=== PATIENT | male | born 1950 | race Caucasian/White ===

== ENCOUNTER 2023-09-09 12:40 | Emergency (ER) | payer MEDICARE, OTHER, SELFPAY ==
[2023-09-09 12:44] VITALS: BP 133/83
[2023-09-09 13:00] VITALS: BP 125/77
[2023-09-09 13:09] LABS: % Basophils 0.5 % (0-2); % Eosinophils 4.1 % (0-6); % Immature Granulocytes 0.5 % (0-0.5); % Lymphocytes 11.9 % (20.5-51.1); Absolute Eosinophils 0.3 10^3/uL (0-0.7); Absolute Lymphocytes 0.8 10^3/uL (1.2-3.4); Absolute Monocytes 0.6 10^3/uL (0.1-0.6); Absolute Neutrophils 4.7 10^3/uL (1.4-6.5); Hematocrit 48.6 % (39.0-52.0); Hemoglobin 16.8 g/dL (13.0-18.0); Mean Corp Hgb Conc. 34.6 g/dL (33.0-37.0); Mean Corpuscular Hgb 30.4 pg (27.0-31.0); Mean Corpuscular Volume 87.9 fL (80.0-94.0); Mean Platelet Volume 9.1 fL (7.4-10.4); Nucleated Red Blood Cells % 0 % (-); Platelet Count 170 10^3/uL (130-400); Red Blood Cell Count 5.53 10^6/uL (4.70-6.10); Red Cell Dist. Width 13.2 % (11.5-14.5); White Blood Cell Count 6.4 10^3/uL (4.8-10.8)
--- NOTE | 2023-09-09 13:16 | ED.GENMED ---
History of Present Illness
General
Chief Complaint: Chest Pain
Source: patient
Exam Limitations: none
Time Seen by Provider: 09/09/23 13:04
Nursing documentation reviewed up to this point in time: agreed with
Travel History
Have you had any contact with someone who has COVID-19?: No
Do you have any symptoms of coronavirus? Fever > 100 degrees, chills, cough, shortness of breath, sore throat, loss of taste or smell, muscle aches, or headache?: No
History of Present Illness
History of Present Illness:
Patient to ED with complaint of left sided chest pain. States pain started last PM. Pain does not radiate. Describes pain as sharp. Reports mild SOB. Has cough but reports this is chronic. No fever/chills. +nausea. No vomiting/diarrhea.
States he had pericarditis 1 year ago, pain feels similar to that event. Reports last night he also developed urinary frequency. He was evaluated by PCP and diagnosed with UTI. Sent to ED when he reported chest pain. Brought to ED via EMS for
eval.
Past History
Past History
ED Past Medical History: Arrthythmia (Atrial fibrillation), COPD, CVA, HTN (Quit last week.), Hypercholesterolemia, Other (hepatitis), Other (pulmonary embolism) and Other (Pericarditis in 1976, DVT in 1999 with an IVC filter, hypertension,blood
clots left leg, with filter)
ED Past Surgical History: Cholecystectomy and Other (left testicular repair, varicose vein stripping,)
Social History
Tobacco: Former smoker
Alcohol: Occasional
Drug: None
Personal:
Living: with family
Employment: Employed
Family History
Family History: Other (Noncontributory )
Review of Systems
Review of Systems
Allergies reviewed?: Yes
All Other Systems: ROS reviewed and negative except as documented in HPI and ROS
Constitutional: Reports no symptoms
EENT: Reports no symptoms
Respiratory: Reports cough (chonic)
Cardiac: Reports chest pain (sharp left chest pain)
ABD/GI: Reports no symptoms
: Reports frequency
Musculoskeletal: Reports no symptoms
Skin: Reports no symptoms
Neurological: Reports no symptoms
Endocrine: Reports no symptoms
Psychiatric: Reports no symptoms
Phy Exam
General Physical Exam
General Presentation: well appearing and no apparent distress
General age: appears stated age
General Skin: warm and dry
General Habitus: normal
General Mental: alert
General Hydration: appears well hydrated
Cardiovascular Exam
Cardiovascular Exam: regular rate/rhythm
Pulmonary Exam
Pulmonary Exam: no respiratory distress
Gastrointestinal Exam
Gastrointestinal Exam: normal bowel sounds and non tender
Musculoskeletal Exam
Musculoskeletal Exam: full ROM and neuro vasc intact
Skin Exam
Skin Exam: normal color, warm/dry and no rash
Psychiatric Exam
Psychiatric Exam: normal mood/affect
Scores
Heart Score for Chest Pain Patients
STEMI patient?: No
History: Slightly or Non-Suspicious
ECG: Normal
Age: >/= 65 years
Risk Factors: 1 or 2 Risk Factors
Troponin: </= Normal Limit
Heart Score for Chest Pain Patients: 3
Heart Score Risk: 2.5% MACE over next 6 weeks
Course
Orders/Labs/Results
Orders:
Orders
09/09/23 12:48
Electrocardiogram (*1) Urgent
Reason for Study: Chest Pain
EKG- Treatment ONCE
09/09/23 12:58
CMP [Comprehensive Metabolic Panel] Urgent
Complete Blood Count/With Diff Urgent
Troponin I Urgent
09/09/23 13:14
CR Chest - 2 Views Urgent
Comment:
Reason For Exam: pain
09/09/23 15:26
Acetaminophen [Tylenol] 1,000 mg PO NOW STA
09/09/23 15:28
0.9% Sodium Chloride 1000 ml [Nss] 1,000 ml IV BOLUS
09/09/23 15:58
Urinalysis Reflex To Culture Urgent
Date Specimen was Collected: 09/09/23
Time Specimen was Collected: 15:57
Urine Microscopic Reflex Cult Urgent
Urine Culture Urgent
BRENDA Source: U
Specimen Description:
Date Specimen was Collected: 09/09/23
Time Specimen was Collected: 15:57
09/09/23 16:51
Amoxicillin 875 mg/Clav 125 mg [Augmentin 875 mg/125 mg] 1 tablet PO NOW STA
Abnormal Lab Results
09/09/23 09/09/23
12:58 15:58
Absolute Lymphs (auto) 0.8 L 10^3/uL
(1.2-3.4)
Lymphocytes % 11.9 L %
(20.5-51.1)
Sodium 134 L mmol/L
(135-145)
Potassium 3.4 L mmol/L
(3.5-5.1)
Glucose 226 H mg/dl
(70-99)
Urine Urobilinogen 2+ A
(Neg - 1+)
Leukocyte Esterase Rfl 1+ A
(Negative)
Urine WBC (Reflex) 11-15 A /HPF
(0-5)
Urine Bacteria (Reflex) Few A
(Negative)
Urine Glucose 1+ A
(Negative)
09/09/23 12:58
09/09/23 12:58
Vital Signs
Initial and Last Documented VS:
Initial Vital Signs
Temp Pulse Resp BP Pulse Ox
98.2 F 91 20 133/83 95
09/09/23 12:44 09/09/23 12:44 09/09/23 12:44 09/09/23 12:44 09/09/23 12:44
Last Documented Vital Signs
Temp Pulse Resp BP Pulse Ox
98.2 F 65 20 130/79 97
09/09/23 12:44 09/09/23 17:15 09/09/23 17:15 09/09/23 17:00 09/09/23 17:15
*Critical Care Note
Total Time (30-74mins, 75-104mins- exclusive of procedures): Not Applicable
ED Attending Note
-
Portions of this chart may have been created with voice recognition software.� Occasional wrong word or��sound alike� substitutions may have occurred due to the inherent limitations of voice recognition software.
Discharge Plan
Departure
Patient Disposition: Home (Routine Discharge)
Date of Disposition: 09/09/23
Time of Disposition: 17:21
Patient with high blood pressure during this ER visit?: No
Condition: Good
Covid-19: Not Applicable
Discharge Problem:
Urinary tract infection
Instructions: Chest Pain That Is Not Caused by the Heart (DC), Urinary Tract Infection, Adult (DC)
Prescriptions:
New
amoxicillin-pot clavulanate 875-125 mg tablet
1 tab PO Q12H Qty: 13 0RF
No Action
diltiazem HCl 240 MG capsule,extended release 24hr
240 mg PO DAILY
hydralazine 50 MG tablet
50 mg PO BID
Hold Instructions: hold until follow up with PCP
Patient Comments:
02/10/2020: Ordered on 01/16/2020 as TID, Pt takes this BID
Xarelto 20 MG tablet
20 mg PO QPM
Patient Comments:
losartan 50 MG tablet
100 mg PO DAILY
chlorthalidone 25 MG tablet
25 mg PO DAILY
pantoprazole 40 MG tablet,delayed release (DR/EC)
40 mg PO DAILY
eszopiclone [Lunesta] 3 MG tablet
3 mg PO HS
furosemide 20 MG tablet
20 mg PO HS
potassium chloride [Klor-Con M20] 20 MEQ tablet,ER particles/crystals
20 meq PO BID
atorvastatin 20 MG tablet
20 mg PO QPM
GlipiZIDE
5 mg PO DAILY
Rx Instructions:
extended release
docusate sodium 100 MG capsule
100 mg PO BID Qty: 0 0RF
cephalexin 500 mg capsule
500 mg PO Q8H 7 Days Qty: 21 0RF
levofloxacin 750 mg tablet
750 mg PO DAILY 5 Days Qty: 5 0RF
phenazopyridine [Pyridium] 200 mg tablet
200 mg PO TID Qty: 10 0RF
Referrals:
Steffen Dao MD [Family Provider] - Follow up in 2-3 days
Activity Restrictions/Additional Instructions:
Return to the emergency department immediately for any changes in/worsening of your symptoms
Interventions
Interventions:
*Risk Screen - Suicide Last Done: 09/09/23 12:44
*General Assessment Last Done: 09/09/23 12:44
*Neglect/Abuse Screening Last Done: 09/09/23 12:44
ED- Fall Risk Assessment Last Done: 09/09/23 12:56
*ED COVID-19 Vaccine History Last Done: 09/09/23 12:44
*Nursing Disposition Last Done: 09/09/23 17:36
ED- Cardiac Assessment Last Done: 09/09/23 12:53
Discharge Date and Time
Discharge Date/Time: 09/09/23 17:37
[2023-09-09 13:19] LABS: ALT (SGPT) 22 U/L (0-50); AST (SGOT) 26 U/L (17-59); Albumin 3.9 g/dl (3.5-5.0); Alkaline Phosphatase 102 U/L (38-126); Blood Urea Nitrogen 14 mg/dl (9-20); Calcium 8.6 mg/dl (8.4-10.2); Carbon Dioxide 27 mmol/L (22-30); Chloride 100 mmol/L (98-107); Glucose 226 mg/dl (70-99); Potassium 3.4 mmol/L (3.5-5.1); Sodium 134 mmol/L (135-145); Total Protein 6.5 g/dl (6.3-8.2); eGFR > 60.00
[2023-09-09 13:30] LABS: Troponin I < 0.012 ng/ml
[2023-09-09] MEDS: TYLENOL 1000 MG PO (15:32)
[2023-09-09] MEDS: NSS 1000 IV (15:33)
[2023-09-09 16:00] VITALS: BP 133/68
[2023-09-09 16:12] LABS: Urine Albumin Negative (Neg - Trace); Urine Bilirubin Negative (Negative); Urine Character Clear (Clear); Urine Color Yellow; Urine Glucose 1+ (Negative); Urine Ketone Negative (Negative); Urine Leukocyte 1+ (Negative); Urine Nitrite Negative (Negative); Urine Occult Blood Negative (Negative); Urine Specific Gravity 1.015 (<1.030); Urine Urobilinogen 2+ (Neg - 1+)
[2023-09-09 16:26] LABS: Urine Mucus Few
[2023-09-09 16:27] LABS: Urine Bacteria Few (Negative); Urine Red Blood Cell 0-2 /HPF (0-2); Urine Squamous Cell 0-2 /LPF (Few)
[2023-09-09] MEDS: AUGMENTIN 875 MG/125 MG 1 TABLET PO (16:56)
[2023-09-09 17:00] VITALS: BP 130/79
== END 2023-09-09 17:37 | disposition home or self-care (01) ==
LOC: EMR 12:40
PROVIDERS: Nurse Practitioner; EMERGENCY PHYSICIAN Emergency Medicine; FAMILY PHYSICIAN Family Medicine
DX: N39.0 Urinary tract infection, site not specified (principal)
CPT/HCPCS: 99285; 96360; 71046; 80053; 81003; 81015; 84484; 85025; 87086; 93005

== ENCOUNTER → 2023-09-16 12:19 | Outpatient (REF) | payer MEDICARE, OTHER, SELFPAY ==
[2023-09-16 19:17] LABS: Urine Albumin Negative (Neg - Trace); Urine Bilirubin Negative (Negative); Urine Character Clear (Clear); Urine Color Yellow; Urine Glucose 1+ (Negative); Urine Ketone Trace (Negative); Urine Leukocyte Trace (Negative); Urine Nitrite Negative (Negative); Urine Occult Blood Negative (Negative); Urine Specific Gravity 1.015 (<1.030); Urine Urobilinogen 2+ (Neg - 1+)
[2023-09-16 19:24] LABS: Urine Red Blood Cell None Seen /HPF (0-2); Urine Squamous Cell 0-2 /LPF (Few)
== END ==
LOC: CLAB 12:19
PROVIDERS: ATTENDING PHYSICIAN Physician Assistant Medical
DX: R30.0 Dysuria (principal)
CPT/HCPCS: 81003; 81015

== ENCOUNTER → 2023-09-29 11:31 | Outpatient (REF) | payer MEDICARE, OTHER, SELFPAY ==
[2023-09-29 12:37] LABS: Sodium 136 mmol/L (135-145)
== END ==
LOC: REG 11:31
PROVIDERS: ATTENDING PHYSICIAN Physician Assistant Medical
DX: Z09 Encounter for follow-up examination after completed treatment for conditions other than malignant neoplasm (principal); R07.9 Chest pain, unspecified; M15.0 Primary generalized (osteo)arthritis; K43.2 Incisional hernia without obstruction or gangrene; I65.23 Occlusion and stenosis of bilateral carotid arteries; I63.50 Cerebral infarction due to unspecified occlusion or stenosis of unspecified cerebral artery; G45.9 Transient cerebral ischemic attack, unspecified; E66.01 Morbid (severe) obesity due to excess calories; R97.20 Elevated prostate specific antigen [PSA]; C61 Malignant neoplasm of prostate; G47.33 Obstructive sleep apnea (adult) (pediatric); E11.59 Type 2 diabetes mellitus with other circulatory complications; G47.00 Insomnia, unspecified; K76.0 Fatty (change of) liver, not elsewhere classified; J98.4 Other disorders of lung; I48.11 Longstanding persistent atrial fibrillation; Z86.73 Personal history of transient ischemic attack (TIA), and cerebral infarction without residual deficits
CPT/HCPCS: 36415; 84132; 84295

== ENCOUNTER → 2023-10-13 14:59 | Outpatient (REF) | payer MEDICARE, OTHER, SELFPAY | LOC: RAD 14:59 | PROVIDERS: ATTENDING PHYSICIAN Family Medicine | DX: R30.0 Dysuria (principal) | CPT/HCPCS: 87086 ==

== ENCOUNTER → 2023-10-30 14:35 | Outpatient (REF) | payer MEDICARE, OTHER, SELFPAY | LOC: RAD 14:35 | PROVIDERS: ATTENDING PHYSICIAN Family Medicine | DX: M25.561 Pain in right knee (principal); M25.562 Pain in left knee; R29.898 Other symptoms and signs involving the musculoskeletal system | CPT/HCPCS: 73564 ==

== ENCOUNTER 2023-11-01 15:40 | Inpatient (IN) | payer MEDICARE, OTHER, SELFPAY ==
[2023-11-01] VITALS (9 sets, daily range): BP systolic 120–152; BP diastolic 92–112; BMI 37.8
[2023-11-01 11:55] LABS: % Basophils 0.2 % (0-2); % Eosinophils 0.5 % (0-6); % Immature Granulocytes 0.6 % (0-0.5); % Lymphocytes 7.4 % (20.5-51.1); % Monocytes 8.5 % (1.7-9.3); % Neutrophils 82.8 % (42.2-75.2); Absolute Eosinophils 0.1 10^3/uL (0-0.7); Absolute Immature Granulocytes 0.1 10^3/uL (0-0.05); Absolute Lymphocytes 0.7 10^3/uL (1.2-3.4); Absolute Monocytes 0.9 10^3/uL (0.1-0.6); Absolute Neutrophils 8.3 10^3/uL (1.4-6.5); Hematocrit 54.6 % (39.0-52.0); Hemoglobin 18.5 g/dL (13.0-18.0); Mean Corp Hgb Conc. 33.9 g/dL (33.0-37.0); Mean Corpuscular Hgb 30.1 pg (27.0-31.0); Mean Corpuscular Volume 88.8 fL (80.0-94.0); Mean Platelet Volume 9.5 fL (7.4-10.4); Nucleated Red Blood Cells % 0 % (-); Platelet Count 187 10^3/uL (130-400); Red Blood Cell Count 6.15 10^6/uL (4.70-6.10); Red Cell Dist. Width 13.9 % (11.5-14.5)
[2023-11-01 12:12] LABS: ALT (SGPT) 23 U/L (0-50); AST (SGOT) 19 U/L (17-59); Albumin 3.7 g/dl (3.5-5.0); Alkaline Phosphatase 93 U/L (38-126); Blood Urea Nitrogen 26 mg/dl (9-20); Calcium 9.3 mg/dl (8.4-10.2); Carbon Dioxide 29 mmol/L (22-30); Chloride 101 mmol/L (98-107); Estimated Creatinine Clearance 78 ml/min; Glucose 180 mg/dl (70-99); Lipase 48 U/L (23-300); Potassium 3.7 mmol/L (3.5-5.1); Sodium 135 mmol/L (135-145); Total Bilirubin 1.2 mg/dl (0.2-1.3); Total Protein 6.2 g/dl (6.3-8.2); eGFR > 60.00
[2023-11-01] MEDS: DILAUDID 1 MG IV ×3 (13:15→22:26)
--- NOTE | 2023-11-01 13:38 | ED.GENMED ---
History of Present Illness
<Colin Palafox DO - Last Filed: 11/01/23 14:50>
General
Chief Complaint: Abdominal Pain
Time Seen by Provider: 11/01/23 12:43
Travel History
Have you had any contact with someone who has COVID-19?: No
Do you have any symptoms of coronavirus? Fever > 100 degrees, chills, cough, shortness of breath, sore throat, loss of taste or smell, muscle aches, or headache?: No
<Isabell Clayton PA-C - Last Filed: 11/15/23 21:57>
General
Source: patient
Exam Limitations: none
Nursing documentation reviewed up to this point in time: agreed with
History of Present Illness
History of Present Illness:
pt is a 73 y/o F with h/o copd, PE,afib on xarelto, cva
pt bhakta h/o UTI
was on keflex over the past 3 weeks for uti
2 days ago he started having abd pain. he called pcp who told him to try tylenol and stopo the keflex which he did but the pain got worse, nausea, but no vomiting
had some abdomina ldistention
he has a h/o abdminal hernia with SBO s/p surgery a year ago
able to pass gas
Past History
<Colin Palafox DO - Last Filed: 11/01/23 14:50>
Past History
ED Past Medical History: Arrthythmia (Atrial fibrillation), COPD, CVA, HTN (Quit last week.), Hypercholesterolemia, Other (hepatitis), Other (pulmonary embolism) and Other (Pericarditis in 1976, DVT in 1999 with an IVC filter, hypertension,blood
clots left leg, with filter)
ED Past Surgical History: Cholecystectomy and Other (left testicular repair, varicose vein stripping,)
Social History
Tobacco: Former smoker
Alcohol: Occasional
Drug: None
Personal:
Living: with family
Employment: Employed
Family History
Family History: Other (Noncontributory )
Review of Systems
<Isabell Clayton PA-C - Last Filed: 11/15/23 21:57>
Review of Systems
Allergies reviewed?: Yes
All Other Systems: Not applicable
Phy Exam
<Isabell Clayton PA-C - Last Filed: 11/15/23 21:57>
Physical Exam
Physical Exam:
GENERAL: Alert , very uncomfortable
EYE: pupils equal and reactive
NECK: Supple
ENT: o/p clr, mmm.
CARDIAC: Regular rate and rhythm .
LUNGS: Clear breath sounds bilaterally, no acute respiratory distress, no wheezes/rales/rhonchi
ABDOMEN: Soft, distneded; tender, uncomfortable, rolling around in the bed
appreicate hernia
no cvat, normal bowel sounds
NEUROLOGICAL: Alert and oriented, no focal neuro deficits
SKIN: Warm and dry, skin intact.
MUSCULOSKELETAL: No edema, well perfused.
PSYCH: Normal and appropriate interaction.
Course
<Colin Palafox DO - Last Filed: 11/01/23 14:50>
Orders/Labs/Results
Orders:
Orders
11/01/23 11:45
Complete Blood Count/With Diff Urgent
Comprehensive Metabolic Panel Urgent
Lipase Urgent
11/01/23 13:10
Bladder Scan- Treatment ONCE
HYDROmorphone [Dilaudid] 1 mg IV NOW STA
11/01/23 13:11
CT Abd/Pel (IV only)-DH only Urgent
Comment:
Reason For Exam: severe abd pain, distension
11/01/23 14:11
0.9% Sodium Chloride 500 ml [Nss] 500 ml IV BOLUS
11/01/23 14:16
Lactic Acid Urgent
11/01/23 15:25
Admit/Transfer Patient As Directed
Co-Sign Provider:
Level of Care: Inpatient admission
Assign to:: Medical/Surgical
Physician / Group: hospitalist
Diagnosis: Small bowel obstruction
Reason for Hospitalization: small bowel obstruction
Expected length of stay greater than two midnights?: Yes
ELOS- Estimated Length of Stay in days: 2
I certify the patient meets the requirements for IP care: Yes
11/01/23 15:27
Code Status As Directed
Resuscitation Status: Full Code
11/01/23 16:35
Urinalysis Reflex To Culture Urgent
Date Specimen was Collected: 11/01/23
Time Specimen was Collected: 14:03
Urine Microscopic Reflex Cult Urgent
11/01/23 16:36
HYDROmorphone [Dilaudid] 1 mg IV Q4HPRN PRN
11/01/23 17:02
Acetaminophen [Tylenol] 650 mg PO Q4HPRN PRN
Docusate W/Senna [Senokot-S] 1 tablet PO BIDPRN PRN
Insulin Aspart Corrective Low [Novolog Flexpen-Low Resistance] See Protocol SC AC
Lactated Ringers [Lr] 1,000 ml IV 50 mls/hr
Ondansetron Injectable [Zofran] 4 mg IV Q6HPRN PRN
11/01/23 17:02
VTE Contraindication Routine
VTE Mechanical Device Contraindication: Medical Contraindication
Pharmocologic Contraindication: Medical Contraindication
Comment: On treatment dose rivaroxaban
Activity As Directed
Activity Level: With Assistance
Bedside Glucose Monitoring As Directed
Frequency: AC&HS
Vital Signs As Directed
Frequency: Per unit guidelines
11/01/23 22:00
Atorvastatin [Lipitor] 20 mg PO HS
Rivaroxaban [Xarelto] 20 mg PO HS
11/02/23 06:36
Basic Metabolic Panel IN AM
Complete Blood Count/No Diff IN AM
11/02/23 07:30
Advance Diet as Tolerated AC
Goal Diet: 1800 howard/ 15 CHO Diabetic
11/02/23 08:00
Chlorthalidone [Hygroton] 25 mg PO DAILY
Diltiazem Extended Release [Cardizem Cd] 240 mg PO DAILY
Losartan [Cozaar] 100 mg PO DAILY
Pantoprazole [Protonix] 40 mg PO DAILY
Abnormal Lab Results
11/01/23
11:45
RBC 6.15 H 10^6/uL
(4.70-6.10)
Hgb 18.5 H g/dL
(13.0-18.0)
Hct 54.6 H %
(39.0-52.0)
Abs Immat Gran (auto) 0.1 H 10^3/uL
(0-0.05)
Absolute Neuts (auto) 8.3 H 10^3/uL
(1.4-6.5)
Absolute Lymphs (auto) 0.7 L 10^3/uL
(1.2-3.4)
Absolute Monos (auto) 0.9 H 10^3/uL
(0.1-0.6)
Immature Gran % 0.6 H %
(0-0.5)
Neutrophils % 82.8 H %
(42.2-75.2)
Lymphocytes % 7.4 L %
(20.5-51.1)
BUN 26 H mg/dl
(9-20)
Glucose 180 H mg/dl
(70-99)
Total Protein 6.2 L g/dl
(6.3-8.2)
11/01/23 11:45
11/01/23 11:45
Vital Signs
Initial and Last Documented VS:
Initial Vital Signs
Temp Pulse Resp BP
97.5 F 85 22 120/92
11/01/23 11:35 11/01/23 11:35 11/01/23 11:35 11/01/23 11:35
Last Documented Vital Signs
Temp Pulse Resp BP Pulse Ox
98.8 F 87 20 121/83 94
11/05/23 13:00 11/05/23 13:00 11/05/23 13:00 11/05/23 13:00 11/05/23 13:00
<Isabell Clayton PA-C - Last Filed: 11/15/23 21:57>
Orders/Labs/Results
Orders:
Orders
11/01/23 11:45
Complete Blood Count/With Diff Urgent
Comprehensive Metabolic Panel Urgent
Lipase Urgent
11/01/23 13:10
Bladder Scan- Treatment ONCE
HYDROmorphone [Dilaudid] 1 mg IV NOW STA
11/01/23 13:11
CT Abd/Pel (IV only)-DH only Urgent
Comment:
Reason For Exam: severe abd pain, distension
11/01/23 14:11
0.9% Sodium Chloride 500 ml [Nss] 500 ml IV BOLUS
11/01/23 14:16
Lactic Acid Urgent
11/01/23 15:25
Admit/Transfer Patient As Directed
Co-Sign Provider:
Level of Care: Inpatient admission
Assign to:: Medical/Surgical
Physician / Group: hospitalist
Diagnosis: Small bowel obstruction
Reason for Hospitalization: small bowel obstruction
Expected length of stay greater than two midnights?: Yes
ELOS- Estimated Length of Stay in days: 2
I certify the patient meets the requirements for IP care: Yes
11/01/23 15:27
Code Status As Directed
Resuscitation Status: Full Code
11/01/23 16:35
Urinalysis Reflex To Culture Urgent
Date Specimen was Collected: 11/01/23
Time Specimen was Collected: 14:03
Urine Microscopic Reflex Cult Urgent
11/01/23 16:36
HYDROmorphone [Dilaudid] 1 mg IV Q4HPRN PRN
11/01/23 17:02
Acetaminophen [Tylenol] 650 mg PO Q4HPRN PRN
Docusate W/Senna [Senokot-S] 1 tablet PO BIDPRN PRN
Insulin Aspart Corrective Low [Novolog Flexpen-Low Resistance] See Protocol SC AC
Lactated Ringers [Lr] 1,000 ml IV 50 mls/hr
Ondansetron Injectable [Zofran] 4 mg IV Q6HPRN PRN
11/01/23 17:02
VTE Contraindication Routine
VTE Mechanical Device Contraindication: Medical Contraindication
Pharmocologic Contraindication: Medical Contraindication
Comment: On treatment dose rivaroxaban
Activity As Directed
Activity Level: With Assistance
Bedside Glucose Monitoring As Directed
Frequency: AC&HS
Vital Signs As Directed
Frequency: Per unit guidelines
11/01/23 22:00
Atorvastatin [Lipitor] 20 mg PO HS
Rivaroxaban [Xarelto] 20 mg PO HS
11/02/23 06:36
Basic Metabolic Panel IN AM
Complete Blood Count/No Diff IN AM
11/02/23 07:30
Advance Diet as Tolerated AC
Goal Diet: 1800 howard/ 15 CHO Diabetic
11/02/23 08:00
Chlorthalidone [Hygroton] 25 mg PO DAILY
Diltiazem Extended Release [Cardizem Cd] 240 mg PO DAILY
Losartan [Cozaar] 100 mg PO DAILY
Pantoprazole [Protonix] 40 mg PO DAILY
Abnormal Lab Results
11/01/23
11:45
RBC 6.15 H 10^6/uL
(4.70-6.10)
Hgb 18.5 H g/dL
(13.0-18.0)
Hct 54.6 H %
(39.0-52.0)
Abs Immat Gran (auto) 0.1 H 10^3/uL
(0-0.05)
Absolute Neuts (auto) 8.3 H 10^3/uL
(1.4-6.5)
Absolute Lymphs (auto) 0.7 L 10^3/uL
(1.2-3.4)
Absolute Monos (auto) 0.9 H 10^3/uL
(0.1-0.6)
Immature Gran % 0.6 H %
(0-0.5)
Neutrophils % 82.8 H %
(42.2-75.2)
Lymphocytes % 7.4 L %
(20.5-51.1)
BUN 26 H mg/dl
(9-20)
Glucose 180 H mg/dl
(70-99)
Total Protein 6.2 L g/dl
(6.3-8.2)
11/01/23 11:45
11/01/23 11:45
Vital Signs
Initial and Last Documented VS:
Initial Vital Signs
Temp Pulse Resp BP
97.5 F 85 22 120/92
11/01/23 11:35 11/01/23 11:35 11/01/23 11:35 11/01/23 11:35
Last Documented Vital Signs
Temp Pulse Resp BP Pulse Ox
98.8 F 87 20 121/83 94
11/05/23 13:00 11/05/23 13:00 11/05/23 13:00 11/05/23 13:00 11/05/23 13:00
<Isabell Clayton PA-C - Last Filed: 11/15/23 21:57>
MDM/Problems Addressed
Differential Diagnosis Includes:
hernia, sbo, ischemia
MDM/Problems Addressed:
73 y/o M with previous sbo, hernia
here with severe abd pain
started 2 days ago
on abx for UTI
passing gas, not vomiting, o fever
on exam very uncomfottable prior to pain meds, difficult to examine abdomen
has hernia
on ct shows sbo at the level of the in the location of his hernia
seen by surgery who was able to reduce at bedside
admit to hospitalist.
<Isabell Clayton PA-C - Last Filed: 11/15/23 21:57>
*Critical Care Note
Total Time (30-74mins, 75-104mins- exclusive of procedures): Not Applicable
ED Attending Note
<Colin Palafox DO - Last Filed: 11/01/23 14:50>
ED Attending Note
Patient seen and examined by attending physician: Yes
I performed the substantive portion of visit, reviewed & personally made and approve the management plan that is documented in note by myself or AYANA.: Yes
ED Attending Note:
73-year-old male with abdominal function. Previous bowel obstructions and surgeries noted. Assessment and plan: Exam shows distended tympanitic abdomen. Surgery at bedside.
-
Portions of this chart may have been created with voice recognition software.� Occasional wrong word or��sound alike� substitutions may have occurred due to the inherent limitations of voice recognition software.
Discharge Plan
Departure
Patient Disposition: Admit
Date of Disposition: 11/01/23
Time of Disposition: 14:13
Admit to: Med/Surg
Presentation/result/management discussed w/ accepting MD/DO: Hospitalist
Patient with high blood pressure during this ER visit?: No
Condition: Fair
Covid-19: Not Applicable
Discharge Problem:
SBO (small bowel obstruction)
Interventions
Interventions:
*Risk Screen - Suicide Last Done: 11/01/23 13:30
*General Assessment Last Done: 11/01/23 11:35
*Neglect/Abuse Screening Last Done: 11/01/23 13:30
ED- Fall Risk Assessment Last Done: 11/01/23 13:30
*ED COVID-19 Vaccine History Last Done: 11/01/23 11:35
*Nursing Disposition Last Done: 11/01/23 17:15
QY-Nwswea-Pzgwqictwn Assessment Last Done: 11/01/23 13:30
Discharge Date and Time
Discharge Date/Time: 11/01/23 17:15
[2023-11-01] MEDS: NSS 500 IV (14:42)
[2023-11-01 14:47] LABS: Lactic Acid 1.8 mmol/L (0.7-2.0)
--- NOTE | 2023-11-01 14:58 | CON.GS ---
Addendum entered and electronically signed by Akash Downey MD 11/01/23 15:45:
I saw and examined the patient independently.
The Hand Former's note was reviewed and I agree with the note, assessment and plan except where noted below.
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
laparotomy in the early for unclear reasons but had a complex hospital stay and to return to the OR before he had what sounds like a mesh repair. Presents to our hospital in the setting of a recent UTI (currently on cephalexin) with a 2-day
history of abdominal pain and obstipation. The patient denies Fever, Chest Pain, Shortness Of Breath, Nausea, Vomiting, changes in urinary habits, unintentional weight loss. He underwent a CT scan here in our emergency department where he was
diagnosed with a small bowel obstruction with a transition point at the superior aspect of his incisional hernia. Fortunately on exam, it is soft and reducible and the defect is readily palpable despite his body habitus. In addition and he was
actually seen in September of last year for similar presentation and his CT scan from that time (which I also reviewed) showed a similar hernia/transition point. He was able to be managed nonoperatively then.
N.p.o., IV fluids. Can hold off on an NG tube for now as long as the patient does not have worsening nausea or vomiting. If he does please place an NG tube, given his small naris will likely be able only to pass a 14 Persian NG.
Will manage his small bowel obstruction nonoperatively for now.
General surgery will follow with serial abdominal exams.
I did discuss the need for surgery and repair of this hernia at some point we will discuss either potentially this admission if he does not improve versus electively as an outpatient.
I spent roughly 60 minutes in total for the care of this patient today including direct patient care and counseling, reviewing labs, imaging, coordination of care, as well as documentation.
Original Note:
Consultation
-
Date/Time Consultation Requested: 11/01/23
Date/Time Consultation Performed: Matilde
Requesting Provider: Karin Downey
Reason for Consultation: sbo
Medical History
-
Chief Complaint: abdominal pain
History of Present Illness:
This is a 73 yo male on Xarelto with h/o obesity, AFIB, DVT/PE, IVC filter, DM, CVA, ROGELIO, open cholecystectomy , UHR in , prior ex lap in early at [facility] (he is unsure what prompted the original surgery) with return to dehiscence and
return to the OR and eventual VHR with mesh, currently on cephalexin for UTI. He was admitted in September of last year and in 2012 for SBOs which resolved nonoperatively with supportive measures. He presents today with increasing abdominal pain which
started yesterday and worsened causing him to present for evaluation. He denies nausea and vomiting. He has not passed flatus since yesterday. There is an umbilical hernia present but reducible/soft. He notes pain is much improved status post IV
analgesics. There is minimal tenderness to the mid abdomen with palpation.
Past Medical History
Past Medical History: Cancer (prostate), COPD, CVA, HTN, Hypercholesterolemia, NIDDM and Other (PE/DVT, IVC filter)
Past Surgical History: Cholecystectomy (open), Hernia Repair (Umbilical and Ventral) and Urological (left orchiectomy at age 16 )
Social History
Tobacco: Former Smoker
Alcohol: Occasional
Personal:
Living: With Family
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
Family History
Family History: Reviewed & Not Pertinent
Allergies / Home Medications
Allergy/AdvReac Type Severity Reaction Status Date / Time
adhesive Allergy TAPE-RASH Verified 11/01/23 11:43
latex Allergy Hives Verified 11/01/23 11:43
metoclopramide HCl Allergy muscle Verified 11/01/23 11:43
[From Reglan] twitching
oxycodone [From Percocet] Allergy Vomiting Verified 11/01/23 11:43
oxycodone terephthalate Allergy vomiting Verified 11/01/23 11:43
[From Percodan]
prochlorperazine maleate Allergy vomiting Verified 11/01/23 11:43
[From Compazine]
propoxyphene HCl Allergy vomiting Verified 11/01/23 11:43
[From Darvon]
�Medication �Instructions �Recorded �Confirmed �Type
diltiazem HCl 240 mg 240 mg PO DAILY Blood pressure 12/20/14 10/08/22 History
capsule,extended release 24 hr
hydralazine 50 mg tablet 50 mg PO BID Blood pressure 09/16/16 10/08/22 History
rivaroxaban 20 mg tablet (Xarelto) 20 mg PO QPM Blood clot 09/16/16 10/08/22 History
prevention/tx
losartan 50 mg tablet 100 mg PO DAILY Blood pressure 01/13/18 10/08/22 History
chlorthalidone 25 mg tablet 25 mg PO DAILY Fluid 01/21/18 10/08/22 History
retention/Swelling
pantoprazole 40 mg tablet,delayed 40 mg PO DAILY Gastrointestinal 01/21/18 10/08/22 History
release issue
eszopiclone 3 mg tablet (Lunesta) 3 mg PO HS Sleep 02/10/20 10/08/22 History
furosemide 20 mg tablet 20 mg PO HS Fluid 02/10/20 10/08/22 History
retention/Swelling
potassium chloride 20 mEq 20 meq PO BID Supplement 02/11/20 10/08/22 History
tablet,extended
release(part/cryst) (Klor-Con M)
atorvastatin 20 mg tablet 20 mg PO QPM High cholesterol 05/09/20 10/08/22 History
GlipiZIDE 5 mg PO DAILY Diabetes 12/05/20 10/08/22 History
docusate sodium 100 mg capsule 100 mg PO BID #0 caps 10/14/22 10/08/22 Rx
cephalexin 500 mg capsule 500 mg PO Q8H 7 days #21 caps 04/16/23 Rx
levofloxacin 750 mg tablet 750 mg PO DAILY 5 days #5 tabs 04/19/23 Rx
phenazopyridine 200 mg tablet 200 mg PO TID #10 tabs 04/19/23 Rx
(Pyridium)
amoxicillin 875 mg-potassium 1 tab PO Q12H #13 tabs 09/09/23 Rx
clavulanate 125 mg tablet
Review of Systems
-
History Source: Patient and Family
All other systems: Negative unless noted
A 10 point review of systems was completed, and was negative except as per HPI.
Physical Exam
Vital Signs
Temp Pulse Resp BP
97.5 F 82 16 152/104
11/01/23 11:35 11/01/23 13:52 11/01/23 12:15 11/01/23 13:51
10/31/23 11/01/23 11/02/23
06:59 06:59 06:59
Actual Weight 109.3 kg
Body Mass Index (BMI) 37.8
Lab Results
11/01/23 11:45
11/01/23 11:45
WBC 10.0 10^3/uL (4.8-10.8) 11/01/23 11:45
Hgb 18.5 g/dL (13.0-18.0) H 11/01/23 11:45
Hct 54.6 % (39.0-52.0) H 11/01/23 11:45
Plt Count 187 10^3/uL (130-400) 11/01/23 11:45
Abs Immat Gran (auto) 0.1 10^3/uL (0-0.05) H 11/01/23 11:45
Neutrophils % 82.8 % (42.2-75.2) H 11/01/23 11:45
Physical Exam
General: Well Developed
HEENT: Moist Mucous Membranes
Respiratory: Non Labored Respirations
GI: Soft, Tender (minimally), Obese and Other (Umbilical hernia, reducible/soft)
Skin: Warm and Dry
Neuro: Awake, Alert and AO x 3
Psych: Calm
Assessment / Plan
-
73 yo male on Xarelto (LD 10/31/23 pm) and multiple intraabdominal surgeries including open cholecystectomy and ex lap with dehiscence and eventual ventral hernia repair with mesh with SBO x2 since that time, the last being in 2022. He presents today
with abdominal pain with CT imaging in the ED noting small bowel obstruction with likely transition point within the umbilical hernia. The hernia was able to be reduced at bedside/soft. Minimal tenderness.
--No plans for emergent surgery today, will hopefully have resolution with nonoperative measures
--Keep NPO. NGT placement if develops nausea and vomiting, hold off for now
--Hold Xarelto in case surgical intervention warranted this admission
--Medical management as per hospitalist team
--- NOTE | 2023-11-01 15:10 | HPS.HSE ---
Family Physician
-
Family Physician: Steffen Dao
Chief Complaint
-
Abdominal pain
History of Present Illness
This is a 50-year-old male with past medical history of dm II, atrial fibrillation on anticoagulation, factor V Leiden mutation heterozygous, hypertension, CAD, COPD, morbid obesity, recurrent urinary tract infection who presents to the emergency
department following 2 days of acute onset bilateral lower quadrant abdominal pain.
Patient apparently had been recently treated again for urinary tract infection. He was placed on a long cephalexin for about 3 weeks. He reported that started having symptoms of abdominal pain 2 days ago. He reported dizziness to his PMD who
asked him to stop the cephalexin and take Tylenol. However patient continued to have pain which became more intense. There was associated nausea but no vomiting. There was no diarrhea. There was no radiation. He was unable to tolerate p.o. He
started noticing increasing abdominal distention and was asked to come to the emergency department.
Of note patient has a history of abdominal hernia pressure small bowel obstruction status post surgical repair a year ago.
In the ED he was initially hypertensive, with a BP of 150/104 pulse was 80 respiratory was 16. He was afebrile. CBC was unremarkable. Chemistries were also within normal limits. CT of the abdomen pelvis showed a small bowel obstruction with
transition point at the umbilical hernia site. Surgery was consulted. He was evaluated and they did a manual reduction with resolution of the umbilical hernia. Patient still has abdominal distention at this time. However it does not require
immediate surgery nor does he require NG tube placement at this time.
Medical History
Past Medical History
Past Medical History: Reports Arrhythmia, CAD, COPD, HTN, Hypercholesterolemia and NIDDM
Additional Past Medical History:
prostate Ca s/p radiation tx
Morbid obesity
Factor 5 leiden heterozygous mutation
Past Surgical History: Reports Other
Additional Past Surgical History:
Abdominal hernia repair
Social History
Tobacco: Former Smoker
Alcohol: Occasional
Drug: None
Personal:
Living: With Family
Employment: Retired
Family History
Family History: Not pertinent
Allergies / Home Medications
Allergies reflects when Allergies were last updated in [facility].
Home Medications with original date entered in [facility]
Allergy/Medication List:
Allergies
Allergy/AdvReac Type Severity Reaction Status Date / Time
adhesive Allergy TAPE-RASH Verified 11/01/23 11:43
latex Allergy Hives Verified 11/01/23 11:43
metoclopramide HCl Allergy muscle Verified 11/01/23 11:43
[From Reglan] twitching
oxycodone [From Percocet] Allergy Vomiting Verified 11/01/23 11:43
oxycodone terephthalate Allergy vomiting Verified 11/01/23 11:43
[From Percodan]
prochlorperazine maleate Allergy vomiting Verified 11/01/23 11:43
[From Compazine]
propoxyphene HCl Allergy vomiting Verified 11/01/23 11:43
[From Darvon]
Home Medications
diltiazem HCl 240 mg capsule,extended release 24 hr 240 mg PO DAILY Blood pressure 12/20/14
hydralazine 50 mg tablet 50 mg PO BID Blood pressure 09/16/16
rivaroxaban 20 mg tablet (Xarelto) 20 mg PO QPM Blood clot prevention/tx 09/16/16
losartan 50 mg tablet 100 mg PO DAILY Blood pressure 01/13/18
chlorthalidone 25 mg tablet 25 mg PO DAILY Fluid retention/Swelling 01/21/18
pantoprazole 40 mg tablet,delayed release 40 mg PO DAILY Gastrointestinal issue 01/21/18
eszopiclone 3 mg tablet (Lunesta) 3 mg PO HS Sleep 02/10/20
furosemide 20 mg tablet 20 mg PO HS Fluid retention/Swelling 02/10/20
potassium chloride 20 mEq tablet,extended release(part/cryst) (Klor-Con M) 20 meq PO BID Supplement 02/11/20
atorvastatin 20 mg tablet 20 mg PO QPM High cholesterol 05/09/20
GlipiZIDE 5 mg PO DAILY Diabetes 12/05/20
docusate sodium 100 mg capsule 100 mg PO BID #0 caps 10/14/22
cephalexin 500 mg capsule 500 mg PO Q8H 7 days #21 caps 04/16/23
levofloxacin 750 mg tablet 750 mg PO DAILY 5 days #5 tabs 04/19/23
phenazopyridine 200 mg tablet (Pyridium) 200 mg PO TID #10 tabs 04/19/23
amoxicillin 875 mg-potassium clavulanate 125 mg tablet 1 tab PO Q12H #13 tabs 09/09/23
Review of Systems
-
History Source: Patient
Constitutional: Reports No Symptoms
EENT: Reports No Symptoms
Respiratory: Reports No Symptoms
Cardiac: Reports No Symptoms
Abdomen/GI: Reports Abdominal Pain and Nausea
: Reports Urgency
Musculoskeletal: Reports No Symptoms
Skin: Reports No Symptoms
Neurological: Reports No Symptoms
Endocrine: Reports No Symptoms
Hematologic/Lymphatic: Reports No Symptoms
Psych: Reports No Symptoms
Physical Exam
Vital Signs
Vital Signs
Temp Pulse Resp BP
97.5 F 82 16 152/104
11/01/23 11:35 11/01/23 13:52 11/01/23 12:15 11/01/23 13:51
Physical Exam
General: Well Developed, Well Nourished, Appears in Distress and Morbidly Obese
HEENT: NormoCephalic, Anicteric, Moist mucous membranes, Atraumatic, PERRLA and [place] Conjunctivae
Respiratory: Clear
Cardiac: S1/S2 and Irregular Rhythm
Breast: Deferred by me
GI: Normal Bowel Sounds, Tender, Distended and No Hepatosplenomegaly
Rectal: Deferred by Provider
Genito-urinary: Deferred by me
Musculoskeletal: No Clubbing, No Cyanosis and No Edema
Skin: Warm
Neuro: AO x 3
Hematologic/Lymphatic: No Lymphadenopathy
Psych: Calm
Laboratory Results
-
11/01/23 11:45
11/01/23 11:45
Laboratory Results
Lactic Acid 1.8 mmol/L (0.7-2.0) 11/01/23 14:16
Total Bilirubin 1.2 mg/dl (0.2-1.3) 11/01/23 11:45
AST 19 U/L (17-59) 11/01/23 11:45
ALT 23 U/L (0-50) 11/01/23 11:45
Alkaline Phosphatase 93 U/L (38-126) 11/01/23 11:45
Lipase Cancelled 11/01/23 13:10
Data Reviewed
-
CT Scan: Report Reviewed by me and Discussed with Physician
Lab Data: Labs Reviewed by me
Old Records: Reviewed
Impression/Plan
-
IMPRESSION:
73 M w/ multiple commorbiditis presenting with acute onset abdominal pain for 2 days, distension and tenderness to palpation. Found to have a SBO at the umbilical site. Surgery consulted in ED who did external reduction of the hernia. They
discussed that no surgery is required immediately but he will likely need a non-urgent hernia repair to prevent future recurrence. He has positive bowel sounds and is not vomiting. Labs are stable.
PLAN:
1. SBO - Secondary to umbilical hernai s/p reduction. Not passing gas yet. Manual correction by Dr. Hyatt. No immediate surgery recommended.
- admit to [facility]
- clear liquid diet for now, advance in am as tolerated
- pain control and antiemetics
- if uncontrollable nausea or vomiting, will place NGT but not needed at this time
- serial examinations.
- gentle IV fluids overnight
2. Atrial fibrillation - Rate controlled
- continue Xarelto
- continue diltiazem
3. Chronic UTI - on a chronic course of cephalexin. History of prostate ca s/p XRT.
- holding cephalexin per pmd. Negative cultures recently
- check bladder scan for residuals
- f/u with outpatient urology
4. DM II -
- hold glipizide
- sliding scale insulin
5. HTN -
- continue diltiazem, losartan and chlorthalidone
DVT PPX - on xarelto
Full Code
[2023-11-01 16:55] LABS: Urine Albumin Trace (Neg - Trace); Urine Bilirubin Negative (Negative); Urine Character Clear (Clear); Urine Color Yellow; Urine Glucose Negative (Negative); Urine Ketone Negative (Negative); Urine Leukocyte Trace (Negative); Urine Nitrite Negative (Negative); Urine Occult Blood Negative (Negative); Urine Urobilinogen 1+ (Neg - 1+)
[2023-11-01] MEDS: LR 1000 IV (17:15)
[2023-11-01 17:55] LABS: Urine Bacteria Few (Negative); Urine Red Blood Cell 0-2 /HPF (0-2)
[2023-11-01 18:01] LABS: Glucose - Point of Care 149 mg/dl (70-99)
[2023-11-01 21:11] LABS: Glucose - Point of Care 167 mg/dl (70-99)
[2023-11-01] MEDS: XARELTO 20 MG PO (21:36)
[2023-11-01] MEDS: LIPITOR 20 MG PO (21:36)
[2023-11-01] MEDS: MELATONIN 3 MG PO (22:26)
[2023-11-01] MEDS: FLUSH (NSS) 2 FLUSH IV (22:27)
[2023-11-01] MEDS: ZOFRAN 4 MG IV (22:32)
[2023-11-02] MEDS: DILAUDID 1 MG IV ×5 (02:27→21:07)
[2023-11-02] MEDS: FLUSH (NSS) 2 FLUSH IV (02:27)
[2023-11-02 07:00] VITALS: BP 107/64
[2023-11-02 07:13] LABS: Hematocrit 49.9 % (39.0-52.0); Hemoglobin 16.5 g/dL (13.0-18.0); Mean Corp Hgb Conc. 33.1 g/dL (33.0-37.0); Mean Corpuscular Hgb 29.6 pg (27.0-31.0); Mean Corpuscular Volume 89.6 fL (80.0-94.0); Mean Platelet Volume 9.6 fL (7.4-10.4); Platelet Count 158 10^3/uL (130-400); Red Blood Cell Count 5.57 10^6/uL (4.70-6.10); Red Cell Dist. Width 13.9 % (11.5-14.5); White Blood Cell Count 10.8 10^3/uL (4.8-10.8)
[2023-11-02 07:35] LABS: Blood Urea Nitrogen 29 mg/dl (9-20); Calcium 8.8 mg/dl (8.4-10.2); Carbon Dioxide 28 mmol/L (22-30); Chloride 99 mmol/L (98-107); Estimated Creatinine Clearance 97 ml/min; Glucose 138 mg/dl (70-99); Potassium 3.7 mmol/L (3.5-5.1); Sodium 135 mmol/L (135-145); eGFR > 60.00
[2023-11-02 07:50] LABS: Glucose - Point of Care 131 mg/dl (70-99)
[2023-11-02] MEDS: CARDIZEM CD 240 MG PO (08:28)
[2023-11-02] MEDS: PROTONIX 40 MG PO (08:29)
[2023-11-02] MEDS: Hygroton 25 MG PO (08:29)
[2023-11-02] MEDS: COZAAR 100 MG PO (08:29)
--- NOTE | 2023-11-02 08:53 | W.PN.GS2 ---
Today's Communication / Plan
-
Small bowel follow through study
Assessment / Plan
-
73 yo male on Xarelto and multiple intraabdominal surgeries including open cholecystectomy and ex lap with dehiscence and eventual ventral hernia repair with mesh with SBO x2 since that time, the last being in 2022. He presents today with abdominal
pain with CT imaging in the ED w/o oral contrast noting small bowel obstruction with likely transition point within the umbilical hernia. The hernia is reducible at bedside/soft. Minimal tenderness. ?Adhesive SBO.
AFVSS
N/V/Pain overnight. Passed small BM but no flatus
--Keep NPO. NGT placement if further vomiting
--SBFT today to further evaluate
--Would recommend holding Xarelto in case surgical intervention warranted this admission, last given 10/31 pm
--Medical management as per hospitalist team
Subjective Data
-
Date of Service: November 02, 2023
Patient seen and examined at bedside with Dr. Downey. Vomited overnight. Passed a small stool but has not passed flatus. Abdominal pain overnight, currently no pain after IV dilaudid.
Objective Data
-
Intake and Output
11/01/23 11/02/23 11/03/23
06:59 06:59 06:59
Intake Total 600 / 600
Output Total 250 / 250
Balance 350 / 350
Intake:
IV fluids (Total) 600 / 600
Output:
Emesis 100 / 100
Urine, Voided 150 / 150
Vital Signs
Temp Pulse Resp BP Pulse Ox
97.3 F 89 18 134/89 93
11/02/23 07:00 11/02/23 08:28 11/02/23 07:00 11/02/23 08:28 11/02/23 07:00
Lab Results
11/02/23 06:36
11/02/23 06:36
Calcium 8.8 mg/dl (8.4-10.2) 11/02/23 06:36
Total Bilirubin 1.2 mg/dl (0.2-1.3) 11/01/23 11:45
AST 19 U/L (17-59) 11/01/23 11:45
ALT 23 U/L (0-50) 11/01/23 11:45
Alkaline Phosphatase 93 U/L (38-126) 11/01/23 11:45
Total Protein 6.2 g/dl (6.3-8.2) L 11/01/23 11:45
Albumin 3.7 g/dl (3.5-5.0) 11/01/23 11:45
Physical Exam
-
General: NAD
HEENT: Sclera anicteric
Neuro: Alert and Oriented x3
Resp: No distress, RRR
ABD: Soft, mild to mod distention, midline abd with mild tenderness. Umbilical hernia remains soft/reducible
[2023-11-02] MEDS: ZOFRAN 4 MG IV (10:17)
[2023-11-02 12:14] LABS: Glucose - Point of Care 132 mg/dl (70-99)
[2023-11-02] MEDS: LR 1000 IV (12:27)
--- NOTE | 2023-11-02 14:25 | CM ---
Met with pt at bedside
Lives with his in a 2 story home
Describes self as independent, drives
Denies DME in home
Denies past SNF/HH. Has been to [facility] in past
Has ride at d/c
PCP - DR La Dao
Pharm - [facility]
Plan - anticipate home no needs
[2023-11-02 15:00] VITALS: BP 120/56
--- NOTE | 2023-11-02 16:09 | W.PN.HOSP.TC ---
Today's Communication/Plan
-
monitor for recovery of bowel function
Assessment / Plan
Assessment / Plan
1. Small bowel obstruction
-CT abdomen pelvis in ER showing small bowel obstruction with transition point near umbilical hernia site
-ER CT abdomen was without oral contrast, patient declined to get small bowel follow-through has did not tolerate oral contrast
-Maintaining n.p.o. on IV fluid
-Patient stated of passing gas. Minimal to no bowel sounds on auscultation.
-Some nausea but no vomiting.
2. Atrial fibrillation - Rate controlled
-hold xarelto
-continue diltiazem
3. Chronic UTI
-on a chronic course of cephalexin. History of prostate ca s/p XRT.
-holding cephalexin per pmd. Negative cultures recently
-f/u with outpatient urology
4. DM II -
- hold glipizide
- sliding scale insulin
5. Essential HTN
- continue diltiazem, losartan and chlorthalidone
DVT PPX - on xarelto
Full Code
11/01 Discussed with spouse that patient has declined small bowel follow-through. Possibly due to patient feeling nauseous with oral contrast needed for small bowel follow-through.
Anticipated Discharge: 24 - 48 hours
Subjective/Interval History
-
Date of Service: November 02, 2023
denies abd pain
no nausea/vomiting in night
passing gas
Objective Data
-
Labs:
Laboratory Results
11/02/23
06:36
WBC 10.8
Hgb 16.5
Hct 49.9
Plt Count 158
Sodium 135
Potassium 3.7
Chloride 99
Carbon Dioxide 28
BUN 29 H
Creatinine 0.8
Glucose 138 H
Calcium 8.8
Vital Signs:
Vital Signs
Temp Pulse Resp BP Pulse Ox
97.7 F 81 16 120/56 95
11/02/23 15:00 11/02/23 15:00 11/02/23 15:00 11/02/23 15:00 11/02/23 15:00
I&O
11/01/23 11/02/23 11/03/23
06:59 06:59 06:59
Intake Total 600 / 600
Output Total 250 / 250
Balance 350 / 350
Review of Systems
-
Respiratory: Reports No Symptoms
Cardiac: Reports No Symptoms
Abdomen/GI: Denies Abdominal Pain, Nausea or Vomiting
Physical Exam
-
General: Obese
HEENT: Oxygen
Respiratory: Clear to Auscultation; Negative Wheezes
Cardiac: Regular Rhythm and S1/S2; Negative Murmur
Breast: Deferred by me
GI: Soft and Nontender; Negative Normal Bowel Sounds
Musculoskeletal: No Edema
Skin: Warm
Neuro: Awake, Alert, Oriented and No Motor Deficits
Psych: Calm
[2023-11-02 18:14] LABS: Glucose - Point of Care 130 mg/dl (70-99)
[2023-11-02] MEDS: LIPITOR 20 MG PO (21:08)
[2023-11-02] MEDS: MELATONIN 3 MG PO (21:08)
[2023-11-02 23:25] VITALS: BP 134/80
[2023-11-03 00:36] LABS: Glucose - Point of Care 127 mg/dl (70-99)
[2023-11-03] MEDS: DILAUDID 1 MG IV ×5 (01:24→19:50)
[2023-11-03 06:03] LABS: Glucose - Point of Care 128 mg/dl (70-99)
[2023-11-03] MEDS: COZAAR 100 MG PO (07:32)
[2023-11-03] MEDS: PROTONIX 40 MG PO (07:32)
[2023-11-03] MEDS: CARDIZEM CD 240 MG PO (07:32)
[2023-11-03] MEDS: Hygroton 25 MG PO (07:32)
[2023-11-03 07:33] VITALS: BP 142/89
--- NOTE | 2023-11-03 08:00 | W.PN.GS2 ---
Addendum entered and electronically signed by Caleb Nobles MD 11/03/23 08:06:
Patient seen and examined. Agree with assessment plan as documented below.
Reports feeling better with less abdominal pain. Ports passing large amounts of flatus, no BM. No nausea or vomiting.
Gen: NAD
Abd: soft, obese, NT, non-peritoneal, prior incisions well healed, incisional hernia soft and reducible
Patient is a 73 yo M p/w SBO likely secondary to incisions
AVSS. Some evidence of clinical improvement. Patient refusing further radiographic workup with SBFT yesterday. Plan for slow dietary advancement and management clinically. If further nausea, vomiting, worsening abdominal pain would recommend
placement of NGT and pursuing further workup with SBFT.
--Trial of fulls
--Xarelto on hold in case surgical intervention warranted this admission, last given 10/31 pm
--Medical management as per hospitalist team
Original Note:
Today's Communication / Plan
-
Full liquids
Assessment / Plan
-
73 yo male on Xarelto and multiple intraabdominal surgeries including open cholecystectomy and ex lap with dehiscence and eventual ventral hernia repair with mesh with SBO x2 since that time, the last being in 2022. He presents today with abdominal
pain with CT imaging in the ED w/o oral contrast noting small bowel obstruction with likely transition point within the umbilical hernia.
AFVSS
Pain improving, passing flatus. no further nausea
Refused SBFT study yesterday AM
--Advance to FLD and follow for tolerance
--Xarelto on hold in case surgical intervention warranted this admission, last given 10/31 pm
--Medical management as per hospitalist team
Subjective Data
-
Date of Service: November 03, 2023
Patient seen and examined at bedside with Dr. Nobles. Reports pain improving. Passing a lot of flatus. Denies n/v. No BM since Thursday. Hopeful to be home by thursday for an event.
Objective Data
-
Intake and Output
11/02/23 11/03/23 11/04/23
06:59 06:59 06:59
Intake Total 600 / 600 1380 / 1380
Output Total 250 / 250 950 / 950
Balance 350 / 350 430 / 430
Intake:
Oral fluids 1380 / 1380
IV fluids (Total) 600 / 600
Output:
Emesis 100 / 100
Urine, Voided 150 / 150 950 / 950
Vital Signs
Temp Pulse Resp BP Pulse Ox
98.5 F 88 16 142/89 94
11/03/23 07:33 11/03/23 07:33 11/03/23 07:33 11/03/23 07:33 11/03/23 07:33
Lab Results
11/02/23 06:36
11/02/23 06:36
Calcium 8.8 mg/dl (8.4-10.2) 11/02/23 06:36
Total Bilirubin 1.2 mg/dl (0.2-1.3) 11/01/23 11:45
AST 19 U/L (17-59) 11/01/23 11:45
ALT 23 U/L (0-50) 11/01/23 11:45
Alkaline Phosphatase 93 U/L (38-126) 11/01/23 11:45
Total Protein 6.2 g/dl (6.3-8.2) L 11/01/23 11:45
Albumin 3.7 g/dl (3.5-5.0) 11/01/23 11:45
Physical Exam
-
General: NAD
HEENT: Sclera anicteric
Neuro: Alert and Oriented x3
Resp: No distress, RRR
ABD: Soft, mild distention,NT. Umbilical hernia remains soft/reducible
[2023-11-03 12:03] LABS: Glucose - Point of Care 175 mg/dl (70-99)
[2023-11-03] MEDS: NOVOLOG FLEXPEN-LOW RESISTANCE 1 UNITS SC (13:08)
--- NOTE | 2023-11-03 13:54 | CM ---
CM following for discharge planning
Diet advanced to full liquids
Surgery following
CM will follow for d/c needs
Plan - anticipate home - needs tbd
--- NOTE | 2023-11-03 14:27 | W.PN.HOSP.TC ---
Today's Communication/Plan
-
see note
Assessment / Plan
Assessment / Plan
1. Small bowel obstruction
-CT abdomen pelvis in ER showing small bowel obstruction with transition point near umbilical hernia site
-ER CT abdomen was without oral contrast, patient declined to get small bowel follow-through has did not tolerate oral contrast
-Patient declined further imaging with small bowel follow-through/abdominal x-ray
-General surgery discussed and patient advanced on full liquid diet
-Passing some gas no bowel movement.
-Continue monitoring for signs of acute abdomen. Will require NG tube if develops new nausea and vomiting
2. Atrial fibrillation - Rate controlled
-hold xarelto
-continue diltiazem
3. Chronic UTI
-on a chronic course of cephalexin. History of prostate ca s/p XRT.
-holding cephalexin per pmd. Negative cultures recently
-f/u with outpatient urology
4. DM II -
- hold glipizide
- sliding scale insulin
5. Essential HTN
- continue diltiazem, losartan and chlorthalidone
DVT PPX - on xarelto
Full Code
11/01 Discussed with spouse that patient has declined small bowel follow-through. Possibly due to patient feeling nauseous with oral contrast needed for small bowel follow-through.
Anticipated Discharge: 24 - 48 hours
Subjective/Interval History
-
Date of Service: November 03, 2023
Passing gas
No bowel movements
Denies excessive abdominal pain. No nausea vomiting
Objective Data
-
Vital Signs:
Vital Signs
Temp Pulse Resp BP Pulse Ox
98.5 F 88 16 142/89 94
11/03/23 07:33 11/03/23 07:33 11/03/23 07:33 11/03/23 07:33 11/03/23 07:33
I&O
11/02/23 11/03/23 11/04/23
06:59 06:59 06:59
Intake Total 600 / 600 1380 / 1380
Output Total 250 / 250 950 / 950
Balance 350 / 350 430 / 430
Review of Systems
-
Respiratory: Reports No Symptoms
Cardiac: Reports No Symptoms
Abdomen/GI: Reports No Symptoms
Physical Exam
-
General: Obese
HEENT: Oxygen
Respiratory: Clear to Auscultation; Negative Wheezes
Cardiac: Regular Rhythm and S1/S2; Negative Murmur
Breast: Deferred by me
GI: Soft and Nontender; Negative Normal Bowel Sounds (minimal bowel sounds)
Musculoskeletal: No Edema
Skin: Warm
Neuro: Awake, Alert, Oriented and No Motor Deficits
Psych: Calm
[2023-11-03 15:17] VITALS: BP 141/81
[2023-11-03 16:45] LABS: Glucose - Point of Care 131 mg/dl (70-99)
[2023-11-03] MEDS: NOVOLOG FLEXPEN-LOW RESISTANCE SC (17:49)
[2023-11-03] MEDS: LR 1000 IV (21:30)
[2023-11-03] MEDS: LIPITOR 20 MG PO (21:32)
[2023-11-03] MEDS: LR IV ×2 (21:32→21:44)
[2023-11-03 22:26] LABS: Glucose - Point of Care 148 mg/dl (70-99)
[2023-11-03 23:20] VITALS: BP 151/90
[2023-11-03] MEDS: MELATONIN 3 MG PO (23:28)
[2023-11-04] MEDS: DILAUDID 1 MG IV ×5 (00:10→20:07)
--- NOTE | 2023-11-04 04:53 | DOWNTIME ---
There was a [employer] Downtime on 11/04/2023 from 0100 to 11/04/2023 at 0439. Downtime documentation of patient's care, including medication administrations, has been reconciled in the electronic record per guidelines. Refer to the
patient's paper chart under the miscellaneous tab to see printed paper medication records and downtime forms.
[2023-11-04 07:04] LABS: Blood Urea Nitrogen 24 mg/dl (9-20); Calcium 9.1 mg/dl (8.4-10.2); Carbon Dioxide 34 mmol/L (22-30); Chloride 93 mmol/L (98-107); Estimated Creatinine Clearance 86 ml/min; Glucose 159 mg/dl (70-99); Magnesium 1.7 mg/dl (1.6-2.3); Potassium 3.7 mmol/L (3.5-5.1); Sodium 132 mmol/L (135-145); eGFR > 60.00
[2023-11-04 07:53] VITALS: BP 150/85
[2023-11-04] MEDS: COZAAR 100 MG PO (07:59)
[2023-11-04] MEDS: CARDIZEM CD 240 MG PO (07:59)
[2023-11-04] MEDS: PROTONIX 40 MG PO (07:59)
[2023-11-04] MEDS: Hygroton 25 MG PO (07:59)
[2023-11-04 08:33] LABS: Glucose - Point of Care 163 mg/dl (70-99)
[2023-11-04] MEDS: NOVOLOG FLEXPEN-LOW RESISTANCE 1 UNITS SC ×2 (08:36→16:57)
--- NOTE | 2023-11-04 10:56 | W.PN.GS2 ---
Addendum entered and electronically signed by Yahir Wray MD 11/04/23 13:13:
CDI query: resolving SBO
Original Note:
Today's Communication / Plan
-
Adv to LRD
Assessment / Plan
-
73 yo male on Xarelto and multiple intraabdominal surgeries including open cholecystectomy and ex lap with dehiscence and eventual ventral hernia repair with mesh with SBO x2 since that time, the last being in 2022. He presents today with abdominal
pain with CT imaging in the ED w/o oral contrast noting small bowel obstruction with likely transition point within the umbilical hernia.
AFVSS
Pain improving, passing flatus. no further nausea
Refused SBFT study yesterday AM
--Advance to LRD and follow for tolerance
--If minh LRD, OK for DC from surg standpoint
--Medical management as per hospitalist team
Subjective Data
-
Date of Service: November 04, 2023
AFVSS, ambulating, had a large BM, minh liq diet, denies ab pain, denies n/v
Objective Data
-
Intake and Output
11/03/23 11/04/23 11/05/23
06:59 06:59 06:59
Intake Total 1380 / 1380 330 / 330
Output Total 950 / 950 990 / 990
Balance 430 / 430 -660 / -660
Intake:
Oral fluids 1380 / 1380 330 / 330
Output:
Urine, Voided 950 / 950 990 / 990
Other:
Number of approximated MODERATE 1
amounts of urine
Vital Signs
Temp Pulse Resp BP Pulse Ox
98.3 F 86 18 150/85 94
11/04/23 07:53 11/04/23 07:53 11/04/23 07:53 11/04/23 07:53 11/04/23 07:53
Lab Results
11/02/23 06:36
11/04/23 05:51
Calcium 9.1 mg/dl (8.4-10.2) 11/04/23 05:51
Magnesium 1.7 mg/dl (1.6-2.3) 11/04/23 05:51
Total Bilirubin 1.2 mg/dl (0.2-1.3) 11/01/23 11:45
AST 19 U/L (17-59) 11/01/23 11:45
ALT 23 U/L (0-50) 11/01/23 11:45
Alkaline Phosphatase 93 U/L (38-126) 11/01/23 11:45
Total Protein 6.2 g/dl (6.3-8.2) L 11/01/23 11:45
Albumin 3.7 g/dl (3.5-5.0) 11/01/23 11:45
Physical Exam
-
Gen: NAD
Abd: obese, distended, soft, nt
[2023-11-04 11:43] LABS: Glucose - Point of Care 164 mg/dl (70-99)
--- NOTE | 2023-11-04 12:29 | CM ---
Addendum entered by Minna Stewart 11/04/23 15:45:
D/C cancelled - pt did not tolerate advancing diet
IVF's restarted
Plan -anticipate home no needs when medically ready
Original Note:
Case management following for d/c planning
Pt for d/c today if tolerating PO intake
Pt reports he will have a ride home when d/c'ed
Discussed IMM
Plan - home no needs
--- NOTE | 2023-11-04 12:57 | PN.CDI ---
CDI
- -
CDI:
Physician Documentation Request
Admit Date: 11/01/23 15:40
Dear Doctor Nils,
Patient is admitted with small bowel obstruction.
11/03 patient was passing some gas no bowel movement.
Please further specify the bowel obstruction :
Complete
Partial
Other
Use of terms such as suspected, likely, concern for, or probable (associated with a specific diagnosis that is being evaluated, monitored, or treated as if it exists) are acceptable and can be coded in the inpatient setting, when documented at the
time of discharge.
Thank you,
Kristen Riggs RN, BSN
CDI Specialist
tiger text
Please use your independent medical judgment in providing your response.
--- NOTE | 2023-11-04 13:03 | PN.CDI ---
CDI
- -
CDI:
Physician Documentation Request
Admit Date: 11/01/23 15:40
Dear Doctor Jesus Manuel,
Patient admitted with small bowel obstruction.
History includes atrial fib. Progress notes states rated controlled continue diltiazem.
confirmed EKG 09/09 shows atrial fibrillation
Patient previously admitted 10/09/2022-10/18/2022. At that time atrial fibrillation was referred to as permanent.
If possible, please provide further specificity regarding atrial fibrillation, such as:
Paroxysmal atrial fibrillation - terminates spontaneously or with intervention within 7 days of onset
Persistent atrial fibrillation - episodes of continuous AF that last more than 7 days and do not self-terminate
Permanent atrial fibrillation - when a decision has been made to accept the presence of AF and there is no further attempt to restore or maintain sinus rhythm
Other - please specify
Use of terms such as suspected, likely, concern for, or probable (associated with a specific diagnosis that is being evaluated, monitored, or treated as if it exists) are acceptable and can be coded in the inpatient setting, when documented at the
time of discharge.
Thank you,
Kristen Riggs RN, BSN
CDI Specialist
tiger text
Please use your independent medical judgment in providing your response.
[2023-11-04] MEDS: NOVOLOG FLEXPEN-LOW RESISTANCE SC (13:18)
--- NOTE | 2023-11-04 14:33 | W.PN.HOSP.TC ---
Today's Communication/Plan
-
hold discharge
continue on LR
downgrade diet if vomiting/signs of acute abdomen
Assessment / Plan
Assessment / Plan
1. Small bowel obstruction
-CT abdomen pelvis in ER showing small bowel obstruction with transition point near umbilical hernia site
-ER CT abdomen was without oral contrast, patient declined to get small bowel follow-through has did not tolerate oral contrast
-Patient declined further imaging with small bowel follow-through/abdominal x-ray
-Patient with large soft bowel movement in the morning today.
-Tried on low residue diet also having some nausea and discomfort. Will monitor through night today - discussed with GS.
2. Atrial fibrillation - Rate controlled
-hold xarelto
-continue diltiazem
3. Chronic UTI
-on a chronic course of cephalexin. History of prostate ca s/p XRT.
-holding cephalexin per pmd. Negative cultures recently
-f/u with outpatient urology
4. DM II -
- hold glipizide
- sliding scale insulin
5. Essential HTN
- continue diltiazem, losartan and chlorthalidone
DVT PPX - on xarelto
Full Code
11/01 Discussed with spouse that patient has declined small bowel follow-through. Possibly due to patient feeling nauseous with oral contrast needed for small bowel follow-through.
Anticipated Discharge: Within 24 hours
Subjective/Interval History
-
Date of Service: November 04, 2023
Patient unable to tolerate low residue diet and having some nausea discomfort
Had bowel movement in the night
Objective Data
-
Labs:
Laboratory Results
11/04/23
05:51
Sodium 132 L
Potassium 3.7
Chloride 93 L
Carbon Dioxide 34 H
BUN 24 H
Creatinine 0.9
Glucose 159 H
Calcium 9.1
Vital Signs:
Vital Signs
Temp Pulse Resp BP Pulse Ox
98.3 F 86 18 150/85 94
11/04/23 07:53 11/04/23 07:53 11/04/23 07:53 11/04/23 07:53 11/04/23 07:53
I&O
11/03/23 11/04/23 11/05/23
06:59 06:59 06:59
Intake Total 1380 / 1380 330 / 330
Output Total 950 / 950 990 / 990
Balance 430 / 430 -660 / -660
Review of Systems
-
Respiratory: Reports No Symptoms
Cardiac: Reports No Symptoms
Abdomen/GI: Reports No Symptoms
Physical Exam
-
General: Obese
HEENT: Oxygen
Respiratory: Clear to Auscultation; Negative Wheezes
Cardiac: Regular Rhythm and S1/S2; Negative Murmur
GI: Soft, Normal Bowel Sounds and Other (Ventral hernia); Negative Tender
Musculoskeletal: No Edema
Skin: Warm
Neuro: Awake, Alert, Oriented and No Motor Deficits
Psych: Calm
[2023-11-04 15:47] VITALS: BP 134/87
[2023-11-04 16:28] LABS: Glucose - Point of Care 178 mg/dl (70-99)
[2023-11-04 21:33] LABS: Glucose - Point of Care 170 mg/dl (70-99)
[2023-11-04] MEDS: MELATONIN 3 MG PO (22:14)
[2023-11-04] MEDS: LIPITOR 20 MG PO (22:14)
[2023-11-04 23:10] VITALS: BP 149/83
[2023-11-05] MEDS: DILAUDID 1 MG IV ×3 (00:13→10:27)
[2023-11-05 06:17] LABS: Blood Urea Nitrogen 21 mg/dl (9-20); Carbon Dioxide 32 mmol/L (22-30); Chloride 94 mmol/L (98-107); Estimated Creatinine Clearance 97 ml/min; Glucose 158 mg/dl (70-99); Potassium 3.4 mmol/L (3.5-5.1); Sodium 132 mmol/L (135-145); eGFR > 60.00
[2023-11-05 07:25] VITALS: BP 169/101
[2023-11-05 07:45] LABS: Glucose - Point of Care 176 mg/dl (70-99)
[2023-11-05] MEDS: COZAAR 100 MG PO (08:33)
[2023-11-05] MEDS: PROTONIX 40 MG PO (08:33)
[2023-11-05] MEDS: Hygroton 25 MG PO (08:33)
[2023-11-05] MEDS: CARDIZEM CD 240 MG PO (08:33)
[2023-11-05] MEDS: NOVOLOG FLEXPEN-LOW RESISTANCE 1 UNITS SC ×2 (08:34→12:34)
[2023-11-05 12:03] LABS: Glucose - Point of Care 156 mg/dl (70-99)
[2023-11-05 13:00] VITALS: BP 121/83
--- NOTE | 2023-11-05 13:02 | CM ---
Pt for d/c today
Feeling better today
Spoke with pt - has ride home with
Plan - home no needs
--- NOTE | 2023-11-05 13:37 | PN.CDI ---
CDI
- -
CDI:
Physician Documentation Request
Admit Date: 11/01/23 15:40
Dear Doctor Jesus Manuel,
Patient admitted with small bowel obstruction.
Recent sodium as follows:
11/02/23 11/04/23 11/05/23
06:36 05:51 05:31
Sodium 135 132 L 132 L
Could you please provide a diagnosis that supports the above abnormalities and additional evaluation/ monitoring:
Hyponatremia
Abnormal lab clinically insignificant
Other
Use of terms such as suspected, likely, concern for, or probable (associated with a specific diagnosis that is being evaluated, monitored, or treated as if it exists) are acceptable and can be coded in the inpatient setting, when documented at the
time of discharge.
Thank you,
Kristen Riggs RN, BSN
CDI Specialist
tiger text
Please use your independent medical judgment in providing your response.
--- NOTE | 2023-11-05 15:12 | W.PN.HOSP.TC ---
Addendum entered and electronically signed by Ray Ken MD 11/06/23 07:54:
Addendum placed in response to CDI query.
Hyponatremia
Permanent Atrial fibrillation
Original Note:
Today's Communication/Plan
-
d/c home
Assessment / Plan
Assessment / Plan
1. Small bowel obstruction
-CT abdomen pelvis in ER showing small bowel obstruction with transition point near umbilical hernia site
-ER CT abdomen was without oral contrast, patient declined to get small bowel follow-through has did not tolerate oral contrast
-Patient declined further imaging with small bowel follow-through/abdominal x-ray
-Denies of having any nausea vomiting with aggressive diet. Some minimal abdominal discomfort only
-Patient be discharged LR diet
2. Atrial fibrillation - Rate controlled
-resume xarelto at discharge.
-continue diltiazem
3. Chronic UTI
-on a chronic course of cephalexin. History of prostate ca s/p XRT.
-holding cephalexin per pmd. Negative cultures recently
-f/u with outpatient urology
4. DM II -
- hold glipizide
- sliding scale insulin
5. Essential HTN
- continue diltiazem, losartan and chlorthalidone
DVT PPX - on xarelto
Full Code
11/01 Discussed with spouse that patient has declined small bowel follow-through. Possibly due to patient feeling nauseous with oral contrast needed for small bowel follow-through
More than 30 minutes spent in discharge including
Final examination of the patient
Summarizing hospital stay
Instructions for continuing care to all relevant caregivers
Preparation of discharge records, prescriptions, and referral forms
Total time spent (in minutes): 40 mins
Anticipated Discharge: Today
Subjective/Interval History
-
Date of Service: November 05, 2023
No issues overnight
Minimal abdominal discomfort
Having soft bowel movements
Objective Data
-
Labs:
Laboratory Results
11/05/23
05:31
Sodium 132 L
Potassium 3.4 L
Chloride 94 L
Carbon Dioxide 32 H
BUN 21 H
Creatinine 0.8
Glucose 158 H
Calcium 9.0
Vital Signs:
Vital Signs
Temp Pulse Resp BP Pulse Ox
98.8 F 87 20 121/83 94
11/05/23 13:00 11/05/23 13:00 11/05/23 13:00 11/05/23 13:00 11/05/23 13:00
I&O
11/04/23 11/05/23 11/06/23
06:59 06:59 06:59
Intake Total 330 / 330 90 / 90
Output Total 990 / 990
Balance -660 / -660 90 / 90
Review of Systems
-
Respiratory: Reports No Symptoms
Cardiac: Reports No Symptoms
Abdomen/GI: Reports No Symptoms
Physical Exam
-
General: Obese
HEENT: Oxygen
Respiratory: Clear to Auscultation; Negative Wheezes
Cardiac: Regular Rhythm and S1/S2; Negative Murmur
GI: Soft, Normal Bowel Sounds and Other (Ventral hernia); Negative Tender
Musculoskeletal: No Edema
Skin: Warm
Neuro: Awake, Alert, Oriented and No Motor Deficits
Psych: Calm
--- NOTE | 2023-11-05 17:08 | W.DCSUMMARY ---
Discharge Summary
Discharge Data
Date of Admission: 11/01/23
Date of Discharge: 11/05/23
-
Pending Results: No
Hospital Course
Discharging Physician : Dr Ray Ken
Disposition : To home
Primary care physician : Dr Genaro Dao
Principal Discharge diagnosis :
Small bowel obstruction
Chronic Discharge diagnosis :
Atrial fibrillation on Xarelto
History of recurrent urinary tract infection
Type 2 diabetes mellitus
Essential hypertension
Hospital Course :
Patient is a 73-year-old male with above-mentioned past medical history came to ER for having new onset of bilateral lower quadrant abdominal pain. Patient was denying any associated nausea or vomiting. In ER patient had a CT abdomen pelvis which
showed a small bowel obstruction with transition point and umbilical hernia site. General surgery was consulted and patient was made n.p.o. and was started on IV fluid. Patient declined to have a follow-up small bowel follow-through image due to
inability to tolerate oral contrast. Patient also declined liters of having abdominal x-ray. Patient was manage clinically at this point and was started on trial of clear liquid diet once able to pass gas and having some bowel sounds. Patient was
able to be advanced to low residue diet without further issues. At this point patient was discharged home with follow-up with primary care physician in office.
Important imaging findings :
None
Procedure findings :
None
Discharge Plan
-
Patient Disposition: Home (Routine Discharge)
Discharge Diagnosis/Procedures: Small bowel obstruction
Condition: Fair
Diet: Other diet
Additional Diets: Low residue diet for 5 days
Activity: As tolerated
Driving Restrictions: No driving
Bathing Restrictions: OK to Shower
Referrals:
Steffen Dao MD [Family Provider] - in one week
Prescriptions:
New
polyethylene glycol 3350 [Miralax] 17 gram powder in packet
17 g PO DAILY Qty: 30 0RF
Rx Instructions:
HOLD DOSE IF HAVE DIARRHEA
Continued
diltiazem HCl 240 MG capsule,extended release 24hr
240 mg PO DAILY
Xarelto 20 MG tablet
20 mg PO HS
Patient Comments:
chlorthalidone 25 MG tablet
25 mg PO DAILY
pantoprazole 40 MG tablet,delayed release (DR/EC)
40 mg PO DAILY
eszopiclone [Lunesta] 3 MG tablet
3 mg PO HS
furosemide 20 MG tablet
20 mg PO HS
atorvastatin 20 MG tablet
20 mg PO HS
glipizide 5 mg Tablet Extended Release 24hr
15 mg PO DAILY
acetaminophen [Tylenol Extra Strength] 500 mg Tablet
1,000 mg PO BIDPRN PRN (Reason: mild pain)
potassium chloride 20 mEq Tablet,Er Particles/Crystals
20 meq PO BID
Pepto-Bismol 262 mg Tablet
524 mg PO DAILYPRN PRN (Reason: stomach discomfort)
losartan 100 mg Tablet
100 mg PO DAILY
Discharge Orders:
Discharge Patient (As Directed); Ordered 11/05/23
Ordered By: Ray Ken
Discharge Date and Time
Discharge Date/Time: 11/05/23 13:36
Print Language: SWISS
== END 2023-11-05 13:36 | disposition home or self-care (01) | DRG 389 ==
LOC: 3 WEST ACU 15:40
PROVIDERS: Physician Assistant; ADMITTING PHYSICIAN Internal Medicine; ATTENDING PHYSICIAN Hospitalist; EMERGENCY PHYSICIAN Emergency Medicine; FAMILY PHYSICIAN Family Medicine; OTHER PHYSICIAN Surgery
DX: K56.609 Unspecified intestinal obstruction, unspecified as to partial versus complete obstruction (principal); D68.51 Activated protein C resistance; E87.1 Hypo-osmolality and hyponatremia; N39.0 Urinary tract infection, site not specified; I48.21 Permanent atrial fibrillation; E11.9 Type 2 diabetes mellitus without complications; I48.91 Unspecified atrial fibrillation; I10 Essential (primary) hypertension; I25.10 Atherosclerotic heart disease of native coronary artery without angina pectoris; J44.9 Chronic obstructive pulmonary disease, unspecified; E66.01 Morbid (severe) obesity due to excess calories; E78.00 Pure hypercholesterolemia, unspecified; K42.9 Umbilical hernia without obstruction or gangrene; Z68.37 Body mass index [BMI] 37.0-37.9, adult; Z79.01 Long term (current) use of anticoagulants; Z79.84 Long term (current) use of oral hypoglycemic drugs; Z79.899 Other long term (current) drug therapy; Z85.46 Personal history of malignant neoplasm of prostate; Z86.711 Personal history of pulmonary embolism; Z86.718 Personal history of other venous thrombosis and embolism; Z87.440 Personal history of urinary (tract) infections; Z87.891 Personal history of nicotine dependence; Z86.73 Personal history of transient ischemic attack (TIA), and cerebral infarction without residual deficits; Z90.49 Acquired absence of other specified parts of digestive tract
CPT/HCPCS: 73564; 74018; 74177; 80048; 80053; 81003; 81015; 82962; 83605; 83690; 83735; 85025; 85027; 96361; 96374; 99285; Q9967

== ENCOUNTER → 2023-11-11 07:20 | Outpatient (REF) | payer MEDICARE, OTHER, SELFPAY ==
[2023-11-11 08:25] LABS: Urine Albumin Trace (Neg - Trace); Urine Bilirubin Negative (Negative); Urine Character Slightly Cloudy (Clear); Urine Color Yellow; Urine Glucose Negative (Negative); Urine Ketone Negative (Negative); Urine Leukocyte 2+ (Negative); Urine Nitrite Negative (Negative); Urine Occult Blood 2+ (Negative); Urine Specific Gravity 1.015 (<1.030); Urine Urobilinogen Negative (Neg - 1+)
[2023-11-11 08:50] LABS: Urine White Cell 70-80 /HPF (0-5)
[2023-11-11 08:51] LABS: Urine Bacteria Many (Negative); Urine Red Blood Cell 40-50 /HPF (0-2)
[2023-11-11 09:09] LABS: Glycohemoglobin (HgbA1c) 7.8 % (4.0-5.6)
[2023-11-11 09:45] LABS: ALT (SGPT) 34 U/L (0-50); AST (SGOT) 19 U/L (17-59); Albumin 3.8 g/dl (3.5-5.0); Alkaline Phosphatase 96 U/L (38-126); Blood Urea Nitrogen 24 mg/dl (9-20); Calcium 9.4 mg/dl (8.4-10.2); Carbon Dioxide 33 mmol/L (22-30); Chloride 100 mmol/L (98-107); Glucose 160 mg/dl (70-99); Potassium 3.8 mmol/L (3.5-5.1); Sodium 138 mmol/L (135-145); Total Bilirubin 0.9 mg/dl (0.2-1.3); Total Protein 6.3 g/dl (6.3-8.2); eGFR > 60.00
== END ==
LOC: REG 07:20
PROVIDERS: ATTENDING PHYSICIAN Specialist
DX: R81 Glycosuria (principal); E11.59 Type 2 diabetes mellitus with other circulatory complications; R35.0 Frequency of micturition
CPT/HCPCS: 36415; 80053; 81003; 81015; 83036; 87086; 87088; 87186

== ENCOUNTER → 2023-11-24 08:12 | Outpatient (REF) | payer MEDICARE, OTHER, SELFPAY | LOC: HWRAD 08:12 | PROVIDERS: ATTENDING PHYSICIAN Internal Medicine Gastroenterology; FAMILY PHYSICIAN Family Medicine | DX: K76.0 Fatty (change of) liver, not elsewhere classified (principal) | CPT/HCPCS: 76700 ==

== ENCOUNTER → 2023-12-03 17:01 | Outpatient (REF) | payer MEDICARE, OTHER, SELFPAY | LOC: CLAB 17:01 | PROVIDERS: ATTENDING PHYSICIAN Specialist; FAMILY PHYSICIAN Internal Medicine Gastroenterology | DX: N39.0 Urinary tract infection, site not specified (principal) | CPT/HCPCS: 87086; 87088; 87186 ==

== ENCOUNTER 2023-12-16 09:22 | Emergency (ER) | payer MEDICARE, OTHER, SELFPAY ==
[2023-12-16 09:23] VITALS: BP 146/94
--- NOTE | 2023-12-16 09:43 | ED.GENMED ---
History of Present Illness
General
Chief Complaint: Urinary Symptoms
Source: patient and previous hospital records
Exam Limitations: none
Time Seen by Provider: 12/16/23 09:43
Nursing documentation reviewed up to this point in time: agreed with
Travel History
Have you had any contact with someone who has COVID-19?: No
Do you have any symptoms of coronavirus? Fever > 100 degrees, chills, cough, shortness of breath, sore throat, loss of taste or smell, muscle aches, or headache?: No
History of Present Illness
History of Present Illness:
73-year-old male with history of CVA with balance problems, COPD, PE, DVT, A-fib, on Xarelto, IVC filter, HTN, HLD, NIDDM, BPH, frequent UTI, prostate cancer, factor B Leiden mutation, appendectomy, presents stating he is having dysuria,
incontinence, frequency for past month despite being on Keflex, and most recently Fosfomycin x 3 days on 12/02. Placed on Methenamine for UTI prophylaxis and went on vacation to [place] ([place]) for 7 days, returned 2 days ago, spoke with Urology and spoke
with Dr. Flores last night, after record review Dr. Berg called him back today and told him to come to ED for evaluation.
Pt denies fever/chills, abdominal pain, n/v/d.
Past History
Past History
ED Past Medical History: Arrthythmia (Atrial fibrillation), COPD, CVA, HTN (Quit last week.), Hypercholesterolemia, Other (hepatitis), Other (pulmonary embolism) and Other (Pericarditis in 1976, DVT in 1999 with an IVC filter, hypertension,blood
clots left leg, with filter)
ED Past Surgical History: Cholecystectomy and Other (left testicular repair, varicose vein stripping,)
Social History
Tobacco: Former smoker
Alcohol: Occasional
Drug: None
Personal:
Living: with family
Employment: Employed
Family History
Family History: Other (Noncontributory )
Review of Systems
Review of Systems
Allergies reviewed?: Yes
All Other Systems: ROS reviewed and negative except as documented in HPI and ROS
Constitutional: Denies fever or fatigue
Respiratory: Denies trouble breathing
Cardiac: Denies chest pain, palpitations or syncope
ABD/GI: Denies abdominal pain, nausea, vomiting or diarrhea
: Reports dysuria, frequency, incontinence and urgency; Denies flank pain or bleeding
Musculoskeletal: Reports no symptoms
Skin: Reports no symptoms
Neurological: Reports no symptoms
Phy Exam
Physical Exam
Physical Exam:
GENERAL: No acute distress. A&Ox3.
CONSTITUTIONAL: Afebrile.
EYES: Clear, conjunctivae normal
ENMT: moist mucus membranes, Pharynx nl
RESPIRATORY: Regular respirations, nonlabored, lungs clear.
CARDIOVASCULAR: Regular rate and rhythm, no murmurs, no rubs.
GI: Soft, obese, rotund nontender, normal BS
MUSCULOSKELETAL: Moves with ease. Well perfused.
SKIN: Warm, dry, pink
PSYCH: Normal mood and affect. Well kept, interactive and appropriate
NEUROLOGIC: Awake, alert and oriented. No focal neurological deficits, ambulates well with steady gait
Course
Orders/Labs/Results
Orders:
Orders
12/16/23 09:48
0.9% Sodium Chloride 1000 ml [Nss] 1,000 ml IV BOLUS
12/16/23 10:07
Basic Metabolic Panel Urgent
Complete Blood Count/With Diff Urgent
12/16/23 10:51
Urinalysis Reflex To Culture Urgent
Date Specimen was Collected: 12/16/23
Time Specimen was Collected: 09:52
Urine Microscopic Reflex Cult Urgent
Urine Culture Urgent
BRENDA Source: U
Specimen Description:
Date Specimen was Collected: 12/16/23
Time Specimen was Collected: 09:52
Comment: Add on by Natalie Albarran
12/16/23 12:51
Add On - Microbiology Urgent
Tests Added?: urine culture
Abnormal Lab Results
12/16/23 12/16/23
10:07 10:51
Absolute Lymphs (auto) 0.7 L 10^3/uL
(1.2-3.4)
Neutrophils % 78.8 H %
(42.2-75.2)
Lymphocytes % 10.8 L %
(20.5-51.1)
Glucose 176 H mg/dl
(70-99)
Urine Urobilinogen 2+ A
(Neg - 1+)
Leukocyte Esterase Rfl Trace A
(Negative)
12/16/23 10:07
12/16/23 10:07
Vital Signs
Initial and Last Documented VS:
Initial Vital Signs
Temp Pulse Resp BP Pulse Ox
98.5 F 79 18 146/94 95
12/16/23 09:23 12/16/23 09:23 12/16/23 09:23 12/16/23 09:23 12/16/23 09:23
Last Documented Vital Signs
Temp Pulse Resp BP Pulse Ox
98.5 F 72 17 145/93 95
12/16/23 09:23 12/16/23 13:15 12/16/23 13:15 12/16/23 13:00 12/16/23 13:15
MDM/Problems Addressed
MDM/Problems Addressed:
73-year-old male with history of CVA with balance problems, COPD, PE, DVT, A-fib, on Xarelto, IVC filter, HTN, HLD, NIDDM, BPH, frequent UTI, prostate cancer, factor B Leiden mutation, appendectomy, presents stating he is having dysuria,
incontinence, frequency for past month despite being on Keflex, and most recently Fosfomycin x 3 days on 12/02. Placed on Methenamine for UTI prophylaxis and went on vacation to [place] ([place]) for 7 days, returned 2 days ago, spoke with Urology and spoke
with Dr. Flores last night, after record review Dr. Berg called him back today and told him to come to ED for evaluation.
Pt denies fever/chills, abdominal pain, n/v/d.
11:45 AM
CBC normal
CMP unremarkable
Urine shows no sign of infection. I assume you read his records so I will go through all the antibiotics he has been on recently.
Pt frustrated and states his urine 'never shows infection' yet he knew Urine culture from 13 days ago grew E Coli
Consulted Dr. Bailey, copy of labs texted to him, reviewed labs and agrees no need for admission, he can f/u with Dr. Sanderson.
I spoke with pt who states she has been told that the frequency may be because of high blood sugars, perhaps residual from radiation for prostate cancer.
She made appoint with [facility] in [place] for December 28 as 'did not seem to be getting anywhere with him.'
No indication for antibiotics at this time
Plan: Pyridium rx sent to his pharmacy
Keep f/u appt prescheduled for January 05 for prostate f/u
Keep appt December 28 at [facility]
*Critical Care Note
Total Time (30-74mins, 75-104mins- exclusive of procedures): Not Applicable
ED Attending Note
-
Portions of this chart may have been created with voice recognition software.� Occasional wrong word or��sound alike� substitutions may have occurred due to the inherent limitations of voice recognition software.
Discharge Plan
Departure
Patient Disposition: Home (Routine Discharge)
Date of Disposition: 12/16/23
Time of Disposition: 12:43
Patient with high blood pressure during this ER visit?: No
Condition: Good
Discharge Problem:
Dysuria-frequency syndrome
Prescriptions:
New
phenazopyridine [Pyridium] 100 mg tablet
100 mg PO TID PRN (Reason: burning/pain with urination) Qty: 30 0RF
No Action
diltiazem HCl 240 MG capsule,extended release 24hr
240 mg PO DAILY
Xarelto 20 MG tablet
20 mg PO HS
Patient Comments:
chlorthalidone 25 MG tablet
25 mg PO DAILY
eszopiclone [Lunesta] 3 MG tablet
3 mg PO HS
furosemide 20 MG tablet
20 mg PO QPM
atorvastatin 20 MG tablet
20 mg PO HS
glipizide 5 mg Tablet Extended Release 24hr
15 mg PO DAILY
potassium chloride 20 mEq Tablet,Er Particles/Crystals
20 meq PO BID
losartan 100 mg Tablet
100 mg PO DAILY
polyethylene glycol 3350 [Miralax] 17 gram powder in packet
17 g PO DAILYPRN PRN (Reason: constipation)
Rx Instructions:
HOLD DOSE IF HAVE DIARRHEA
Referrals:
Steffen Dao MD [Family Provider] -
Waldo Sanderson Jr., MD [Active] - Keep scheduled appt
Activity Restrictions/Additional Instructions:
As we discussed, your urine shows no sign of infection at this time. I did send it for culture and we will contact you if culture comes back positive.
I sent a prescription to your pharmacy for Pyridium which may help with the burning pain.
I spoke with Dr. Flores and he agrees and you may follow-up with Dr. Sanderson.
Return here immediately for fever above 100.5, shaking chills or rigors, vomiting, abdominal pain or feeling sicker in any way
Keep your appointments with Dr. Sanderson and [facility]. Continue your current medications
Interventions
Interventions:
*Risk Screen - Suicide Last Done: 12/16/23 10:18
*General Assessment Last Done: 12/16/23 10:18
*Neglect/Abuse Screening Last Done: 12/16/23 10:18
ED- Fall Risk Assessment Last Done: 12/16/23 10:18
*ED COVID-19 Vaccine History Last Done: 12/16/23 09:23
*Nursing Disposition Last Done: 12/16/23 13:21
ED-Male Genitourinary Assessment Last Done: 12/16/23 10:21
Discharge Date and Time
Discharge Date/Time: 12/16/23 13:22
Print Language: ROMANIAN
[2023-12-16] MEDS: NSS 1000 IV (10:08)
[2023-12-16 10:17] VITALS: BP 95/84
[2023-12-16 10:26] VITALS: BP 124/72
[2023-12-16 10:26] LABS: % Basophils 0.5 % (0-2); % Eosinophils 2.1 % (0-6); % Immature Granulocytes 0.3 % (0-0.5); % Lymphocytes 10.8 % (20.5-51.1); % Monocytes 7.5 % (1.7-9.3); % Neutrophils 78.8 % (42.2-75.2); Absolute Eosinophils 0.1 10^3/uL (0-0.7); Absolute Lymphocytes 0.7 10^3/uL (1.2-3.4); Absolute Monocytes 0.5 10^3/uL (0.1-0.6); Absolute Neutrophils 4.9 10^3/uL (1.4-6.5); Hematocrit 48.9 % (39.0-52.0); Hemoglobin 16.8 g/dL (13.0-18.0); Mean Corp Hgb Conc. 34.4 g/dL (33.0-37.0); Mean Corpuscular Hgb 29.7 pg (27.0-31.0); Mean Corpuscular Volume 86.5 fL (80.0-94.0); Mean Platelet Volume 9.3 fL (7.4-10.4); Nucleated Red Blood Cells % 0 % (-); Platelet Count 171 10^3/uL (130-400); Red Blood Cell Count 5.65 10^6/uL (4.70-6.10); Red Cell Dist. Width 13.9 % (11.5-14.5); White Blood Cell Count 6.2 10^3/uL (4.8-10.8)
[2023-12-16 10:49] LABS: Blood Urea Nitrogen 19 mg/dl (9-20); Calcium 8.8 mg/dl (8.4-10.2); Carbon Dioxide 29 mmol/L (22-30); Chloride 101 mmol/L (98-107); Glucose 176 mg/dl (70-99); Sodium 137 mmol/L (135-145); eGFR > 60.00
[2023-12-16 10:58] LABS: Urine Albumin Negative (Neg - Trace); Urine Bilirubin Negative (Negative); Urine Character Clear (Clear); Urine Color Yellow; Urine Glucose Negative (Negative); Urine Ketone Negative (Negative); Urine Leukocyte Trace (Negative); Urine Nitrite Negative (Negative); Urine Occult Blood Negative (Negative); Urine Urobilinogen 2+ (Neg - 1+)
[2023-12-16 11:01] VITALS: BP 148/86
[2023-12-16 11:12] LABS: Urine Red Blood Cell 0-2 /HPF (0-2)
[2023-12-16 13:00] VITALS: BP 145/93
== END 2023-12-16 13:22 | disposition home or self-care (01) ==
LOC: EMR 09:22
PROVIDERS: Registered Nurse; EMERGENCY PHYSICIAN Emergency Medicine; FAMILY PHYSICIAN Family Medicine
DX: R30.0 Dysuria (principal); I10 Essential (primary) hypertension; J44.9 Chronic obstructive pulmonary disease, unspecified; I48.91 Unspecified atrial fibrillation; Z79.01 Long term (current) use of anticoagulants; N40.1 Benign prostatic hyperplasia with lower urinary tract symptoms; E11.9 Type 2 diabetes mellitus without complications; E78.00 Pure hypercholesterolemia, unspecified; Z87.891 Personal history of nicotine dependence; Z86.711 Personal history of pulmonary embolism; Z86.718 Personal history of other venous thrombosis and embolism
CPT/HCPCS: 99284; 96360; 80048; 81003; 81015; 85025; 87086

== ENCOUNTER → 2023-12-18 13:44 | Outpatient (REF) | payer MEDICARE, OTHER, SELFPAY ==
[2023-12-18 15:32] LABS: PSA, Total - Diagnostic 1.11 ng/ml (0.0-4.0)
== END ==
LOC: REG 13:44
PROVIDERS: ATTENDING PHYSICIAN Specialist; FAMILY PHYSICIAN Family Medicine
DX: C61 Malignant neoplasm of prostate (principal)
CPT/HCPCS: 36415; 84153

== ENCOUNTER → 2024-03-04 11:43 | Outpatient (REF) | payer MEDICARE, OTHER, SELFPAY ==
[2024-03-04 12:58] LABS: Hematocrit 51.6 % (39.0-52.0); Hemoglobin 17.3 g/dL (13.0-18.0); Mean Corp Hgb Conc. 33.5 g/dL (33.0-37.0); Mean Corpuscular Volume 89.4 fL (80.0-94.0); Mean Platelet Volume 9.7 fL (7.4-10.4); Platelet Count 166 10^3/uL (130-400); Red Blood Cell Count 5.77 10^6/uL (4.70-6.10); Red Cell Dist. Width 14.3 % (11.5-14.5); White Blood Cell Count 7.2 10^3/uL (4.8-10.8)
[2024-03-04 13:09] LABS: Urine Albumin Negative (Neg - Trace); Urine Bilirubin Negative (Negative); Urine Character Slightly Cloudy (Clear); Urine Color Yellow; Urine Glucose 3+ (Negative); Urine Ketone Negative (Negative); Urine Leukocyte 2+ (Negative); Urine Nitrite Negative (Negative); Urine Occult Blood 1+ (Negative); Urine Urobilinogen 1+ (Neg - 1+)
[2024-03-04 13:31] LABS: ALT (SGPT) 19 U/L (0-50); AST (SGOT) 18 U/L (17-59); Albumin 3.8 g/dl (3.5-5.0); Alkaline Phosphatase 91 U/L (38-126); Blood Urea Nitrogen 24 mg/dl (9-20); Calcium 9.5 mg/dl (8.4-10.2); Carbon Dioxide 28 mmol/L (22-30); Chloride 101 mmol/L (98-107); Glucose 200 mg/dl (70-99); HDL Cholesterol 40 mg/dl; LDL Cholesterol, Calculated 92 mg/dl; Potassium 3.5 mmol/L (3.5-5.1); Sodium 138 mmol/L (135-145); Total Bilirubin 1.2 mg/dl (0.2-1.3); Total Cholesterol 166 mg/dl (50-199); Total Protein 6.1 g/dl (6.3-8.2); Triglyceride 174 mg/dl (10-149); Very Low Density Lipoprotein 34 mg/dl (0-30); eGFR > 60.00
[2024-03-04 13:49] LABS: Urine Bacteria Many (Negative); Urine White Cell >100 /HPF (0-5)
[2024-03-04 13:50] LABS: Urine Red Blood Cell 0-2 /HPF (0-2); Urine Squamous Cell 0-2 /LPF (Few)
== END ==
LOC: REG 11:43
PROVIDERS: ATTENDING PHYSICIAN Family Medicine
DX: N30.00 Acute cystitis without hematuria (principal); R35.0 Frequency of micturition; E11.59 Type 2 diabetes mellitus with other circulatory complications; I10 Essential (primary) hypertension
CPT/HCPCS: 36415; 80053; 80061; 81003; 81015; 83036; 85027; 87077; 87086

== ENCOUNTER → 2024-04-21 09:26 | Outpatient (REF) | payer MEDICARE, OTHER, SELFPAY | LOC: RAD 09:26 | PROVIDERS: ATTENDING PHYSICIAN Family Medicine | DX: M79.672 Pain in left foot (principal); K59.00 Constipation, unspecified; R39.89 Other symptoms and signs involving the genitourinary system; N39.0 Urinary tract infection, site not specified; I48.20 Chronic atrial fibrillation, unspecified | CPT/HCPCS: 73630 ==

== ENCOUNTER 2024-05-12 12:06 | Inpatient (IN) | payer MEDICARE, OTHER, SELFPAY ==
[2024-05-12] VITALS (54 sets, daily range): BP systolic 67–190; BP diastolic 45–169; PULSE 2–128; BMI 35.2
--- NOTE | 2024-05-12 03:05 | EDRN ---
When RN assessed pt., RN noted blood in pt.'s depends diaper, pt. unsure where blood came from. RN notes small amount of bleeding from pt.'s urethra, but no bleeding from rectum and no stool present in depends.
--- NOTE | 2024-05-12 03:36 | ED.GENMED ---
History of Present Illness
<Silvia Richey PA-C - Last Filed: 05/12/24 07:57>
General
Chief Complaint: Male Genito-Urinary Symptoms
Source: patient
Exam Limitations: none
Time Seen by Provider: 05/12/24 03:35
Nursing documentation reviewed up to this point in time: agreed with
History of Present Illness
History of Present Illness:
74-year-old male with past medical history of COPD, obesity, PE, A-fib, on Xarelto, prostate cancer, factor V Leiden presenting emergency department today with concerns of penile pain, abdominal pain, and penile bleeding. This started a few hours
ago. Patient reports that he fell asleep in his chair at home when he woke up and noticed blood. Patient thought it was coming from his rectum but then went to use the bathroom and noticed blood with urination and noticed carmen blood from the tip
of his penis. Patient denies any trauma to the penis, patient does note that he has had an aqua ablation of the prostate around a month ago at [facility], his urologist is in situ with [facility]. Patient has never had this
problem before. Patient states that in regards to procedure last month, he had a follow-up appointment that he has not had any problems since. Patient denies any nausea or vomiting, flank pain.
Past History
<Silvia Richey PA-C - Last Filed: 05/12/24 07:57>
Past History
ED Past Medical History: Arrthythmia (Atrial fibrillation), COPD, CVA, HTN (Quit last week.), Hypercholesterolemia, Other (hepatitis), Other (pulmonary embolism) and Other (Pericarditis in 1976, DVT in 1999 with an IVC filter, hypertension,blood
clots left leg, with filter)
ED Past Surgical History: Cholecystectomy and Other (left testicular repair, varicose vein stripping,)
Social History
Tobacco: Former smoker
Alcohol: Occasional
Drug: None
Personal:
Living: with family
Employment: Employed
Family History
Family History: Other (Noncontributory )
Review of Systems
<Silvia Richey PA-C - Last Filed: 05/12/24 07:57>
Review of Systems
All Other Systems: ROS reviewed and negative except as documented in HPI and ROS
Phy Exam
<Silvia Richey PA-C - Last Filed: 05/12/24 07:57>
Physical Exam
Physical Exam:
General: Patient is well appearing and in no acute distress; non-toxic
Skin: Warm and dry, no rashes or lesions
Head: Normocephalic, atraumatic
Eyes: Sclera non-icteric. EOMs intact. PERRLA.
Cardiac: Regular rate and rhythm, no murmurs
Pulm: Normal respiratory effort, no wheezes, rales, rhonchi
Abdomen: Abdominal tenderness palpation bilaterally, no rebound tenderness
Genitourinary: No penile rashes or lesions, carmen bleeding noted from urethra
Neuro: CN II-XII intact, no focal neurologic deficits.
Psychiatric: Appropriate mood and affect.
Course
<Silvia Richey PA-C - Last Filed: 05/12/24 07:57>
Orders/Labs/Results
Orders:
Orders
05/12/24 03:45
IV Insert/Care/Rem.- Treatment PRN
05/12/24 04:01
HYDROmorphone [Dilaudid] 0.5 mg .ROUTE .STK-MED ONE
05/12/24 04:04
Patino Placement- Treatment ONCE
Reason for insertion: Outlet obstruction
05/12/24 04:11
HYDROmorphone [Dilaudid] 0.5 mg IV NOW STA
05/12/24 04:15
Complete Blood Count/With Diff Urgent
Comprehensive Metabolic Panel Urgent
Urinalysis Reflex To Culture Urgent
Date Specimen was Collected: 05/12/24
Time Specimen was Collected: 03:49
Urine Microscopic Reflex Cult Urgent
Urine Culture Urgent
BRENDA Source: U
Specimen Description:
Date Specimen was Collected: 05/12/24
Time Specimen was Collected: 03:49
05/12/24 04:20
Lidocaine 2% [Lidocaine Uro-Jet 2%] 1 syringe .ROUTE .Furious[facility]-MED ONE
05/12/24 04:22
Lidocaine 2% [Lidocaine Uro-Jet 2%] 1 syringe TOPICAL NOW STA
05/12/24 05:05
CBI- Treatment PRN
Solution: nss
Irrigate to Clear?: Yes
05/12/24 05:16
HYDROmorphone [Dilaudid] 0.5 mg .ROUTE .[place]-[facility] ONE
05/12/24 05:19
CT Abd/pelvis W Iv Cont Urgent
Comment:
Reason For Exam: lower abdominal pain, penile pain
05/12/24 05:20
HYDROmorphone [Dilaudid] 0.5 mg IV NOW STA
05/12/24 06:05
Lidocaine 2% [Lidocaine Uro-Jet 2%] 1 syringe .ROUTE .[facility] ONE
Abnormal Lab Results
05/12/24
04:15
Absolute Lymphs (auto) 0.7 L 10^3/uL
(1.2-3.4)
Absolute Monos (auto) 0.7 H 10^3/uL
(0.1-0.6)
Lymphocytes % 11.7 L %
(20.5-51.1)
Monocytes % 10.3 H %
(1.7-9.3)
BUN 21 H mg/dl
(9-20)
Glucose 136 H mg/dl
(70-99)
Total Protein 6.2 L g/dl
(6.3-8.2)
Urine Ketones Trace A
(Negative)
Ur Occult Blood Reflex 4+ A
(Negative)
Leukocyte Esterase Rfl 1+ A
(Negative)
Urine RBC >100 A /HPF
(0-2)
Urine Glucose 3+ A
(Negative)
Urine Albumin (Reflex) 3+ A
(Neg - Trace)
05/12/24 04:15
05/12/24 04:15
Vital Signs
Initial and Last Documented VS:
Initial Vital Signs
Temp Pulse Resp BP Pulse Ox
98.1 F 84 16 131/83 96
05/12/24 02:29 05/12/24 02:29 05/12/24 02:29 05/12/24 02:29 05/12/24 02:29
Last Documented Vital Signs
Temp Pulse Resp BP Pulse Ox
98.1 F 99 16 115/76 94
05/12/24 02:29 05/12/24 07:02 05/12/24 07:02 05/12/24 07:02 05/12/24 07:02
<Angelina Orta, - Last Filed: 05/12/24 06:30>
Orders/Labs/Results
Orders:
Orders
05/12/24 03:45
IV Insert/Care/Rem.- Treatment PRN
05/12/24 04:01
HYDROmorphone [Dilaudid] 0.5 mg .ROUTE .STK-MED ONE
05/12/24 04:04
Patino Placement- Treatment ONCE
Reason for insertion: Outlet obstruction
05/12/24 04:11
HYDROmorphone [Dilaudid] 0.5 mg IV NOW STA
05/12/24 04:15
Complete Blood Count/With Diff Urgent
Comprehensive Metabolic Panel Urgent
Urinalysis Reflex To Culture Urgent
Date Specimen was Collected: 05/12/24
Time Specimen was Collected: 03:49
Urine Microscopic Reflex Cult Urgent
Urine Culture Urgent
BRENDA Source: U
Specimen Description:
Date Specimen was Collected: 05/12/24
Time Specimen was Collected: 03:49
05/12/24 04:20
Lidocaine 2% [Lidocaine Uro-Jet 2%] 1 syringe .ROUTE .[facility] ONE
05/12/24 04:22
Lidocaine 2% [Lidocaine Uro-Jet 2%] 1 syringe TOPICAL NOW STA
05/12/24 05:05
CBI- Treatment PRN
Solution: nss
Irrigate to Clear?: Yes
05/12/24 05:16
HYDROmorphone [Dilaudid] 0.5 mg .ROUTE .[facility] ONE
05/12/24 05:19
CT Abd/pelvis W Iv Cont Urgent
Comment:
Reason For Exam: lower abdominal pain, penile pain
05/12/24 05:20
HYDROmorphone [Dilaudid] 0.5 mg IV NOW STA
05/12/24 06:05
Lidocaine 2% [Lidocaine Uro-Jet 2%] 1 syringe .ROUTE .[facility] ONE
Abnormal Lab Results
05/12/24
04:15
Absolute Lymphs (auto) 0.7 L 10^3/uL
(1.2-3.4)
Absolute Monos (auto) 0.7 H 10^3/uL
(0.1-0.6)
Lymphocytes % 11.7 L %
(20.5-51.1)
Monocytes % 10.3 H %
(1.7-9.3)
BUN 21 H mg/dl
(9-20)
Glucose 136 H mg/dl
(70-99)
Total Protein 6.2 L g/dl
(6.3-8.2)
Urine Ketones Trace A
(Negative)
Ur Occult Blood Reflex 4+ A
(Negative)
Leukocyte Esterase Rfl 1+ A
(Negative)
Urine RBC >100 A /HPF
(0-2)
Urine Glucose 3+ A
(Negative)
Urine Albumin (Reflex) 3+ A
(Neg - Trace)
05/12/24 04:15
05/12/24 04:15
Vital Signs
Initial and Last Documented VS:
Initial Vital Signs
Temp Pulse Resp BP Pulse Ox
98.1 F 84 16 131/83 96
05/12/24 02:29 05/12/24 02:29 05/12/24 02:29 05/12/24 02:29 05/12/24 02:29
Last Documented Vital Signs
Temp Pulse Resp BP Pulse Ox
98.1 F 99 16 115/76 94
05/12/24 02:29 05/12/24 07:02 05/12/24 07:02 05/12/24 07:02 05/12/24 07:02
[place];Silvia Richey PA-C - Last Filed: 05/12/24 07:57>
MDM/Problems Addressed
Differential Diagnosis Includes:
ddx include hemorrhoidal bleeding, colitis, nephrolithiasis, urethral irritation, urinary tract infection, spontaneous prostatic bleeding, postsurgical complication
MDM/Problems Addressed:
74-year-old male with past medical history of COPD, obesity, PE, A-fib, on Xarelto, prostate cancer, factor V Leiden presenting emergency department today with concerns of penile pain, abdominal pain, and penile bleeding. Coud� catheter was
successfully placed which drained carmen blood. 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 Spoke to patient's urologist Dr. Mario Oates with [facility]
who performed the procedure and he recommended admission here for continued carmen bleeding and since he has a coud� in place now that that is draining, needs no additional recommendations at this time. Dr. Muñoz is aware of case. Will hold
Xarelto and refer for admission
Chronic conditions affecting care:
0 prostate cancer, PE, A-fib, diabetes, factor
<Silvia Richey PA-C - Last Filed: 05/12/24 07:57>
*Pulse Oximetry
Patient hypoxic: no
*Critical Care Note
Total Time (30-74mins, 75-104mins- exclusive of procedures): Not Applicable
Data Reviewed
Review of Other/Old Records Reveals: Records (Reviewed ER physician documentation from 12/16/2023, patient seen for urinary symptom) and Discharge Summary (Anemia just recently from 11/05/2023, patient admitted for small bowel obstruction)
Source: patient and records
Prescriptions/Medications Considered But Not Given:
n/a
Further Testing Considered But Not Given:
n/a
<Silvia Richey PA-C - Last Filed: 05/12/24 07:57>
Patient Management
Escalation/DeEscalation of care consider admission/obs:
Patient referred for admission
ED Attending Note
<Silvia Richey PA-C - Last Filed: 05/12/24 07:57>
-
Portions of this chart may have been created with voice recognition software.� Occasional wrong word or��sound alike� substitutions may have occurred due to the inherent limitations of voice recognition software.
<Angelina Orta DO - Last Filed: 05/12/24 06:30>
ED Attending Note
Patient seen and examined by attending physician: Yes
I performed a history and physical exam of patient and discussed management with resident, I reviewed resident's note and agree with documented findings and plan of care.: Yes
ED Attending Note:
This is a 74-year-old gentleman with remote history of prostate CA, history of BPH who underwent aqua ablation of his prostate 1 month ago at [facility]. He has history of atrial fibrillation chronically maintained on Xarelto. He
awoke tonight with stents to void and noticed bright red blood at the end of his penis as well as grossly bloody urine. He complains of suprapubic discomfort, sense to void and difficulty doing so. He has been intermittently able to pass some
thick grossly bloody urine. He denies flank pain. No dizziness or lightheadedness. He has been moving his bowels normally. He has not had a fever. No recent trauma nor fall.
74-year-old gentleman appears his stated age, weak and alert, appears moderately uncomfortable, attempting to void.
Abdomen is rotund, soft with moderate tenderness suprapubic region with questionably mildly distended bladder. Scant blood at urethral meatus. No CVA tenderness.
Acute hematuria, concern for bladder outlet obstruction related to hematuria. Concern for UTI with hemorrhagic cystitis.
Labs are pending.
Will plan for three-way Patino catheter with CBI.
Due to suprapubic discomfort will check CT
05/12/2024 0627 AM
Nursing staff had difficulty with initial Patino catheter, scant initial bloody discharge.
CAT scan shows catheter within the penile urethra. Recommend removing this catheter and nursing staff was able to successfully insert a regular Patino catheter with prompt drainage of grossly blood-tinged urine.
CAT scan concerning for a contained urinary bladder perforation with fistulization to the prostate gland status post aqua ablation. There is no intraperitoneal nor extraperitoneal bladder rupture. Patino catheter balloon inflated within the mid
penile urethra with catheter tip at prostatic urethra. This Patino catheter was removed as above and a 16 [place] coud� catheter inserted successfully.
Due to CAT scan findings above will consult urology. Due to gross hematuria, chronic anticoagulation with Xarelto and concern for recurrent bladder outlet obstruction patient will require acute hospitalization. He may require CBI.
Discharge Plan
Departure
Patient Disposition: Admit
Date of Disposition: 05/12/24
Time of Disposition: 07:32
Presentation/result/management discussed w/ accepting MD/DO: Hospitalist
Patient with high blood pressure during this ER visit?: Yes
Condition: Fair
Discharge Problem:
Hematuria, Perforation of bladder, Fistula of prostate
Prescriptions:
No Action
diltiazem HCl 240 MG capsule,extended release 24hr
240 mg PO DAILY
Xarelto 20 MG tablet
20 mg PO HS
Patient Comments:
chlorthalidone 25 MG tablet
25 mg PO DAILY
eszopiclone [Lunesta] 3 MG tablet
3 mg PO HS
furosemide 20 MG tablet
20 mg PO QPM
atorvastatin 20 MG tablet
20 mg PO HS
glipizide 5 mg Tablet Extended Release 24hr
15 mg PO DAILY
potassium chloride 20 mEq Tablet,Er Particles/Crystals
20 meq PO BID
losartan 100 mg Tablet
100 mg PO DAILY
polyethylene glycol 3350 [Miralax] 17 gram powder in packet
17 g PO DAILYPRN PRN (Reason: constipation)
Rx Instructions:
HOLD DOSE IF HAVE DIARRHEA
phenazopyridine [Pyridium] 100 mg tablet
100 mg PO TID PRN (Reason: burning/pain with urination) Qty: 30 0RF
Referrals:
Steffen Dao MD [Family Provider] -
Interventions
Interventions:
*Risk Screen - Suicide Last Done: 05/12/24 02:29
*Neglect/Abuse Screening Last Done: 05/12/24 03:09
ED- Fall Risk Assessment Last Done: 05/12/24 03:09
ED-Male Genitourinary Assessment Last Done: 05/12/24 03:08
Discharge Date and Time
Print Language: OMANI
[2024-05-12] MEDS: DILAUDID 0.5 MG IV ×6 (04:12→22:43)
[2024-05-12] MEDS: LIDOCAINE URO-JET 2% 1 SYRINGE TOPICAL (04:22)
[2024-05-12 04:29] LABS: % Basophils 0.6 % (0-2); % Eosinophils 3.8 % (0-6); % Immature Granulocytes 0.5 % (0-0.5); % Lymphocytes 11.7 % (20.5-51.1); % Monocytes 10.3 % (1.7-9.3); % Neutrophils 73.1 % (42.2-75.2); Absolute Eosinophils 0.2 10^3/uL (0-0.7); Absolute Lymphocytes 0.7 10^3/uL (1.2-3.4); Absolute Monocytes 0.7 10^3/uL (0.1-0.6); Absolute Neutrophils 4.6 10^3/uL (1.4-6.5); Hematocrit 50.4 % (39.0-52.0); Hemoglobin 17.2 g/dL (13.0-18.0); Mean Corp Hgb Conc. 34.1 g/dL (33.0-37.0); Mean Corpuscular Hgb 28.7 pg (27.0-31.0); Mean Corpuscular Volume 84.1 fL (80.0-94.0); Nucleated Red Blood Cells % 0 % (-); Platelet Count 177 10^3/uL (130-400); Red Blood Cell Count 5.99 10^6/uL (4.70-6.10); Red Cell Dist. Width 14.2 % (11.5-14.5); White Blood Cell Count 6.3 10^3/uL (4.8-10.8)
[2024-05-12 04:35] LABS: Urine Albumin 3+ (Neg - Trace); Urine Bilirubin Negative (Negative); Urine Character Bloody (Clear); Urine Color Red; Urine Glucose 3+ (Negative); Urine Ketone Trace (Negative); Urine Leukocyte 1+ (Negative); Urine Nitrite Negative (Negative); Urine Occult Blood 4+ (Negative); Urine Specific Gravity 1.015 (<1.030); Urine Urobilinogen Negative (Neg - 1+); Urine pH 6.5 (5.0-9.0)
[2024-05-12 04:52] LABS: ALT (SGPT) 16 U/L (0-50); AST (SGOT) 18 U/L (17-59); Albumin 3.8 g/dl (3.5-5.0); Alkaline Phosphatase 91 U/L (38-126); Blood Urea Nitrogen 21 mg/dl (9-20); Calcium 9.4 mg/dl (8.4-10.2); Carbon Dioxide 29 mmol/L (22-30); Chloride 101 mmol/L (98-107); Estimated Creatinine Clearance 69 ml/min; Glucose 136 mg/dl (70-99); Potassium 3.7 mmol/L (3.5-5.1); Sodium 141 mmol/L (135-145); Total Protein 6.2 g/dl (6.3-8.2); eGFR > 60.00
[2024-05-12 05:10] LABS: Urine Red Blood Cell >100 /HPF (0-2)
--- NOTE | 2024-05-12 05:25 | EDRN ---
When RN attempted to place 3 way coppola, RN initially met resistance at beginning of urethra, was able to advance past this resistance, then RN met resistance towards end of catheter, no urine output initially. When RN flushed catheter w/ NSS
irrigation fluid, small blood clots seen in drainage bag, followed by lightly pink fluid then clear fluid. Dr. Orta and PA made aware, as RN met resistance and no inital urine output. Verbal order for RN to keep coppola in place at this time and send
pt. for ordered CT scan for evaluation. Will monitor drainage bag.
--- NOTE | 2024-05-12 06:29 | EDRN ---
RN told by Dr. Orta to attempt to advance catheter, 3 RN's unable to advance. 3-way catheter removed, 16 F Coude catheter placed, bloody urine draining at this time.
--- NOTE | 2024-05-12 11:49 | W.PN.SURGUPD ---
Surgical Update
Surgical Update
Stopped back into the ER to check on patient
Patino catheter had just been hand irrigated by nurse with little benefit: tubing fouled by clot
---
Discussed with patient the need for more efficient bladder drainage/hematuria management
Existing Patino removed
22 Fr 3-way Patino placed with little effort
300 cc clot recovered from urinary bladder with establishment of CBI
Patient obtained relief of much of his SP pain
---
Will repeat Hgb later today
Patient must remain off Xarelto and all blood thinners until further notice
[2024-05-12] MEDS: CARDIZEM CD 240 MG PO (12:40)
--- NOTE | 2024-05-12 13:46 | CM ---
Patient seen at bedside with hospitalists and patient . Patient stated that he uses Dr. Agudelo as his pcp and he uses the [facility] in [facility] for pharmacy needs. Patient was a smoker but stopped in 2011. 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 patient assists with medication and supports. Patient has several children that state are not all that involved. Patient plan is for discharge home with no needs
vs VN. CM will continue to follow for discharge planning needs.
Plan; home with no needs vs home with VN
[2024-05-12 15:14] LABS: Hematocrit 47.9 % (39.0-52.0); Hemoglobin 16.1 g/dL (13.0-18.0)
[2024-05-12] MEDS: CARDIZEM 125 IV (15:23)
[2024-05-12] MEDS: LOPRESSOR 5 MG IV (15:46)
--- NOTE | 2024-05-12 16:00 | CON.CAR ---
Addendum entered and electronically signed by Carlos Sheppard MD 05/12/24 17:50:
Primary Cardiology: Dr. Carlos Rubio
.
Attending addendum: Patient seen and examined. PA note reviewed and findings independently confirmed by me. Briefly, this is a 74-year-old gentleman with a past medical history notable for permanent atrial fibrillation on oral anticoagulation,
history of DVT/PE status post IVC filter, CVA, hypertension, and COPD. He underwent aqua ablation of the prostate at [facility] earlier this month. He presented to [facility] for evaluation of gross hematuria and rigors beginning last
evening. It was difficult to obtain a good history because the patient was experiencing rigors and did not want to talk. He denied any chest discomfort.
PE:
Gen: patient shaking with rigors. He is alert but not very interactive.
HEENT: NC/AT, sclera anicteric
CV: Irreg Irreg and tachy
Lungs: No wheezing currently although breathing through pursed lips
Abd: Distended. No guarding. Absent bowel sounds
: Patino catheter in place
Ext: No edema
RECOMMENDATIONS:
-Afib with RVR
IV cardizem and PO cardizem. May titrate IV Cardizem as BP tolerates
I suspect high hr in afib likely related to underlying rigors and possible bacteremia
Hold oral anticoagulation for now given hematuria. [id number] VAS score is 4-5
-Hematuria:
CBI ongoing
Need to hold oral anticoagulation
Will discuss with Urology over next several days
Original Note:
Consultation
Consultation Request
Date/Time Consultation Requested: 05/12/24
Date/Time Consultation Performed: 05/12/24
Requesting Provider: Dr. Bowling
Performing Provider: Dr. Sheppard
Reason for Consultation: Rapid Afib with known permanent Afib
Medical History
-
History of Present Illness:
Patient came to [facility] very early this morning with pain and hematuria and was admitted with gross hematuria and cardiology is now consulted for h/o Afib that is now rapid. Patient had an aqua prostate ablation at [facility] about 3 weeks ago and
says that things went well afterwards until last night when he started with lower abdominal pain and hematuria. He came to [facility] around 0330 this morning and was started on CBI for gross hematuria. Urology seeing patient. Patient with known permanent
Afib that is generally rate controlled with Cardizem CD 240 mg daily, but his usual dose was given late today due to being in the ER. He took his usual dose of Xarelto last night. No ECG on arrival to ER, but placed on tele and noted to become rapid
this afternoon. No palpitations, chest pain or SOB. Patient with chills, but no fever recorded.
PMH:
s/p aqua prostate ablation at [facility] early 04/2024
Permanent Afib
Chronic Xarelto OAC, last dose 05/11/24 PM
h/o DVT/PE s/p IVC filter
h/o CVA 2012
HTN
COPD
ROGELIO
h/o pericarditis
obesity
HLD
Past Medical History
Past Medical History: Other (in HPI)
Past Surgical History: Cholecystectomy and Tonsilectomy
Social History
Tobacco: Former Smoker
Alcohol: Occasional (monthly or less)
Drug: None
Personal:
Living: With Family
Family History
Family History: CAD
Allergies / Home Medications
Allergy/AdvReac Type Severity Reaction Status Date / Time
adhesive Allergy TAPE-RASH Verified 05/12/24 02:32
latex Allergy Hives Verified 05/12/24 02:32
metoclopramide HCl Allergy muscle Verified 05/12/24 02:32
[From Reglan] twitching
oxycodone [From Percocet] Allergy Vomiting Verified 05/12/24 02:32
oxycodone terephthalate Allergy vomiting Verified 05/12/24 02:32
[From Percodan]
prochlorperazine maleate Allergy vomiting Verified 05/12/24 02:32
[From Compazine]
propoxyphene HCl Allergy vomiting Verified 05/12/24 02:32
[From Darvon]
�Medication �Instructions �Recorded �Confirmed �Type
diltiazem HCl 240 mg 240 mg PO DAILY Blood pressure 12/20/14 05/12/24 History
capsule,extended release 24 hr
rivaroxaban 20 mg tablet (Xarelto) 20 mg PO HS Blood clot 09/16/16 05/12/24 History
prevention/tx
chlorthalidone 25 mg tablet 25 mg PO DAILY Fluid 01/21/18 05/12/24 History
retention/Swelling
eszopiclone 3 mg tablet (Lunesta) 3 mg PO HS Sleep 02/10/20 05/12/24 History
atorvastatin 20 mg tablet 20 mg PO HS High cholesterol 05/09/20 05/12/24 History
glipizide 5 mg tablet, extended 15 mg PO DAILY Diabetes 11/01/23 05/12/24 History
release 24 hr
losartan 100 mg tablet 100 mg PO DAILY Blood Pressure 11/01/23 05/12/24 History
potassium chloride 20 mEq 20 meq PO BID Supplement 11/01/23 05/12/24 History
tablet,extended release(part/cryst)
polyethylene glycol 3350 17 gram 17 g PO DAILYPRN PRN constipation 12/16/23 05/12/24 History
oral powder packet (Miralax)
acetaminophen 650 mg 1,300 mg PO HS pain 05/12/24 05/12/24 History
tablet,extended release (Tylenol
Arthritis Pain)
empagliflozin 10 mg tablet 10 mg PO DAILY diabetes 05/12/24 05/12/24 History
(Jardiance)
fluticasone 250 mcg-salmeterol 50 1 inh inhalation R BIDPRN PRN sob 05/12/24 05/12/24 History
mcg/dose blistr powdr for
inhalation (Advair Diskus)
pantoprazole 40 mg tablet,delayed 40 mg PO DAILY Gastrointestinal 05/12/24 05/12/24 History
release (Protonix) Issue
Review of Systems
-
History Source: Patient
All other systems: Negative unless noted
Physical Exam
Vital Signs
Temp Pulse Resp BP Pulse Ox
98.1 F 165 19 159/106 96
05/12/24 02:29 05/12/24 15:46 05/12/24 15:30 05/12/24 15:46 05/12/24 13:00
GEN: NAD. AAO to person, place and situation
HEENT: EOMI, MMM
LUNGS: Wearing oxygen at 2 L NC. CTA B/L, no wheezes
CV: Rapid Afib on tele. Irreg irreg and rapid, no murmur
ABD: soft, BS+, NT, ND
EXT: No clubbing, cyanosis, lesions or edema B/L
NEURO: Gross non-focal
SKIN: Warm, dry and pink. No rash
Lab Results
05/12/24 04:15
Impression / Plan
-
Primary Care Provider: Dr. Dao
Primary Director Of Business Applications: Dr. AUNG Rubio
Impression:
Dysuria and abdominal pain on admission 05/12/24
Hematuria
s/p aqua prostate ablation at [facility] early 04/2024
Afib with RVR
Permanent Afib
Chronic Xarelto OAC, last dose 05/11/24 PM
h/o DVT/PE s/p IVC filter
h/o CVA 2012
HTN
COPD
ROGELIO
h/o pericarditis
obesity
HLD
ECHO 11/2018: EF 55-60%, mild CLVH, mildly enlarged RV size, mildly dilated B/L atria, no significant valvular disease
Echo 02/10/20: ejection fraction 55%, mild concentric left ventricular hypertrophy, no significant valve disease, mildly enlarged right ventricular size, moderately dilated left atrium, mildly dilated right atrium, estimated pulmonary artery pressure
of 30-35 mmHg
Echo 04/28/22: EF 55 to 60%, top normal RV size with mild RV dysfunction, trace MR, trace TR with PAP 26 to 31 mmHg
Plan:
-Patient came to [facility] very early this morning with pain and hematuria and was admitted with gross hematuria and cardiology is now consulted for h/o Afib that is now rapid. Patient had an aqua prostate ablation at [facility] about 3 weeks ago and
says that things went well afterwards until last night when he started with lower abdominal pain and hematuria. He came to [facility] around 0330 this morning and was started on CBI for gross hematuria. Urology seeing patient. Patient with known permanent
Afib that is generally rate controlled with Cardizem CD 240 mg daily, but his usual dose was given late today due to being in the ER. He took his usual dose of Xarelto last night. No ECG on arrival to ER, but placed on tele and noted to become rapid
this afternoon. No palpitations, chest pain or SOB. Patient with chills, but no fever recorded.
-Lopressor 5 mg IV x1 and Cardizem gtt started at 5 mg/hr.
-Ordering Cardizem 10 mg IV x1 now and then increase gtt rate to 10 mg/hr
-Xarelto on hold indefinitely. Patient with h/o CVA in 2012 in 2012 and was newly diagnosed with Afib at that time.
-Concern for pending sepsis and Hospitalist attending reports plan is for IMU and additional blood cultures.
[2024-05-12 16:49] LABS: Lactic Acid 6.8 mmol/L (0.7-2.0)
[2024-05-12] MEDS: CARDIZEM 10 MG IV (17:20)
[2024-05-12] MEDS: NSS 1000 IV (17:30)
[2024-05-12 18:33] LABS: Hematocrit 46.2 % (39.0-52.0); Hemoglobin 15.5 g/dL (13.0-18.0); Mean Corp Hgb Conc. 33.5 g/dL (33.0-37.0); Mean Corpuscular Hgb 28.5 pg (27.0-31.0); Mean Corpuscular Volume 84.9 fL (80.0-94.0); Mean Platelet Volume 8.8 fL (7.4-10.4); Platelet Count 163 10^3/uL (130-400); Red Blood Cell Count 5.44 10^6/uL (4.70-6.10); Red Cell Dist. Width 14.5 % (11.5-14.5); White Blood Cell Count 10.4 10^3/uL (4.8-10.8)
[2024-05-12] MEDS: ZOSYN 50 IV ×2 (18:40→23:43)
[2024-05-12 18:54] LABS: ALT (SGPT) 19 U/L (0-50); AST (SGOT) 27 U/L (17-59); Albumin 3.1 g/dl (3.5-5.0); Alkaline Phosphatase 95 U/L (38-126); Blood Urea Nitrogen 22 mg/dl (9-20); Calcium 8.8 mg/dl (8.4-10.2); Carbon Dioxide 24 mmol/L (22-30); Chloride 101 mmol/L (98-107); Estimated Creatinine Clearance 58 ml/min; Glucose 143 mg/dl (70-99); Potassium 3.8 mmol/L (3.5-5.1); Sodium 141 mmol/L (135-145); Total Bilirubin 1.9 mg/dl (0.2-1.3); Total Protein 5.5 g/dl (6.3-8.2); eGFR 57.65
[2024-05-12 18:57] LABS: Absolute Neutrophils -Man Diff 10.4 10^3/uL (1.4-6.5); Band Neutrophils 12 % (0-3); Lymphocytes 0 % (20-51); Normal RBC Morphology Yes; Platelets Checked Yes; Segmented Neutrophils 88 % (42-75)
[2024-05-12 18:58] LABS: Total Cells Counted 100
--- NOTE | 2024-05-12 18:58 | EDRN ---
inpatient team contacted at 1215 due to pt. being afib rvr with rate of 120s. Dr. Bowling stated to give home dose of cardizem, to place order.
[2024-05-12 19:03] LABS: Troponin I 0.017 ng/ml
--- NOTE | 2024-05-12 19:09 | EDRN ---
inpatient team contacted again at 1510 due to HR going to 150s-160s, asymptomatic. Tawnya asked RN to start 5mg/hr of cardizem. At 1533 pt's HR continued to increase to 190-200. EKG done and sent to Tawnya. She asked her residents Jewel to
place orders to card consult, 5mp IV Lopressor and admit to IMU.
Tawnya and Residents at bedside around 1600 to eval pt. blood cultures and lactic drawn at this time. pt has rigors. no fever at this time. Pt. waiting for IMU bed. Placed on 2L NC at this time to due to pulse ox of 88% on RA.
1630 BP started to elevate, noted in the vitals trend in chat. 187/154--190/155. Inpatient team contacted again, stated to restart home medication while waiting for IMU bed. meds needed to be verified by pharmacy.
inpatient team made aware of lactic of 6.8 @ 1713. To start IVF.
rapid response called @ 1755 due to pt being more somnolent and borderline unresponsive. Pt. would initially respond and then nod off. pulse ox continued to drop NC increased to 6L and then placed on NRB. Pt. tachypneic, HR 120-130s. IV bolus hung.
1800 Rapid response team arrived. Tawnya on the way.
--- NOTE | 2024-05-12 19:20 | HPS.HSE ---
Addendum entered and electronically signed by Mariya Bowling MD 05/12/24 21:32:
The urine culture documented as E. coli by Dr. Torres was from 02/2024--all cultures from this admission are pending
Addendum entered and electronically signed by Mariya Bowling MD 05/12/24 21:29:
I personally performed a history and physical exam of the patient and discussed management with the resident. I reviewed the resident's note and agree with the documented findings and plan of care HPI/CC.
Allergies
Allergy/AdvReac Type Severity Reaction Status Date / Time
adhesive Allergy TAPE-RASH Verified 05/12/24 02:32
latex Allergy Hives Verified 05/12/24 02:32
metoclopramide HCl Allergy muscle Verified 05/12/24 02:32
[From Reglan] twitching
oxycodone [From Percocet] Allergy Vomiting Verified 05/12/24 02:32
oxycodone terephthalate Allergy vomiting Verified 05/12/24 02:32
[From Percodan]
prochlorperazine maleate Allergy vomiting Verified 05/12/24 02:32
[From Compazine]
propoxyphene HCl Allergy vomiting Verified 05/12/24 02:32
[From Darvon]
Home Medications
diltiazem HCl 240 mg capsule,extended release 24 hr 240 mg PO DAILY Blood pressure 12/20/14
rivaroxaban 20 mg tablet (Xarelto) 20 mg PO HS Blood clot prevention/tx 09/16/16
chlorthalidone 25 mg tablet 25 mg PO DAILY Fluid retention/Swelling 01/21/18
eszopiclone 3 mg tablet (Lunesta) 3 mg PO HS Sleep 02/10/20
atorvastatin 20 mg tablet 20 mg PO HS High cholesterol 05/09/20
glipizide 5 mg tablet, extended release 24 hr 15 mg PO DAILY Diabetes 11/01/23
losartan 100 mg tablet 100 mg PO DAILY Blood Pressure 11/01/23
potassium chloride 20 mEq tablet,extended release(part/cryst) 20 meq PO BID Supplement 11/01/23
polyethylene glycol 3350 17 gram oral powder packet (Miralax) 17 g PO DAILYPRN PRN constipation 12/16/23
acetaminophen 650 mg tablet,extended release (Tylenol Arthritis Pain) 1,300 mg PO HS pain 05/12/24
empagliflozin 10 mg tablet (Jardiance) 10 mg PO DAILY diabetes 05/12/24
fluticasone 250 mcg-salmeterol 50 mcg/dose blistr powdr for inhalation (Advair Diskus) 1 inh inhalation R BIDPRN PRN sob 05/12/24
pantoprazole 40 mg tablet,delayed release (Protonix) 40 mg PO DAILY Gastrointestinal Issue 05/12/24
GENERAL: well developed, well nourished, male in no apparent distress
HEENT: NC/AT
HEART: irreg irreg
LUNGS : clear to auscultation bilaterally
ABDOM: soft, nontender, nondistended, + bowel sounds
EXT: no cyanosis, clubbing, or edema
NEUROLOGIC: grossly intact
: Patino cath with CBI
Hematuria/lower abdominal pain -- CT scan showed Contained Bladder Perforation w/ Fistulization of the Prostate--pt was admitted--consult urology--cont CBI and pain control--since instrumented a few times, will start vanco/zosyn to cover for
possible UTI--Xarelto will be held--serial H&H--pt consented for blood--cont IVF
Permanent Atrial Fibrillation -- rate controlled at the time of admission--cont diltiazem--hold xarelto
Essential HTN-- Continue chlorthalidone with holding parameters to SBP < 100-- Continue Losartan with holding parameters to SBP < 100-- Continue Lasix to holding parameters SBP < 100.
HLD-- Continue Atorvastatin
Type 2 DM-- Continue Glipizide--accuchecks with SSI--check HGB A1C
DVT proph -- SCDs
code status -- FULL CODE
update: throughout the day, pt developed rapid atrial fibrillation requiring cardiology consult and cardizem drip--pt was upgraded to the IMU to titrate cardizem and was given 5mg IV lopressor x 1 since the cardizem was not helping--HR came down
from 190s to 110s.......approx 5:30 PM, a rapid response was called as the patient dropped his blood pressure and became somewhat unresponsive--arrived at the bedside to find rapid response team present--labs drawn, CXR done, EKG done, ABG drawn,
CT head and abdomen/pelvis were ordered (still pending at this time)--pt was started empirically on BiPAP with improvement of his responsiveness...he was presumed to be septic and wide open IVF bolus was given, vanco added to zosyn, and IV tylenol
was given for temp of 102----labs, CXR and EKG were all stable compared to earlier labs, EKG, & studies---ABG was not run as the lab indicated it was not labelled--pt was then upgraded again to ICU status-- informed of change in status and
upgrade to ICU--pt improved and transferred to ICU
Total Critical Care Time 2 hours. I was immediately available to the patient and staff. I personally examined, reviewed labs, diagnostic images/reports, interpretations, treatment plans, discussed patient care with other providers and family or
caregivers (if patient is unable to make decisions), entered orders as appropriate and documented the medical record.
Original Note:
Family Physician
-
Family Physician: Steffen Dao
Chief Complaint
-
Hematuria and Abdominal Pain
History of Present Illness
Peter Briceno is a 74-year-old male with a past medical history of prostate cancer status post aqua ablation done 1 month ago who is presenting with hematuria and abdominal pain since 1 AM this morning. He was in his usual state of health until last
night when at around 1 AM he woke up with abdominal pain that is described as sharp, localized to the lower abdomen, and without radiation. The patient wears Depends and noticed that there was blood in the diaper. He assumed it was hemorrhoids.
However when he went to the bathroom he saw blood in his urine. This prompted his trip to the emergency room. Upon arrival in the emergency room, the emergency team attempted to place a Patino which was met with resistance a coud� catheter was
attempted instead which drained carmen blood. CT scan performed in the emergency room showed a contained urinary bladder perforation with fistulization to the prostate. The patient was thus admitted to our team.
Both at onset and at presentation, the patient denied chest pain, shortness of breath, dizziness, upper abdominal pain, nausea, vomiting, inability to pass flatus.
Medical History
Past Medical History
Past Medical History: Reports Other (The patient has a past medical history of atrial fibrillation on Xarelto, COPD, hypertension, hypercholesterolemia, type 2 diabetes mellitus, DVT with placement of an IVC filter, obstructive sleep apnea.)
Past Surgical History: Reports Other (Cholecystectomy, varicocele removal, tonsillectomy, aqua ablation of the prostate.)
Social History
Tobacco: Former Smoker (quit smoking 12 years ago)
Alcohol: Occasional (rarely.)
Drug: None
Personal: (to his , Janis. )
Living: With Family
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 )
Family History
Family History: CAD (Both mother and father. )
Allergies / Home Medications
Allergies reflects when Allergies were last updated in [facility].
Home Medications with original date entered in [facility]
Allergy/Medication List:
Patient is allergic to adhesive tape which causes rash, latex which causes hives, and metoclopramide which causes muscle twitching. Additionally the patient notes that although he does not feel it is a true allergy, he vomits when he takes
oxycodone prochlorperazine or propoxyphene.
Review of Systems
-
Constitutional: Reports No Symptoms
Respiratory: Reports No Symptoms
Cardiac: Reports No Symptoms
Abdomen/GI: Reports Abdominal Pain (in the lower quadrants and suprapubic areas without n/v/d, constipation, or inability to pass flatus. )
: Reports Other (hematuria, sensation to void)
Neurological: Reports No Symptoms
Physical Exam
Vital Signs
Vital Signs
Temp Pulse Resp BP Pulse Ox
98.0 F 118 26 91/68 97
05/12/24 15:15 05/12/24 18:50 05/12/24 18:50 05/12/24 18:50 05/12/24 18:50
Physical Exam
General: Well Developed, Well Nourished, Obese and Other (uncomfortable but conversant. )
HEENT: NormoCephalic, Anicteric and Atraumatic
Respiratory: Clear
Cardiac: Tachycardia
GI: Soft and Tender (mild to moderate tenderness to palpation in the lower quadrants bilaterally without guarding or rebound.)
Musculoskeletal: No Edema
Skin: Warm and Dry
Neuro: Awake and Alert
Psych: Calm
Laboratory Results
-
Labs from 04:15 05/12/24
WBC 6.3, BUN 21, Glucose 136, Hb 17; all other values unremarkable.
Urines showed trace ketones, 4+ occult blood, 1+ Leukocyte esterase, >100 urine RBCs, 3+ Glucose, 3+ albumin
CT Abd/Pelv: Contained urinary bladder perforation with fistulization to the prostate gland, status post aqua ablation. No intraperitoneal or extraperitoneal bladder rupture.
Blood Culture Pending, Urine Culture showed E. Coli.
Data Reviewed
-
CT Scan: Report Reviewed by me
Lab Data: Labs Reviewed by me
Impression/Plan
-
IMPRESSION:
Peter Briceno is a 74-year-old male with a past medical history of prostate cancer status post aqua ablation done 1 month ago, and a history of Afib on Xarelto, who is presenting with hematuria and abdominal pain since 1 AM this morning. ED workup
identified potential urinary tract infection as well as a contained bladder perforation with fistulization of the prostate on his CT scan.
PLAN:
1. Contained Bladder Perforation w/ Fistulization of the Prostate
- Hold Xarelto due to active hematuria.
- Continue to drain; perform complete bladder irrigation.
- Consult urology who agreed to stop the Xarelto and will be around to see the patient.
- Type and Cross; prepare blood products
- Serial H+H q 4h
- Pain Control PRN
2. Atrial Fibrillation
- Hold Xarelto for the above
- Continue Diltiazem
- Cardiology agrees with this plan.
- Admit to telemetry for continuous monitoring.
- Urology feels Xarelto should be held until this condition clears.
3. HTN
- Continue chlorthalidone with holding parameters to SBP < 100.
- Continue Losartan with holding parameters to SBP < 100.
- Continue Lasix to holding parameters SBP < 100.
4. HLD
- Continue Atorvastatin
5. Type 2 DM
- Continue Glipizide.
See update note/addendum for rest of days events.
--- NOTE | 2024-05-12 19:25 | EDRN ---
Pt.'s rectal temp 102, placed on bipap, IV Tylenol and antibiotics hung. pt. to be upgraded to ICU.
0 report given to Jacqui RODRIGUEZ in ICU. Rapid response team with pt at CT. SOCIAL WORK MSW to transport pt to ICU.
[2024-05-12] MEDS: OFIRMEV 100 IV (19:34)
[2024-05-12 19:51] LABS: B.E. -2.3 mmol/L; HCO3 21.6 mmol/L (21-28); Ionized Calcium 1.08 mMOL/L (1.15-1.33); O2 Saturation % 99.6 % (94-98); PCO2 34 mmHg (35-48); PO2 173 mmHg (83-108); Potassium 2.9 mMOL/L (3.5-5.1); Sodium 133 mMOL/L (136-145); pH 7.41 (7.35-7.45)
[2024-05-12 20:00] LABS: O2 Therapy %Oxygen/Room Air 60
--- NOTE | 2024-05-12 20:00 | PTCARENOTE ---
Patient received from ED s/p WRAPAROUND FACILITATOR, patient drowsy but arousable. Oriented x3, commands followed. Afib in the 120s on monitor, febrile, blood pressure as documented. Palpable pulses throughout. Lungs diminished bibasilar, pulse ox 94% on BiPap.
Repeat ABG sent. Abdomen round obese with positive bowel sounds. CBI draining pink urine. #20 g in LAC flushed and patent. #22 g in RFA with IVF infusing as ordered. CHG bath given
[2024-05-12] MEDS: VANCOCIN 540 MG IV (20:04)
[2024-05-12] MEDS: PROTONIX PO (20:07)
[2024-05-12] MEDS: GLUCOTROL XL (EXTENDED RELEASE) PO (20:07)
[2024-05-12] MEDS: NOVOLOG FLEXPEN-LOW RESISTANCE SC (20:51)
[2024-05-12] MEDS: NEO-SYNEPHRINE 250 IV (20:56)
--- NOTE | 2024-05-12 20:56 | PTCARENOTE ---
Jimmy-Synephrine gtt started for MAP<65
[2024-05-12 21:07] LABS: Lactic Acid 3.6 mmol/L (0.7-2.0)
[2024-05-12] MEDS: LIPITOR PO (21:10)
[2024-05-12] MEDS: CALCIUM CHLORIDE 10% SYRINGE 60 MG IV (21:49)
--- NOTE | 2024-05-12 23:11 | PTCARENOTE ---
Patient complaining of pain, medicated with prn dilaudid, hand irrigated 3 way catheter, small clot removed. patient now resting with eyes closed
[2024-05-13] VITALS (82 sets, daily range): BP systolic 70–117; BP diastolic 46–95; BMI 35.9
--- NOTE | 2024-05-13 00:28 | PTCARENOTE ---
Patient reassessed drowsy but arousable, Jimmy-Synephrine gtt titrated for MAP, remains on 4L. CBI remains blood tinged. Labs sent. No other changes in assessment
[2024-05-13 00:30] LABS: Glucose - Point of Care 93 mg/dl (70-99)
[2024-05-13 00:55] LABS: Lactic Acid 3.5 mmol/L (0.7-2.0)
[2024-05-13] MEDS: OFIRMEV 100 IV (01:24)
--- NOTE | 2024-05-13 02:35 | PTCARENOTE ---
Patient placed on mid flow due to decrease in pulse ox while sleeping
[2024-05-13 03:39] LABS: Hematocrit 43.9 % (39.0-52.0); Hemoglobin 14.5 g/dL (13.0-18.0)
[2024-05-13] MEDS: NSS 1000 IV ×3 (04:09→21:11)
[2024-05-13] MEDS: DILAUDID 0.5 MG IV ×2 (04:14→22:49)
[2024-05-13 05:02] LABS: Hematocrit 44.5 % (39.0-52.0); Hemoglobin 14.9 g/dL (13.0-18.0); Mean Corp Hgb Conc. 33.5 g/dL (33.0-37.0); Mean Corpuscular Hgb 29.5 pg (27.0-31.0); Mean Corpuscular Volume 88.1 fL (80.0-94.0); Mean Platelet Volume 9.5 fL (7.4-10.4); Platelet Count 204 10^3/uL (130-400); Red Blood Cell Count 5.05 10^6/uL (4.70-6.10); Red Cell Dist. Width 14.7 % (11.5-14.5); White Blood Cell Count 40.4 10^3/uL (4.8-10.8)
[2024-05-13 05:08] LABS: Lactic Acid 3.6 mmol/L (0.7-2.0)
[2024-05-13 05:13] LABS: Vancomycin Random 19.1 ug/ml
[2024-05-13 05:20] LABS: INR 1.66; PT 19.7 Sec (11.4-14.6)
[2024-05-13 05:21] LABS: APTT 31.1 Sec (23.4-35.0)
[2024-05-13 05:23] LABS: Blood Urea Nitrogen 26 mg/dl (9-20); Carbon Dioxide 20 mmol/L (22-30); Chloride 105 mmol/L (98-107); Estimated Creatinine Clearance 40 ml/min; Glucose 151 mg/dl (70-99); Magnesium 1.4 mg/dl (1.6-2.3); Potassium 3.7 mmol/L (3.5-5.1); Sodium 141 mmol/L (135-145); eGFR 36.56
[2024-05-13] MEDS: ZOSYN 50 IV ×4 (05:42→23:20)
--- NOTE | 2024-05-13 05:51 | PTCARENOTE ---
patient more alert, No other changes in assessment
[2024-05-13] MEDS: MAGNESIUM SULFATE 50 IV (06:09)
[2024-05-13 07:53] LABS: % Basophils 0.4 % (0-2); % Eosinophils 0.3 % (0-6); % Immature Granulocytes 4.5 % (0-0.5); % Lymphocytes 1.2 % (20.5-51.1); % Neutrophils 89.6 % (42.2-75.2); Absolute Basophils 0.2 10^3/uL (0-0.2); Absolute Eosinophils 0.1 10^3/uL (0-0.7); Absolute Immature Granulocytes 1.8 10^3/uL (0-0.05); Absolute Lymphocytes 0.5 10^3/uL (1.2-3.4); Absolute Monocytes 1.6 10^3/uL (0.1-0.6); Absolute Neutrophils 36.2 10^3/uL (1.4-6.5); Nucleated Red Blood Cells % 0 % (-)
--- NOTE | 2024-05-13 08:10 | CON.INTV ---
Consultation
Consultation Request
Date/Time Consultation Requested: 05/13/2024339
Date/Time Consultation Performed: 05/13/2024805
Requesting Provider: NEELA Castellanos
Performing Provider: Caleb Flores MD
Reason for Consultation: Septic Shock
Medical History
-
Chief Complaint: Blood seen in diaper/urinating blood
History of Present Illness:
74-year-old male former tobacco smoker with a past medical history of prostate cancer s/p XRT (diagnosed 12/2020), BPH, chronic venous insufficiency, chronic pericarditis, history of PE s/p IVC filter, restrictive lung disease, severe ROGELIO not on
CPAP, permanent A-fib on Xarelto, history of factor V Leiden on Xarelto, history of partial SBO, hypertension and history of embolic brainstem stroke (2012) who presents with bloody urine. He had an aqua ablation of his prostate on 04/06/2024 at
[facility]. He awoke in with blood in his underwear and was urinating blood. He continues to be on Xarelto. He came here to the ER for further evaluation. He also had abdominal pain that was in his lower belly without radiation. A
Patino was attempted in the ER however this met resistance and then carmen blood resulted. Initial vitals in the ER showed he was afebrile to 98.1 �F, pulse rate 84, breathing at 16 breaths/min, BP 131/83 and saturating 96% on room air. Initial labs
showed Hb 17.2, INR 1.66, lactate 6.8, T. bili 1, and urinalysis 4+ occult blood with +1 leukocyte esterase. Urine + blood cultures were collected. CT abdomen/pelvis with IV contrast showed a urinary bladder perforation with fistulization to the
prostate gland with no intraperitoneal or extraperitoneal bladder rupture. The Patino catheter balloon was inflated within the mid penile urethra with the catheter tip at the prostatic urethra. In the ER he was given Dilaudid and urethral
lidocaine. He was initially admitted to telemetry for hematuria. He developed rapid A-fib throughout the day on 05/12 and towards evening became hypotensive. He also spiked a fever and antibiotics were started with Vanco/Zosyn. He also had
increased oxygen requirements with worsening work of breathing, and was placed onto BiPAP. Pressors also were required and he was transferred to the ICU for further care with environmental construction engineer services consulted for additional management/recommendations.
Patient seen and evaluated this morning. Remains on CBI this morning with pink-colored urine. Currently on Jimmy-Synephrine at 80mcg/min, BP 88/65, heart rate 75; Currently on 15L/min midflow nasal cannula saturating 98%. He is no longer
tachycardic and was taken off of BiPAP overnight. He feels much better although he does have a cough which he says he normally has. Patient's is at bedside and I answered all of her questions. Patient usually follows with urology at [facility]
with Dr. Oates. He says that he has been having lower abdominal pain with urinary frequency and painful urination since August of this year. He thinks that he has a UTI but then he has been told many times by urology that he is urinalysis is not
consistent with a urinary infection. He currently denies chest pain, SHANNON, SOB at rest, abdominal pain, nausea, vomiting, fevers or chills. He is having penile pain and would like something for this.
Of note patient follows with us in the [facility] office with Dr. Aguilar - last office visit on 09/02/2023. He has a history of severe ROGELIO however he is adamantly against using CPAP and is not interested in using an oral appliance device. He takes
Cardizem for history of A-fib and follows up with cardiology. He is up currently has a history of chronic pericarditis with intermittent chest pain. Also has a history of Leiden factor V mutation and his daughter has this mutation as well,
requiring lifelong anticoagulation. He has a history of prostate cancer diagnosed in December 2020 s/p XRT. Last PFT performed in August 2023 showed a mild restrictive lung disease with no evidence of COPD, with a significant bronchodilator response
and preserved gas exchange capacity. He was advised to follow-up with Dr. Aguilar in August 2024 with a 6 MWT.
PMHx: Hypertension, history of embolic brainstem stroke (2012), history of partial SBO, history of pulmonary embolus s/p IVC filter, restrictive lung disease, ROGELIO, pericarditis, permanent A-fib on Xarelto, morbid obesity, hypercholesterolemia,
chronic venous insufficiency, history of prostate cancer s/p XRT (2020), BPH, history of UTI
PSHx: Tonsillectomy, cholecystectomy, hernia repair
Past Medical History
Past Medical History: Other (Above as per HPI)
Past Surgical History: Other (Above as per HPI)
Social History
Tobacco: Former Smoker (993-[id number] history, quit in 03/2012)
Alcohol: None
Drug: None
Personal:
Living: With Family
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
Family History
Family History: CAD (Father + mother)
Allergies / Home Medications
Allergies
Allergy/AdvReac Type Severity Reaction Status Date / Time
adhesive Allergy TAPE-RASH Verified 05/12/24 02:32
latex Allergy Hives Verified 05/12/24 02:32
metoclopramide HCl Allergy muscle Verified 05/12/24 02:32
[From Reglan] twitching
oxycodone [From Percocet] Allergy Vomiting Verified 05/12/24 02:32
oxycodone terephthalate Allergy vomiting Verified 05/12/24 02:32
[From Percodan]
prochlorperazine maleate Allergy vomiting Verified 05/12/24 02:32
[From Compazine]
propoxyphene HCl Allergy vomiting Verified 05/12/24 02:32
[From Darvon]
Home Medications
�Medication �Instructions �Recorded �Confirmed �Last Taken �Type
diltiazem HCl 240 mg 240 mg PO DAILY Blood pressure 15 05/12/24 05/11/24 History
capsule,extended release 24 hr
rivaroxaban 20 mg tablet (Xarelto) 20 mg PO HS Blood clot 09/16/16 05/12/24 05/11/24 History
prevention/tx
chlorthalidone 25 mg tablet 25 mg PO DAILY Fluid 01/21/18 05/12/24 05/11/24 History
retention/Swelling
eszopiclone 3 mg tablet (Lunesta) 3 mg PO HS Sleep 02/10/20 05/12/24 05/11/24 History
atorvastatin 20 mg tablet 20 mg PO HS High cholesterol 05/09/20 05/12/24 05/11/24 History
glipizide 5 mg tablet, extended 15 mg PO DAILY Diabetes 11/01/23 05/12/24 05/11/24 History
release 24 hr
losartan 100 mg tablet 100 mg PO DAILY Blood Pressure 11/01/23 05/12/24 05/11/24 History
potassium chloride 20 mEq 20 meq PO BID Supplement 11/01/23 05/12/24 05/11/24 History
tablet,extended release(part/cryst)
polyethylene glycol 3350 17 gram 17 g PO DAILYPRN PRN constipation 12/16/23 05/12/24 Unknown History
oral powder packet (Miralax)
acetaminophen 650 mg 1,300 mg PO HS pain 05/12/24 05/12/24 05/11/24 History
tablet,extended release (Tylenol
Arthritis Pain)
empagliflozin 10 mg tablet 10 mg PO DAILY diabetes 05/12/24 05/12/24 05/11/24 History
(Jardiance)
fluticasone 250 mcg-salmeterol 50 1 inh inhalation R BIDPRN PRN sob 05/12/24 05/12/24 Unknown History
mcg/dose blistr powdr for
inhalation (Advair Diskus)
pantoprazole 40 mg tablet,delayed 40 mg PO DAILY Gastrointestinal 05/12/24 05/12/24 05/11/24 History
release (Protonix) Issue
Review of Systems
-
History Source: Patient
All other systems: Negative unless noted
Vitals / Labs / Diagnostic Testing
Vital Signs
Temp Pulse Resp BP Pulse Ox
98.1 F 69 21 87/63 97
05/13/24 04:00 05/13/24 07:30 05/13/24 07:30 05/13/24 09:07 05/13/24 07:30
Lab Data
05/13/24 04:45
05/13/24 04:45
Laboratory Results
05/12/24 05/12/24 05/13/24
18:23 19:43 04:45
PT 19.7 H
INR 1.66
APTT 31.1
pH Cancelled 7.41
pCO2 Cancelled 34 L
pO2 Cancelled 173 H
HCO3 Cancelled 21.6
O2 Delivery Level Cancelled %oxygen/room air 60
Microbiology
05/12/24 17:26 Blood/Venous Blood Culture - Preliminary
Positive culture in progress
05/12/24 17:26 Blood/Venous Gram Stain - Preliminary
05/12/24 16:23 Blood/Venous Blood Culture - Preliminary
Positive culture in progress
05/12/24 16:23 Blood/Venous Gram Stain - Preliminary
Diagnostic Testing:
Physical Exam
-
HEENT: Normocephalic, Anicteric and Moist Mucous Membranes
Cardiovascular: Irregular Rhythm and Peripheral Edema (negative)
Respiratory: Wheeze (negative), Rales, Rhonchi (negative) and Non-Labored Respirations
GI: Soft, Distended (abdominal obesity), Non Tender and Normal Bowel Sounds
Neurology: AO x 3 and Tremors (negative)
Skin: Warm and Dry
General: Respiratory Distress (negative), Comfortable, Chills (negative) and Sweats (negative)
Assessment
-
Assessment: 74-year-old male former tobacco smoker with a past medical history of prostate cancer s/p XRT (diagnosed 12/2020), BPH, chronic venous insufficiency, chronic pericarditis, history of PE s/p IVC filter, restrictive lung disease, severe
ROGELIO not on CPAP, permanent A-fib on Xarelto, history of factor V Leiden on Xarelto, history of partial SBO, hypertension and history of embolic brainstem stroke (2012) who presents with bloody urine. He had an aqua ablation of his prostate on
04/06/2024 at [facility]. He awoke in with blood in his underwear and was urinating blood. He continues to be on Xarelto. He came here to the ER for further evaluation. He also had abdominal pain that was in his lower belly without
radiation. A Patino was attempted in the ER however this met resistance and then carmen blood resulted. Initial vitals in the ER showed he was afebrile to 98.1 �F, pulse rate 84, breathing at 16 breaths/min, BP 131/83 and saturating 96% on room air.
Initial labs showed Hb 17.2, INR 1.66, lactate 6.8, T. bili 1, and urinalysis 4+ occult blood with +1 leukocyte esterase. Urine + blood cultures were collected. CT abdomen/pelvis with IV contrast showed a urinary bladder perforation with
fistulization to the prostate gland with no intraperitoneal or extraperitoneal bladder rupture. The Patino catheter balloon was inflated within the mid penile urethra with the catheter tip at the prostatic urethra. In the ER he was given Dilaudid
and urethral lidocaine. He was initially admitted to telemetry for hematuria. He developed rapid A-fib throughout the day on 05/12 and towards evening became hypotensive. He also spiked a fever and antibiotics were started with Vanco/Zosyn. He
also had increased oxygen requirements with worsening work of breathing, and was placed onto BiPAP. Pressors also were required and he was transferred to the ICU for further care with environmental construction engineer services consulted for additional
management/recommendations.
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
hypercholesterolemia, chronic venous insufficiency, history of prostate cancer s/p XRT (2020), BPH, history of UTI, history of chronic pericarditis, history of factor V Leiden
Impression:
#Septic shock due to complicated UTI
#Bacteremia due to E. coli
#A-fib with RVR requiring cardizem gtt
#Acute respiratory failure with hypoxia on supplemental oxygen
#History of severe ROGELIO not on CPAP (he is adamantly against it - overall AHI severe at 45.4 events/hr with corbin O2 saturation: 73% via PSG in September 2020)
#Hematuria now requiring CBI - suspected to be due to UTI in the setting of Xarelto use
#Severe leukocytosis likely leukemoid reaction in the setting of septic shock
#FELY likely due to post renal azotemia
#Lactic acidosis due to septic shock
#Hypomagnesemia
#Elevated T. bili
#Perforated bladder likely due to traumatic Patino insertion here in the ER
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
#Former tobacco smoker with 100-yibo-gikn history � quit 03/2012
#History of factor V Leiden on Xarelto
#History of chronic pericarditis with intermittent chest pain
#History of chronic cough with bronchial wall thickening seen on prior CT chest from 02/10/2023 suspicious for chronic bronchitis/bronchiolitis (no COPD seen on most recent PFTs from 08/2023)
Plan:
- Continue with vasopressors and maintain MAP >65
- Change jimmy to levophed if HR controlled (<110)
- Start hydrocortisone 50mg IV q6hr x 3 days then wean as tolerated
- Continue NS at 125cc/hr
- Continue with antibiotics (Zosyn) and ID consulted - recs appreciated
- Follow-up blood culture sensitivities; recheck surveillance blood culture x 1
- Hold home anti-hypertensives andn resume once off vasopressors and BP normalises
- Urology on board and recommendations appreciated
- Continue with CBI
- Trend sCr and UOP
- Cardiology consulted recommendation appreciated; maintain rate <110
- Replete electrolytes with K>4, Mg>2
- Now off cardizem gtt; continue with PO cardizem as BP tolerates to reach goal HR as above
- Echo checked today (05/13/2024) showing preserved LVEF of 55 to 60% with mild MR, normal RV systolic function and mild PH
- Maintain SpO2 >90-94% with supplemental o2
- Consider high flow is O2 requirements worsen
- Given his chronic cough with bronchial wall thickening seen on prior CT chest from 01/2023 with use of Advair at home, start Symbicort 160mcg, Xopenex/atrovent nebs TID, Mucinex + Acapella
- prn nebulized bronchodilators
- Maintain euglycemia with goal BG 140-180
- Trend LFTs
- Trend H/H and transfuse if needed to keep Hb>7g/dL; keep plt>20k, unless there is concern for bleeding then keep plt>50k
- Incentive spirometer encouraged 10x per hour for at least 4 hrs a day
- Of note, he does qualify for lung cancer screening via annual LDCT chest. He should continue to follow-up with us in the [facility] office to discuss this. Of note there was no nodule seen on CTA chest from 01/2023
- DVT ppx: SCDs for now; restart xarelto once clinically not bleeding with CBI off and Hb stable for >48-72 hrs
Critical care statement: A total of 40 minutes of critical care time was provided for this patient today. This includes management of unstable vital signs, evaluation of the patient at bedside, reviewing the patient's pertinent medical records
including radiographs, microbiology, laboratory evaluations, and discussion with primary team, consultants, pharmacy, nutrition, physical therapy, case management, charge nurse, critical care nursing, and respiratory therapy.
[2024-05-13 09:00] LABS: Glucose - Point of Care 147 mg/dl (70-99)
--- NOTE | 2024-05-13 09:00 | PTCARENOTE ---
Assumed care of pt from night warehouse selector RN. AAOx3. Afib on pvc monitor, HRs 60s-70s. Received on Jimmy-Synephrine gtt at 60mcg/min. Titrating for goal MAP > 65. SpO2 98% on 15L midflow. CBI draining pink urine. IVF infusing per order. Pt resting in
bed, call sheth in reach. Assessment documented.
[2024-05-13] MEDS: NOVOLOG FLEXPEN-LOW RESISTANCE SC ×2 (09:03→17:16)
[2024-05-13] MEDS: PROTONIX 40 MG PO (09:07)
[2024-05-13] MEDS: GLUCOTROL XL (EXTENDED RELEASE) 15 MG PO (09:07)
[2024-05-13] MEDS: TYLENOL 650 MG PO (09:07)
--- NOTE | 2024-05-13 09:31 | CM ---
Patient seen at bedside, Patient stated that he was feeling better. Patient plan is home with VN pending PT/OT assessment patient currently in ICU. Patient may benefit from SNF pending functional assessments closer to discharge. CM will continue to
follow for discharge planning needs.
Plan; home with VN vs SNF pending functional assessments; please consider PT/OT assessments when medically appropriate
--- NOTE | 2024-05-13 10:20 | W.PN.URO.CBU ---
Today's Communication / Plan
-
Must remain off all blood thinners until further notice
Assessment / Plan
-
Gross hematuria with clot urine retention: resolving
FELY and leukocytosis: possible complicated UTI
Diagnosis
-
Date of Service: May 13, 2024
-
Patient Diagnosis:
Gross hematuria with clot urine retention: on Eliquis
s/p aqua ablation late March 2024
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
---
Adequate bladder drainage and clot evacuation was established 05/12/24: confirmed by follow up CT scan 05/12/24
Patient has no significant gross hematuria as of 05/13/24
He has no more SP pain
Subjective
-
No SP pain
No flank pain
Objective
-
Vital Signs
Temp Pulse Resp BP Pulse Ox
98.1 F 69 21 87/63 97
05/13/24 04:00 05/13/24 07:30 05/13/24 07:30 05/13/24 09:07 05/13/24 07:30
Intake and Output
05/12/24 05/13/24 05/14/24
06:59 06:59 06:59
Intake Total 2245 / 2382 429 / 429
Output Total 0 / 0 3900 / 3900
Balance 0 / 0 -1655 / -1518 429 / 429
Intake:
Oral fluids 120 / 120
IV fluids (Total) 1275 / 1412 429 / 429
Jimmy-Synephrine 150 / 162 54 / 54
Nss 1,000 ml @ 125 mls/hr IV . 1125 / 1250 375 / 375
Q8H ALDA Rx#:[id number]
IV piggybacks 850 / 850
Output:
Urine, Patino 800 / 800
True Urine Output from CBI 0 / 0 3100 / 3100
Laboratory Results
05/13/24 04:45
05/13/24 04:45
Review of Systems
-
Constitutional: Fatigue
Respiratory: No Symptoms
Cardiac: No Symptoms
Abdomen/GI: No Symptoms
Neurological: No Symptoms
Physical Exam
-
General - well nourished, no acute distress
Abdomen - soft, non-tender, no CVAT
Genitalia - normal with Patino draining clear urine on moderate drip CBI
Skin - warm & dry with no rash
Neuro - AOx3, no motor deficits
Counseling
-
Will be discharge home with Patino
I have notified the patient's urologist of his status
[2024-05-13] MEDS: SENOKOT-S 1 TABLET PO (10:37)
--- NOTE | 2024-05-13 11:54 | W.PN.CARDCBS ---
Today's Communication / Plan
-
Ventricular rates are controlled. Continue to treat E. coli urosepsis.
Remains off Cardizem drip for now. Will likely start low-dose Cardizem over next 24 hours if blood pressure tolerates.
Continue CBI. Continue to hold Xarelto. Hemoglobin at 14.9
Check echo
Impression / Plan
-
Primary Care Provider: Dr. Dao
Primary Eligibility Supervisor: Dr. AUNG Rubio
Impression:
Dysuria and abdominal pain on admission 05/12/24
Hematuria
E. coli urosepsis
s/p aqua prostate ablation at [facility] early 04/2024
Afib with RVR
Permanent Afib
Chronic Xarelto OAC, last dose 05/11/24 PM
h/o DVT/PE s/p IVC filter
h/o CVA 2012
HTN
COPD
ROGELIO
h/o pericarditis
obesity
HLD
ECHO 11/2018: EF 55-60%, mild CLVH, mildly enlarged RV size, mildly dilated B/L atria, no significant valvular disease
Echo 02/10/20: ejection fraction 55%, mild concentric left ventricular hypertrophy, no significant valve disease, mildly enlarged right ventricular size, moderately dilated left atrium, mildly dilated right atrium, estimated pulmonary artery pressure
of 30-35 mmHg
Echo 04/28/22: EF 55 to 60%, top normal RV size with mild RV dysfunction, trace MR, trace TR with PAP 26 to 31 mmHg
Plan:
-A-fib is now rate controlled and Cardizem drip was turned off due to hypotension. Once blood pressure is stable will restart oral Cardizem at a lower dose.
-Continue Neosynephrine for blood pressure support due to E. coli urosepsis. Continue antibiotics. Weight is overall stable. Previous LVEF is normal. Check repeat echo.
-Xarelto on hold indefinitely. Patient with h/o CVA in 2013 in 2012 and was newly diagnosed with Afib at that time.
-Continue CBI per Urology
Progress Note - Eligibility Supervisor
Subjective
Date of Service: May 13, 2024
A-fib is now rate controlled. No new fevers. Has CBI.
Objective
Labs:
05/13/24 04:45
05/13/24 04:45
Labs
Hgb 14.9 g/dL (13.0-18.0) 05/13/24 04:45
Hct 44.5 % (39.0-52.0) 05/13/24 04:45
Plt Count 204 10^3/uL (130-400) D 05/13/24 04:45
PT 19.7 Sec (11.4-14.6) H 05/13/24 04:45
INR 1.66 05/13/24 04:45
APTT 31.1 Sec (23.4-35.0) 05/13/24 04:45
Sodium 141 mmol/L (135-145) 05/13/24 04:45
Potassium 3.7 mmol/L (3.5-5.1) 05/13/24 04:45
BUN 26 mg/dl (9-20) H 05/13/24 04:45
Creatinine 1.9 mg/dL (0.7-1.3) H 05/13/24 04:45
Glucose 151 mg/dl (70-99) H 05/13/24 04:45
Troponins
05/12/24
18:21
Troponin I 0.017
Vital Signs and I&O:
Vital Signs
Temp Pulse Resp BP Pulse Ox
98.1 F 73 15 88/65 98
05/13/24 04:00 05/13/24 10:45 05/13/24 10:45 05/13/24 10:15 05/13/24 11:04
Vital Signs
Temp Pulse Resp BP Pulse Ox
98.1 F 73 15 88/65 98
05/13/24 04:00 05/13/24 10:45 05/13/24 10:45 05/13/24 10:15 05/13/24 11:04
Intake & Output
05/11/24 05/12/24 05/13/24 05/14/24
06:59 06:59 06:59 06:59
Intake Total 2245 / 2382 727 / 727
Output Total 0 / 0 3900 / 3900
Balance 0 / 0 -1655 / -1518 727 / 727
Physical Exam
Physical Exam
GEN: No distress, awake, Ox3
HEENT: supple, anicteric, mmm
LUNGS: CTA, no wheezes/rales
CV: irreg, S1/S2, 1/6 syst LSB, no gallop
ABD: soft, BS+, NT/ND
EXT: No edema
NEURO: Gross non-focal
SKIN: No rash
[2024-05-13] MEDS: LIDOCAINE URO-JET 2% 1 SYRINGE TOPICAL (12:05)
[2024-05-13] MEDS: MYLICON 80 MG PO (12:05)
--- NOTE | 2024-05-13 12:05 | CARDSERVLU ---
Echocardiogram with Lumason completed after protocol screening completed. Allergies verified.
Patent IV site: right arm 22 G PC
IV site flushed with 0.9% NaCl pre and post administration.
Diluted bolus method utilized to enhance visualization of ventricular blum.
Total volume given: _3___ mL
Patient tolerated all procedures well without complications.
[2024-05-13] MEDS: NEO-SYNEPHRINE 250 IV (12:10)
[2024-05-13] MEDS: SENOKOT-S PO ×2 (12:21→21:13)
--- NOTE | 2024-05-13 12:43 | W.PN.UPDATE ---
Update Note
Progress Note Update
I saw and evaluated the patient. I reviewed the resident�s note and agree with findings and plan as documented in the resident�s note.
Gen: NAD, Awake and alert, NCAT
Eyes: EOMI, PERRLA, no scleral icterus.
Neck: supple.
CV: irreg/irreg, +S1/S2, no m/r/g.
Resp: CTAB anteriorly, no rales, wheezes, or rhonchi.
Abd: +BS, soft, tenderness to palpation in the lower abdomen, greatest in the left lower quadrant, ND
Skin: No rashes.
: coppola with punch colored urine
Neuro: CN 2-12 intact, non-focal.
Psych: Normal mood and affect.
05/12/24 04:15 Urine Urine Culture - Preliminary
05/12/24 16:23 Blood/Venous Blood Culture - Preliminary
Escherichia coli
05/12/24 16:23 Blood/Venous Gram Stain - Preliminary
05/12/24 17:26 Blood/Venous Blood Culture - Preliminary
Positive culture in progress
05/12/24 17:26 Blood/Venous Gram Stain - Preliminary
CT A/P 05/12/24: Contained urinary bladder perforation with fistulization to the prostate gland, status post aqua ablation. No intraperitoneal or extraperitoneal bladder rupture. Coppola catheter balloon is inflated within the mid penile urethra with
catheter tip at the prostatic urethra.
CT A/P (repeat): Interval advancement of the Coppola catheter with tip and balloon within the urinary bladder. The known fistula is not well demonstrated on this examination. There is trace gas anteriorly within the urinary bladder, likely secondary
to instrumentation. There is extensive stranding within the perivesicular space which may represent infection/cystitis.
Septic shock due to acute urinary tract infection (POA):
-presented with hematuria/lower abdominal pain (Eliquis on hold)
-CT A/P with contained Bladder Perforation w/ Fistulization of the Prostate
-cont Jimmy
-urology following
-cont CBI, hematuria improving
-pain control as blood pressure tolerate
-BCxs with E coli, cont Zosyn
-c/s ID
Acute hypoxemic respiratory failure:
-Likely due to septic shock
-Pulmonary following
-Currently on 15L midflow
Permanent Atrial Fibrillation:
-Eliquis on hold with hematuria
Other problems:
Essential HTN: Holding all antihypertensives with septic shock
HLD: Continue Atorvastatin
DM2: SSI/accuchecks
FULL/SCDs
Total critical care time spent = 37 minutes
--- NOTE | 2024-05-13 13:00 | PTCARENOTE ---
Assessment unchanged. Echo completed at bedside. Pt in bed, call sheth in reach.
--- NOTE | 2024-05-13 13:08 | CON.ID ---
Consultation
-
Date/Time Consultation Requested: May 13, 2024 1152
Date/Time Consultation Performed: May 13, 2024 1310
Requesting Provider: Dr. Johnnie Boss
Performing Provider: Dr. Barbara Gordon
Reason for Consultation: Bacteremia
Chief Complaint / Past History
Chief Complaint
Bloody urine
History of Present Illness
History obtained from patient and from his . He is a 74-year-old male with history of A-fib on Eliquis, of prostate cancer status post radiation, BPH status post recent prostate aqua ablation at [facility] April 06, 2024, who presented
to the ER May 12 with gross hematuria. 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 Patino placed. Repeat CAT scan showed no fistula and also no IV contrast extravasation into the bladder. Urology put a three-way Patino catheter for CBI.
Patient was febrile. Initial white count normal then increased to over 40,000 today. He is hypotensive on 1 pressor. Blood cultures are positive for E. coli. Patient reports he had bladder discomfort now resolved. No fever at home. No flank
pain. He is feeling better. is concerned about the recurrent E. coli in the urine since August 2023. Patient reports dysuria and frequency whenever he has UTI. No gross hematuria in the past.
Past History
Additional Past Medical History:
Hypertension
COPD
HLD
Permanent A-fib
CVA
Recurrent UTI
History of DVT/PE status post IVC filter
Sleep apnea
Prostate cancer status post radiation
BPH status post prostate aqua ablation at [facility] Apr 06 2024
Cholecystectomy
Allergy History:
adhesive Allergy (Verified 05/12/24 02:32)
TAPE-RASH
latex Allergy (Verified 05/12/24 02:32)
Hives
metoclopramide HCl [From Reglan] Allergy (Verified 05/12/24 02:32)
muscle twitching
oxycodone [From Percocet] Allergy (Verified 05/12/24 02:32)
Vomiting
oxycodone terephthalate [From Percodan] Allergy (Verified 05/12/24 02:32)
vomiting
prochlorperazine maleate [From Compazine] Allergy (Verified 05/12/24 02:32)
vomiting
propoxyphene HCl [From Darvon] Allergy (Verified 05/12/24 02:32)
vomiting
Medications Reviewed: Yes
Current Antibiotics:
Zosyn
Social History
Tobacco: Former Smoker
Alcohol: Occasional
Drug: None
Personal:
Living: With Family
Family History
Family History: Not Pertinent
Review of Systems
Review of Systems
General: Negative Chills
HEENT: Negative Headache or Pharyngitis
Cardiovascular: Negative Chest Pain or Dyspnea
Respiratory: Negative Dyspnea or Cough
Gasteroenterology: Negative Nausea, Vomiting or Diarrhea
Endocrine: Weakness
Neurological: Negative Dizziness
All systems: All other systems were reviewed and were negative
Vital Signs
Temp Pulse Resp BP Pulse Ox
98.1 F 73 15 88/65 98
05/13/24 04:00 05/13/24 10:45 05/13/24 10:45 05/13/24 10:15 05/13/24 11:04
Selected Entries
05/12/24
18:35
Temp 102.0 F H
Physical Exam
Physical Exam
Constitutional: No Acute Distress and Obese
Eyes: No Conjunctival Hemorrhage and Sclera Anicteric
Cardiovascular: Irregular Rate and S1/S2
Pulmonary: Clear
Gastrointestinal: Soft, Non Tender, Non Distended and Normal Bowel Sounds
Genito-Urinary: Patino (CBI pink tinged urine)
Extremities: Negative Edema
Neurological: AO x 3; Negative Meningeal Signs
Lab / Diagnostic Study Results
05/13/24 04:45
05/13/24 04:45
Abs Immat Gran (auto) 1.8 10^3/uL (0-0.05) H 05/13/24 04:45
Absolute Neuts (auto) 36.2 10^3/uL (1.4-6.5) H 05/13/24 04:45
Absolute Lymphs (auto) 0.5 10^3/uL (1.2-3.4) L 05/13/24 04:45
Absolute Monos (auto) 1.6 10^3/uL (0.1-0.6) H 05/13/24 04:45
Absolute Basos (auto) 0.2 10^3/uL (0-0.2) 05/13/24 04:45
Total Counted 100 05/12/24 18:21
Immature Gran % 4.5 % (0-0.5) H 05/13/24 04:45
Neutrophils % 89.6 % (42.2-75.2) H 05/13/24 04:45
Lymphocytes % 1.2 % (20.5-51.1) L 05/13/24 04:45
Monocytes % 4.0 % (1.7-9.3) 05/13/24 04:45
Eosinophils % 0.3 % (0-6) 05/13/24 04:45
Basophils % 0.4 % (0-2) 05/13/24 04:45
Abs Neuts (Manual) 10.4 10^3/uL (1.4-6.5) H 05/12/24 18:21
Segmented Neutrophils 88 % (42-75) H 05/12/24 18:21
Band Neutrophils 12 % (0-3) H 05/12/24 18:21
Lymphocytes (Manual) 0 % (20-51) L 05/12/24 18:21
PT 19.7 Sec (11.4-14.6) H 05/13/24 04:45
INR 1.66 05/13/24 04:45
Lactic Acid 3.6 mmol/L (0.7-2.0) H 05/13/24 04:45
Ur Squamous Epith Cells /LPF (Few) 05/12/24 04:15
Microbiology Results
Micro:
05/12/24 04:15 Urine Culture - Preliminary
Urine
05/12/24 16:23 Blood Culture - Preliminary
Blood/Venous Escherichia coli
Gram Stain - Preliminary
05/12/24 17:26 Blood Culture - Preliminary
Blood/Venous Positive culture in progress
Gram Stain - Preliminary
05/12/24 CT a/p: Interval advancement of the Patino catheter with tip and balloon within the urinary bladder. The known fistula is not well demonstrated on this examination. There is trace gas anteriorly within the urinary bladder, likely secondary
to instrumentation. There is extensive stranding within the perivesicular space which may represent infection/cystitis. Recommend correlation with urinalysis.
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 No intraperitoneal or extraperitoneal bladder rupture.
2. Patino catheter balloon is inflated within the mid penile urethra with catheter tip at the prostatic urethra.
Assessment / Plan
# Complicated UTI with gross hematuria/clot retention
# E. coli bacteremia
# Septic shock
# Leukocytosis/leukemoid reaction
# FELY
# BPH s/p aqua-ablation 04/06/24
# hx prostate CA XRT
- Continue Zosyn. Will de-escalate when final cx data available.
- Repeat bcx x 1 in am
- Trend vitals, temps, WBC
-Continue ICU supportive care.
[2024-05-13] MEDS: DUONEB 3 ML INH ×2 (13:47→20:56)
--- NOTE | 2024-05-13 13:49 | W.PN.HOSP.TC ---
Addendum entered and electronically signed by Jewel Torres DO, Resident 05/16/24 08:47:
Drop in Hb likely secondary to acute blood loss anemia in the setting of hematuria.
Hematuria likely exacerbated by Xarelto, thus held.
Original Note:
Today's Communication/Plan
-
Pt more alert today; status post decompensation and transfer to ICU; continue Abx; WBC checks, serial H+H, follow up blood culture; pressor support as needed; see urology and cardio reccs
Assessment / Plan
Assessment / Plan
1. Hematuria/Abdominal Pain
- Pain controlled today.
- Hematuria resolcving today on CBI.
- CT Scan yesterday morning showed a contained bladder perforation with fistulization of the prostate. Repeat CT last night after decompensation showed no changes.
- Urology on board and seeing the patient. Reccs holding blood thinners until further notice.
- likely due to chronic instrumentation of the prostate.
- Hgb 14.5 today, down from 17 yesterday. Continue serial H+H.
- Pt consented for blood yesterday.
2. Urosepsis
- Positive preliminary blood culture - E. Coli
- WBC 40.4, up from 10.4.
- BP 88/65, on pressor support.
- Temp 98.1
- Pt on day 2 of Zosyn.
3. Permanent A-fib
- Continue rate control. Hold Xarelto due to hematuria until further notice, per urology reccs.
4. HTN
- Continue home meds with holding parameters.
5. HLD
- Continue Atorvastatin
6. Type 2 DM
- Contine home meds -- accuchecks
7. DVT PPx
- SCD
Anticipated Discharge: > 48 hours
Subjective/Interval History
-
Date of Service: May 13, 2024
Pt was upgraded to the ICU last night. Pt became more alert overnight and is now alert and oriented, resting in bed.
Objective Data
-
Labs:
Laboratory Results
05/13/24 05/13/24
00:21 04:45
WBC 40.4 H*
Hgb 14.5 14.9
Hct 43.9 44.5
Plt Count 204 D
PT 19.7 H
INR 1.66
APTT 31.1
Sodium 141
Potassium 3.7
Chloride 105
Carbon Dioxide 20 L
BUN 26 H
Creatinine 1.9 H
Glucose 151 H
Calcium 9.0
Vital Signs:
Vital Signs
Temp Pulse Resp BP Pulse Ox
98.1 F 73 15 88/65 98
05/13/24 04:00 05/13/24 10:45 05/13/24 10:45 05/13/24 10:15 05/13/24 11:04
I&O
05/12/24 05/13/24 05/14/24
06:59 06:59 06:59
Intake Total 2245 / 2382 727 / 727
Output Total 0 / 0 3900 / 3900
Balance 0 / 0 -1655 / -1518 727 / 727
Review of Systems
-
Constitutional: Reports Fatigue
Cardiac: Reports No Symptoms
Abdomen/GI: Reports No Symptoms
Neuro: Reports No Symptoms
Physical Exam
-
General: Well Developed, Well Nourished and No Apparent Distress
HEENT: Normocephalic and Atraumatic
Respiratory: Clear to Auscultation
Cardiac: Regular Rhythm
GI: Soft and Nontender
Genito-urinary: Other (Patino in place with moderate drip bladder irrigation)
Skin: Warm and Dry
Neuro: Awake, Alert and Oriented
Psych: Calm
Data Reviewed
-
Diagnostic Radiology: Report Reviewed by me
Labs: Labs Reviewed by me
[2024-05-13] MEDS: NOVOLOG FLEXPEN-LOW RESISTANCE 1 UNITS SC (13:51)
[2024-05-13 14:01] LABS: Glucose - Point of Care 154 mg/dl (70-99)
[2024-05-13] MEDS: MUCINEX 1200 MG PO ×2 (14:35→21:12)
[2024-05-13 15:17] LABS: Lactic Acid 3.6 mmol/L (0.7-2.0)
[2024-05-13 17:13] LABS: Glucose - Point of Care 130 mg/dl (70-99)
--- NOTE | 2024-05-13 18:17 | PTCARENOTE ---
Assessment unchanged. at bedside. Pt in bed, call sheth in reach.
--- NOTE | 2024-05-13 19:11 | VATNOTE ---
Contacted ICU in regards to cancelled PICC order, no PICC order received, no PICC placed. Primary RN states staff certified nurse midwife does not want any central line due to positive blood cultures.
--- NOTE | 2024-05-13 19:40 | PTCARENOTE ---
Addendum entered by Quentin Rubio RN 05/13/24 19:57:
Decision made to not insert PICC to prevent further bacterial colonization of device. Will USG 2' 18.
Addendum entered by Quentin Rubio RN 05/13/24 19:46:
PICC order cancelled by icu ground wirer. Discussed due to + B/C concerns for line close to heart
Original Note:
Assumed care of pt. approx 1900.
Remains on CBI therapy, Bag 5+6.
Complains of moderate bladder pain persisting from daytime, ICU AYANA notified.
On Phenylephrine for map goal >65. See titration flowsheet for details.
Afib rate controlled off dil gtt. normothermic.
Focally intact, normocephalic/atraumatic, pupils =/r 3mm
[2024-05-13] MEDS: SYMBICORT 160/4.5 MCG INHALER 2 PUFF INH (20:56)
[2024-05-13] MEDS: LIPITOR 20 MG PO (21:12)
[2024-05-13] MEDS: FLEXBUMIN 100 IV (21:13)
[2024-05-13] MEDS: LEVOPHED 250 IV (21:15)
[2024-05-13] MEDS: LANTUS 0.05 UNITS SC (22:56)
[2024-05-13 23:14] LABS: Glucose - Point of Care 147 mg/dl (70-99)
[2024-05-14] VITALS (27 sets, daily range): BP systolic 87–151; BP diastolic 54–101; BMI 35.8
--- NOTE | 2024-05-14 00:39 | PTCARENOTE ---
Pt. remaining on CBI therapy, Urine is clear blood tinged no clots noted. Tolerating therapy no reports of pain, distention spasms upon assessment.
Titrating off norepi, remains normotensive, normothermic.
Neuro status remains unchanged. GCS 15.
Midflo at 6L, sp02 97, lungs CTA B/L.
--- NOTE | 2024-05-14 01:19 | PTCARENOTE ---
Norepi weaned off, MAPs ranging 79-89.
--- NOTE | 2024-05-14 04:13 | PTCARENOTE ---
No change in Patient assessment.
[2024-05-14 04:18] LABS: % Basophils 0.2 % (0-2); % Eosinophils 0.8 % (0-6); % Lymphocytes 2.9 % (20.5-51.1); % Neutrophils 88.1 % (42.2-75.2); Absolute Eosinophils 0.1 10^3/uL (0-0.7); Absolute Immature Granulocytes 0.4 10^3/uL (0-0.05); Absolute Lymphocytes 0.5 10^3/uL (1.2-3.4); Absolute Monocytes 1.1 10^3/uL (0.1-0.6); Absolute Neutrophils 15.5 10^3/uL (1.4-6.5); Hematocrit 34.8 % (39.0-52.0); Hemoglobin 11.8 g/dL (13.0-18.0); Mean Corp Hgb Conc. 33.9 g/dL (33.0-37.0); Mean Corpuscular Hgb 29.8 pg (27.0-31.0); Mean Corpuscular Volume 87.9 fL (80.0-94.0); Mean Platelet Volume 9.6 fL (7.4-10.4); Nucleated Red Blood Cells % 0 % (-); Platelet Count 121 10^3/uL (130-400); Red Blood Cell Count 3.96 10^6/uL (4.70-6.10); Red Cell Dist. Width 14.6 % (11.5-14.5); White Blood Cell Count 17.6 10^3/uL (4.8-10.8)
[2024-05-14 04:37] LABS: ALT (SGPT) 18 U/L (0-50); AST (SGOT) 25 U/L (17-59); Albumin 2.6 g/dl (3.5-5.0); Alkaline Phosphatase 46 U/L (38-126); Blood Urea Nitrogen 36 mg/dl (9-20); Calcium 7.6 mg/dl (8.4-10.2); Carbon Dioxide 22 mmol/L (22-30); Chloride 103 mmol/L (98-107); Direct Bilirubin 0.6 mg/dl (0.0-0.4); Estimated Creatinine Clearance 38 ml/min; Glucose 93 mg/dl (70-99); Magnesium 1.8 mg/dl (1.6-2.3); Phosphorus 3.7 mg/dl (2.5-4.5); Potassium 3.1 mmol/L (3.5-5.1); Sodium 137 mmol/L (135-145); Total Bilirubin 1.1 mg/dl (0.2-1.3); Total Protein 4.6 g/dl (6.3-8.2); eGFR 36.56
[2024-05-14] MEDS: ZOSYN 50 IV ×3 (05:29→17:24)
[2024-05-14] MEDS: KCL 40 MEQ PO (05:29)
[2024-05-14] MEDS: PROTONIX 40 MG PO (07:29)
[2024-05-14] MEDS: SENOKOT-S PO ×2 (07:29→20:06)
[2024-05-14] MEDS: MUCINEX 1200 MG PO ×2 (07:29→20:05)
--- NOTE | 2024-05-14 07:43 | W.PN.URO.CBU ---
Today's Communication / Plan
-
continue cbi- slow as tolerated
antibx- await ucx
Assessment / Plan
-
Gross hematuria with clot urine retention: resolving
FELY and leukocytosis: possible complicated UTI- ESBL
continue medical supportive care
await ucx- prev pt's hx suggests esbl
continue coppola and slowly wean cbi- if urine remains clear over next 24-48hrs and can stop cbi- will restart anticoagulation at that time
Diagnosis
-
Date of Service: May 14, 2024
-
Patient Diagnosis:
Gross hematuria with clot urine retention: on Eliquis
s/p aqua ablation late March 2024
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
---
Adequate bladder drainage and clot evacuation was established 05/12/24: confirmed by follow up CT scan 05/12/24
Subjective
-
pt sitting up in bed
urine yellow on fast rate cbi
wbc down/ cr remains at 1.9
cx's + for ecoli- prev pt has had esbl
Objective
-
Vital Signs
Temp Pulse Resp BP Pulse Ox
98.6 F 110 26 99/73 97
05/14/24 05:45 05/14/24 07:30 05/14/24 07:30 05/14/24 07:20 05/14/24 07:30
Intake and Output
05/13/24 05/14/24 05/15/24
06:59 06:59 06:59
Intake Total 2245 / 2382 3589.5 / 3664.5 75 / 75
Output Total 3900 / 3900 3375 / 3375
Balance -1655 / -1518 214.5 / 289.5 75 / 75
Intake:
Oral fluids 120 / 120 350 / 350
IV fluids (Total) 1275 / 1412 2939.5 / 3014.5 75 / 75
Jimmy-Synephrine 150 / 162 282 / 282
Norepinephrine 82.5 / 82.5
Nss 1,000 ml @ 75 mls/hr IV . 1125 / 1250 2575 / 2650 75 / 75
[id number] [facility] Rx#:[id number]
IV piggybacks 850 / 850 300 / 300
Output:
Urine, Coppola 800 / 800
True Urine Output from CBI 3100 / 3100 3375 / 3375
Laboratory Results
05/14/24 02:51
05/14/24 02:51
Physical Exam
-
General - ill appearing- but no acute distress
Abdomen - chronic distension
Genitalia - coppola in place
[2024-05-14 07:45] LABS: Glucose - Point of Care 80 mg/dl (70-99)
[2024-05-14] MEDS: NOVOLOG FLEXPEN-LOW RESISTANCE SC ×2 (07:51→12:09)
--- NOTE | 2024-05-14 07:53 | PTCARENOTE ---
received report at change of shift. Pt resting in bed, arouses easily to voice. AAOX3, states he is tired. generalized weakness noted. Afib on telemetry heart rate low 100s. pulses palpable. pt on 6L midflow nasal cannula, sat 96%. lung sounds
diminished in bases. frequent nonproductive moist cough. active bowel sounds, abdomen round obese. 3 way catheter with CBI draining clear yellow urine. urology at bedside, stated to keep rate slow as long as urine remains clear. pt updated on plan
of care. see worklist for full nursing assessment and interventions.
--- NOTE | 2024-05-14 08:01 | W.PN.ID1 ---
Date of Service
Date of Service: May 14, 2024
Today's Communication
Continue antibiotics
Assessment / Plan
# Complicated UTI with gross hematuria/clot retention
# E. coli bacteremia
# Septic shock
# Leukocytosis/leukemoid reaction
# FELY
# BPH s/p aqua-ablation 04/06/24
# hx prostate CA XRT
Recommendations:
- Continue Zosyn for today. Will de-escalate as final cx data becomes available.
- Trend vitals, temps, WBC
- Continue ICU supportive care.
Chief Complaint
-: UTI and Bacteremia
Subjective / Review of Systems
Patient seen and examined. Reports feeling tired, but otherwise well. Notes a small amount of low pelvic discomfort.
Review of Systems: No Fever
Vital Signs / Physical Exam
Vital Signs
Vital Signs
Temp Pulse Resp BP Pulse Ox
98.6 F 110 26 99/73 96
05/14/24 05:45 05/14/24 07:30 05/14/24 07:30 05/14/24 07:20 05/14/24 07:45
Physical Exam
Constitutional: No Acute Distress, Comfortable, Acutely Ill and Non-toxic
Eyes: Sclera Anicteric
Cardiovascular: S1/S2; Negative S3/S4
Pulmonary: Non Labored; Negative Wheezes
Gastrointestinal: Soft, Non Tender, Non Distended and Normal Bowel Sounds
Genito-Urinary: Patino (Three-way to irrigation) and Clear Urine; Negative Turbid Urine or Hematuria
Extremities: Edema and Venous Insufficiency; Negative Cyanosis, Erythema or Jan[place]ay Lesions
Neurological: Awake and Alert
Psychological: Calm
Objective Data
Lab Data
Lab Results
05/14/24 02:51
05/14/24 02:51
PT 19.7 Sec (11.4-14.6) H 05/13/24 04:45
INR 1.66 05/13/24 04:45
APTT 31.1 Sec (23.4-35.0) 05/13/24 04:45
Estimated Creat Clear 38 ml/min 05/14/24 02:51
Lactic Acid 3.6 mmol/L (0.7-2.0) H 05/13/24 14:51
Total Bilirubin 1.1 mg/dl (0.2-1.3) 05/14/24 02:51
AST 25 U/L (17-59) 05/14/24 02:51
ALT 18 U/L (0-50) 05/14/24 02:51
Alkaline Phosphatase 46 U/L (38-126) 05/14/24 02:51
Most recent labs reviewed.
Micro Results:
05/14/24 02:51 Blood Culture - Pending
Blood/Venous
05/12/24 04:15 Urine Culture - Preliminary
Urine
05/12/24 16:23 Blood Culture - Preliminary
Blood/Venous Escherichia coli
Gram Stain - Preliminary
05/12/24 17:26 Blood Culture - Preliminary
Blood/Venous Positive culture in progress
Gram Stain - Preliminary
05/12/24 CT a/p: Interval advancement of the Patino catheter with tip and balloon within the urinary bladder. The known fistula is not well demonstrated on this examination. There is trace gas anteriorly within the urinary bladder, likely secondary
to instrumentation. There is extensive stranding within the perivesicular space which may represent infection/cystitis. Recommend correlation with urinalysis.
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 No intraperitoneal or extraperitoneal bladder rupture.
2. Patino catheter balloon is inflated within the mid penile urethra with catheter tip at the prostatic urethra.
[2024-05-14] MEDS: ATROVENT NEBULES 0.5 MG INH ×3 (08:09→20:08)
[2024-05-14] MEDS: SYMBICORT 160/4.5 MCG INHALER 2 PUFF INH ×2 (08:09→20:09)
[2024-05-14] MEDS: XOPENEX 1.25 MG INHALANT SOLUTION INH ×3 (08:09→20:09)
--- NOTE | 2024-05-14 08:32 | W.PN.INTV ---
Today's Communication / Plan
Recommendations
Antibiotics as per ID
Hydrocortisone however if he remains hemodynamically stable by tomorrow then can stop
Maintain BG goal 140�180
Symbicort with nebulized bronchodilators
Resume Cardizem with holding parameters given he remains mildly tachycardic with A-fib with RVR
Cardiology consulted and recommendations appreciated
Bowel regimen
CBI with urology consulted and recs appreciated
Hold Xarelto and resume once completely off CBI and clinically not bleeding with stable Hb for >48 to 72 hours
Trend lactate until <2 mmol/L
Follow-up blood/urine culture sensitivities
Patient stable for downgrade out of ICU to IMU. Pulmonary service will continue to briefly follow along.
Assessment
-
Assessment: 74-year-old male former tobacco smoker with a past medical history of prostate cancer s/p XRT (diagnosed 12/2020), BPH, chronic venous insufficiency, chronic pericarditis, history of PE s/p IVC filter, restrictive lung disease, severe
ROGELIO not on CPAP, permanent A-fib on Xarelto, history of factor V Leiden on Xarelto, history of partial SBO, hypertension and history of embolic brainstem stroke (2012) who presents with bloody urine. He had an aqua ablation of his prostate on
04/06/2024 at [facility]. He awoke in with blood in his underwear and was urinating blood. He continues to be on Xarelto. He came here to the ER for further evaluation. He also had abdominal pain that was in his lower belly without
radiation. A Patino was attempted in the ER however this met resistance and then carmen blood resulted. Initial vitals in the ER showed he was afebrile to 98.1 �F, pulse rate 84, breathing at 16 breaths/min, BP 131/83 and saturating 96% on room air.
Initial labs showed Hb 17.2, INR 1.66, lactate 6.8, T. bili 1, and urinalysis 4+ occult blood with +1 leukocyte esterase. Urine + blood cultures were collected. CT abdomen/pelvis with IV contrast showed a urinary bladder perforation with
fistulization to the prostate gland with no intraperitoneal or extraperitoneal bladder rupture. The Patino catheter balloon was inflated within the mid penile urethra with the catheter tip at the prostatic urethra. In the ER he was given Dilaudid
and urethral lidocaine. He was initially admitted to telemetry for hematuria. He developed rapid A-fib throughout the day on 05/12 and towards evening became hypotensive. He also spiked a fever and antibiotics were started with Vanco/Zosyn. He
also had increased oxygen requirements with worsening work of breathing, and was placed onto BiPAP. Pressors also were required and he was transferred to the ICU for further care with application engineer services consulted for additional
management/recommendations.
Chronic conditions SET [employer]: Hypertension, history of embolic brainstem stroke (2012), history of partial SBO, history of pulmonary embolus s/p IVC filter, restrictive lung disease, ROGELIO, pericarditis, permanent A-fib on Xarelto, morbid obesity,
hypercholesterolemia, chronic venous insufficiency, history of prostate cancer s/p XRT (2020), BPH, history of UTI, history of chronic pericarditis, history of factor V Leiden
Impression:
#Septic shock due to complicated UTI - shock state now resolved
#Bacteremia due to E. coli
#Complicated UTI due to E. coli + Enterococcus spp
#A-fib with RVR requiring cardizem gtt - now off cardizem gtt
#Acute respiratory failure with hypoxia on supplemental oxygen - improving
#History of severe ROGELIO not on CPAP (he is adamantly against it - overall AHI severe at 45.4 events/hr with corbin O2 saturation: 73% via PSG in September 2020)
#Hematuria now requiring CBI - suspected to be due to UTI in the setting of Xarelto use
#Severe leukocytosis likely leukemoid reaction in the setting of septic shock - improving
#FELY likely due to post renal azotemia
#Lactic acidosis due to septic shock
#Hypomagnesemia
#Elevated T. bili - now resolved
#Perforated bladder likely due to traumatic Patino insertion here in the ER
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
#Former tobacco smoker with [id number] history � quit 03/2012
#History of factor V Leiden on Xarelto
#History of chronic pericarditis with intermittent chest pain
#History of chronic cough with bronchial wall thickening seen on prior CT chest from 02/10/2023 suspicious for chronic bronchitis/bronchiolitis (no COPD seen on most recent PFTs from 08/2023)
Plan:
- Patient has markedly improved, and now off vasopressors and off cardizem gtt with MAP improved, and HR improved as well however he is still mildly tachycardic
- Maintain MAP >65
- Continue hydrocortisone 50mg IV q6hr x 3 days then wean as tolerated --> if he remains HDN stable by tomorrow then we can stop steroids
- IVF stopped
- Continue with antibiotics (Zosyn) and ID consulted - recs appreciated
- Follow-up blood culture sensitivities; recheck surveillance blood culture x 1 this AM
- Follow-up urine culture sensitivities
- Hold home anti-hypertensives andn resume once off vasopressors and BP normalizes
- Trend lactate until <2mmol/L
- Urology on board and recommendations appreciated
- Continue with CBI
- Trend sCr and UOP
- Cardiology consulted recommendation appreciated; maintain rate <110
- Replete electrolytes with K>4, Mg>2
- Now off cardizem gtt; continue with PO cardizem as BP tolerates to reach goal HR as above
- Echo checked on 05/13/2024 showing preserved LVEF of 55 to 60% with mild MR, normal RV systolic function and mild PH
- Maintain SpO2 >90-94% with supplemental o2
- Wean down O2 as tolerated
- Given his chronic cough with bronchial wall thickening seen on prior CT chest from 01/2023 with use of Advair at home, continue Symbicort 160mcg, Xopenex/atrovent nebs TID, Mucinex + Acapella
- prn nebulized bronchodilators
- Maintain euglycemia with goal BG 140-180
- Trend LFTs/ D. bili
- Trend H/H and transfuse if needed to keep Hb>7g/dL; keep plt>20k, unless there is concern for bleeding then keep plt>50k
- Incentive spirometer encouraged 10x per hour for at least 4 hrs a day
- Of note, he does qualify for lung cancer screening via annual LDCT chest. He should continue to follow-up with us in the [facility] office to discuss this. Of note there was no nodule seen on CTA chest from 01/2023
- DVT ppx: SCDs for now; restart xarelto once clinically not bleeding with CBI off and Hb stable for >48-72 hrs
Patient is stable for downgrade out of ICU to IMU. Pulmonary service will continue to briefly follow along.
Total time spent today was 76 minutes for this encounter. Time includes reviewing laboratory test/imaging results, reviewing pertinent medical records, obtaining and reviewing medical history, performing an appropriate exam, ordering medications,
tests and procedures. Time also includes documentation of this encounter, coordinating patient care and communicating with other healthcare professionals. Total time does not include separately billed tests performed on this date of service.
Subjective Dataa
Subjective Data
Date of Service:
Date of Service: May 14, 2024
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
Subjective:
Patient was seen and evaluated today at bedside. Heart rate 114, BP 130/69, and saturating 95% on 5 L/min nasal cannula. He still has a wet sounding cough. He has been off of Jimmy-Synephrine since 1 AM. He says he feels well today. Denies SOB,
chest pain, SHANNON, abdominal pain, fevers or chills. He does feel generally weak.
Review of Systems
General: Other (Negative unless mentioned above)
Objective Data
Data Reviewed
Vital Signs / I&O / Oxygen:
Vital Signs
Temp Pulse Resp BP Pulse Ox
98.4 F 101 14 99/73 99
05/14/24 08:06 05/14/24 08:18 05/14/24 08:18 05/14/24 07:20 05/14/24 08:18
Intake and Output
05/13/24 05/14/24 05/15/24
06:59 06:59 06:59
Intake Total 2245 / 2382 3589.5 / 3664.5 75 / 75
Output Total 3900 / 3900 3375 / 3375
Balance -1655 / -1518 214.5 / 289.5 75 / 75
SaO2 99
Nasal Cannula flow liters per 6
minute
Physical Exam
General: Respiratory Distress (negative), Comfortable, Chills (negative) and Sweats (negative)
HEENT: Normocephalic and Anicteric
Cardiovascular: Irregular Rhythm (Irregularly irregular), Peripheral Edema (negative) and Other (Tachycardic)
Respiratory: Wheeze (negative), Crackles (Bibasilar), Rhonchi (negative) and Non-Labored Respirations
GI: Soft, Distended (Abdominal obesity), Non Tender and Normal Bowel Sounds
Neurology: Awake, Alert and Tremors (negative)
Skin: Warm, Dry, Jaundice (negative) and Rash (negative)
Labs/Micro/Reports
Lab Data
05/14/24 02:51
05/14/24 02:51
Microbiology
05/12/24 04:15 Urine Urine Culture - Preliminary
Escherichia coli
Enterococcus species
05/12/24 17:26 Blood/Venous Blood Culture - Preliminary
Escherichia coli
05/12/24 17:26 Blood/Venous Gram Stain - Final
05/12/24 16:23 Blood/Venous Blood Culture - Preliminary
Escherichia coli
05/12/24 16:23 Blood/Venous Gram Stain - Preliminary
--- NOTE | 2024-05-14 08:51 | W.PN.CARDCBS ---
Today's Communication / Plan
-
Once blood pressure stable off pressors, start oral Cardizem at low-dose
Once okay with primary service, initiate anticoagulation
continue supportive care
Impression / Plan
-
Primary Care Provider: Dr. Dao
Primary Service Manager: Dr. AUNG Rubio
Impression:
Dysuria and abdominal pain on admission 05/12/24
Hematuria
E. coli urosepsis
s/p aqua prostate ablation at [facility] early 04/2024
Afib with RVR
Permanent Afib
Chronic Xarelto OAC, last dose 05/11/24 PM
h/o DVT/PE s/p IVC filter
h/o CVA 2012
HTN
COPD
ROGELIO
h/o pericarditis
obesity
HLD
ECHO 11/2018: EF 55-60%, mild CLVH, mildly enlarged RV size, mildly dilated B/L atria, no significant valvular disease
Echo 02/10/20: ejection fraction 55%, mild concentric left ventricular hypertrophy, no significant valve disease, mildly enlarged right ventricular size, moderately dilated left atrium, mildly dilated right atrium, estimated pulmonary artery pressure
of 30-35 mmHg
Echo 04/28/22: EF 55 to 60%, top normal RV size with mild RV dysfunction, trace MR, trace TR with PAP 26 to 31 mmHg
ECHO 05/13/24: EF 55 to 60% markedly enlarged left atrium, mild MR, mildly dilated right atrium, no pericardial effusion, normal RV size and function.
Plan:
-A-fib is now overall reasonably well rate controlled and Cardizem drip was turned off due to hypotension.
Once blood pressure is stable (still requiring IV pressor) will restart oral Cardizem at a lower dose.
-On NorEpi for blood pressure support due to E. coli urosepsis/shock. Continue antibiotics. Weight is overall stable.
-Xarelto on hold indefinitely. Patient with h/o AF and CVA in 2012 for which he had been on direct oral anticoagulant
Resume anticoagulation if and when otherwise feasible
-Continue CBI per Urology
Total time spent today was 55 min
Progress Note - Service Manager
Subjective
Date of Service: May 14, 2024
No chest pain shortness of breath palpitations
Objective
Labs:
05/14/24 02:51
05/14/24 02:51
Labs
Hgb 11.8 g/dL (13.0-18.0) L D 05/14/24 02:51
Hct 34.8 % (39.0-52.0) L 05/14/24 02:51
Plt Count 121 10^3/uL (130-400) L D 05/14/24 02:51
PT 19.7 Sec (11.4-14.6) H 05/13/24 04:45
INR 1.66 05/13/24 04:45
APTT 31.1 Sec (23.4-35.0) 05/13/24 04:45
Sodium 137 mmol/L (135-145) 05/14/24 02:51
Potassium 3.1 mmol/L (3.5-5.1) L 05/14/24 02:51
BUN 36 mg/dl (9-20) H 05/14/24 02:51
Creatinine 1.9 mg/dL (0.7-1.3) H 05/14/24 02:51
Glucose 93 mg/dl (70-99) 05/14/24 02:51
Troponins
05/12/24
18:21
Troponin I 0.017
Vital Signs and I&O:
Vital Signs
Temp Pulse Resp BP Pulse Ox
98.4 F 101 14 99/73 99
05/14/24 08:06 05/14/24 08:18 05/14/24 08:18 05/14/24 07:20 05/14/24 08:18
Vital Signs
Temp Pulse Resp BP Pulse Ox
98.4 F 101 14 99/73 99
05/14/24 08:06 05/14/24 08:18 05/14/24 08:18 05/14/24 07:20 05/14/24 08:18
Intake & Output
05/12/24 05/13/24 05/14/24 05/15/24
06:59 06:59 06:59 06:59
Intake Total 2245 / 2382 3589.5 / 3664.5
Output Total 0 / 0 3900 / 3900 3375 / 3375
Balance 0 / 0 -1655 / -1518 214.5 / 289.5
Physical Exam
Physical Exam
LUNGS: CTA, no wheezes/rales
CV: irreg, S1/S2, 1/6 syst LSB, no gallop
ABD: soft, BS+, NT/ND
EXT: +1 b/l LE edema
NEURO: Gross non-focal
[2024-05-14] MEDS: DILAUDID 0.5 MG IV ×3 (10:05→18:28)
--- NOTE | 2024-05-14 10:40 | W.PN.HOSP.TC ---
Today's Communication/Plan
-
See PN.
Assessment / Plan
Assessment / Plan
1. Hematuria/Abdominal Pain
- Pain control.
- Hematuria resolving on CBI.
- CT Scan yesterday morning showed a contained bladder perforation with fistulization of the prostate. Repeat CT last night after decompensation showed no changes.
- Urology on board and seeing the patient. Reccs holding blood thinners until further notice.
- likely due to chronic instrumentation of the prostate.
- Hgb 11.5 today, patient had large reserve. Continue serial H+H.
- Pt consented for blood yesterday.
- Blood cultures show E. Coli. Continue Zosyn, follow up sensitivities.
2. Urosepsis
- Positive preliminary blood culture - E. Coli
- WBC much lower today at 17 from 40
- Temp 98.1
- Pt on day 3 of Zosyn.
3. Permanent A-fib
- Continue rate control. Hold Xarelto due to hematuria until further notice, per urology reccs.
4. HTN
- Continue home meds with holding parameters.
5. HLD
- Continue Atorvastatin
6. Type 2 DM
- Contine home meds -- accuchecks
7. DVT PPx
- SCD
Anticipated Discharge: > 48 hours
Subjective/Interval History
-
Date of Service: May 14, 2024
Interval improvement of the patient's condition.
Objective Data
-
Labs:
Laboratory Results
05/14/24
02:51
WBC 17.6 H
Hgb 11.8 L D
Hct 34.8 L
Plt Count 121 L D
Sodium 137
Potassium 3.1 L
Chloride 103
Carbon Dioxide 22
BUN 36 H
Creatinine 1.9 H
Glucose 93
Calcium 7.6 L
Total Bilirubin 1.1
AST 25
ALT 18
Alkaline Phosphatase 46
Vital Signs:
Vital Signs
Temp Pulse Resp BP Pulse Ox
98.4 F 101 14 99/73 99
05/14/24 08:06 05/14/24 08:18 05/14/24 08:18 05/14/24 07:20 05/14/24 08:18
I&O
05/13/24 05/14/24 05/15/24
06:59 06:59 06:59
Intake Total 2245 / 2382 3589.5 / 3664.5
Output Total 3900 / 3900 3375 / 3375
Balance -1655 / -1518 214.5 / 289.5
Review of Systems
-
History Source: Patient
Constitutional: Reports No Symptoms
Respiratory: Reports No Symptoms
Cardiac: Reports No Symptoms
Abdomen/GI: Reports No Symptoms
Neuro: Reports No Symptoms
Physical Exam
-
General: Well Developed and No Apparent Distress
HEENT: Normocephalic and Atraumatic
Respiratory: Clear to Auscultation
Cardiac: Irregular Rhythm
GI: Soft and Nontender
Neuro: Alert
Psych: Calm
Data Reviewed
-
Diagnostic Radiology: Image personally visualized and interpreted
Labs: Labs Reviewed by me
--- NOTE | 2024-05-14 11:52 | W.PN.UPDATE ---
Update Note
Progress Note Update
I saw and evaluated the patient. I reviewed the resident�s note and agree with findings and plan as documented in the resident�s note.
Gen: NAD, Awake and alert, NCAT
Eyes: EOMI, PERRLA, no scleral icterus.
Neck: supple.
CV: tachy, irreg/irreg, +S1/S2, no m/r/g.
Resp: CTAB anteriorly, no rales, wheezes, or rhonchi.
Abd: +BS, soft, NT, ND
Skin: No rashes.
: coppola with clear yellow urine
Neuro: CN 2-12 intact, non-focal.
Psych: Normal mood and affect.
Microbiology
05/12/24 04:15 Urine Culture - Preliminary
Urine Escherichia coli
Enterococcus species
05/12/24 17:26 Blood Culture - Preliminary
Blood/Venous Escherichia coli
Gram Stain - Final
05/12/24 16:23 Blood Culture - Preliminary
Blood/Venous Escherichia coli
Gram Stain - Preliminary
CT A/P 05/12/24: Contained urinary bladder perforation with fistulization to the prostate gland, status post aqua ablation. No intraperitoneal or extraperitoneal bladder rupture. Coppola catheter balloon is inflated within the mid penile urethra with
catheter tip at the prostatic urethra.
CT A/P (repeat): Interval advancement of the Coppola catheter with tip and balloon within the urinary bladder. The known fistula is not well demonstrated on this examination. There is trace gas anteriorly within the urinary bladder, likely secondary
to instrumentation. There is extensive stranding within the perivesicular space which may represent infection/cystitis.
Septic shock due to acute urinary tract infection (POA):
-presented with hematuria/lower abdominal pain (Eliquis on hold)
-CT A/P with contained Bladder Perforation w/ Fistulization of the Prostate
-was on Jimmy, now off
-urology following
-cont CBI, hematuria now resolved
-pain control as blood pressure tolerate
-BCxs with E coli, sensitivities pending, cont Zosyn as per ID
Acute hypoxemic respiratory failure:
-Likely due to septic shock
-Pulmonary following
-was on 15L midflow, now weaned to 3L midflow
Permanent Atrial Fibrillation:
-Eliquis on hold with hematuria
Other problems:
Essential HTN: Holding all antihypertensives with septic shock
HLD: Continue Atorvastatin
DM2: SSI/accuchecks
FULL/SCDs
[2024-05-14 11:56] LABS: Glucose - Point of Care 82 mg/dl (70-99)
--- NOTE | 2024-05-14 12:00 | PTCARENOTE ---
no changes in assessment noted. pt resting comfortable in bed. at bedside.
[2024-05-14] MEDS: SENOKOT-S 1 TABLET PO (13:55)
--- NOTE | 2024-05-14 15:10 | PTCARENOTE ---
pt given 0.5 dilaudid for lower abdominal pain- pt reports good pain relief after. afib heart rate 120s- dr mcgovern notified.
--- NOTE | 2024-05-14 16:00 | PTCARENOTE ---
no changes in assessment noted.
[2024-05-14] MEDS: NOVOLOG FLEXPEN-LOW RESISTANCE 1 UNITS SC (16:34)
[2024-05-14 16:44] LABS: Glucose - Point of Care 157 mg/dl (70-99)
[2024-05-14] MEDS: SOLU-CORTEF 50 MG IV (18:27)
[2024-05-14] MEDS: CARDIZEM 30 MG PO (20:04)
--- NOTE | 2024-05-14 20:08 | PTCARENOTE ---
Assumed care of pt. approx 1900.
Urology rounded during day, slowed rate of CBI w/ progression towards weaning off in next 24 hours.
Pt. in chronic afib, rate controlled during dayshift, however rate now appears to be sustained in 130-150s.
House provider notified via TT, orders to give diltiazem early.
Pt. offers no complaints of pain, now on RA sp02 96 percent.
Plan of care explained, all questions answered to family at bedside.
[2024-05-14] MEDS: KLOR-CON 20 MEQ PO (21:20)
[2024-05-14] MEDS: MAGNESIUM OXIDE 500 MG PO (21:20)
[2024-05-14] MEDS: LANTUS SC ×2 (21:20→21:26)
[2024-05-14] MEDS: LIPITOR 20 MG PO (21:21)
--- NOTE | 2024-05-14 21:29 | PTCARENOTE ---
Pt. slightly aggressive, refused his Lantus, told RN to get the 'hell away from him'. Explained the importance of maintaining blood sugar levels, he stated 'fuck it'. Attempted to reeducate further, and to obtain a POC sugar to assess his current
glucose level, pt. refused.
--- NOTE | 2024-05-14 23:53 | PTCARENOTE ---
Addendum entered by Quentin Rubio RN 05/15/24 00:10:
Orders placed for 5mg Diltiazem IVP.
Patino remains patent, CBI running, urine remains clear, penile site atraumatic, no further bleeding.
Original Note:
Pt. very delirious, attempted to jump out of bed, causing tugging on 3way catheter resulting in significant bleeding in penile area. Catheter still in place, and patent, draining with CBI.
HR now sustaining AFib RVR range 140-170.
House provider notified via TT awaiting orders.
[2024-05-15] VITALS (10 sets, daily range): BP systolic 122–157; BP diastolic 77–96; BMI 36.0
[2024-05-15] MEDS: ZOSYN 50 IV ×5 (00:04→23:26)
[2024-05-15] MEDS: SOLU-CORTEF 50 MG IV ×4 (00:04→17:19)
[2024-05-15] MEDS: CARDIZEM 5 MG IV (00:04)
[2024-05-15] MEDS: DILAUDID 0.5 MG IV ×5 (01:18→20:48)
--- NOTE | 2024-05-15 01:23 | PTCARENOTE ---
Pt. continues to be confused, delirious, agitated, accusatory w/ staff. Education and redirection provided to patient.
[2024-05-15 04:10] LABS: Lactic Acid 1.2 mmol/L (0.7-2.0)
[2024-05-15 04:13] LABS: ALT (SGPT) 19 U/L (0-50); AST (SGOT) 21 U/L (17-59); Albumin 2.8 g/dl (3.5-5.0); Alkaline Phosphatase 57 U/L (38-126); Blood Urea Nitrogen 25 mg/dl (9-20); Carbon Dioxide 21 mmol/L (22-30); Chloride 104 mmol/L (98-107); Direct Bilirubin 0.4 mg/dl (0.0-0.4); Estimated Creatinine Clearance 72 ml/min; Glucose 178 mg/dl (70-99); Potassium 3.5 mmol/L (3.5-5.1); Sodium 137 mmol/L (135-145); Total Bilirubin 0.8 mg/dl (0.2-1.3); eGFR > 60.00
[2024-05-15 04:27] LABS: % Basophils 0.2 % (0-2); % Immature Granulocytes 3.6 % (0-0.5); % Lymphocytes 1.8 % (20.5-51.1); % Monocytes 2.6 % (1.7-9.3); % Neutrophils 91.8 % (42.2-75.2); Absolute Immature Granulocytes 0.6 10^3/uL (0-0.05); Absolute Lymphocytes 0.3 10^3/uL (1.2-3.4); Absolute Monocytes 0.4 10^3/uL (0.1-0.6); Absolute Neutrophils 14.5 10^3/uL (1.4-6.5); Hematocrit 35.3 % (39.0-52.0); Hemoglobin 11.9 g/dL (13.0-18.0); Mean Corp Hgb Conc. 33.7 g/dL (33.0-37.0); Mean Corpuscular Hgb 27.9 pg (27.0-31.0); Mean Corpuscular Volume 82.9 fL (80.0-94.0); Mean Platelet Volume 9.4 fL (7.4-10.4); Nucleated Red Blood Cells % 0 % (-); Platelet Count 123 10^3/uL (130-400); Red Blood Cell Count 4.26 10^6/uL (4.70-6.10); Red Cell Dist. Width 14.6 % (11.5-14.5); White Blood Cell Count 15.8 10^3/uL (4.8-10.8)
--- NOTE | 2024-05-15 06:18 | PTCARENOTE ---
Pt. now oriented x4, follows all commands, expresses all needs.
[2024-05-15] MEDS: SENOKOT-S PO ×2 (07:22→19:35)
--- NOTE | 2024-05-15 07:33 | W.PN.URO.CBU ---
Today's Communication / Plan
-
stop cbi
Assessment / Plan
-
Gross hematuria with clot urine retention: resolving
FELY and leukocytosis: possible complicated UTI- ESBL
continue medical supportive care
await ucx- prev pt's hx suggests esbl
continue coppola
stop cbi today
if urine remains clear- restart xarelto tomorrow and observe
Diagnosis
-
Date of Service: May 15, 2024
-
Patient Diagnosis:
Gross hematuria with clot urine retention: on Eliquis
s/p aqua ablation late March 2024
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
CX's + for ecoli- likely esbl
---
Adequate bladder drainage and clot evacuation was established 05/12/24: confirmed by follow up CT scan 05/12/24
Subjective
-
pt unchanged
urine yellow on light drip cbi
all cx's + for ecoli- final results pending
Objective
-
Vital Signs
Temp Pulse Resp BP Pulse Ox
98 F 128 15 125/87 92
05/15/24 04:45 05/15/24 04:45 05/15/24 04:45 05/15/24 04:00 05/15/24 04:45
Intake and Output
05/14/24 05/15/24 05/16/24
06:59 06:59 06:59
Intake Total 3589.5 / 3664.5 905 / 905
Output Total 3375 / 3375 2350 / 2350
Balance 214.5 / 289.5 -1445 / -1445
Intake:
Oral fluids 350 / 350 780 / 780
IV fluids (Total) 2939.5 / 3014.5 75 / 75
Jimmy-Synephrine 282 / 282
Norepinephrine 82.5 / 82.5
Nss 1,000 ml @ 75 mls/hr IV . 2575 / 2650 75 / 75
[id number] ALDA Rx#:[id number]
IV piggybacks 300 / 300 50 / 50
Output:
True Urine Output from CBI 3375 / 3375 2350 / 2350
Laboratory Results
05/15/24 03:33
05/15/24 03:33
Physical Exam
-
General - no acute distress
Genitalia - coppola in place
[2024-05-15] MEDS: PROTONIX 40 MG PO (07:36)
[2024-05-15] MEDS: CARDIZEM 30 MG PO ×4 (07:36→20:47)
[2024-05-15] MEDS: MUCINEX 1200 MG PO ×2 (07:36→19:33)
[2024-05-15] MEDS: NOVOLOG FLEXPEN-LOW RESISTANCE 1 UNITS SC (07:36)
[2024-05-15 07:48] LABS: Glucose - Point of Care 162 mg/dl (70-99)
[2024-05-15] MEDS: XOPENEX 1.25 MG INHALANT SOLUTION INH ×3 (08:00→20:01)
[2024-05-15] MEDS: ATROVENT NEBULES 0.5 MG INH ×3 (08:00→20:00)
[2024-05-15] MEDS: SYMBICORT 160/4.5 MCG INHALER 2 PUFF INH ×2 (08:00→20:01)
--- NOTE | 2024-05-15 08:37 | W.PN.INTV ---
Today's Communication / Plan
Recommendations
Antibiotics as per ID
DC hydrocortisone
CBI off, monitor UOP and for any recurrence of hematuria
Maintain BG goal 140�180
Symbicort with nebulized bronchodilators
Continue Cardizem with holding parameters given he remains mildly tachycardic with A-fib with RVR
Cardiology consulted and recommendations appreciated
Bowel regimen
Hold Xarelto and resume once he remains off CBI and clinically not bleeding with stable Hb for >48 to 72 hours
Patient is being downgraded from IMU to telemetry. No additional recommendations at this time. Tests Superintendent/Pulmonary service will now sign off. Please reconsult if there are any additional questions/concerns, or if patient's respiratory status
deteriorates.
Assessment
-
Assessment: 74-year-old male former tobacco smoker with a past medical history of prostate cancer s/p XRT (diagnosed 12/2020), BPH, chronic venous insufficiency, chronic pericarditis, history of PE s/p IVC filter, restrictive lung disease, severe
ROGELIO not on CPAP, permanent A-fib on Xarelto, history of factor V Leiden on Xarelto, history of partial SBO, hypertension and history of embolic brainstem stroke (2012) who presents with bloody urine. He had an aqua ablation of his prostate on
04/06/2024 at [facility]. He awoke in with blood in his underwear and was urinating blood. He continues to be on Xarelto. He came here to the ER for further evaluation. He also had abdominal pain that was in his lower belly without
radiation. A Patino was attempted in the ER however this met resistance and then carmen blood resulted. Initial vitals in the ER showed he was afebrile to 98.1 �F, pulse rate 84, breathing at 16 breaths/min, BP 131/83 and saturating 96% on room air.
Initial labs showed Hb 17.2, INR 1.66, lactate 6.8, T. bili 1, and urinalysis 4+ occult blood with +1 leukocyte esterase. Urine + blood cultures were collected. CT abdomen/pelvis with IV contrast showed a urinary bladder perforation with
fistulization to the prostate gland with no intraperitoneal or extraperitoneal bladder rupture. The Patino catheter balloon was inflated within the mid penile urethra with the catheter tip at the prostatic urethra. In the ER he was given Dilaudid
and urethral lidocaine. He was initially admitted to telemetry for hematuria. He developed rapid A-fib throughout the day on 05/12 and towards evening became hypotensive. He also spiked a fever and antibiotics were started with Vanco/Zosyn. He
also had increased oxygen requirements with worsening work of breathing, and was placed onto BiPAP. 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
management/recommendations.
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
hypercholesterolemia, chronic venous insufficiency, history of prostate cancer s/p XRT (2020), BPH, history of UTI, history of chronic pericarditis, history of factor V Leiden
Impression:
#Septic shock due to complicated UTI - shock state now resolved
#Bacteremia due to E. coli
#Complicated UTI due to E. coli + Enterococcus spp
#A-fib with RVR requiring cardizem gtt - now off cardizem gtt and in NSR
#Acute respiratory failure with hypoxia on supplemental oxygen - improved and now on room air
#History of severe ROGELIO not on CPAP (he is adamantly against it - overall AHI severe at 45.4 events/hr with corbin O2 saturation: 73% via PSG in September 2020)
#Hematuria now requiring CBI - suspected to be due to UTI in the setting of Xarelto use - now off CBI as of 05/15
#Severe leukocytosis likely leukemoid reaction in the setting of septic shock - improved
#FELY likely due to post renal azotemia - imrpoving
#Lactic acidosis due to septic shock - resolved
#Hypomagnesemia
#Elevated T. bili - now resolved
#Perforated bladder likely due to traumatic Patino insertion here in the ER
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
#Former tobacco smoker with [id number] history � quit 03/2012
#History of factor V Leiden on Xarelto
#History of chronic pericarditis with intermittent chest pain
#History of chronic cough with bronchial wall thickening seen on prior CT chest from 02/10/2023 suspicious for chronic bronchitis/bronchiolitis (no COPD seen on most recent PFTs from 08/2023)
Plan:
- Patient has markedly improved, and now off vasopressors and off cardizem gtt with MAP improved, and HR improved as well however he is still mildly tachycardic
- Maintain MAP >65
- Continue hydrocortisone 50mg IV q6hr x 3 days then wean as tolerated --> given that he has remained HDN stable, ok to stop steroids today
- IVF stopped
- Continue with antibiotics (Zosyn) and ID consulted - recs appreciated
- Surveillance blood culture collected 05/14/2024 shows NGTD
- Ok to resume home anti-hypertensives now that he is HDN stable and is becoming hypertensive
- Urology on board and recommendations appreciated
- Now off CBI; monitor UOP and for recurrence of hematuria
- Trend sCr and UOP
- Cardiology consulted recommendation appreciated; maintain rate <110
- Replete electrolytes with K>4, Mg>2
- Now off cardizem gtt; continue with PO cardizem as BP tolerates to reach goal HR as above
- Echo checked on 05/13/2024 showing preserved LVEF of 55 to 60% with mild MR, normal RV systolic function and mild PH
- Maintain SpO2 >90-94%; now on room air
- Check ambulatory pulse oximetry prior to discharge
- Given his chronic cough with bronchial wall thickening seen on prior CT chest from 01/2023 with use of Advair at home, continue Symbicort 160mcg, Xopenex/atrovent nebs TID, Mucinex + Acapella
- prn nebulized bronchodilators
- Maintain euglycemia with goal BG 140-180
- Trend H/H and transfuse if needed to keep Hb>7g/dL; keep plt>20k, unless there is concern for bleeding then keep plt>50k
- Incentive spirometer encouraged 10x per hour for at least 4 hrs a day
- Of note, he does qualify for lung cancer screening via annual LDCT chest. He should continue to follow-up with us in the [facility] office to discuss this. Of note there was no nodule seen on CTA chest from 01/2023
- DVT ppx: SCDs for now; restart xarelto once clinically not bleeding with CBI off and Hb stable for >48-72 hrs
Patient is being downgraded from IMU to telemetry. No additional recommendations at this time. Tests Superintendent/Pulmonary service will now sign off. Thank you for allowing us to be involved in the care of this patient. Please reconsult if there are
any additional questions/concerns, or if patient's respiratory status deteriorates.
Total time spent today was 38 minutes for this encounter. Time includes reviewing laboratory test/imaging results, reviewing pertinent medical records, obtaining and reviewing medical history, performing an appropriate exam, ordering medications,
tests and procedures. Time also includes documentation of this encounter, coordinating patient care and communicating with other healthcare professionals. Total time does not include separately billed tests performed on this date of service.
Subjective Dataa
Subjective Data
Date of Service:
Date of Service: May 15, 2024
Chief Complaint: Tests Superintendent Follow Up
Subjective:
Patient was seen and evaluated today at bedside. Currently on room air breathing comfortably, saturating 93%. Still has groin/penis pain. Heart rate 105 and BP 144/85. He is now off of CBI this morning. Urine in Patino bag is yellow. He denies
chest pain, SHANNON, abdominal pain, nausea, fevers or chills.
Review of Systems
General: Other (Negative unless mentioned above)
Objective Data
Data Reviewed
Vital Signs / I&O / Oxygen:
Vital Signs
Temp Pulse Resp BP Pulse Ox
97.8 F 113 23 144/85 94
05/15/24 07:42 05/15/24 10:15 05/15/24 10:15 05/15/24 10:00 05/15/24 10:15
Intake and Output
05/14/24 05/15/24 05/16/24
06:59 06:59 06:59
Intake Total 3589.5 / 3664.5 905 / 905 360 / 360
Output Total 3375 / 3375 2350 / 2350 -200 / -200
Balance 214.5 / 289.5 -1445 / -1445 560 / 560
SaO2 94
Nasal Cannula flow liters per 6
minute
Physical Exam
General: Respiratory Distress (negative), Comfortable, Chills (negative) and Sweats (negative)
HEENT: Normocephalic and Anicteric
Cardiovascular: S1-S2, Peripheral Edema (negative) and Other (Tachycardic)
Respiratory: Wheeze (negative), Crackles (Bibasilar), Rhonchi (negative) and Non-Labored Respirations
GI: Soft, Distended (Abdominal obesity), Non Tender and Normal Bowel Sounds
Neurology: AO x 3 and Tremors (negative)
Skin: Warm, Dry, Jaundice (negative) and Rash (negative)
Labs/Micro/Reports
Lab Data
05/15/24 03:33
05/15/24 03:33
Microbiology
05/12/24 17:26 Blood/Venous Blood Culture - Final
Escherichia coli
05/12/24 17:26 Blood/Venous Gram Stain - Final
05/12/24 16:23 Blood/Venous Blood Culture - Final
Escherichia coli
05/12/24 16:23 Blood/Venous Gram Stain - Final
05/12/24 04:15 Urine Urine Culture - Preliminary
Escherichia coli
Enterococcus species
05/14/24 02:51 Blood/Venous Blood Culture - Preliminary
No Growth in 24 hours- Final report to follow
--- NOTE | 2024-05-15 09:57 | PTCARENOTE ---
Rec'd pt at 0700. Pt AAOx3, slightly confused conversation at times. Follows commands, AVILA. Monitor Afib 100-110's. Lungs CTA, pox 94% RA. +BS, abd round/soft/nt. CBI stopped this am ~0730 by Urologist, urine remains clear yellow with some sediment.
--- NOTE | 2024-05-15 10:11 | W.PN.ID1 ---
Date of Service
Date of Service: May 15, 2024
Today's Communication
Continue antibiotics.
Assessment / Plan
# Complicated UTI with gross hematuria/clot retention
-Cultures with E. coli and Enterococcus spp.
# E. coli bacteremia
# Septic shock
# Leukocytosis/leukemoid reaction
# FELY
# BPH s/p aqua-ablation 04/06/24
# hx prostate CA XRT
Recommendations:
- Continue Zosyn for today. Will de-escalate as final cx data becomes available. (Awaiting Enterococcus susceptibility)
- Trend vitals, temps, WBC
- Continue ICU supportive care.
Chief Complaint
-: UTI and Bacteremia
Subjective / Review of Systems
Review of Systems: No Fever and No Chills
Vital Signs / Physical Exam
Vital Signs
Vital Signs
Temp Pulse Resp BP Pulse Ox
97.8 F 121 17 145/84 93
05/15/24 07:42 05/15/24 09:15 05/15/24 09:15 05/15/24 08:09 05/15/24 09:15
Physical Exam
Constitutional: No Acute Distress, Comfortable and Non-toxic
Eyes: Sclera Anicteric
Cardiovascular: S1/S2; Negative S3/S4
Pulmonary: Non Labored; Negative Wheezes
Gastrointestinal: Soft, Non Tender, Non Distended and Normal Bowel Sounds
Genito-Urinary: Patino (Three-way to irrigation) and Clear Urine; Negative Turbid Urine or Hematuria
Extremities: Edema and Venous Insufficiency; Negative Cyanosis, Erythema or Janeway Lesions
Neurological: Awake and Alert
Psychological: Calm
Objective Data
Lab Data
Lab Results
05/15/24 03:33
05/15/24 03:33
PT 19.7 Sec (11.4-14.6) H 05/13/24 04:45
INR 1.66 05/13/24 04:45
APTT 31.1 Sec (23.4-35.0) 05/13/24 04:45
Estimated Creat Clear 72 ml/min 05/15/24 03:33
Lactic Acid 1.2 mmol/L (0.7-2.0) 05/15/24 03:33
Total Bilirubin 0.8 mg/dl (0.2-1.3) 05/15/24 03:33
AST 21 U/L (17-59) 05/15/24 03:33
ALT 19 U/L (0-50) 05/15/24 03:33
Alkaline Phosphatase 57 U/L (38-126) 05/15/24 03:33
Most recent labs reviewed.
Micro Results:
05/12/24 17:26 Blood Culture - Final
Blood/Venous Escherichia coli
Gram Stain - Final
05/12/24 16:23 Blood Culture - Final
Blood/Venous Escherichia coli
Gram Stain - Final
05/12/24 04:15 Urine Culture - Preliminary
Urine Escherichia coli
Enterococcus species
05/14/24 02:51 Blood Culture - Preliminary
Blood/Venous No Growth in 24 hours- Final report to follow
Blood Culture Final 05/12/24
Organism 1 Escherichia coli
1. Escherichia coli
M.I.C. RX
--------- ---
Amoxicillin/Potas. Clavulanate 16/8 I
Ampicillin >16 R
Ampicillin/Sulbactam >16/8 R
Aztreonam <=4 S
Cefazolin <=2 S
Ertapenem <=0.5 S
Ciprofloxacin >2 R
Gentamicin >8 R
Meropenem <=1 S
Piperacillin/Tazobactam <=8 S
Tetracycline >8 R
Tobramycin >8 R
Trimethoprim/Sulfamethoxazole > R
Imaging:
05/12/24 CT a/p: Interval advancement of the Patino catheter with tip and balloon within the urinary bladder. The known fistula is not well demonstrated on this examination. There is trace gas anteriorly within the urinary bladder, likely secondary
to instrumentation. There is extensive stranding within the perivesicular space which may represent infection/cystitis. Recommend correlation with urinalysis.
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 No intraperitoneal or extraperitoneal bladder rupture.
2. Patino catheter balloon is inflated within the mid penile urethra with catheter tip at the prostatic urethra.
--- NOTE | 2024-05-15 10:46 | W.PN.CARDCBS ---
Today's Communication / Plan
-
From a cardiac standpoint he is improving. He is off of pressors from his septic shock. We have initiated low-dose oral Cardizem for rate control of atrial fibrillation.
Eventually we should be able to resume oral anticoagulation once hemostasis has been assured.
Impression / Plan
-
Primary Care Provider: Dr. Dao
Primary Apprentice Technician: Dr. AUNG Rubio
Impression:
Dysuria and abdominal pain on admission 05/12/24
Hematuria
E. coli urosepsis
s/p aqua prostate ablation at [facility] early 04/2024
Afib with RVR
Permanent Afib
Chronic Xarelto OAC, last dose 05/11/24 PM
h/o DVT/PE s/p IVC filter
h/o CVA 2012
HTN
COPD
ROGELIO
h/o pericarditis
obesity
HLD
ECHO 11/2018: EF 55-60%, mild CLVH, mildly enlarged RV size, mildly dilated B/L atria, no significant valvular disease
Echo 02/10/20: ejection fraction 55%, mild concentric left ventricular hypertrophy, no significant valve disease, mildly enlarged right ventricular size, moderately dilated left atrium, mildly dilated right atrium, estimated pulmonary artery pressure
of 30-35 mmHg
Echo 04/28/22: EF 55 to 60%, top normal RV size with mild RV dysfunction, trace MR, trace TR with PAP 26 to 31 mmHg
ECHO 05/13/24: EF 55 to 60% markedly enlarged left atrium, mild MR, mildly dilated right atrium, no pericardial effusion, normal RV size and function.
Plan:
-A-fib is now overall reasonably well rate controlled and Cardizem drip was turned off due to hypotension.
He is now off pressors and we have started low-dose Cardizem for rate control, continue.
-Xarelto on hold indefinitely. Patient with h/o AF and CVA in 2012 for which he had been on direct oral anticoagulant
Resume anticoagulation if and when otherwise feasible
Progress Note - Apprentice Technician
Subjective
Date of Service: May 15, 2024
Patient tells me that overall he is feeling significantly better. No chest pain shortness of breath or palpitations. He tells me he is very hesitant about resuming anticoagulation at least for today.
Objective
Labs:
05/15/24 03:33
05/15/24 03:33
Labs
Hgb 11.9 g/dL (13.0-18.0) L 05/15/24 03:33
Hct 35.3 % (39.0-52.0) L 05/15/24 03:33
Plt Count 123 10^3/uL (130-400) L 05/15/24 03:33
PT 19.7 Sec (11.4-14.6) H 05/13/24 04:45
INR 1.66 05/13/24 04:45
APTT 31.1 Sec (23.4-35.0) 05/13/24 04:45
Sodium 137 mmol/L (135-145) 05/15/24 03:33
Potassium 3.5 mmol/L (3.5-5.1) 05/15/24 03:33
BUN 25 mg/dl (9-20) H 05/15/24 03:33
Creatinine 1.0 mg/dL (0.7-1.3) 05/15/24 03:33
Glucose 178 mg/dl (70-99) H 05/15/24 03:33
Troponins
05/12/24
18:21
Troponin I 0.017
Vital Signs and I&O:
Vital Signs
Temp Pulse Resp BP Pulse Ox
97.8 F 113 23 144/85 94
05/15/24 07:42 05/15/24 10:15 05/15/24 10:15 05/15/24 10:00 05/15/24 10:15
Vital Signs
Temp Pulse Resp BP Pulse Ox
97.8 F 113 23 144/85 94
05/15/24 07:42 05/15/24 10:15 05/15/24 10:15 05/15/24 10:00 05/15/24 10:15
Intake & Output
05/13/24 05/14/24 05/15/24 05/16/24
06:59 06:59 06:59 06:59
Intake Total 2245 / 2382 3589.5 / 3664.5 905 / 905 360 / 360
Output Total 3900 / 3900 3375 / 3375 2350 / 2350 -200 / -200
Balance -1655 / -1518 214.5 / 289.5 -1445 / -1445 560 / 560
Physical Exam
Physical Exam
Well-appearing, no acute distress
Irregularly irregular mildly tachycardic normal S1 and S2, no S3 no S4 is 1 of 6 apical stock murmur no rubs
Lungs okay to auscultation bilaterally
Extremities with +1 pretibial edema bilaterally
Abdomen soft nontender nondistended normoactive bowel sound
Ongoing CBI
[2024-05-15] MEDS: NOVOLOG FLEXPEN-LOW RESISTANCE 2 UNITS SC (11:41)
[2024-05-15 11:51] LABS: Glucose - Point of Care 219 mg/dl (70-99)
--- NOTE | 2024-05-15 12:03 | W.PN.UPDATE ---
Update Note
Progress Note Update
I saw and evaluated the patient. I reviewed the resident�s note and agree with findings and plan as documented in the resident�s note.
Gen: NAD, Awake and alert, NCAT
Eyes: EOMI, PERRLA, no scleral icterus.
Neck: supple.
CV: tachy, irreg/irreg, +S1/S2, no m/r/g.
Resp: CTAB anteriorly, no rales, wheezes, or rhonchi.
Abd: +BS, soft, NT, ND
Skin: No rashes.
: coppola with clear yellow urine
Neuro: CN 2-12 intact, non-focal.
Psych: Normal mood and affect.
05/12/24 04:15 Urine Urine Culture - Preliminary
Escherichia coli
Enterococcus species
05/12/24 17:26 Blood/Venous Blood Culture - Final
Escherichia coli
05/12/24 17:26 Blood/Venous Gram Stain - Final
05/12/24 16:23 Blood/Venous Blood Culture - Final
Escherichia coli
05/12/24 16:23 Blood/Venous Gram Stain - Final
05/14/24 02:51 Blood/Venous Blood Culture - Preliminary
No Growth in 24 hours- Final report to follow
CT A/P 05/12/24: Contained urinary bladder perforation with fistulization to the prostate gland, status post aqua ablation. No intraperitoneal or extraperitoneal bladder rupture. Coppola catheter balloon is inflated within the mid penile urethra with
catheter tip at the prostatic urethra.
CT A/P (repeat): Interval advancement of the Coppola catheter with tip and balloon within the urinary bladder. The known fistula is not well demonstrated on this examination. There is trace gas anteriorly within the urinary bladder, likely secondary
to instrumentation. There is extensive stranding within the perivesicular space which may represent infection/cystitis.
Septic shock due to acute urinary tract infection (POA):
-presented with hematuria/lower abdominal pain (Eliquis remains on hold). Patient had acute blood loss anemia and Eliquis contributed to the acute blood loss anemia.
-initial CT A/P with contained Bladder Perforation w/ Fistulization of the Prostate, repeat CT A/P without fistula
-was on Jimmy, now off
-urology following
-was on CBI, stopped today, hematuria now resolved
-pain control as blood pressure tolerate
-BCxs with MDRO E coli, cont Zosyn as per ID
-Acute metabolic encephalopathy due to septic shock, improving
FELY:
-due to septic shock, now resolved with IVFs/treatment of septic shock
Acute hypoxemic respiratory failure:
-Likely due to septic shock
-Pulmonary following
-was on 15L midflow, now weaned to RA
Permanent Atrial Fibrillation with RVR:
-Eliquis on hold with prior hematuria
-restart Xarelto tomorrow if no further hematuria
-started on short acting PO cardizem
Other problems:
Essential HTN: Holding all antihypertensives with septic shock
HLD: Continue Atorvastatin
DM2: SSI/accuchecks
FULL/SCDs
Total time spent on today's encounter was 50 minutes which included time spent in counseling the patient/family regarding diagnosis and treatment plan as listed above, goals of care, and symptom management. Case was discussed with nursing staff,
specialists, and care coordinators/case management. All labs and imaging personally reviewed by me. Remainder the time spent in detailed review of previous records, lab data, imaging, and other medical provider documentation.
--- NOTE | 2024-05-15 13:20 | W.PN.HOSP.TC ---
Today's Communication/Plan
-
Pt weaned to room air. White count trending down. Patino clearing up; if urine remains clear, restart Xarelto and observe.
Assessment / Plan
Assessment / Plan
1. Hematuria/Abdominal Pain
- Pain control.
- Hematuria resolving on CBI. Patino draining clear yellow urine today.
- CT Scan (from admission) showed a contained bladder perforation with fistulization of the prostate.
- Urology on board and seeing the patient. Reccs holding blood thinners; if urine remains clear, can restart Xarelto tomorrow and observe.
- Hgb 11.9 today, patient had large reserve. Continue serial H+H.
- Blood cultures show E. Coli. Hx ESBL. Continue Zosyn (day 3)
2. Urosepsis
- Positive preliminary blood culture - E. Coli
- WBC much lower today at 15.8 from 40
- Temp 98.1
- Pt on day 3 of Zosyn.
3. Permanent A-fib
- Continue rate control. If urine remains clear, Xarelto may be resumed tomorrow with observation.
4. HTN
- Continue home meds with holding parameters.
5. HLD
- Continue Atorvastatin
6. Type 2 DM
- Contine home meds -- accuchecks
7. DVT PPx
- SCD
Anticipated Discharge: 24 - 48 hours
Subjective/Interval History
-
Date of Service: May 15, 2024
Interval improvement of the patient's condition. Per nursing patient was agitated last night, but was alert and oriented by morning. Pt continues to be weaned off midflow, tolerating room air.
Objective Data
-
Labs:
Laboratory Results
05/15/24
03:33
WBC 15.8 H
Hgb 11.9 L
Hct 35.3 L
Plt Count 123 L
Sodium 137
Potassium 3.5
Chloride 104
Carbon Dioxide 21 L
BUN 25 H
Creatinine 1.0
Glucose 178 H
Calcium 8.0 L
Total Bilirubin 0.8
AST 21
ALT 19
Alkaline Phosphatase 57
Vital Signs:
Vital Signs
Temp Pulse Resp BP Pulse Ox
98.6 F 103 16 141/90 94
05/15/24 12:25 05/15/24 13:00 05/15/24 13:00 05/15/24 12:11 05/15/24 13:00
I&O
05/14/24 05/15/24 05/16/24
06:59 06:59 06:59
Intake Total 3589.5 / 3664.5 905 / 905 650 / 650
Output Total 3375 / 3375 2350 / 2350 -200 / -200
Balance 214.5 / 289.5 -1445 / -1445 850 / 850
Review of Systems
-
History Source: Patient
Constitutional: Reports No Symptoms
Respiratory: Reports No Symptoms
Cardiac: Reports Palpitations
Genitourinary: Reports No Symptoms
Physical Exam
-
General: Well Developed, Well Nourished and No Apparent Distress
HEENT: Normocephalic and Atraumatic
Respiratory: Clear to Auscultation
Cardiac: Irregular Rhythm and Tachycardic
GI: Soft and Nontender
Genito-urinary: Patino (in place, draining clear yellow urine; interval improvement from last 2 days. )
Musculoskeletal: No Edema
Skin: Warm and Dry
Neuro: Awake, Alert and Oriented
Psych: Calm
Data Reviewed
-
Labs: Labs Reviewed by me
[2024-05-15] MEDS: NOVOLOG FLEXPEN-LOW RESISTANCE 3 UNITS SC (16:07)
[2024-05-15 16:19] LABS: Glucose - Point of Care 269 mg/dl (70-99)
[2024-05-15] MEDS: COZAAR 100 MG PO (18:06)
--- NOTE | 2024-05-15 20:00 | PTCARENOTE ---
report received from previous RN at change of shift. Pt AAOX3, forgetful at times. Afib on telemtry heart rate 90s-low 100s. pulses palpable. pt on room air, sat 94%. lung sounds diminished. intermittent moist non productive cough. active bowel
sounds, abdomen obese round. coppola draining clear yellow urine with sediment. pt updated on plan of care. see worklist for full nursing assessment and interventions.
[2024-05-15] MEDS: LANTUS 0.05 UNITS SC (20:47)
[2024-05-15] MEDS: LIPITOR 20 MG PO (20:47)
[2024-05-15 20:58] LABS: Glucose - Point of Care 237 mg/dl (70-99)
[2024-05-16] VITALS: BP 160/95
[2024-05-16] MEDS: DILAUDID 0.5 MG IV ×6 (00:49→23:24)
[2024-05-16 04:00] VITALS: BP 147/84
[2024-05-16] MEDS: ZOSYN 50 IV ×4 (05:32→23:24)
[2024-05-16 06:00] VITALS: BMI 36.9
[2024-05-16 06:17] LABS: % Basophils 0.2 % (0-2); % Eosinophils 0.3 % (0-6); % Immature Granulocytes 1.1 % (0-0.5); % Monocytes 5.7 % (1.7-9.3); % Neutrophils 87.7 % (42.2-75.2); Absolute Immature Granulocytes 0.1 10^3/uL (0-0.05); Absolute Lymphocytes 0.6 10^3/uL (1.2-3.4); Absolute Monocytes 0.7 10^3/uL (0.1-0.6); Absolute Neutrophils 10.1 10^3/uL (1.4-6.5); Hematocrit 37.5 % (39.0-52.0); Hemoglobin 12.7 g/dL (13.0-18.0); Mean Corp Hgb Conc. 33.9 g/dL (33.0-37.0); Mean Corpuscular Hgb 29.1 pg (27.0-31.0); Mean Platelet Volume 9.8 fL (7.4-10.4); Nucleated Red Blood Cells % 0.2 % (-); Platelet Count 141 10^3/uL (130-400); Red Blood Cell Count 4.36 10^6/uL (4.70-6.10); Red Cell Dist. Width 14.3 % (11.5-14.5); White Blood Cell Count 11.5 10^3/uL (4.8-10.8)
[2024-05-16 06:42] LABS: Blood Urea Nitrogen 18 mg/dl (9-20); Calcium 8.4 mg/dl (8.4-10.2); Carbon Dioxide 30 mmol/L (22-30); Chloride 99 mmol/L (98-107); Estimated Creatinine Clearance 81 ml/min; Glucose 161 mg/dl (70-99); Potassium 2.8 mmol/L (3.5-5.1); Sodium 139 mmol/L (135-145); eGFR > 60.00
[2024-05-16 07:11] LABS: Glucose - Point of Care 148 mg/dl (70-99)
[2024-05-16] MEDS: XOPENEX 1.25 MG INHALANT SOLUTION INH ×3 (07:34→20:04)
[2024-05-16] MEDS: SYMBICORT 160/4.5 MCG INHALER 2 PUFF INH ×2 (07:34→20:04)
[2024-05-16] MEDS: ATROVENT NEBULES 0.5 MG INH ×3 (07:34→20:04)
--- NOTE | 2024-05-16 07:41 | W.PN.URO.CBU ---
Today's Communication / Plan
-
continue coppola and antibx
restart xarelto and observe
Assessment / Plan
-
Gross hematuria with clot urine retention: resolving
FELY and leukocytosis: possible complicated UTI- ESBL
continue medical supportive care
await ucx- prev pt's hx suggests esbl- antibx treatment per ID
continue coppola
may restart xarelto and observe
Diagnosis
-
Date of Service: May 16, 2024
-
Patient Diagnosis:
Gross hematuria with clot urine retention: on Eliquis
s/p aqua ablation late March 2024
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
CX's + for ecoli-
---
Adequate bladder drainage and clot evacuation was established 05/12/24: confirmed by follow up CT scan 05/12/24
Subjective
-
pt off pressors
ucx shows res ecoli
urine clear off cbi for 24hrs
Objective
-
Vital Signs
Temp Pulse Resp BP Pulse Ox
97.6 F 99 20 147/84 96
05/16/24 04:00 05/16/24 07:36 05/16/24 07:36 05/16/24 04:00 05/16/24 07:36
Intake and Output
05/15/24 05/16/24 05/17/24
06:59 06:59 06:59
Intake Total 905 / 905 1420 / 1420
Output Total 2350 / 2350 2600 / 2600
Balance -1445 / -1445 -1180 / -1180
Intake:
Oral fluids 780 / 780 1320 / 1320
IV fluids (Total) 75 / 75
Nss 1,000 ml @ 75 mls/hr IV . 75 / 75
[id number] ALDA Rx#:[id number]
IV piggybacks 50 / 50 100 / 100
Output:
Urine, Coppola 2800 / 2800
True Urine Output from CBI 2350 / 2350 -200 / -200
Laboratory Results
05/16/24 05:41
05/16/24 05:41
Physical Exam
-
General - no acute distress
[2024-05-16] MEDS: MUCINEX 1200 MG PO ×2 (07:56→19:08)
[2024-05-16] MEDS: COZAAR 100 MG PO (07:56)
[2024-05-16] MEDS: KCL 40 MEQ PO ×3 (07:56→18:02)
[2024-05-16] MEDS: PROTONIX 40 MG PO (07:57)
[2024-05-16] MEDS: SENOKOT-S PO (07:57)
[2024-05-16] MEDS: CARDIZEM 30 MG PO (07:57)
[2024-05-16] MEDS: NOVOLOG FLEXPEN-LOW RESISTANCE SC (07:58)
[2024-05-16 08:00] VITALS: BP 170/104
--- NOTE | 2024-05-16 08:07 | W.PN.HOSP.TC ---
Today's Communication/Plan
-
Patino continues to drain clear urine. Will restart Xarelto with interval checks of Patino output. Cardizem also increased to 60 mg QID. Follow labs, Patino output, cardiac parameters.
Assessment / Plan
Assessment / Plan
1. Hematuria/Abdominal Pain
- Pain control.
- Patino continues to drain clear urine. CBI discontinued yesterday.
- CT Scan (from admission) showed a contained bladder perforation with fistulization of the prostate.
- Urology on board and seeing the patient. Reccs holding blood thinners until urine clears; clear for 24 hours, restart Xarelto today and observe.
- Hgb 12.7 up from 11.9 yesterday today. Continue serial H+H.
- Blood cultures show E. Coli. Hx ESBL. Continue Zosyn (day 4)
2. Urosepsis
- Positive preliminary blood culture - E. Coli
- WBC much lower today at 11.5, down from 15.8 yesterday and from 40 on day 0.
- Temp 97.8
- Pt on day 4 of Zosyn.
3. Permanent A-fib
- Continue rate control. Xarelto to be restarted today; observe Patino output.
- Increase Cardizem to 60 mg QID today.
4. HTN
- Continue home meds with holding parameters.
- Cardizem increased today.
5. HLD
- Continue Atorvastatin
6. Type 2 DM
- Contine home meds -- accuchecks
7. DVT PPx
- SCD
Anticipated Discharge: 24 - 48 hours
Subjective/Interval History
-
Date of Service: May 16, 2024
Interval improvement of the patient's condition. Pt's urine has been clear.
Objective Data
-
Labs:
Laboratory Results
05/16/24
05:41
WBC 11.5 H
Hgb 12.7 L
Hct 37.5 L
Plt Count 141
Sodium 139
Potassium 2.8 L
Chloride 99
Carbon Dioxide 30
BUN 18
Creatinine 0.9
Glucose 161 H
Calcium 8.4
Vital Signs:
Vital Signs
Temp Pulse Resp BP Pulse Ox
97.8 F 122 20 147/84 96
05/16/24 07:56 05/16/24 07:56 05/16/24 07:36 05/16/24 07:56 05/16/24 07:36
I&O
05/15/24 05/16/24 05/17/24
06:59 06:59 06:59
Intake Total 905 / 905 1420 / 1420
Output Total 2350 / 2350 2600 / 2600
Balance -1445 / -1445 -1180 / -1180
Review of Systems
-
History Source: Patient
Constitutional: Reports No Symptoms
Respiratory: Reports No Symptoms
Cardiac: Reports Palpitations
Abdomen/GI: Reports No Symptoms
Neuro: Reports No Symptoms
Physical Exam
-
General: Well Developed, Well Nourished and No Apparent Distress
HEENT: Normocephalic and Atraumatic
Respiratory: Clear to Auscultation
Cardiac: Irregular Rhythm and Tachycardic
GI: Soft and Nontender
Neuro: Awake, Alert and Oriented
Psych: Calm
Data Reviewed
-
Labs: Labs Reviewed by me
--- NOTE | 2024-05-16 08:23 | PN.CDI ---
CDI
- -
CDI:
Physician Documentation Request
Admit Date: 05/12/24 12:06
Dear Doctor Melissa,
Patient admitted for bladder perforation.
05/12 Update Note: '22 Fr 3-way Patino placed with little effort, 300 cc clot recovered from urinary bladder with establishment of CBI'
05/13 Hospitalist PN: 'Hgb 14.5 today, down from 17 yesterday. Continue serial H+H. - Pt consented for blood yesterday.'
Laboratory Tests
05/12/24 05/13/24 05/14/24
04:15 00:21 02:51
Hgb 17.2 14.5 11.8 L
Based on the above, could you clarify in the progress notes, the appropriate diagnosis, if significant, that supports the above abnormalities and additional evaluation, monitoring and/or treatment rendered:
Acute blood loss anemia
Drop in hemoglobin
Other
Use of terms such as suspected, likely, concern for, or probable (associated with a specific diagnosis that is being evaluated, monitored, or treated as if it exists) are acceptable and can be coded in the inpatient setting, when documented at the
time of discharge.
Thank you,
Akiko Avilez RN, BSN
CDI Specialist
Available via [place] text
Please use your independent medical judgment in providing your response.
--- NOTE | 2024-05-16 08:23 | W.PN.UPDATE ---
Update Note
Progress Note Update
I saw and evaluated the patient. I reviewed the resident�s note and agree with findings and plan as documented in the resident�s note.
Gen: remains NAD, Awake and alert, NCAT
Eyes: EOMI, PERRLA, no scleral icterus.
Neck: supple.
CV: remains tachy, irreg/irreg, +S1/S2, no m/r/g.
Resp: remains CTAB anteriorly, no rales, wheezes, or rhonchi.
Abd: +BS, soft, NT, ND
Skin: No rashes.
Neuro: CN 2-12 intact, non-focal.
Psych: Normal mood and affect.
05/14/24 02:51 Blood/Venous Blood Culture - Preliminary
No Growth in 48 hours- Final report to follow
05/12/24 04:15 Urine Urine Culture - Preliminary
Escherichia coli
Enterococcus species
05/12/24 17:26 Blood/Venous Blood Culture - Final
Escherichia coli
05/12/24 17:26 Blood/Venous Gram Stain - Final
05/12/24 16:23 Blood/Venous Blood Culture - Final
Escherichia coli
05/12/24 16:23 Blood/Venous Gram Stain - Final
CT A/P 05/12/24: Contained urinary bladder perforation with fistulization to the prostate gland, status post aqua ablation. No intraperitoneal or extraperitoneal bladder rupture. Patino catheter balloon is inflated within the mid penile urethra with
catheter tip at the prostatic urethra.
CT A/P (repeat): Interval advancement of the Patino catheter with tip and balloon within the urinary bladder. The known fistula is not well demonstrated on this examination. There is trace gas anteriorly within the urinary bladder, likely secondary
to instrumentation. There is extensive stranding within the perivesicular space which may represent infection/cystitis.
Septic shock due to acute urinary tract infection (POA):
-presented with hematuria/lower abdominal pain. Patient had acute blood loss anemia and Xarelto contributed to the acute blood loss anemia.
-initial CT A/P with contained Bladder Perforation w/ Fistulization of the Prostate, repeat CT A/P without fistula
-was on Jimmy, now off
-urology following
-was on CBI, stopped today, hematuria now resolved. Restart Xarelto today.
-pain control as blood pressure tolerate
-BCxs with MDR E coli, cont Zosyn as per ID
-Acute metabolic encephalopathy due to septic shock, improving
FELY:
-due to septic shock, now resolved with IVFs/treatment of septic shock
Acute hypoxemic respiratory failure:
-Likely due to septic shock
-Pulmonary following
-was on 15L midflow, now weaned to RA
Permanent Atrial Fibrillation with RVR:
-Xarelto was on hold with prior hematuria
-restart Xarelto today as per Uro as no further hematuria
-started on short acting PO Cardizem, increase to 60mg QID today
Other problems:
Essential HTN: restart Losartan, increase Cardizem
HLD: Continue Atorvastatin
DM2: SSI/accuchecks/Lantus
FULL/SCDs
--- NOTE | 2024-05-16 08:27 | PN.CDI ---
CDI
- -
CDI:
Physician Documentation Request
Admit Date: 05/12/24 12:06
Dear Doctor Melissa,
Patient admitted for bladder perforation.
ER Physician Documentation: 'He has history of atrial fibrillation chronically maintained on Xarelto. He awoke tonight with stents to void and noticed bright red blood at the end of his penis as well as grossly bloody urine...nursing staff was able
to successfully insert a regular Patino catheter with prompt drainage of grossly blood-tinged urine.'
05/13 Hospitalist PN: 'Hold Xarelto due to hematuria until further notice, per urology reccs.'
Please clarify the relationship between these conditions:
Yes, hematuria is related to/associated with/exacerbated by Xarelto
No, hematuria is not related to/associated with/exacerbated by Xarelto
Unable to determine
Use of terms such as suspected, likely, concern for, or probable (associated with a specific diagnosis that is being evaluated, monitored, or treated as if it exists) are acceptable and can be coded in the inpatient setting, when documented at the
time of discharge.
Thank you,
Akiko Avilez RN, BSN
CDI Specialist
Available via [place] text
Please use your independent medical judgment in providing your response.
[2024-05-16 09:11] VITALS: BP 133/82
--- NOTE | 2024-05-16 10:06 | W.PN.CARDCBS ---
Today's Communication / Plan
-
Heart rate control suboptimal in A-fib
Cardizem to be increased to 60 mg 4 times daily
Xarelto to be restarted this evening
Impression / Plan
-
Primary Care Provider: Dr. Dao
Primary Concrete Pile Driver Operator: Dr. AUNG Rubio
Impression:
Dysuria and abdominal pain on admission 05/12/24
Hematuria
E. coli urosepsis
s/p aqua prostate ablation at [facility] early 04/2024
Afib with RVR
Permanent Afib
Chronic Xarelto OAC, last dose 05/11/24 PM
h/o DVT/PE s/p IVC filter
h/o CVA 2012
HTN
COPD
ROGELIO
h/o pericarditis
obesity
HLD
ECHO 11/2018: EF 55-60%, mild CLVH, mildly enlarged RV size, mildly dilated B/L atria, no significant valvular disease
Echo 02/10/20: ejection fraction 55%, mild concentric left ventricular hypertrophy, no significant valve disease, mildly enlarged right ventricular size, moderately dilated left atrium, mildly dilated right atrium, estimated pulmonary artery pressure
of 30-35 mmHg
Echo 04/28/22: EF 55 to 60%, top normal RV size with mild RV dysfunction, trace MR, trace TR with PAP 26 to 31 mmHg
ECHO 05/13/24: EF 55 to 60% markedly enlarged left atrium, mild MR, mildly dilated right atrium, no pericardial effusion, normal RV size and function.
Plan:
Heart rate control in A-fib is suboptimal
Cardizem is going to be increased
Xarelto would be restarted 05/16 PM
Discussed with nursing
Progress Note - Concrete Pile Driver Operator
Subjective
Date of Service: May 16, 2024
No complaints
Objective
Labs:
05/16/24 05:41
05/16/24 05:41
Labs
Hgb 12.7 g/dL (13.0-18.0) L 05/16/24 05:41
Hct 37.5 % (39.0-52.0) L 05/16/24 05:41
Plt Count 141 10^3/uL (130-400) 05/16/24 05:41
PT 19.7 Sec (11.4-14.6) H 05/13/24 04:45
INR 1.66 05/13/24 04:45
APTT 31.1 Sec (23.4-35.0) 05/13/24 04:45
Sodium 139 mmol/L (135-145) 05/16/24 05:41
Potassium 2.8 mmol/L (3.5-5.1) L 05/16/24 05:41
BUN 18 mg/dl (9-20) 05/16/24 05:41
Creatinine 0.9 mg/dL (0.7-1.3) 05/16/24 05:41
Glucose 161 mg/dl (70-99) H 05/16/24 05:41
Vital Signs and I&O:
Vital Signs
Temp Pulse Resp BP Pulse Ox
97.8 F 126 15 170/104 94
05/16/24 07:56 05/16/24 08:00 05/16/24 08:00 05/16/24 08:00 05/16/24 09:40
Vital Signs
Temp Pulse Resp BP Pulse Ox
97.8 F 126 15 170/104 94
05/16/24 07:56 05/16/24 08:00 05/16/24 08:00 05/16/24 08:00 05/16/24 09:40
Intake & Output
05/14/24 05/15/24 05/16/24 05/17/24
06:59 06:59 06:59 06:59
Intake Total 3589.5 / 3664.5 905 / 905 1420 / 1420
Output Total 3375 / 3375 2350 / 2350 2600 / 2600
Balance 214.5 / 289.5 -1445 / -1445 -1180 / -1180
Physical Exam
Physical Exam
General: Well developed, well nourished in NAD.
Neck: Supple, no JVD, HJR, carotids +2 B/L, no bruits bilaterally.
Heart: Non displaced PMI, irregular, no murmurs, No S3, S4, no rubs.
Lungs: Clear to auscultation bilaterally, no wheeze, rhonchi, rubs bilaterally,
normal expiratory phase.
Extremities: No clubbing, cyanosis or edema bilaterally.
Neuro: Grossly nonfocal, awake, alert and oriented x3.
--- NOTE | 2024-05-16 11:09 | W.PN.ID1 ---
Date of Service
Date of Service: May 16, 2024
Today's Communication
Continue Zosyn.
Assessment / Plan
# Complicated UTI with gross hematuria/clot retention
-Cultures with E. coli and Enterococcus spp.
# E. coli bacteremia
# s/p Septic shock
# Leukocytosis/leukemoid reaction- resolving
# FELY
# BPH s/p aqua-ablation 04/06/24
# hx prostate CA XRT
Recommendations:
- Continue Zosyn (d5). Will de-escalate as final cx data becomes available. (Awaiting Enterococcus susceptibility)
Chief Complaint
-: UTI and Bacteremia
Subjective / Review of Systems
left groin pain better
Vital Signs / Physical Exam
Vital Signs
Vital Signs
Temp Pulse Resp BP Pulse Ox
97.8 F 126 15 170/104 94
05/16/24 07:56 05/16/24 08:00 05/16/24 08:00 05/16/24 08:00 05/16/24 09:40
Physical Exam
Constitutional: No Acute Distress and Comfortable
Cardiovascular: Regular Rate and S1/S2
Pulmonary: Clear
Gastrointestinal: Soft, Non Tender and Non Distended
Genito-Urinary: Patino and Clear Urine
Objective Data
Lab Data
Lab Results
05/16/24 05:41
05/16/24 05:41
PT 19.7 Sec (11.4-14.6) H 05/13/24 04:45
INR 1.66 05/13/24 04:45
APTT 31.1 Sec (23.4-35.0) 05/13/24 04:45
Estimated Creat Clear 81 ml/min 05/16/24 05:41
Lactic Acid 1.2 mmol/L (0.7-2.0) 05/15/24 03:33
Total Bilirubin 0.8 mg/dl (0.2-1.3) 05/15/24 03:33
AST 21 U/L (17-59) 05/15/24 03:33
ALT 19 U/L (0-50) 05/15/24 03:33
Alkaline Phosphatase 57 U/L (38-126) 05/15/24 03:33
Most recent labs reviewed.
Micro Results:
05/14/24 02:51 Blood Culture - Preliminary
Blood/Venous No Growth in 48 hours- Final report to follow
05/12/24 04:15 Urine Culture - Preliminary
Urine Escherichia coli
Enterococcus species
05/12/24 17:26 Blood Culture - Final
Blood/Venous Escherichia coli
Gram Stain - Final
05/12/24 16:23 Blood Culture - Final
Blood/Venous Escherichia coli
Gram Stain - Final
Blood Culture Final 05/12/24
Organism 1 Escherichia coli
1. Escherichia coli
M.I.C. RX
--------- ---
Amoxicillin/Potas. Clavulanate 16/8 I
Ampicillin >16 R
Ampicillin/Sulbactam >16/8 R
Aztreonam <=4 S
Cefazolin <=2 S
Ertapenem <=0.5 S
Ciprofloxacin >2 R
Gentamicin >8 R
Meropenem <=1 S
Piperacillin/Tazobactam <=8 S
Tetracycline >8 R
Tobramycin >8 R
Trimethoprim/Sulfamethoxazole >2/38 R
Imaging:
05/12/24 CT a/p: Interval advancement of the Patino catheter with tip and balloon within the urinary bladder. The known fistula is not well demonstrated on this examination. There is trace gas anteriorly within the urinary bladder, likely secondary
to instrumentation. There is extensive stranding within the perivesicular space which may represent infection/cystitis. Recommend correlation with urinalysis.
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 No intraperitoneal or extraperitoneal bladder rupture.
2. Patino catheter balloon is inflated within the mid penile urethra with catheter tip at the prostatic urethra.
[2024-05-16 11:40] LABS: Glucose - Point of Care 207 mg/dl (70-99)
[2024-05-16 12:00] VITALS: BP 158/81
[2024-05-16] MEDS: NOVOLOG FLEXPEN-LOW RESISTANCE 2 UNITS SC (12:29)
[2024-05-16] MEDS: CARDIZEM 60 MG PO ×3 (12:56→21:43)
--- NOTE | 2024-05-16 14:44 | CM ---
Case management following for discharge planning
Chart reviewed. Met with pt at bedside
Pt reports feeling better today
PT/OT eval pend
Plan - anticipate home no needs vs w/VN pending PT/OT eval
[2024-05-16 17:15] LABS: Glucose - Point of Care 250 mg/dl (70-99)
[2024-05-16] MEDS: NOVOLOG FLEXPEN-LOW RESISTANCE 3 UNITS SC (18:00)
[2024-05-16] MEDS: XARELTO 20 MG PO (18:03)
[2024-05-16] MEDS: SENOKOT-S 1 TABLET PO (19:08)
[2024-05-16 20:04] VITALS: BP 143/96
[2024-05-16] MEDS: LANTUS 0.08 UNITS SC (21:43)
[2024-05-16] MEDS: LIPITOR 20 MG PO (21:43)
[2024-05-16 21:53] LABS: Glucose - Point of Care 175 mg/dl (70-99)
[2024-05-17] VITALS (7 sets, daily range): BP systolic 113–159; BP diastolic 86–104
[2024-05-17] MEDS: DILAUDID 0.5 MG IV ×5 (03:27→21:04)
[2024-05-17 03:48] LABS: % Basophils 0.5 % (0-2); % Eosinophils 1.7 % (0-6); % Immature Granulocytes 2.1 % (0-0.5); % Lymphocytes 5.6 % (20.5-51.1); % Monocytes 8.6 % (1.7-9.3); % Neutrophils 81.5 % (42.2-75.2); Absolute Basophils 0.1 10^3/uL (0-0.2); Absolute Eosinophils 0.2 10^3/uL (0-0.7); Absolute Immature Granulocytes 0.2 10^3/uL (0-0.05); Absolute Lymphocytes 0.6 10^3/uL (1.2-3.4); Absolute Monocytes 0.9 10^3/uL (0.1-0.6); Absolute Neutrophils 8.4 10^3/uL (1.4-6.5); Hematocrit 37.1 % (39.0-52.0); Hemoglobin 12.8 g/dL (13.0-18.0); Mean Corp Hgb Conc. 34.5 g/dL (33.0-37.0); Mean Corpuscular Hgb 29.6 pg (27.0-31.0); Mean Corpuscular Volume 85.9 fL (80.0-94.0); Mean Platelet Volume 9.9 fL (7.4-10.4); Nucleated Red Blood Cells % 0.8 % (-); Platelet Count 152 10^3/uL (130-400); Red Blood Cell Count 4.32 10^6/uL (4.70-6.10); Red Cell Dist. Width 14.4 % (11.5-14.5); White Blood Cell Count 10.3 10^3/uL (4.8-10.8)
[2024-05-17 04:10] LABS: Blood Urea Nitrogen 15 mg/dl (9-20); Calcium 8.4 mg/dl (8.4-10.2); Carbon Dioxide 30 mmol/L (22-30); Chloride 100 mmol/L (98-107); Estimated Creatinine Clearance 91 ml/min; Glucose 153 mg/dl (70-99); Potassium 3.2 mmol/L (3.5-5.1); Sodium 139 mmol/L (135-145); eGFR > 60.00
[2024-05-17] MEDS: ZOSYN 50 IV (05:16)
[2024-05-17] MEDS: XOPENEX 1.25 MG INHALANT SOLUTION INH ×3 (07:37→19:35)
[2024-05-17] MEDS: SYMBICORT 160/4.5 MCG INHALER 2 PUFF INH ×2 (07:37→19:35)
[2024-05-17] MEDS: ATROVENT NEBULES 0.5 MG INH ×3 (07:37→19:35)
[2024-05-17 08:12] LABS: Glucose - Point of Care 209 mg/dl (70-99)
[2024-05-17] MEDS: CARDIZEM 60 MG PO (08:20)
[2024-05-17] MEDS: KCL 40 MEQ PO (08:20)
[2024-05-17] MEDS: MUCINEX 1200 MG PO ×2 (08:20→20:00)
[2024-05-17] MEDS: PROTONIX 40 MG PO (08:20)
[2024-05-17] MEDS: COZAAR 100 MG PO (08:20)
[2024-05-17] MEDS: SENOKOT-S 1 TABLET PO ×2 (08:20→20:00)
[2024-05-17] MEDS: NOVOLOG FLEXPEN-LOW RESISTANCE 2 UNITS SC (08:21)
--- NOTE | 2024-05-17 08:49 | W.PN.HOSP.TC ---
Today's Communication/Plan
-
Interval improvements in patient condition. Xarelto restarted yesterday and Coppola continues to drain clear. Pt continues to have LLQ abdominal pain. CT Abd/Pelv w/ IV and oral contrast today.
Assessment / Plan
Assessment / Plan
1. Hematuria/Abdominal Pain
- Pain control.
- Coppola continues to drain clear urine. CBI discontinued 2 days ago. Xarelto restarted yesterday.
- CT Scan (from admission) showed a contained bladder perforation with fistulization of the prostate.
- Urology on board and seeing the patient. Xarelto held at admission and restarted yesterday. Clear urine, continue to observe.
- Hgb 12.8, steadily increasing toward baseline value. Continue daily H+H.
- Blood cultures show E. Coli. Hx ESBL. Continue Zosyn (day 5)
- Pt continues to have LLQ pain; CT abd/Pelv w/ oral and IV contrast today.
- Downgraded to telemetry.
2. Urosepsis
- Positive preliminary blood culture - E. Coli
- WBC 10.3 today (wnl), continues to downtrend.
- Temp 98.2.
- Pt on day 5 of Zosyn.
3. Permanent A-fib
- Continue rate control. Consider long acting cardizem formulation today. Xarelto restarted yesterday.
- Increase Cardizem to 60 mg QID today.
4. HTN
- Continue home meds with holding parameters.
- Cardizem increased today.
5. HLD
- Continue Atorvastatin
6. Type 2 DM
- Contine home meds -- accuchecks
7. DVT PPx
- SCD
8. Hypokalemia
- 2.8 yesterday; patient given 40mEQ K yesterday.
- 3.2 today; repleted with 40 mEQ K again this morning.
- Continue to monitor and replete as needed.
Anticipated Discharge: 24 - 48 hours
Subjective/Interval History
-
Date of Service: May 17, 2024
Pt notes he is feeling better than yesterday. Pt's Xarelto was restarted yesterday, but denies blood in the coppola, chest pain, shortness of breath or dizziness. He does continue to have pain in the left lower abdomen that is controlled by his PRN
pain medication.
Objective Data
-
Labs:
Laboratory Results
05/17/24
03:34
WBC 10.3
Hgb 12.8 L
Hct 37.1 L
Plt Count 152
Sodium 139
Potassium 3.2 L
Chloride 100
Carbon Dioxide 30
BUN 15
Creatinine 0.8
Glucose 153 H
Calcium 8.4
Vital Signs:
Vital Signs
Temp Pulse Resp BP Pulse Ox
98.2 F 132 20 113/89 93
05/17/24 03:42 05/17/24 08:20 05/17/24 07:42 05/17/24 08:20 05/17/24 07:42
I&O
05/16/24 05/17/24 05/18/24
06:59 06:59 06:59
Intake Total 1420 / 1420 340 / 340
Output Total 2600 / 2600 1700 / 1700
Balance -1180 / -1180 -1360 / -1360
Review of Systems
-
History Source: Patient
Constitutional: Reports No Symptoms
Respiratory: Reports No Symptoms
Cardiac: Reports No Symptoms
Abdomen/GI: Reports Abdominal Pain
Genitourinary: Reports No Symptoms
Neuro: Reports No Symptoms
Physical Exam
-
General: Well Developed and Well Nourished
HEENT: Normocephalic and Atraumatic
Respiratory: Clear to Auscultation
Cardiac: Tachycardic
GI: Soft and Nontender
Neuro: Awake, Alert and AO x 3
Psych: Calm
Data Reviewed
-
Labs: Labs Reviewed by me and Discussed with Patient
--- NOTE | 2024-05-17 09:04 | W.PN.UPDATE ---
Addendum entered and electronically signed by Johnnie Boss MD 05/17/24 14:00:
Hypokalemia
Original Note:
Update Note
Progress Note Update
I saw and evaluated the patient. I reviewed the resident�s note and agree with findings and plan as documented in the resident�s note.
Gen: remains NAD, Awake and alert, NCAT
Eyes: EOMI, PERRLA, no scleral icterus.
Neck: supple.
CV: continues to remain tachy, irreg/irreg, +S1/S2, no m/r/g.
Resp: continues to remain CTAB anteriorly, no rales, wheezes, or rhonchi.
Abd: +BS, soft, NT to light palpation, ND
Skin: No rashes.
Neuro: CN 2-12 intact, non-focal.
Psych: Normal mood and affect.
05/14/24 02:51 Blood/Venous Blood Culture - Preliminary
No Growth in 48 hours- Final report to follow
05/12/24 04:15 Urine Urine Culture - Preliminary
Escherichia coli
Enterococcus species
05/12/24 17:26 Blood/Venous Blood Culture - Final
Escherichia coli
05/12/24 17:26 Blood/Venous Gram Stain - Final
05/12/24 16:23 Blood/Venous Blood Culture - Final
Escherichia coli
05/12/24 16:23 Blood/Venous Gram Stain - Final
CT A/P 05/12/24: Contained urinary bladder perforation with fistulization to the prostate gland, status post aqua ablation. No intraperitoneal or extraperitoneal bladder rupture. Patino catheter balloon is inflated within the mid penile urethra with
catheter tip at the prostatic urethra.
CT A/P (repeat): Interval advancement of the Patino catheter with tip and balloon within the urinary bladder. The known fistula is not well demonstrated on this examination. There is trace gas anteriorly within the urinary bladder, likely secondary
to instrumentation. There is extensive stranding within the perivesicular space which may represent infection/cystitis.
Septic shock due to acute urinary tract infection (POA):
-presented with hematuria/lower abdominal pain. Patient had acute blood loss anemia and Xarelto contributed to the acute blood loss anemia.
-initial CT A/P with contained Bladder Perforation w/ Fistulization of the Prostate, repeat CT A/P without fistula
-was on Jimmy, now off
-urology following
-was on CBI, stopped today, hematuria now resolved. Xarelto restarted 05/16/24.
-pain control as blood pressure tolerate
-BCxs with MDR E coli, cont Zosyn as per ID
-Acute metabolic encephalopathy due to septic shock, resolved
LLQ abd pain:
-check CT A/P w/PO and IV
FELY:
-due to septic shock, now resolved with IVFs/treatment of septic shock
Acute hypoxemic respiratory failure:
-Likely due to septic shock
-Pulmonary following
-was on 15L midflow, now weaned to RA
Permanent Atrial Fibrillation with RVR:
-Xarelto was on hold with prior hematuria, restarted 05/16/24 as hematuria resolved
-started on short acting PO Cardizem, transition to Cardizem CD 240mg daily today
-will discuss adding BB with cardiology
Other problems:
Essential HTN: cont Losartan/Cardizem
HLD: Continue Atorvastatin
DM2: SSI/accuchecks/Lantus
FULL/SCDs
--- NOTE | 2024-05-17 09:38 | W.PN.CARDCBS ---
Today's Communication / Plan
-
Heart rate control poor on higher dose of Cardizem
Will add Toprol
May need to add amiodarone if heart rate control remains poor
Discussed with primary service
Impression / Plan
-
Primary Care Provider: Dr. Dao
Primary Literacy Tutor: Dr. AUNG Rubio
Impression:
Dysuria and abdominal pain on admission 05/12/24
Hematuria
E. coli urosepsis
s/p aqua prostate ablation at [facility] early 04/2024
Afib with RVR
Permanent Afib
Chronic Xarelto OAC, last dose 05/11/24 PM
h/o DVT/PE s/p IVC filter
h/o CVA 2012
HTN
COPD
ROGELIO
h/o pericarditis
obesity
HLD
ECHO 11/2018: EF 55-60%, mild CLVH, mildly enlarged RV size, mildly dilated B/L atria, no significant valvular disease
Echo 02/10/20: ejection fraction 55%, mild concentric left ventricular hypertrophy, no significant valve disease, mildly enlarged right ventricular size, moderately dilated left atrium, mildly dilated right atrium, estimated pulmonary artery pressure
of 30-35 mmHg
Echo 04/28/22: EF 55 to 60%, top normal RV size with mild RV dysfunction, trace MR, trace TR with PAP 26 to 31 mmHg
ECHO 05/13/24: EF 55 to 60% markedly enlarged left atrium, mild MR, mildly dilated right atrium, no pericardial effusion, normal RV size and function.
Plan:
Heart rate control in A-fib is suboptimal on higher dose of Cardizem
Will add Toprol
May need to consider amiodarone if heart rate control remains poor
Xarelto has been started on 05/16
Progress Note - Literacy Tutor
Subjective
Date of Service: May 17, 2024
No complaints
Objective
Labs:
05/17/24 03:34
05/17/24 03:34
Labs
Hgb 12.8 g/dL (13.0-18.0) L 05/17/24 03:34
Hct 37.1 % (39.0-52.0) L 05/17/24 03:34
Plt Count 152 10^3/uL (130-400) 05/17/24 03:34
PT 19.7 Sec (11.4-14.6) H 05/13/24 04:45
INR 1.66 05/13/24 04:45
APTT 31.1 Sec (23.4-35.0) 05/13/24 04:45
Sodium 139 mmol/L (135-145) 05/17/24 03:34
Potassium 3.2 mmol/L (3.5-5.1) L 05/17/24 03:34
BUN 15 mg/dl (9-20) 05/17/24 03:34
Creatinine 0.8 mg/dL (0.7-1.3) 05/17/24 03:34
Glucose 153 mg/dl (70-99) H 05/17/24 03:34
Vital Signs and I&O:
Vital Signs
Temp Pulse Resp BP Pulse Ox
98.9 F 132 20 113/89 91
05/17/24 07:54 05/17/24 08:20 05/17/24 07:42 05/17/24 08:20 05/17/24 09:31
Vital Signs
Temp Pulse Resp BP Pulse Ox
98.9 F 132 20 113/89 91
05/17/24 07:54 05/17/24 08:20 05/17/24 07:42 05/17/24 08:20 05/17/24 09:31
Intake & Output
05/15/24 05/16/24 05/17/24 05/18/24
06:59 06:59 06:59 06:59
Intake Total 905 / 905 1420 / 1420 340 / 340
Output Total 2350 / 2350 2600 / 2600 1700 / 1700
Balance -1445 / -1445 -1180 / -1180 -1360 / -1360
Physical Exam
Physical Exam
General: Well developed, well nourished in NAD.
Neck: Supple, no JVD, HJR, carotids +2 B/L, no bruits bilaterally.
Heart: Non displaced PMI, irregular, no murmurs, No S3, S4, no rubs.
Lungs: Scattered rhonchi
Extremities: No clubbing, cyanosis or edema bilaterally.
Neuro: Grossly nonfocal, awake, alert and oriented x3.
[2024-05-17] MEDS: OMNIPAQUE 50 ML PO (09:56)
--- NOTE | 2024-05-17 09:56 | W.PN.URO.CBU ---
Today's Communication / Plan
-
Continue Xarelto
Keep Coppola
Repeat CT scan to assess nature of left groin pain
Assessment / Plan
-
Gross hematuria with clot urine retention: resolved
FELY and leukocytosis: resolved
complicated UTI/bacteremia- ESBL
continue medical supportive care
antibx treatment per ID
continue coppola
Continue xarelto and observe
Diagnosis
-
Date of Service: May 17, 2024
-
Patient Diagnosis:
Gross hematuria with clot urine retention: on Eliquis
s/p aqua ablation late March 2024
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
CX's + for ecoli-
---
Adequate bladder drainage and clot evacuation was established 05/12/24: confirmed by follow up CT scan 05/12/24
Subjective
-
c/o left groin/inguinal pain
Objective
-
Vital Signs
Temp Pulse Resp BP Pulse Ox
98.9 F 132 20 113/89 91
05/17/24 07:54 05/17/24 08:20 05/17/24 07:42 05/17/24 08:20 05/17/24 09:31
Intake and Output
05/16/24 05/17/24 05/18/24
06:59 06:59 06:59
Intake Total 1420 / 1420 340 / 340
Output Total 2600 / 2600 1700 / 1700
Balance -1180 / -1180 -1360 / -1360
Intake:
Oral fluids 1320 / 1320 240 / 240
IV piggybacks 100 / 100 100 / 100
Output:
Urine, Coppola 2800 / 2800 1700 / 1700
True Urine Output from CBI -200 / -200
Laboratory Results
05/17/24 03:34
05/17/24 03:34
Review of Systems
-
Constitutional: No Symptoms
Respiratory: No Symptoms
Cardiac: No Symptoms
Abdomen/GI: Abdominal Pain
Neurological: No Symptoms
Physical Exam
-
General - well nourished, no acute distress
Abdomen - soft, non-tender
Genitalia - expected penile edema w/o erythema, left testis normal, right testis surgically absent, Coppola draining clear urine
Neuro - AOx3, no motor deficits
Counseling
-
Will be discharged with Coppola to f/u with current urologist
--- NOTE | 2024-05-17 10:39 | W.PN.ID1 ---
Date of Service
Date of Service: May 17, 2024
Today's Communication
Deescalate Zosyn (d6) to ceftriaxone IV and po amoxicillin.
Assessment / Plan
# Complicated UTI with gross hematuria/clot retention
-Cultures with E. coli and Enterococcus spp.
# E. coli bacteremia
# s/p Septic shock
# Leukocytosis/leukemoid reaction- resolved
# FELY - resolved
# BPH s/p aqua-ablation 04/06/24
# hx prostate CA XRT
Recommendations:
- Deescalate Zosyn (d6) to ceftriaxone IV and po amoxicillin.
- For repeat CT per Urology.
Chief Complaint
-: UTI and Bacteremia
Subjective / Review of Systems
Still with left groin pain.
Vital Signs / Physical Exam
Vital Signs
Vital Signs
Temp Pulse Resp BP Pulse Ox
98.9 F 132 20 113/89 91
05/17/24 07:54 05/17/24 08:20 05/17/24 07:42 05/17/24 08:20 05/17/24 09:31
Physical Exam
Constitutional: No Acute Distress and Comfortable
Cardiovascular: Regular Rate and S1/S2
Pulmonary: Clear
Gastrointestinal: Soft, Tender (mild left inguinal), Non Distended and Normal Bowel Sounds
Genito-Urinary: Patino; Negative Hematuria
Neurological: AO x 3
Objective Data
Lab Data
Lab Results
05/17/24 03:34
05/17/24 03:34
PT 19.7 Sec (11.4-14.6) H 05/13/24 04:45
INR 1.66 05/13/24 04:45
APTT 31.1 Sec (23.4-35.0) 05/13/24 04:45
Estimated Creat Clear 91 ml/min 05/17/24 03:34
Lactic Acid 1.2 mmol/L (0.7-2.0) 05/15/24 03:33
Total Bilirubin 0.8 mg/dl (0.2-1.3) 05/15/24 03:33
AST 21 U/L (17-59) 05/15/24 03:33
ALT 19 U/L (0-50) 05/15/24 03:33
Alkaline Phosphatase 57 U/L (38-126) 05/15/24 03:33
Most recent labs reviewed.
Micro Results:
05/14/24 02:51 Blood Culture - Preliminary
Blood/Venous No Growth in 72 hours- Final report to follow
05/12/24 04:15 Urine Culture - Final
Urine Escherichia coli
Enterococcus faecalis
05/12/24 17:26 Blood Culture - Final
Blood/Venous Escherichia coli
Gram Stain - Final
05/12/24 16:23 Blood Culture - Final
Blood/Venous Escherichia coli
Gram Stain - Final
Blood Culture Final 05/12/24
Organism 1 Escherichia coli
1. Escherichia coli
M.I.C. RX
--------- ---
Amoxicillin/Potas. Clavulanate 16/8 I
Ampicillin >16 R
Ampicillin/Sulbactam >16/8 R
Aztreonam <=4 S
Cefazolin <=2 S
Ertapenem <=0.5 S
Ciprofloxacin >2 R
Gentamicin >8 R
Meropenem <=1 S
Piperacillin/Tazobactam <=8 S
Tetracycline >8 R
Tobramycin >8 R
Trimethoprim/Sulfamethoxazole >2/38 R
Imaging:
05/12/24 CT a/p: Interval advancement of the Patino catheter with tip and balloon within the urinary bladder. The known fistula is not well demonstrated on this examination. There is trace gas anteriorly within the urinary bladder, likely secondary
to instrumentation. There is extensive stranding within the perivesicular space which may represent infection/cystitis. Recommend correlation with urinalysis.
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 No intraperitoneal or extraperitoneal bladder rupture.
2. Patino catheter balloon is inflated within the mid penile urethra with catheter tip at the prostatic urethra.
--- NOTE | 2024-05-17 11:15 | PN.CDI ---
CDI
- -
CDI:
Physician Documentation Request
Admit Date: 05/12/24 12:06
Dear Doctor Melissa,
Patient admitted for sepsis.
Laboratory Tests
05/14/24 05/16/24 05/17/24
02:51 05:41 03:34
Potassium 3.1 L 2.8 L 3.2 L
Medications
Potassium Chloride (Potassium Chloride 20 Meq Extended Release Tablet) 40 meq PO NOW STA
Last Admin: 05/17/24 08:20 Dose: 40 meq
Potassium Chloride (Potassium Chloride 20 Meq Extended Release Tablet) 40 meq PO NOW STA
Last Admin: 05/14/24 05:29 Dose: 40 meq
Potassium Chloride (Potassium Chloride 20 Meq Powder Packet) 20 meq PO NOW STA
Last Admin: 05/14/24 21:20 Dose: 20 meq
Potassium Chloride (Potassium Chloride 20 Meq Extended Release Tablet) 40 meq PO NOW STA
Last Admin: 05/16/24 07:56 Dose: 40 meq
Potassium Chloride (Potassium Chloride 20 Meq Extended Release Tablet) 40 meq PO ONCE@1130 ONE
Last Admin: 05/16/24 11:52 Dose: 40 meq
Potassium Chloride (Potassium Chloride 20 Meq Extended Release Tablet) 40 meq PO ONCE ONE
Last Admin: 05/16/24 18:02 Dose: 40 meq
Based on the above, could you clarify in the progress notes, the appropriate diagnosis, if significant, that supports the above abnormalities and additional evaluation, monitoring and/or treatment rendered:
Hypokalemia
Abnormal lab value insignificant
Other
Use of terms such as suspected, likely, concern for, or probable (associated with a specific diagnosis that is being evaluated, monitored, or treated as if it exists) are acceptable and can be coded in the inpatient setting, when documented at the
time of discharge.
Thank you,
Akiko Avilez RN, BSN
CDI Specialist
Available via [place] text
Please use your independent medical judgment in providing your response.
[2024-05-17 12:05] LABS: Glucose - Point of Care 198 mg/dl (70-99)
[2024-05-17] MEDS: CARDIZEM CD 240 MG PO (13:01)
[2024-05-17] MEDS: TOPROL XL 50 MG PO (13:01)
[2024-05-17] MEDS: ROCEPHIN 2000 MG IV (13:01)
[2024-05-17] MEDS: STERILE WATER FOR INJECTION 20 ML IV (13:02)
[2024-05-17] MEDS: NOVOLOG FLEXPEN-LOW RESISTANCE 1 UNITS SC ×2 (13:58→16:38)
--- NOTE | 2024-05-17 15:45 | CM ---
CM reviewed chart, patient with coppola, patient on IV antibiotics. CM will continue to follow for all discharge planning needs.
Plan; home, watch for VN/IV antibiotic needs upon discharge.
[2024-05-17] MEDS: AMOXIL 500 MG PO ×2 (15:46→21:03)
[2024-05-17 16:49] LABS: Glucose - Point of Care 152 mg/dl (70-99)
[2024-05-17] MEDS: XARELTO 20 MG PO (18:15)
[2024-05-17] MEDS: EMLA CREAM 5 GRAM TOPICAL (18:15)
[2024-05-17] MEDS: LIPITOR 20 MG PO (21:03)
[2024-05-17] MEDS: LANTUS 0.08 UNITS SC (21:05)
[2024-05-17 21:19] LABS: Glucose - Point of Care 132 mg/dl (70-99)
[2024-05-18] VITALS (8 sets, daily range): BP systolic 141–159; BP diastolic 74–97; BMI 37.1
--- NOTE | 2024-05-18 04:00 | PTCARENOTE ---
Pt sleeping intermittently t/o the night. Pt woke up confused, pulled off everything and pooped all over the floor. Pt grossly inc of soft brown stool. Complete bed bath given. Pt continues to complain of left groin pain and asking for pain
medication, PRN medication administered as ordered. POX 88% on RA, 2 LO2 NC applied. Lungs course with scattered Rhonchi, moist junky cough. Bed alarm now in place. Will continue to monitor.
[2024-05-18] MEDS: DILAUDID 0.5 MG IV (04:37)
[2024-05-18] MEDS: AMOXIL 500 MG PO ×3 (04:37→22:28)
[2024-05-18 04:43] LABS: % Basophils 0.6 % (0-2); % Eosinophils 2.1 % (0-6); % Immature Granulocytes 4.2 % (0-0.5); % Lymphocytes 6.6 % (20.5-51.1); % Monocytes 8.5 % (1.7-9.3); Absolute Basophils 0.1 10^3/uL (0-0.2); Absolute Eosinophils 0.2 10^3/uL (0-0.7); Absolute Immature Granulocytes 0.4 10^3/uL (0-0.05); Absolute Lymphocytes 0.6 10^3/uL (1.2-3.4); Absolute Monocytes 0.8 10^3/uL (0.1-0.6); Absolute Neutrophils 7.1 10^3/uL (1.4-6.5); Hematocrit 40.4 % (39.0-52.0); Hemoglobin 13.6 g/dL (13.0-18.0); Mean Corp Hgb Conc. 33.7 g/dL (33.0-37.0); Mean Corpuscular Hgb 28.2 pg (27.0-31.0); Mean Corpuscular Volume 83.6 fL (80.0-94.0); Nucleated Red Blood Cells % 0.7 % (-); Red Blood Cell Count 4.83 10^6/uL (4.70-6.10); Red Cell Dist. Width 14.6 % (11.5-14.5); White Blood Cell Count 9.1 10^3/uL (4.8-10.8)
[2024-05-18 07:13] LABS: ALT (SGPT) 26 U/L (0-50); AST (SGOT) 22 U/L (17-59); Alkaline Phosphatase 79 U/L (38-126); Blood Urea Nitrogen 12 mg/dl (9-20); Calcium 8.5 mg/dl (8.4-10.2); Carbon Dioxide 29 mmol/L (22-30); Chloride 97 mmol/L (98-107); Estimated Creatinine Clearance 92 ml/min; Glucose 144 mg/dl (70-99); Potassium 3.5 mmol/L (3.5-5.1); Sodium 136 mmol/L (135-145); Total Protein 5.2 g/dl (6.3-8.2); eGFR > 60.00
[2024-05-18 07:19] LABS: Glucose - Point of Care 138 mg/dl (70-99)
[2024-05-18] MEDS: XOPENEX 1.25 MG INHALANT SOLUTION INH (07:19)
[2024-05-18] MEDS: ATROVENT NEBULES 0.5 MG INH (07:19)
[2024-05-18] MEDS: SYMBICORT 160/4.5 MCG INHALER 2 PUFF INH ×2 (07:19→19:56)
[2024-05-18 07:28] LABS: Mean Platelet Volume 9.3 fL (7.4-10.4); Platelet Count 191 10^3/uL (130-400)
[2024-05-18] MEDS: NOVOLOG FLEXPEN-LOW RESISTANCE SC (07:41)
--- NOTE | 2024-05-18 08:30 | W.PN.HOSP.TC ---
Addendum entered and electronically signed by Johnnie Boss MD 05/18/24 10:44:
I saw and evaluated the patient. I reviewed the resident�s note and agree with findings and plan as documented in the resident�s note.
Gen: continues to remain NAD, Awake and alert, NCAT
Eyes: EOMI, PERRLA, no scleral icterus.
Neck: supple.
CV: irreg/irreg, +S1/S2, no m/r/g.
Resp: CTAB anteriorly, no rales, wheezes, or rhonchi.
Abd: +BS, soft, mild LLQ TTP, ND
Skin: No rashes.
Neuro: CN 2-12 intact, non-focal.
Psych: Normal mood and affect.
05/14/24 02:51 Blood/Venous Blood Culture - Preliminary
No Growth in 4 days- Final report to follow
05/12/24 04:15 Urine Urine Culture - Final
Escherichia coli
Enterococcus faecalis
05/12/24 17:26 Blood/Venous Blood Culture - Final
Escherichia coli
05/12/24 17:26 Blood/Venous Gram Stain - Final
05/12/24 16:23 Blood/Venous Blood Culture - Final
Escherichia coli
05/12/24 16:23 Blood/Venous Gram Stain - Final
CT A/P 05/17/24:
1. Findings in the abdomen and pelvis appear relatively stable compared to the CT abdomen/pelvis from 05/12/2024. The urinary bladder remains decompressed with a Patino catheter in place showing some wall thickening and fat stranding for which
correlation with a urinalysis is recommended. 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
2. Small bilateral pleural effusions, increased from prior.
Septic shock due to acute urinary tract infection (POA):
-presented with hematuria/lower abdominal pain. Patient had acute blood loss anemia and Xarelto contributed to the acute blood loss anemia.
-initial CT A/P with contained Bladder Perforation w/ Fistulization of the Prostate, repeat CT A/P without fistula
-was on Jimmy, now off
-urology/ID following
-was on CBI which was stopped when hematuria. Xarelto restarted 05/16/24.
-pain control as blood pressure tolerate
-BCxs with MDR E coli, cont Rocephin as per ID
-Acute metabolic encephalopathy due to septic shock, resolved
LLQ abd pain:
-repeat CT A/P unremarkable as above
FELY:
-due to septic shock, now resolved with IVFs/treatment of septic shock
Acute hypoxemic respiratory failure:
-Likely due to septic shock
-Pulmonary following
-was on 15L midflow, now weaned to RA
Permanent Atrial Fibrillation with RVR:
-Xarelto was on hold with prior hematuria, restarted 05/16/24 as hematuria resolved
-cont Cardizem CD
-increase Toprol XL to 50AM/25PM
Other problems:
Essential HTN: cont Losartan/Cardizem/Toprol XL
HLD: Continue Atorvastatin
DM2: SSI/accuchecks/Lantus
Hypokalemia, resolved
Original Note:
Today's Communication/Plan
-
Waiting for downgrade bed. Blood counts normalizing. Continues to drain clear urine. CT negative yesterday. No Bcx growth in 4 days.
Assessment / Plan
Assessment / Plan
1. Hematuria/Abdominal Pain
- Pain control.
- Patino continues to drain clear urine. CBI discontinued 3 days ago. Xarelto restarted 2 days ago.
- CT Scan (from admission) showed a contained bladder perforation with fistulization of the prostate.
- Pt continues to have LLQ abdominal pain. CT abd/pelv from yesterday shows no acute process. Fistulization from previous CT is not appreciated on this image. Some wall thickening in bladder. U/A to correlate?
- Urology on board and seeing the patient.
- Hgb 13.6, steadily increasing toward baseline value. Continue daily H+H.
- Blood cultures from 05/14 no growth in 4 days.
- Pt being seen by ID. Zosyn was de-escalated to IV Ceftriaxone and PO Amoxiciliin
- Downgraded to telemetry. Still waiting for bed.
2. Urosepsis
- Positive preliminary blood culture - E. Coli
- WBC 9.1 today (wnl), continues to downtrend.
- Temp 98.8.
- 5 days of Zosyn --> de-escalated to IV ceftriaxone and PO amoxicillin
3. Permanent A-fib
- Continue rate control. Consider long acting cardizem formulation today. Xarelto restarted yesterday.
4. HTN
- Continue home meds with holding parameters.
5. HLD
- Continue Atorvastatin
6. Type 2 DM
- Contine home meds -- accuchecks
7. DVT PPx
- SCD
8. Hypokalemia
- 3.5 today.
- Continue to monitor and replete as needed.
Anticipated Discharge: 24 - 48 hours
Subjective/Interval History
-
Date of Service: May 18, 2024
Pt notes an interval improvement in his shortness of breath, but notes that last night, he was given O2 by DC for low SpO2. He was not experiencing any symptoms at that time. The patient still reports LLQ abdominal pain that is controlled by PRN
pain medications. The Patino catheter continues to drain clear urine. Pt notes penile pain is controlled by Lidocaine/Procaine cream, gives relief for a few hours.
Objective Data
-
Labs:
Laboratory Results
05/18/24 05/18/24
04:15 06:26
WBC 9.1
Hgb 13.6
Hct 40.4
Plt Count 191 D
Sodium Cancelled 136
Potassium Cancelled 3.5
Chloride Cancelled 97 L
Carbon Dioxide Cancelled 29
BUN Cancelled 12
Creatinine Cancelled 0.8
Glucose Cancelled 144 H
Calcium Cancelled 8.5
Total Bilirubin Cancelled 1.0
AST Cancelled 22
ALT Cancelled 26
Alkaline Phosphatase Cancelled 79
Vital Signs:
Vital Signs
Temp Pulse Resp BP Pulse Ox
98.8 F 89 18 158/97 93
05/18/24 03:45 05/18/24 05:00 05/18/24 07:26 05/18/24 04:00 05/18/24 07:26
I&O
05/17/24 05/18/24 05/19/24
06:59 06:59 06:59
Intake Total 340 / 340 120 / 120
Output Total 1700 / 1700 1800 / 1800
Balance -1360 / -1360 -1680 / -1680
Review of Systems
-
History Source: Patient
Constitutional: Reports No Symptoms
Respiratory: Reports No Symptoms
Cardiac: Reports No Symptoms
Abdomen/GI: Reports Abdominal Pain (LLQ)
Genitourinary: Reports No Symptoms
Neuro: Reports No Symptoms
Physical Exam
-
General: Well Developed, No Apparent Distress and Obese
HEENT: Normocephalic and Atraumatic
Respiratory: Clear to Auscultation
Cardiac: Irregular Rhythm and Tachycardic (to 110 while in room)
GI: Soft and Tender (mildly tender LLQ)
Musculoskeletal: No Edema
Neuro: Awake, Alert and Oriented
Psych: Calm
Data Reviewed
-
CT Scan: Report Reviewed by me and Discussed with Patient
Labs: Labs Reviewed by me and Discussed with Patient
[2024-05-18] MEDS: SENOKOT-S PO ×2 (08:58→19:49)
[2024-05-18] MEDS: PROTONIX 40 MG PO (08:58)
[2024-05-18] MEDS: CARDIZEM CD 240 MG PO (08:59)
[2024-05-18] MEDS: TOPROL XL 50 MG PO (08:59)
[2024-05-18] MEDS: COZAAR 100 MG PO (08:59)
--- NOTE | 2024-05-18 09:00 | PTCARENOTE ---
Assumed care of pt at 0715 following shift report. Pt has been awake and resting quietly in bed, ate 100% of breakfast. No complaints. RA POx 90- 91%. Patino patent and draining yellow-nicho urine. Call domenic w/in pt reach and safe environment
maintained.
--- NOTE | 2024-05-18 10:15 | W.PN.CARDCBS ---
Today's Communication / Plan
-
Cardiac fairly stable. Heart rates a little bit better 80 to 100 bpm predominantly however in bed.
I will increase Toprol-XL to 50 in the morning and 25 in the PM. Continue diltiazem.
Blood pressure now elevated. Continue to follow.
Impression / Plan
-
Primary Care Provider: Dr. Dao
Primary Rand Butter: Dr. AUNG Rubio
Impression:
Sepsis dysuria and abdominal pain on admission 05/12/24
Hematuria
E. coli urosepsis
s/p aqua prostate ablation at [facility] early 04/2024
Afib with increased rates-Permanent Afib
Chronic Xarelto OAC
h/o DVT/PE s/p IVC filter
h/o CVA 2012
HTN
COPD
ROGELIO
h/o pericarditis
obesity
HLD
ECHO 11/2018: EF 55-60%, mild CLVH, mildly enlarged RV size, mildly dilated B/L atria, no significant valvular disease
Echo 02/10/20: ejection fraction 55%, mild concentric left ventricular hypertrophy, no significant valve disease, mildly enlarged right ventricular size, moderately dilated left atrium, mildly dilated right atrium, estimated pulmonary artery pressure
of 30-35 mmHg
Echo 04/28/22: EF 55 to 60%, top normal RV size with mild RV dysfunction, trace MR, trace TR with PAP 26 to 31 mmHg
ECHO 05/13/24: EF 55 to 60% markedly enlarged left atrium, mild MR, mildly dilated right atrium, no pericardial effusion, normal RV size and function.
Plan:
He is stable today from a cardiovascular point of view. Heart rates in atrial fibrillation are fairly acceptable given degree of illness. Heart rates are 80 to 110 bpm. Continue to monitor as he becomes more mobile.
Continue long-acting Cardizem
We recently added Toprol and I will increase to 50 mg in the morning and 25 mg in the p.m.
He now has hypertension continue usual medications with the addition of AV sulema blocking agents as noted.
Xarelto has been started on 05/16
Continue treatment of E. coli urosepsis.
Progress Note - Rand Butter
Subjective
Date of Service: May 18, 2024
He denies chest pain, palpitations and dizziness.
Objective
Labs:
05/18/24 04:15
05/18/24 06:26
Labs
Hgb 13.6 g/dL (13.0-18.0) 05/18/24 04:15
Hct 40.4 % (39.0-52.0) 05/18/24 04:15
Plt Count 191 10^3/uL (130-400) D 05/18/24 04:15
PT 19.7 Sec (11.4-14.6) H 05/13/24 04:45
INR 1.66 05/13/24 04:45
APTT 31.1 Sec (23.4-35.0) 05/13/24 04:45
Sodium 136 mmol/L (135-145) 05/18/24 06:26
Potassium 3.5 mmol/L (3.5-5.1) 05/18/24 06:26
BUN 12 mg/dl (9-20) 05/18/24 06:26
Creatinine 0.8 mg/dL (0.7-1.3) 05/18/24 06:26
Glucose 144 mg/dl (70-99) H 05/18/24 06:26
Vital Signs and I&O:
Vital Signs
Temp Pulse Resp BP Pulse Ox
98.2 F 90 20 157/86 91
05/18/24 07:08 05/18/24 09:00 05/18/24 09:00 05/18/24 08:59 05/18/24 09:00
Vital Signs
Temp Pulse Resp BP Pulse Ox
98.2 F 90 20 157/86 91
05/18/24 07:08 05/18/24 09:00 05/18/24 09:00 05/18/24 08:59 05/18/24 09:00
Intake & Output
05/16/24 05/17/24 05/18/24 05/19/24
06:59 06:59 06:59 06:59
Intake Total 1420 / 1420 340 / 340 120 / 120
Output Total 2600 / 2600 1700 / 1700 1800 / 1800
Balance -1180 / -1180 -1360 / -1360 -1680 / -1680
Physical Exam
Physical Exam
General: Well developed, well nourished in NAD.
Neck: Supple, no JVD, HJR, carotids +2 B/L, no bruits bilaterally.
Heart: Distant heart sounds irregularly irregular
Lungs: Clear to auscultation bilaterally, no wheeze, rhonchi, rubs bilaterally,
normal expiratory phase.
Extremities: No clubbing, cyanosis or edema bilaterally.
Neuro: Grossly nonfocal, awake, alert
--- NOTE | 2024-05-18 10:21 | CM ---
Addendum entered by Tamara Mina 05/18/24 16:17:
Patient and met with CM and reviewed options for IV antibiotics. Patient stated that he had used the infusion center previously and that his insurances had not changed since then. Patient request for Infusion Center to review costs and update
him/. CM left for infusion center and will fax over the clinical information. Patient is for transfer to [address] [place] [address]. CM will continue to follow for discharge planning needs.
Original Note:
Per ID patient to remain on IV antibiotics until 05/26/24, copy of prescription placed on chart. CM will speak with patient and to review options and PAC data on providers to start referrals. CM will continue to follow for discharge planning
needs.
Plan; home with IV antibiotics vs SNF pending functional assessments.
[2024-05-18] MEDS: NOVOLOG FLEXPEN-LOW RESISTANCE 1 UNITS SC ×2 (11:31→16:50)
[2024-05-18] MEDS: ROCEPHIN 2000 MG IV (11:34)
[2024-05-18] MEDS: STERILE WATER FOR INJECTION 20 ML IV (11:34)
[2024-05-18 11:42] LABS: Glucose - Point of Care 159 mg/dl (70-99)
--- NOTE | 2024-05-18 12:12 | PTCARENOTE ---
Pt OOB to BR to have BM and then to chair w/ use of rolling walker and supervision. No complaints w/ increased activity or complications noted. Once sitting in chair pt requesting 'something for pain' and indicated discomfort in Lt groin that he did
not rate. Offered pt Tylenol - pt declined 'that won't work. I want Dilaudid' No acute distress noted. HR 80's. BP as documented following activity. Pt's Pox 91-93% on RA and pt w/ frequent moist wire taper cough. Attempted to educate pt on risks of
sedative effect of Dilaudid and importance of increased activity w/ coughing/deep breathing to prevent potential pulmonary issues. Pt voiced concern that Tylenol will not 'help' his pain. Discussion had w/ pharmacist on unit re: options for pain
control. Pharmacist to discuss w/ Dr Boss.
--- NOTE | 2024-05-18 12:35 | W.PN.ID1 ---
Date of Service
Date of Service: May 18, 2024
Today's Communication
Continue ceftriaxone 2g IV q24h through 05/26/24.
-Continue po amoxicillin 500mg q8 throught 05/26/24.
-Home infusion sheet submitted to case [facility].
-Place midline.
Assessment / Plan
# Complicated UTI with gross hematuria/clot retention
-Cultures with E. coli and Enterococcus spp.
# E. coli bacteremia
# s/p Septic shock
# Leukocytosis/leukemoid reaction- resolved
# FELY - resolved
# BPH s/p aqua-ablation 04/06/24
# hx prostate CA XRT
Recommendations:
-Continue ceftriaxone 2g IV q24h through 05/26/24.
-Continue po amoxicillin 500mg q8 throught 05/26/24.
-Home infusion sheet submitted to case [facility].
-Place midline.
Chief Complaint
-: UTI and Bacteremia
Subjective / Review of Systems
No specific complaints.
Vital Signs / Physical Exam
Vital Signs
Vital Signs
Temp Pulse Resp BP Pulse Ox
98.9 F 87 17 142/87 92
05/18/24 11:25 05/18/24 12:00 05/18/24 10:00 05/18/24 11:43 05/18/24 12:00
Physical Exam
Constitutional: No Acute Distress and Comfortable
Cardiovascular: Regular Rate and S1/S2
Pulmonary: Other (decreased BS at bases)
Gastrointestinal: Soft, Non Tender, Non Distended and Normal Bowel Sounds
Genito-Urinary: Patino; Negative Hematuria
Neurological: AO x 3
Objective Data
Lab Data
Lab Results
05/18/24 04:15
05/18/24 06:26
PT 19.7 Sec (11.4-14.6) H 05/13/24 04:45
INR 1.66 05/13/24 04:45
APTT 31.1 Sec (23.4-35.0) 05/13/24 04:45
Estimated Creat Clear 92 ml/min 05/18/24 06:26
Lactic Acid 1.2 mmol/L (0.7-2.0) 05/15/24 03:33
Total Bilirubin 1.0 mg/dl (0.2-1.3) 05/18/24 06:26
AST 22 U/L (17-59) 05/18/24 06:26
ALT 26 U/L (0-50) 05/18/24 06:26
Alkaline Phosphatase 79 U/L (38-126) 05/18/24 06:26
Most recent labs reviewed.
Micro Results:
05/14/24 02:51 Blood Culture - Preliminary
Blood/Venous No Growth in 4 days- Final report to follow
05/12/24 04:15 Urine Culture - Final
Urine Escherichia coli
Enterococcus faecalis
05/12/24 17:26 Blood Culture - Final
Blood/Venous Escherichia coli
Gram Stain - Final
05/12/24 16:23 Blood Culture - Final
Blood/Venous Escherichia coli
Gram Stain - Final
Blood Culture Final 05/12/24
Organism 1 Escherichia coli
1. Escherichia coli
M.I.C. RX
--------- ---
Amoxicillin/Potas. Clavulanate 16/8 I
Ampicillin >16 R
Ampicillin/Sulbactam >16/8 R
Aztreonam <=4 S
Cefazolin <=2 S
Ertapenem <=0.5 S
Ciprofloxacin >2 R
Gentamicin >8 R
Meropenem <=1 S
Piperacillin/Tazobactam <=8 S
Tetracycline >8 R
Tobramycin >8 R
Trimethoprim/Sulfamethoxazole >2/38 R
Imaging:
05/17/24 CT a/p: Findings in the abdomen and pelvis appear relatively stable compared to the CT abdomen/pelvis from 05/12/2024. The urinary bladder remains decompressed with a Patino catheter in place showing some wall thickening and fat stranding
for which correlation with a urinalysis is recommended. 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
05/12/24 CT a/p: Interval advancement of the Patino catheter with tip and balloon within the urinary bladder. The known fistula is not well demonstrated on this examination. There is trace gas anteriorly within the urinary bladder, likely secondary
to instrumentation. There is extensive stranding within the perivesicular space which may represent infection/cystitis. Recommend correlation with urinalysis.
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 No intraperitoneal or extraperitoneal bladder rupture.
2. Patino catheter balloon is inflated within the mid penile urethra with catheter tip at the prostatic urethra.
[2024-05-18] MEDS: DILAUDID 0.25 MG IV ×3 (12:47→22:26)
--- NOTE | 2024-05-18 14:21 | VATNOTE ---
Midline order in place for home iv antibiotics. Patient refusing placement until he knows the out- of pocket cost. Will follow up with case management prior to midline placement.
--- NOTE | 2024-05-18 15:03 | PTCARENOTE ---
Pts here to visit. Pt requesting to return to bed. Education provided to pt and about importance of staying OOB if possible - pt insistent in returning to bed. Pox down to 88% once in bed (was 91% when in chair). O2 applied at 2l/min via
NC w/ POx improved to 94%. and pt aware of pending transfer- assisted in gathering pt's personal belongings.
--- NOTE | 2024-05-18 16:39 | PTCARENOTE ---
Transfer report called to 'Angelina' MICHAEL. Pt to be transferred to 2123 via w/ all personal belongings.
[2024-05-18 17:01] LABS: Glucose - Point of Care 170 mg/dl (70-99)
--- NOTE | 2024-05-18 17:56 | PTCARENOTE ---
Received patient as transfer from ICU into room 2122. Patient AAOx3, VSS, assist x1 from wheelchair to bed. Patino draining yellow colored urine; small amount of bloody drainage noted around insertion site, patient c/o 9/10 penile/L groin pain;
administered PRN IV dilaudid by this RN. PRN lidocaine cream applied around insertion site. Per urology, patient okay to receive scheduled Xarelto. Patient oriented to room and call sheth, call sheth placed within reach.
[2024-05-18] MEDS: EMLA CREAM 5 GRAM TOPICAL (18:01)
[2024-05-18] MEDS: XARELTO 20 MG PO (18:01)
[2024-05-18] MEDS: TOPROL XL 25 MG PO (18:01)
[2024-05-18 22:05] LABS: Glucose - Point of Care 230 mg/dl (70-99)
[2024-05-18] MEDS: LIPITOR 20 MG PO (22:28)
[2024-05-18] MEDS: LANTUS 0.08 UNITS SC (22:30)
[2024-05-19] MEDS: DILAUDID 0.25 MG IV ×3 (03:07→11:48)
[2024-05-19 03:22] VITALS: BP 147/77
[2024-05-19] MEDS: AMOXIL 500 MG PO ×3 (05:50→22:20)
[2024-05-19 06:35] LABS: Blood Urea Nitrogen 12 mg/dl (9-20); Calcium 8.1 mg/dl (8.4-10.2); Carbon Dioxide 30 mmol/L (22-30); Chloride 95 mmol/L (98-107); Estimated Creatinine Clearance 92 ml/min; Glucose 126 mg/dl (70-99); Potassium 3.2 mmol/L (3.5-5.1); Sodium 135 mmol/L (135-145); eGFR > 60.00
[2024-05-19 06:40] LABS: Hematocrit 37.3 % (39.0-52.0); Hemoglobin 12.8 g/dL (13.0-18.0); Mean Corp Hgb Conc. 34.3 g/dL (33.0-37.0); Mean Corpuscular Hgb 29.6 pg (27.0-31.0); Mean Corpuscular Volume 86.3 fL (80.0-94.0); Mean Platelet Volume 9.8 fL (7.4-10.4); Platelet Count 156 10^3/uL (130-400); Red Blood Cell Count 4.32 10^6/uL (4.70-6.10); Red Cell Dist. Width 14.6 % (11.5-14.5)
[2024-05-19 07:10] VITALS: BP 145/86
[2024-05-19 07:12] LABS: Glucose - Point of Care 119 mg/dl (70-99)
[2024-05-19] MEDS: NOVOLOG FLEXPEN-LOW RESISTANCE SC ×2 (07:12→17:13)
[2024-05-19] MEDS: SYMBICORT 160/4.5 MCG INHALER 2 PUFF INH ×2 (07:28→18:15)
[2024-05-19] MEDS: CARDIZEM CD 240 MG PO (07:36)
[2024-05-19] MEDS: TOPROL XL 50 MG PO (07:37)
[2024-05-19] MEDS: PROTONIX 40 MG PO (07:37)
[2024-05-19] MEDS: COZAAR 100 MG PO (07:38)
[2024-05-19] MEDS: SENOKOT-S PO ×2 (07:38→19:39)
--- NOTE | 2024-05-19 07:57 | W.PN.UPDATE ---
Update Note
Progress Note Update
I saw and evaluated the patient. I reviewed the resident�s note and agree with findings and plan as documented in the resident�s note.
No new complaints.
Gen: continues to remain NAD, Awake and alert, NCAT
Eyes: EOMI, PERRLA, no scleral icterus.
Neck: supple.
CV: irreg/irreg, +S1/S2, no m/r/g.
Resp: CTAB anteriorly, no rales, wheezes, or rhonchi.
Abd: +BS, soft, mild LLQ TTP, ND
Skin: No rashes.
Neuro: CN 2-12 intact, non-focal.
Psych: Normal mood and affect.
Lab Results
05/17/24 05/17/24 05/17/24
08:01 11:54 16:37
WBC
RBC
Hgb
Hct
MCV
MCH
MCHC
RDW
Plt Count
MPV
Abs Immat Gran (auto)
Absolute Neuts (auto)
Absolute Lymphs (auto)
Absolute Monos (auto)
Absolute Eos (auto)
Absolute Basos (auto)
Immature Gran %
Neutrophils %
Lymphocytes %
Monocytes %
Eosinophils %
Basophils %
Nucleated RBC %
Sodium
Potassium
Chloride
Carbon Dioxide
BUN
Creatinine
Estimated Creat Clear
eGFR
Glucose
Calcium
Total Bilirubin
AST
ALT
Alkaline Phosphatase
Total Protein
Albumin
POC Glucose 209 H 198 H 152 H
05/17/24 05/18/24 05/18/24
21:07 04:15 06:26
WBC 9.1
RBC 4.83
Hgb 13.6
Hct 40.4
MCV 83.6
MCH 28.2
MCHC 33.7
RDW 14.6 H
Plt Count 191 D
MPV 9.3
Abs Immat Gran (auto) 0.4 H
Absolute Neuts (auto) 7.1 H
Absolute Lymphs (auto) 0.6 L
Absolute Monos (auto) 0.8 H
Absolute Eos (auto) 0.2
Absolute Basos (auto) 0.1
Immature Gran % 4.2 H
Neutrophils % 78.0 H
Lymphocytes % 6.6 L
Monocytes % 8.5
Eosinophils % 2.1
Basophils % 0.6
Nucleated RBC % 0.7
Sodium Cancelled 136
Potassium Cancelled 3.5
Chloride Cancelled 97 L
Carbon Dioxide Cancelled 29
BUN Cancelled 12
Creatinine Cancelled 0.8
Estimated Creat Clear Cancelled 92
eGFR Cancelled > 60.00
Glucose Cancelled 144 H
Calcium Cancelled 8.5
Total Bilirubin Cancelled 1.0
AST Cancelled 22
ALT Cancelled 26
Alkaline Phosphatase Cancelled 79
Total Protein Cancelled 5.2 L
Albumin Cancelled 3.0 L
POC Glucose 132 H
05/18/24 24 05/18/24
07:07 11:31 16:50
WBC
RBC
Hgb
Hct
MCV
MCH
MCHC
RDW
Plt Count
MPV
Abs Immat Gran (auto)
Absolute Neuts (auto)
Absolute Lymphs (auto)
Absolute Monos (auto)
Absolute Eos (auto)
Absolute Basos (auto)
Immature Gran %
Neutrophils %
Lymphocytes %
Monocytes %
Eosinophils %
Basophils %
Nucleated RBC %
Sodium
Potassium
Chloride
Carbon Dioxide
BUN
Creatinine
Estimated Creat Clear
eGFR
Glucose
Calcium
Total Bilirubin
AST
ALT
Alkaline Phosphatase
Total Protein
Albumin
POC Glucose 138 H 159 H 170 H
05/18/24 05/19/24 05/19/24
22:02 05:19 07:11
WBC 8.0
RBC 4.32 L
Hgb 12.8 L
Hct 37.3 L
MCV 86.3
MCH 29.6
MCHC 34.3
RDW 14.6 H
Plt Count 156
MPV 9.8
Abs Immat Gran (auto)
Absolute Neuts (auto)
Absolute Lymphs (auto)
Absolute Monos (auto)
Absolute Eos (auto)
Absolute Basos (auto)
Immature Gran %
Neutrophils %
Lymphocytes %
Monocytes %
Eosinophils %
Basophils %
Nucleated RBC %
Sodium 135
Potassium 3.2 L
Chloride 95 L
Carbon Dioxide 30
BUN 12
Creatinine 0.8
Estimated Creat Clear 92
eGFR > 60.00
Glucose 126 H
Calcium 8.1 L
Total Bilirubin
AST
ALT
Alkaline Phosphatase
Total Protein
Albumin
POC Glucose [address]/P 05/17/24:
1. Findings in the abdomen and pelvis appear relatively stable compared to the CT abdomen/pelvis from 05/12/2024. The urinary bladder remains decompressed with a Coppola catheter in place showing some wall thickening and fat stranding for which
correlation with a urinalysis is recommended. 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
2. Small bilateral pleural effusions, increased from prior.
Septic shock due to acute urinary tract infection (POA):
-presented with hematuria/lower abdominal pain. Patient had acute blood loss anemia and Xarelto contributed to the acute blood loss anemia.
-initial CT A/P with contained Bladder Perforation w/ Fistulization of the Prostate, repeat CT A/P without fistula
-was on Jimmy, now off
-urology/ID following
-was on CBI which was stopped when hematuria. Xarelto restarted 05/16/24.
-pain control as blood pressure tolerate
-BCxs with MDR E coli, cont Rocephin though 05/26 as per ID
-Acute metabolic encephalopathy due to septic shock, resolved
-coppola to remain in place on d/c as per Uro
LLQ abd pain:
-repeat CT A/P unremarkable as above
FELY:
-due to septic shock, now resolved with IVFs/treatment of septic shock
Acute hypoxemic respiratory failure:
-Likely due to septic shock
-Pulmonary following
-was on 15L midflow, now weaned to RA
Permanent Atrial Fibrillation with RVR:
-Xarelto was on hold with prior hematuria, restarted 05/16/24 as hematuria resolved
-cont Cardizem CD/Toprol XL
Other problems:
Essential HTN: cont Losartan/Cardizem/Toprol XL
HLD: Continue Atorvastatin
DM2: a1c 7.0%, SSI/accuchecks/Lantus, start Metformin
Hypokalemia, replete today
Medically cleared for discharge. Case management aware.
[2024-05-19] MEDS: KCL 40 MEQ PO ×2 (08:06→11:20)
--- NOTE | 2024-05-19 09:20 | W.PN.CARDCBS ---
Addendum entered and electronically signed by Carlos Rubio MD 05/19/24 12:46:
74-year-old man admitted with E. coli urosepsis following aqua ablation of prostate in early April. Has permanent atrial fibrillation, rates had been difficult to control
PMH: Permanent A-fib, history of DVT/PE/IVC filter, remote stroke, hypertension, COPD, sleep apnea, remote pericarditis, morbid obesity, hyperlipidemia
Allergies, outpatient meds reviewed
Meds: Atorvastatin 20 mg a day, pantoprazole 40 mg a day, losartan 100 mg a day, rivaroxaban 20 mg a day, Lantus, diltiazem ER 240 mg a day, metoprolol ER 50 mg a.m., 25 mg p.m., metformin, potassium, Rocephin, amoxicillin,
145/86, pulse 83, resp rate 16, afebrile, intake and output -1.5 L, no distress, head neck exam unremarkable, lungs are clear with limited exam irregular rate and rhythm without obvious murmurs JVD okay, not much edema
Echo May 13, 2024: EF 55-60% markedly dilated left atrium, mild MR, dilated RA, normal RV
White count 8, hemoglobin 12.8, platelets 156, potassium 3.2, BUN and creatinine 12 and 0.8
Plan:
He appears stable from a cardiac standpoint. Heart rate is now controlled. He is anticoagulated. Blood pressure is reasonable. No objections to discharge from cardiac standpoint.
No objection to discharge from cardiac standpoint.
No changes changes from admission medications from my standpoint regarding atorvastatin, chlorthalidone, diltiazem, Jardiance, losartan, potassium, Xarelto.
Metoprolol ER is new. Would discharge on 50 mg a.m. and 25 mg p.m.
Please request that monitor pulse and call if consistently less than 70 or greater than 100.
BMP in 1 week.
We will sign off, please call if questions
Original Note:
Today's Communication / Plan
-
Continue Cardizem CD 240mg daily and Toprol 50mg AM, 25mg PM
Continue Xarelto 20mg daily
Follow up arranged
Impression / Plan
-
Primary Care Provider: Dr. Dao
Primary Business Analytics Director: Dr. AUNG Rubio
Impression:
Presented with dysuria and abdominal pain
Hematuria
E. coli urosepsis
s/p aqua prostate ablation at [facility] early 04/2024
Permanent atrial fibrillation, w/ RVR this admission
Chronic Xarelto OAC
h/o DVT/PE s/p IVC filter
h/o CVA 2012
HTN
COPD
ROGELIO
h/o pericarditis
obesity
HLD
ECHO 11/2018: EF 55-60%, mild CLVH, mildly enlarged RV size, mildly dilated B/L atria, no significant valvular disease
Echo 02/10/20: ejection fraction 55%, mild concentric left ventricular hypertrophy, no significant valve disease, mildly enlarged right ventricular size, moderately dilated left atrium, mildly dilated right atrium, estimated pulmonary artery pressure
of 30-35 mmHg
Echo 04/28/22: EF 55 to 60%, top normal RV size with mild RV dysfunction, trace MR, trace TR with PAP 26 to 31 mmHg
ECHO 05/13/24: EF 55 to 60% markedly enlarged left atrium, mild MR, mildly dilated right atrium, no pericardial effusion, normal RV size and function.
Plan:
-Presented with urosepsis. Cardiology consulted for rapid atrial fibrillation.
-Continue abx per ID.
-Remains in permanent atrial fibrillation by review of telemetry. HR stable/improved overnight.
-Continue Cardizem CD 240mg daily and Toprol 50mg AM, 25mg PM.
-Continue Xarelto 20mg daily for anticoagulation. Restarted 05/16. Hgb stable at 12.8.
-Echo 05/13 with preserved EF and mild MR as noted above.
-K 3.2, agree w/ repletion
-Follow up arranged
HPI: Patient came to [facility] very early this morning with pain and hematuria and was admitted with gross hematuria and cardiology is now consulted for h/o Afib that is now rapid. Patient had an aqua prostate ablation at [facility] about 3 weeks ago
and says that things went well afterwards until last night when he started with lower abdominal pain and hematuria. He came to [facility] around 0330 this morning and was started on CBI for gross hematuria. Urology seeing patient. Patient with known
permanent Afib that is generally rate controlled with Cardizem CD 240 mg daily, but his usual dose was given late today due to being in the ER. He took his usual dose of Xarelto last night. No ECG on arrival to ER, but placed on tele and noted to
become rapid this afternoon. No palpitations, chest pain or SOB. Patient with chills, but no fever recorded.
Progress Note - Business Analytics Director
Subjective
Date of Service: May 19, 2024
No cardiac complaints. No chest pain, SOB, or palpitations.
Objective
Labs:
05/19/24 05:19
05/19/24 05:19
Labs
Hgb 12.8 g/dL (13.0-18.0) L 05/19/24 05:19
Hct 37.3 % (39.0-52.0) L 05/19/24 05:19
Plt Count 156 10^3/uL (130-400) 05/19/24 05:19
PT 19.7 Sec (11.4-14.6) H 05/13/24 04:45
INR 1.66 05/13/24 04:45
APTT 31.1 Sec (23.4-35.0) 05/13/24 04:45
Sodium 135 mmol/L (135-145) 05/19/24 05:19
Potassium 3.2 mmol/L (3.5-5.1) L 05/19/24 05:19
BUN 12 mg/dl (9-20) 05/19/24 05:19
Creatinine 0.8 mg/dL (0.7-1.3) 05/19/24 05:19
Glucose 126 mg/dl (70-99) H 05/19/24 05:19
Vital Signs and I&O:
Vital Signs
Temp Pulse Resp BP Pulse Ox
98.2 F 83 16 145/86 95
05/19/24 07:10 05/19/24 07:38 05/19/24 07:34 05/19/24 07:38 05/19/24 07:34
Vital Signs
Temp Pulse Resp BP Pulse Ox
98.2 F 83 16 145/86 95
05/19/24 07:10 05/19/24 07:38 05/19/24 07:34 05/19/24 07:38 05/19/24 07:34
Intake & Output
05/17/24 05/18/24 05/19/24 05/20/24
06:59 06:59 06:59 06:59
Intake Total 340 / 340 120 / 120 1020 / 1020
Output Total 1700 / 1700 1800 / 1800 2275 / 2275
Balance -1360 / -1360 -1680 / -1680 -1255 / -1255
Physical Exam
Physical Exam
GEN: No distress, awake, alert, oriented x3
HEENT: supple, anicteric, mmm
LUNGS: CTA b/l, no wheezes/rales
CV: irregularly irregular, S1/S2, no murmur
EXT: No clubbing, cyanosis, or edema
NEURO: Gross non-focal
SKIN: Warm, dry, no rash
--- NOTE | 2024-05-19 09:52 | W.PN.ID1 ---
Date of Service
Date of Service: May 19, 2024
Today's Communication
See below.
Assessment / Plan
# Complicated UTI with gross hematuria/clot retention
-Cultures with E. coli and Enterococcus spp.
# E. coli bacteremia
# s/p Septic shock
# Leukocytosis/leukemoid reaction- resolved
# FELY - resolved
# BPH s/p aqua-ablation 04/06/24
# hx prostate CA XRT
Recommendations:
- E. coli in blood cx sensitive to cefazolin, but the E. coli in Ucx BRENDA 4
-Prefer ceftriaxone 2g IV q24h through 05/26/24 over po abx for complicated UTI/bacteremia.
-Continue po amoxicillin 500mg q8 throught 05/26/24.
-Home infusion sheet submitted to case management for OPAT
-Place midline at time of discharge.
Chief Complaint
-: UTI and Bacteremia
Subjective / Review of Systems
no complaints
Vital Signs / Physical Exam
Vital Signs
Vital Signs
Temp Pulse Resp BP Pulse Ox
98.2 F 83 16 145/86 95
05/19/24 07:10 05/19/24 07:38 05/19/24 07:34 05/19/24 07:38 05/19/24 08:00
Physical Exam
Constitutional: No Acute Distress
Pulmonary: Other (decreased BS bases)
Gastrointestinal: Soft, Non Tender and Non Distended
Genito-Urinary: Patino and Clear Urine
Objective Data
Lab Data
Lab Results
05/19/24 05:19
05/19/24 05:19
PT 19.7 Sec (11.4-14.6) H 05/13/24 04:45
INR 1.66 05/13/24 04:45
APTT 31.1 Sec (23.4-35.0) 05/13/24 04:45
Estimated Creat Clear 92 ml/min 05/19/24 05:19
Lactic Acid 1.2 mmol/L (0.7-2.0) 05/15/24 03:33
Total Bilirubin 1.0 mg/dl (0.2-1.3) 05/18/24 06:26
AST 22 U/L (17-59) 05/18/24 06:26
ALT 26 U/L (0-50) 05/18/24 06:26
Alkaline Phosphatase 79 U/L (38-126) 05/18/24 06:26
Most recent labs reviewed.
Micro Results:
05/14/24 02:51 Blood Culture - Final
Blood/Venous No Growth - Final Report
05/12/24 04:15 Urine Culture - Final
Urine Escherichia coli
Enterococcus faecalis
05/12/24 17:26 Blood Culture - Final
Blood/Venous Escherichia coli
Gram Stain - Final
05/12/24 16:23 Blood Culture - Final
Blood/Venous Escherichia coli
Gram Stain - Final
Blood Culture Final 05/12/24
Organism 1 Escherichia coli
1. Escherichia coli
M.I.C. RX
--------- ---
Amoxicillin/Potas. Clavulanate 16/8 I
Ampicillin >16 R
Ampicillin/Sulbactam >16/8 R
Aztreonam <=4 S
Cefazolin <=2 S
Ertapenem <=0.5 S
Ciprofloxacin >2 R
Gentamicin >8 R
Meropenem <=1 S
Piperacillin/Tazobactam <=8 S
Tetracycline >8 R
Tobramycin >8 R
Trimethoprim/Sulfamethoxazole >2/38 R
Urine Culture Final 03/07/24-825
CC: Greater than 100,000 CFU/ML Escherichia coli
Organism 1 Escherichia coli
1. Escherichia coli
M.I.C. RX
--------- ---
Amoxicillin/Potas. Clavulanate 16/8 I
Ampicillin >16 R
Ampicillin/Sulbactam >16/8 R
Aztreonam <=4 S
Cefazolin 4 I
Cefazolin interpretations for E. coli, K. pneumo and
P. mirabilis for uncomplicated uti are as follows:
<=16 Susceptible
> 16 Resistant
Cefepime <=2 S
Ceftazidime <=1 S
Ceftriaxone <=1 S
Ertapenem <=0.5 S
Ciprofloxacin >2 R
Gentamicin >8 R
Meropenem <=1 S
Nitrofurantoin-Urine Only <=32 S
Piperacillin/Tazobactam <=8 S
Tetracycline >8 R
Tobramycin >8 R
Trimethoprim/Sulfamethoxazole >/38 R
Imaging:
05/17/24 CT a/p: Findings in the abdomen and pelvis appear relatively stable compared to the CT abdomen/pelvis from 05/12/2024. The urinary bladder remains decompressed with a Patino catheter in place showing some wall thickening and fat stranding
for which correlation with a urinalysis is recommended. 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
05/12/24 CT a/p: Interval advancement of the Patino catheter with tip and balloon within the urinary bladder. The known fistula is not well demonstrated on this examination. There is trace gas anteriorly within the urinary bladder, likely secondary
to instrumentation. There is extensive stranding within the perivesicular space which may represent infection/cystitis. Recommend correlation with urinalysis.
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 No intraperitoneal or extraperitoneal bladder rupture.
2. Patino catheter balloon is inflated within the mid penile urethra with catheter tip at the prostatic urethra.
Care Review
Plan reviewed with: Physician (Drs. Torres)
[2024-05-19] MEDS: ROCEPHIN 2000 MG IV (11:20)
[2024-05-19] MEDS: STERILE WATER FOR INJECTION 20 ML IV (11:20)
[2024-05-19 11:34] VITALS: BP 146/84
[2024-05-19 11:34] LABS: Glucose - Point of Care 182 mg/dl (70-99)
--- NOTE | 2024-05-19 11:37 | RESPNOTE ---
Attempted to complete at home O2 assessment at this time. Pt declined and stated ' Not right now'. Pt mouth breathing at times/ SOB pt stated 'I have been having issues with breathing and swallowing lately'. PRN bronchodilator treatment recommended
to pt, pt declined. Vitals were as followed RR-20 Sat 96% on 2L. HR- 82. Will reattempt to walk patient at a later time. RN notified.
[2024-05-19] MEDS: NOVOLOG FLEXPEN-LOW RESISTANCE 1 UNITS SC (11:53)
--- NOTE | 2024-05-19 11:53 | W.PN.HOSP.TC ---
Addendum entered and electronically signed by Mariya Bowling MD 05/20/24 16:16:
ERROR: placed on wrong date
Addendum entered and electronically signed by Mariya Bowling MD 05/20/24 16:09:
I saw and evaluated the patient independently. I reviewed the resident�s note and agree with findings and plan as documented by Dr. Torres.
GENERAL: well developed, well nourished, ill appearing
HEENT: NC/AT--NC O2 in place
HEART: regular rate and rhythm, +S1, +S2
LUNGS : clear to auscultation anteriorly--rhonchi at bases bilaterally
ABDOM: soft, nontender, nondistended, + bowel sounds
EXT: no cyanosis, clubbing, or edema
NEUROLOGIC: grossly intact
: coppola cath in place
Septic shock due to acute urinary tract infection (POA)---presented with hematuria/lower abdominal pain. Patient had acute blood loss anemia and Xarelto contributed to the acute blood loss anemia--moved to ICU for pressor support--blood cultures
positive for multidrug resistant E. 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
as per Ur0--ABX per ID--last day rocephin today--then high dose cephalexin followed by amoxicillin per ID
Acute metabolic encephalopathy due to septic shock, resolved
LLQ abd pain--repeat CT A/P unremarkable as above
FELY--due to septic shock, now resolved with IVFs/treatment of septic shock
Acute hypoxemic respiratory failure--unclear cause--possibly due to atelectasis/septic shock--doubt PNA while on ABX--CXR with top normal vascular sizes
Permanent Atrial Fibrillation with RVR--Xarelto was on hold with prior hematuria, restarted 05/16/24 as hematuria resolved--cont Cardizem CD/Toprol XL
Other problems:
Essential HTN: cont Losartan/Cardizem/Toprol XL
HLD: Continue Atorvastatin
DM2: a1c 7.0%, SSI/accuchecks/Lantus, start Metformin
Hypokalemia, replete
DVT proph
code status -- FULL code
Original Note:
Today's Communication/Plan
-
See PN.
Assessment / Plan
Assessment / Plan
1. Hematuria/Abdominal Pain
- Pain control.
- Coppola continues to drain clear urine. Xarelto restarted 3 days ago.
- CT Scan (from admission) showed a contained bladder perforation with fistulization of the prostate.
- Pt continues to have mild LLQ abdominal pain. Follow up CTs were benign.
- Urology on board and seeing the patient.
- Hgb 12.8, steadily increasing toward baseline value. Continue daily H+H.
- Blood cultures from 05/14 no growth in 4 days.
- Pt being seen by ID. Jackn was de-escalated to IV Ceftriaxone and PO Amoxiciliin. Pt to take until 05/26.
- Downgraded to telemetry.
- Pt to be discharged to home with midline and infusion of abx at infusion center until he completes his course.
- Coppola to remain in until the patient follows up with [facility].
2. Urosepsis
- Positive preliminary blood culture - E. Coli
- WBC 8.0 today (wnl), continues to downtrend.
- Temp 98.9
- IV ceftriaxone and PO Amoxicillin until 05/26
3. Permanent A-fib
- Continue rate control. Consider long acting cardizem formulation today. Xarelto restarted yesterday.
4. HTN
- Continue home meds with holding parameters.
5. HLD
- Continue Atorvastatin
6. Type 2 DM
- Contine home meds -- accuchecks
7. DVT PPx
- SCD
8. Hypokalemia
- 3.2 today.
- Repletion; 40 meq at 0800, 40 meq at 1200.
- Follow up BMP.
Anticipated Discharge: Today
Subjective/Interval History
-
Date of Service: May 19, 2024
Pt has no new complaints this morning. Coppola continues to drain clear urine. Pt denies CP, SOB, n/v/d. Still some abdominal pain.
Objective Data
-
Labs:
Laboratory Results
05/19/24
05:19
WBC 8.0
Hgb 12.8 L
Hct 37.3 L
Plt Count 156
Sodium 135
Potassium 3.2 L
Chloride 95 L
Carbon Dioxide 30
BUN 12
Creatinine 0.8
Glucose 126 H
Calcium 8.1 L
Vital Signs:
Vital Signs
Temp Pulse Resp BP Pulse Ox
98.0 F 84 16 146/84 95
05/19/24 11:34 05/19/24 11:34 05/19/24 11:34 05/19/24 11:34 05/19/24 11:34
I&O
05/18/24 05/19/24 05/20/24
06:59 06:59 06:59
Intake Total 120 / 120 1020 / 1020
Output Total 1800 / 1800 2275 / 2275
Balance -1680 / -1680 -1255 / -1255
Review of Systems
-
History Source: Patient
Constitutional: Reports No Symptoms
Respiratory: Reports No Symptoms
Cardiac: Reports No Symptoms
Abdomen/GI: Reports No Symptoms
Genitourinary: Reports No Symptoms
Neuro: Reports No Symptoms
Physical Exam
-
General: Well Developed and Obese
HEENT: Normocephalic and Atraumatic
Respiratory: Clear to Auscultation
Cardiac: Irregular Rhythm and Tachycardic
GI: Soft (mild tenderness to LLQ)
Neuro: Awake, Alert and Oriented
Psych: Calm
Data Reviewed
-
Labs: Labs Reviewed by me and Discussed with Patient
--- NOTE | 2024-05-19 12:05 | CM ---
Addendum entered by Tamara Mina 05/19/24 15:19:
According to the Infusion Center intake; Patient has to be discharged day before start of care,(24 hours prior to the IV) they will not start patient on weekend as they use the ED for Thursday and Thursday and ED can not start IV treatment on
. So they are telling me that Patient will need to start with infusion center Thursday. CM updated physicians via tt. Patient pending Chest xray and Home O2 assessment. CM called to patient to review VN options at patient request. Patient
requested [facility] for VN supports and if needed [facility] or [facility] for home O2 assessment. CM will continue to follow for discharge planning needs.
Plan; home with [facility] referral pending and home O2 assessment pending.
Original Note:
Patient seen at bedside. Patient accepted for Infusion center to provide IV antibiotics. Patient complaining not feeling well. Patient currently on home O2 and declined participation in walk test and nursing aware. CM will continue to follow for
discharge planning needs.
Plan; Infusion center. patient needs to be discharged prior to the time he will be seen at the infusion center the next day.
--- NOTE | 2024-05-19 12:30 | PTCARENOTE ---
MD and resident made aware of patient c/o congestion, frequent moist cough and occasional SOB. Patient 95% on 2L O2. CXR and home O2 eval ordered per MD and resident.
[2024-05-19 15:10] VITALS: BP 127/83
[2024-05-19] MEDS: XARELTO 20 MG PO (17:07)
[2024-05-19] MEDS: GLUCOPHAGE 1000 MG PO (17:07)
[2024-05-19 17:08] LABS: Glucose - Point of Care 138 mg/dl (70-99)
[2024-05-19] MEDS: ULTRAM 25 MG PO (17:10)
[2024-05-19] MEDS: TOPROL XL 25 MG PO (18:03)
[2024-05-19] MEDS: DUONEB 3 ML INH (18:15)
--- NOTE | 2024-05-19 18:19 | PTCARENOTE ---
Patient ringing call sheth c/o SOB. Patient 90% on RA, placed on 2L O2. MD and resident made aware, respiratory therapist at bedside giving PRN resp treatment.
[2024-05-19 19:27] VITALS: BP 136/81
[2024-05-19 22:01] LABS: Glucose - Point of Care 148 mg/dl (70-99)
[2024-05-19] MEDS: LANTUS 0.08 UNITS SC (22:20)
[2024-05-19] MEDS: LIPITOR 20 MG PO (22:20)
[2024-05-19 23:10] VITALS: BP 141/83
[2024-05-20] VITALS (8 sets, daily range): BP systolic 123–162; BP diastolic 63–96; PULSE 71–74; O2SAT 95–97
[2024-05-20] MEDS: ROBITUSSIN DM 5 ML PO (02:27)
[2024-05-20] MEDS: AMOXIL 500 MG PO ×3 (06:12→22:36)
[2024-05-20 06:52] LABS: Hematocrit 38.8 % (39.0-52.0); Hemoglobin 13.1 g/dL (13.0-18.0); Mean Corp Hgb Conc. 33.8 g/dL (33.0-37.0); Mean Platelet Volume 9.2 fL (7.4-10.4); Platelet Count 181 10^3/uL (130-400); Red Blood Cell Count 4.51 10^6/uL (4.70-6.10); Red Cell Dist. Width 14.7 % (11.5-14.5); White Blood Cell Count 10.2 10^3/uL (4.8-10.8)
[2024-05-20 07:15] LABS: Blood Urea Nitrogen 12 mg/dl (9-20); Calcium 8.1 mg/dl (8.4-10.2); Carbon Dioxide 27 mmol/L (22-30); Chloride 99 mmol/L (98-107); Estimated Creatinine Clearance 92 ml/min; Glucose 121 mg/dl (70-99); Potassium 3.7 mmol/L (3.5-5.1); Sodium 136 mmol/L (135-145); eGFR > 60.00
[2024-05-20] MEDS: SYMBICORT 160/4.5 MCG INHALER 2 PUFF INH ×2 (07:29→19:51)
[2024-05-20 08:06] LABS: Glucose - Point of Care 132 mg/dl (70-99)
[2024-05-20] MEDS: GLUCOPHAGE 1000 MG PO ×2 (08:38→17:46)
[2024-05-20] MEDS: COZAAR 100 MG PO (08:38)
[2024-05-20] MEDS: NOVOLOG FLEXPEN-LOW RESISTANCE SC ×3 (08:38→16:19)
[2024-05-20] MEDS: SENOKOT-S PO ×2 (08:39→19:50)
[2024-05-20] MEDS: CARDIZEM CD 240 MG PO (08:39)
[2024-05-20] MEDS: TOPROL XL 50 MG PO (08:39)
[2024-05-20] MEDS: PROTONIX 40 MG PO (08:39)
--- NOTE | 2024-05-20 09:33 | VNURNOTE ---
Home Health Liaison spoke with patient to discuss [facility] nurse/therapy, visits, schedule and homebound status. Patient is agreeable and understands that visits at home will be 2-3 x per week to assess and teach medical management.
[facility] brochure provided with contact information. Patient is aware that [facility] will contact them for start of care in 1-2 days after discharge from .
[facility] referral completed in [facility].
--- NOTE | 2024-05-20 10:28 | W.PN.ID1 ---
Date of Service
Date of Service: May 20, 2024
Today's Communication
- Last dose of ceftriaxone IV today (d8 abx)
Then dc home on high dose cephalexin 1000mg po qid (from 05/21/24 through 05/26/24.
-Continue po amoxicillin 500mg q8 through 05/26/24.
Assessment / Plan
# Complicated UTI with gross hematuria/clot retention
-Cultures with E. coli and Enterococcus spp.
# E. coli bacteremia
# s/p Septic shock
# Leukocytosis/leukemoid reaction- resolved
# FELY - resolved
# BPH s/p aqua-ablation 04/06/24
# hx prostate CA XRT
- E. coli in blood cx sensitive to cefazolin, but the E. coli in Ucx BRENDA 4
- Prefer ceftriaxone 2g IV q24h through 05/26/24 over po abx for complicated UTI/bacteremia.
However, [facility] unable to start infusion until next week.
Plan:
- Last dose of ceftriaxone IV today (d8 abx)
Then dc home on high dose cephalexin 1000mg po qid through 05/26/24.
-Continue po amoxicillin 500mg q8 throught 05/26/24.
Chief Complaint
-: UTI and Bacteremia
Vital Signs / Physical Exam
Vital Signs
Vital Signs
Temp Pulse Resp BP Pulse Ox
98.3 F 76 16 145/77 96
05/20/24 07:10 05/20/24 07:35 05/20/24 07:35 05/20/24 07:10 05/20/24 07:35
Physical Exam
Constitutional: No Acute Distress
Pulmonary: Other (decreased BS bases)
Gastrointestinal: Soft, Non Tender and Non Distended
Genito-Urinary: Patino and Clear Urine
Neurological: AO x 3
Objective Data
Lab Data
Lab Results
05/20/24 06:36
05/20/24 06:36
PT 19.7 Sec (11.4-14.6) H 05/13/24 04:45
INR 1.66 05/13/24 04:45
APTT 31.1 Sec (23.4-35.0) 05/13/24 04:45
Estimated Creat Clear 92 ml/min 05/20/24 06:36
Lactic Acid 1.2 mmol/L (0.7-2.0) 05/15/24 03:33
Total Bilirubin 1.0 mg/dl (0.2-1.3) 05/18/24 06:26
AST 22 U/L (17-59) 05/18/24 06:26
ALT 26 U/L (0-50) 05/18/24 06:26
Alkaline Phosphatase 79 U/L (38-126) 05/18/24 06:26
Most recent labs reviewed.
Micro Results:
05/14/24 02:51 Blood Culture - Final
Blood/Venous No Growth - Final Report
05/12/24 04:15 Urine Culture - Final
Urine Escherichia coli
Enterococcus faecalis
05/12/24 17:26 Blood Culture - Final
Blood/Venous Escherichia coli
Gram Stain - Final
05/12/24 16:23 Blood Culture - Final
Blood/Venous Escherichia coli
Gram Stain - Final
Blood Culture Final 05/12/24
Organism 1 Escherichia coli
1. Escherichia coli
M.I.C. RX
--------- ---
Amoxicillin/Potas. Clavulanate 04/03 I
Ampicillin >16 R
Ampicillin/Sulbactam >168 R
Aztreonam <=4 S
Cefazolin <=2 S
Ertapenem <=0.5 S
Ciprofloxacin >2 R
Gentamicin >8 R
Meropenem <=1 S
Piperacillin/Tazobactam <=8 S
Tetracycline >8 R
Tobramycin >8 R
Trimethoprim/Sulfamethoxazole >2/38 R
Urine Culture Final 03/07/24-825
CC: Greater than 100,000 CFU/ML Escherichia coli
Organism 1 Escherichia coli
1. Escherichia coli
M.I.C. RX
--------- ---
Amoxicillin/Potas. Clavulanate 16/8 I
Ampicillin >16 R
Ampicillin/Sulbactam >16/8 R
Aztreonam <=4 S
Cefazolin 4 I
Cefazolin interpretations for E. coli, K. pneumo and
P. mirabilis for uncomplicated uti are as follows:
<=16 Susceptible
> 16 Resistant
Cefepime <=2 S
Ceftazidime <=1 S
Ceftriaxone <=1 S
Ertapenem <=0.5 S
Ciprofloxacin >2 R
Gentamicin >8 R
Meropenem <=1 S
Nitrofurantoin-Urine Only <=32 S
Piperacillin/Tazobactam <=8 S
Tetracycline >8 R
Tobramycin >8 R
Trimethoprim/Sulfamethoxazole >2/38 R
Imaging:
05/17/24 CT a/p: Findings in the abdomen and pelvis appear relatively stable compared to the CT abdomen/pelvis from 05/12/2024. The urinary bladder remains decompressed with a Patino catheter in place showing some wall thickening and fat stranding
for which correlation with a urinalysis is recommended. 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
05/12/24 CT a/p: Interval advancement of the Patino catheter with tip and balloon within the urinary bladder. The known fistula is not well demonstrated on this examination. There is trace gas anteriorly within the urinary bladder, likely secondary
to instrumentation. There is extensive stranding within the perivesicular space which may represent infection/cystitis. Recommend correlation with urinalysis.
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 No intraperitoneal or extraperitoneal bladder rupture.
2. Patino catheter balloon is inflated within the mid penile urethra with catheter tip at the prostatic urethra.
Care Review
Plan reviewed with: Physician (Dr. Torres)
--- NOTE | 2024-05-20 11:53 | CM ---
Addendum entered by Tamara Mina 05/20/24 15:12:
If patient needing further IV antibiotics patient would be able to use the Infusion center, pending update after thursday.
Original Note:
Patient seen at bedside with physicians. Patient plan is home with and [facility] to follow. Patient continues with complaints re breathing. CM will continue to follow for discharge planning needs.
Plan; home with [facility] and watch for home O2 needs
[2024-05-20 11:56] LABS: Glucose - Point of Care 109 mg/dl (70-99)
[2024-05-20] MEDS: ROCEPHIN 2000 MG IV (12:44)
[2024-05-20] MEDS: STERILE WATER FOR INJECTION 20 ML IV (12:44)
--- NOTE | 2024-05-20 15:37 | W.PN.HOSP.TC ---
Addendum entered and electronically signed by Mariya Bowling MD 05/20/24 16:16:
I saw and evaluated the patient independently. I reviewed the resident�s note and agree with findings and plan as documented by Dr. Torres.
GENERAL: well developed, well nourished, ill appearing
HEENT: NC/AT--NC O2 in place
HEART: regular rate and rhythm, +S1, +S2
LUNGS : clear to auscultation anteriorly--rhonchi at bases bilaterally
ABDOM: soft, nontender, nondistended, + bowel sounds
EXT: no cyanosis, clubbing, or edema
NEUROLOGIC: grossly intact
: coppola cath in place
Septic shock due to acute urinary tract infection (POA)---presented with hematuria/lower abdominal pain. Patient had acute blood loss anemia and Xarelto contributed to the acute blood loss anemia--moved to ICU for pressor support--blood cultures
positive for multidrug resistant E. 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
as per Ur0--ABX per ID--last day rocephin today--then high dose cephalexin followed by amoxicillin per ID
Acute metabolic encephalopathy due to septic shock, resolved
LLQ abd pain--repeat CT A/P unremarkable as above
FELY--due to septic shock, now resolved with IVFs/treatment of septic shock
Acute hypoxemic respiratory failure--unclear cause--possibly due to atelectasis/septic shock--doubt PNA while on ABX--CXR with top normal vascular sizes
Permanent Atrial Fibrillation with RVR--Xarelto was on hold with prior hematuria, restarted 05/16/24 as hematuria resolved--cont Cardizem CD/Toprol XL
Other problems:
Essential HTN: cont Losartan/Cardizem/Toprol XL
HLD: Continue Atorvastatin
DM2: a1c 7.0%, SSI/accuchecks/Lantus, start Metformin
Hypokalemia, replete
DVT proph
code status -- FULL code
Original Note:
Today's Communication/Plan
-
.
Assessment / Plan
Assessment / Plan
1. Hematuria/Abdominal Pain
- Coppola continues to drain clear urine. Xarelto restarted 4 days ago.
- CT Scan (from admission) showed a contained bladder perforation with fistulization of the prostate.
- Pt continues to have mild LLQ abdominal pain. Follow up CTs were benign. Pain control PRN.
- Urology on board and seeing the patient.
- Hgb 12.8, steadily increasing toward baseline value. Continue daily H+H.
- Blood cultures from 05/14 no growth.
- Pt to continue on IV Rocephin and PO Amoxicillin until date of discharge.
- Pt to be discharged to home on PO cephelexin and PO amoxicillin.
- Coppola to remain in until the patient follows up with [facility]? Discuss with Urology.
2. Urosepsis
- Positive preliminary blood culture - E. Coli
- WBC 10.2 today (wnl for few days); follow up CBC in case there is new infectious pulmonary process.
- Temp 98.9
- IV ceftriaxone and PO Amoxicillin until 05/26
3. Permanent A-fib
- Continue rate control. Consider long acting cardizem formulation today. Xarelto restarted yesterday.
4. HTN
- Continue home meds with holding parameters.
5. HLD
- Continue Atorvastatin
6. Type 2 DM
- Contine home meds -- accuchecks
7. DVT PPx
- SCD
8. Hypokalemia
- 3.7 today. BMP in AM.
9. Acute Hypoxic Respiratory Distress
- Pt requires 2 L O2 at times of respiratory distress.
- Likely secondary to septic shock during this admission.
- CXR shows small-moderate pleural effusions, mild pulmonary edema; pneumonia not ruled out.
- Continue abx for bacteremia and monitor symptoms, temperature, clinical exam findings.
- Continue DuoNeb PRN.
- Incentive Spirometry.
10. Increased Bowel Frequency
- Follow up C Diff stool Ag
Anticipated Discharge: Within 24 hours
Subjective/Interval History
-
Date of Service: May 20, 2024
Pt c/o cough that sounds productive and some trouble breathing. He also notes that he has had 8 bowel movements since yesterday that are described as 'soft'. LLQ abdominal pain is still present but controlled on pain medications. Denies fevers,
nausea, vomiting, or discolored urine in Coppola.
Objective Data
-
Labs:
Laboratory Results
05/20/24
06:36
WBC 10.2
Hgb 13.1
Hct 38.8 L
Plt Count 181
Sodium 136
Potassium 3.7
Chloride 99
Carbon Dioxide 27
BUN 12
Creatinine 0.8
Glucose 121 H
Calcium 8.1 L
Vital Signs:
Vital Signs
Temp Pulse Resp BP Pulse Ox
97.5 F 83 16 156/85 97
05/20/24 11:18 05/20/24 11:18 05/20/24 11:18 05/20/24 11:18 05/20/24 11:18
I&O
05/19/24 05/20/24 05/21/24
06:59 06:59 06:59
Intake Total 1020 / 1020 1260 / 1260
Output Total 2275 / 2275 1974
Balance -1255 / -1255 -715 / -715
Review of Systems
-
History Source: Patient
Constitutional: Reports No Symptoms
Respiratory: Reports Cough and Trouble Breathing
Cardiac: Reports No Symptoms
Abdomen/GI: Reports Abdominal Pain (LLQ, controlled on pain medication; no n/v/d)
Genitourinary: Reports Other (no hematuria)
Neuro: Reports No Symptoms
Physical Exam
-
General: Well Developed and Well Nourished
HEENT: Normocephalic and Atraumatic
Respiratory: Other (Mildly decreased breath sounds at the bases; otherwise breath sounds clear to auscultation bilaterally after patient clears cough. )
Cardiac: Irregular Rhythm
GI: Soft and Nontender
Skin: Warm
Neuro: Awake and Alert
Psych: Calm
Data Reviewed
-
Labs: Labs Reviewed by me and Discussed with Patient
[2024-05-20 16:18] LABS: Glucose - Point of Care 108 mg/dl (70-99)
[2024-05-20] MEDS: XARELTO 20 MG PO (17:46)
[2024-05-20] MEDS: TOPROL XL 25 MG PO (17:46)
--- NOTE | 2024-05-20 20:37 | W.PN.UPDATE ---
Update Note
Progress Note Update
Reported by the nursing staff that the patient had a pill unlabeled in mint container that he mentioned its Lunesta that was brought his jessa.
--- NOTE | 2024-05-20 20:45 | PTCARENOTE ---
Pt c/o not sleeping. States he takes lunesta at home. Began to explain that lunesta is non formulary and pt interrupted and said 'doesn't matter, I have some right here' Handed RN a mint contained with 11 white rectangular tabs and 1 blue round
tab. Instructed on hospital policy and medication administration/safety. Pt surrendered mint tin to RN. [facility] covering house and Nursing Welder/Installer contacted. Electronic orders received for melatonin (refer to [facility]) and instructed that should
bring in medication in prescription bottle. Mint tin hand delivered by this RN to pharmacy for lock up.
[2024-05-20 21:25] LABS: Glucose - Point of Care 84 mg/dl (70-99)
[2024-05-20] MEDS: LIPITOR 20 MG PO (22:36)
[2024-05-20] MEDS: MELATONIN 5 MG PO (22:36)
[2024-05-20] MEDS: LANTUS SC (23:45)
[2024-05-21 03:10] VITALS: BP 143/96
[2024-05-21] MEDS: AMOXIL 500 MG PO ×3 (05:50→22:19)
[2024-05-21] MEDS: SYMBICORT 160/4.5 MCG INHALER 2 PUFF INH ×2 (07:05→19:19)
[2024-05-21 07:25] LABS: Glucose - Point of Care 90 mg/dl (70-99)
[2024-05-21 07:45] VITALS: BP 155/99
[2024-05-21] MEDS: NOVOLOG FLEXPEN-LOW RESISTANCE SC ×3 (08:55→16:46)
[2024-05-21] MEDS: PROTONIX 40 MG PO (09:05)
[2024-05-21] MEDS: CARDIZEM CD 240 MG PO (09:05)
[2024-05-21] MEDS: TOPROL XL 50 MG PO (09:05)
[2024-05-21] MEDS: SENOKOT-S PO ×2 (09:05→22:07)
[2024-05-21] MEDS: COZAAR 100 MG PO (09:05)
[2024-05-21] MEDS: GLUCOPHAGE PO ×2 (09:06→16:49)
--- NOTE | 2024-05-21 10:22 | W.PN.ID1 ---
Date of Service
Date of Service: May 21, 2024
Today's Communication
See below.
Assessment / Plan
# Complicated UTI with gross hematuria/clot retention
-Cultures with E. coli and Enterococcus spp.
# E. coli bacteremia
# Diarrhea - Probable C. diff
# s/p Septic shock
# Leukocytosis/leukemoid reaction- resolved
# FELY - resolved
# BPH s/p aqua-ablation 04/06/24
# hx prostate CA XRT
Plan:
- E. coli in blood cx sensitive to cefazolin, but the E. coli in Ucx BRENDA 4
- Continue ceftriaxone 2g IV q24h (d9). At time of dc, transition tocephalexin 1000mg po qid through 05/26/24.
-Continue po amoxicillin 500mg q8 through 05/26/24.
- Diarrhea (off bowel regimen)
C. diff ag+, toxin -
Treat as C. diff with po vancomycin 125mg q6h x 10d.
Monitor stool output and consistency.
Chief Complaint
-: UTI and Bacteremia
Subjective / Review of Systems
c/o diarrhea x5 since last night. No abd pain.
Vital Signs / Physical Exam
Vital Signs
Vital Signs
Temp Pulse Resp BP Pulse Ox
98.4 F 90 16 155/99 97
05/21/24 07:45 05/21/24 07:45 05/21/24 07:45 05/21/24 07:45 05/21/24 07:45
Physical Exam
Constitutional: No Acute Distress and Comfortable
Pulmonary: Other (decreased BS at bases)
Gastrointestinal: Soft, Non Tender, Non Distended and Normal Bowel Sounds
Genito-Urinary: Patino and Clear Urine
Neurological: AO x 3
Objective Data
Lab Data
Lab Results
05/20/24 06:36
05/20/24 06:36
PT 19.7 Sec (11.4-14.6) H 05/13/24 04:45
INR 1.66 05/13/24 04:45
APTT 31.1 Sec (23.4-35.0) 05/13/24 04:45
Estimated Creat Clear 92 ml/min 05/20/24 06:36
Lactic Acid 1.2 mmol/L (0.7-2.0) 05/15/24 03:33
Total Bilirubin 1.0 mg/dl (0.2-1.3) 05/18/24 06:26
AST 22 U/L (17-59) 05/18/24 06:26
ALT 26 U/L (0-50) 05/18/24 06:26
Alkaline Phosphatase 79 U/L (38-126) 05/18/24 06:26
Most recent labs reviewed.
Micro Results:
05/20/24 20:21 C. difficile GDH Antigen & Toxins - Final
Feces/Stool C. difficile antigen positive, toxin negative.
Clostridium difficile present, but toxin not detected.
Patient may be a carrier, colonized with nontoxinogenic
strain or the level of toxin in sample is below detection
limits. This information should be used in conjunction with
the patient's clinical history.
05/14/24 02:51 Blood Culture - Final
Blood/Venous No Growth - Final Report
05/12/24 04:15 Urine Culture - Final
Urine Escherichia coli
Enterococcus faecalis
05/12/24 17:26 Blood Culture - Final
Blood/Venous Escherichia coli
Gram Stain - Final
05/12/24 16:23 Blood Culture - Final
Blood/Venous Escherichia coli
Gram Stain - Final
Blood Culture Final 05/12/24
Organism 1 Escherichia coli
1. Escherichia coli
M.I.C. RX
--------- ---
Amoxicillin/Potas. Clavulanate 16/8 I
Ampicillin >16 R
Ampicillin/Sulbactam >16/8 R
Aztreonam <=4 S
Cefazolin <=2 S
Ertapenem <=0.5 S
Ciprofloxacin >2 R
Gentamicin >8 R
Meropenem <=1 S
Piperacillin/Tazobactam <=8 S
Tetracycline >8 R
Tobramycin >8 R
Trimethoprim/Sulfamethoxazole >/38 R
Urine Culture Final 03/07/24-825
CC: Greater than 100,000 CFU/ML Escherichia coli
Organism 1 Escherichia coli
1. Escherichia coli
M.I.C. RX
--------- ---
Amoxicillin/Potas. Clavulanate 16/8 I
Ampicillin >16 R
Ampicillin/Sulbactam >16/8 R
Aztreonam <=4 S
Cefazolin 4 I
Cefazolin interpretations for E. coli, K. pneumo and
P. mirabilis for uncomplicated uti are as follows:
<=16 Susceptible
> 16 Resistant
Cefepime <=2 S
Ceftazidime <=1 S
Ceftriaxone <=1 S
Ertapenem <=0.5 S
Ciprofloxacin >2 R
Gentamicin >8 R
Meropenem <=1 S
Nitrofurantoin-Urine Only <=32 S
Piperacillin/Tazobactam <=8 S
Tetracycline >8 R
Tobramycin >8 R
Trimethoprim/Sulfamethoxazole >2/38 R
Imaging:
05/17/24 CT a/p: Findings in the abdomen and pelvis appear relatively stable compared to the CT abdomen/pelvis from 05/12/2024. The urinary bladder remains decompressed with a Patino catheter in place showing some wall thickening and fat stranding
for which correlation with a urinalysis is recommended. 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
05/12/24 CT a/p: Interval advancement of the Patino catheter with tip and balloon within the urinary bladder. The known fistula is not well demonstrated on this examination. There is trace gas anteriorly within the urinary bladder, likely secondary
to instrumentation. There is extensive stranding within the perivesicular space which may represent infection/cystitis. Recommend correlation with urinalysis.
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 No intraperitoneal or extraperitoneal bladder rupture.
2. Patino catheter balloon is inflated within the mid penile urethra with catheter tip at the prostatic urethra.
[2024-05-21 11:15] LABS: Glucose - Point of Care 114 mg/dl (70-99)
[2024-05-21 11:35] VITALS: BP 128/81
--- NOTE | 2024-05-21 11:46 | W.PN.HOSP.TC ---
Today's Communication/Plan
-
cont oral vanco
PT/OT
hopeful d/c Thursday?
Assessment / Plan
Assessment / Plan
pt is a 74 year old male
Septic shock due to acute urinary tract infection (POA)---presented with hematuria/lower abdominal pain---moved to ICU for pressor support--blood cultures positive for multidrug resistant E. coli--initial CT A/P with contained Bladder Perforation w/
Fistulization of the Prostate, repeat CT A/P without fistula--CBI stopped and xarelto restarted--apprec urology/ID following ---coppola to remain in place on d/c as per URO--ABX per ID--high dose cephalexin followed by amoxicillin per ID
diarrhea--C. diff ANTIGEN POSITIVE and toxin negative--nevertheless, since on ABX, will treat as if infected
acute blood loss anemia from hematuria and Xarelto contribution--resolved with CBI--did not need blood transfusion
Acute metabolic encephalopathy due to septic shock-- resolved
LLQ abd pain--repeat CT A/P unremarkable as above
FELY--due to septic shock, now resolved with IVFs/treatment of septic shock
Acute hypoxemic respiratory failure--unclear cause--possibly due to atelectasis/septic shock--doubt PNA while on ABX--CXR with top normal vascular sizes--off O2 05/21/24
Permanent Atrial Fibrillation with RVR--Xarelto was on hold with prior hematuria, restarted 05/16/24 as hematuria resolved--cont Cardizem CD/Toprol XL
Other problems:
Essential HTN: cont Losartan/Cardizem/Toprol XL
HLD: Continue Atorvastatin
DM2: a1c 7.0%, SSI/accuchecks/Lantus, start Metformin
Hypokalemia, replete
DVT proph
code status -- FULL code
Anticipated Discharge: > 48 hours
Subjective/Interval History
-
Date of Service: May 21, 2024
pt c/o still with diarrhea
wants to take his own Lunesta (told RN, no objection, send to pharmacy)
Objective Data
-
Vital Signs:
max temp for 24 hours
05/21/24
03:10
Temp 98.5 F
Vital Signs
Temp Pulse Resp BP Pulse Ox
98.4 F 90 16 155/99 97
05/21/24 07:45 05/21/24 07:45 05/21/24 07:45 05/21/24 07:45 05/21/24 08:00
I&O
05/20/24 05/21/24 05/22/24
06:59 06:59 05:59
Intake Total 1260 / 1260 480 / 480
Output Total 1974 / 1974 1775 / 1775
Balance -715 / -715 -1295 / -1295
Review of Systems
-
All other systems: Reviewed and negative
Abdomen/GI: Reports Diarrhea
Physical Exam
-
General: Well Developed, Well Nourished and No Apparent Distress
HEENT: Normocephalic and Atraumatic; Negative Oxygen
Respiratory: Clear to Auscultation; Negative Wheezes or Rhonchi
Cardiac: Irregular Rhythm; Negative Murmur
GI: Soft, Nontender, Normal Bowel Sounds and Distended
Genito-urinary: Coppola
Musculoskeletal: No Clubbing, No Cyanosis and No Edema
Skin: Warm
Neuro: Awake and Alert
[2024-05-21] MEDS: FIRVANQ 125 MG PO ×3 (11:53→23:45)
[2024-05-21] MEDS: STERILE WATER FOR INJECTION 20 ML IV (11:54)
[2024-05-21] MEDS: ROCEPHIN 2000 MG IV (11:54)
[2024-05-21] MEDS: FLUSH (NSS) 2 FLUSH IV (11:57)
[2024-05-21 15:35] VITALS: BP 129/85
[2024-05-21 16:37] LABS: Glucose - Point of Care 97 mg/dl (70-99)
[2024-05-21] MEDS: XARELTO 20 MG PO (16:55)
[2024-05-21] MEDS: ROBITUSSIN DM 5 ML PO ×2 (16:55→23:44)
[2024-05-21] MEDS: TOPROL XL 25 MG PO (18:41)
[2024-05-21 19:19] VITALS: BP 158/91
[2024-05-21] MEDS: NON-FORMULARY ITEM 1 UNIT PO (22:17)
[2024-05-21] MEDS: LIPITOR 20 MG PO (22:22)
[2024-05-21 22:26] LABS: Glucose - Point of Care 102 mg/dl (70-99)
[2024-05-21 23:16] VITALS: BP 151/94
[2024-05-21] MEDS: LANTUS SC (23:26)
[2024-05-22 02:26] VITALS: BMI 37.1
[2024-05-22 03:07] VITALS: BP 153/92
[2024-05-22] MEDS: FIRVANQ 125 MG PO ×4 (06:12→23:14)
[2024-05-22] MEDS: AMOXIL 500 MG PO ×3 (06:12→21:10)
[2024-05-22 06:57] LABS: Hematocrit 38.8 % (39.0-52.0); Hemoglobin 13.4 g/dL (13.0-18.0); Mean Corp Hgb Conc. 34.5 g/dL (33.0-37.0); Mean Corpuscular Hgb 28.3 pg (27.0-31.0); Mean Platelet Volume 9.2 fL (7.4-10.4); Platelet Count 206 10^3/uL (130-400); Red Blood Cell Count 4.73 10^6/uL (4.70-6.10); Red Cell Dist. Width 14.5 % (11.5-14.5); White Blood Cell Count 10.6 10^3/uL (4.8-10.8)
[2024-05-22 07:00] VITALS: BP 170/88
[2024-05-22 07:13] LABS: Glucose - Point of Care 95 mg/dl (70-99)
[2024-05-22 07:26] LABS: ALT (SGPT) 23 U/L (0-50); AST (SGOT) 23 U/L (17-59); Albumin 2.9 g/dl (3.5-5.0); Alkaline Phosphatase 78 U/L (38-126); Blood Urea Nitrogen 10 mg/dl (9-20); Calcium 8.3 mg/dl (8.4-10.2); Carbon Dioxide 23 mmol/L (22-30); Chloride 100 mmol/L (98-107); Estimated Creatinine Clearance 105 ml/min; Glucose 98 mg/dl (70-99); Magnesium 1.6 mg/dl (1.6-2.3); Potassium 3.7 mmol/L (3.5-5.1); Sodium 136 mmol/L (135-145); Total Bilirubin 0.8 mg/dl (0.2-1.3); Total Protein 5.3 g/dl (6.3-8.2); eGFR > 60.00
[2024-05-22] MEDS: NOVOLOG FLEXPEN-LOW RESISTANCE SC ×3 (07:30→16:02)
[2024-05-22] MEDS: SYMBICORT 160/4.5 MCG INHALER 2 PUFF INH ×2 (07:46→19:29)
[2024-05-22] MEDS: COZAAR 100 MG PO (08:10)
[2024-05-22] MEDS: SENOKOT-S PO (08:10)
[2024-05-22] MEDS: TOPROL XL 50 MG PO (08:10)
[2024-05-22] MEDS: GLUCOPHAGE PO ×2 (08:10→16:46)
[2024-05-22] MEDS: CARDIZEM CD 240 MG PO (08:10)
[2024-05-22] MEDS: PROTONIX 40 MG PO (08:10)
--- NOTE | 2024-05-22 10:50 | W.PN.SURGUPD ---
Surgical Update
Surgical Update
Patient urologically stable
Urine clear
Little catheter bother
No pelvic or SP pain
---
Discussed catheter management with patient
He is best advised to see his treating urologist's office for catheter removal: he understands the logic given the acute problems with which he presented here just over a week ago
[2024-05-22 11:00] VITALS: BP 150/84
--- NOTE | 2024-05-22 11:05 | W.PN.HOSP.TC ---
Today's Communication/Plan
-
CXR
placed consult for BRYSON
d/c planning
Assessment / Plan
Assessment / Plan
pt is a 74 year old male
Septic shock due to acute urinary tract infection (POA)---resolved-presented with hematuria/lower abdominal pain---moved to ICU for pressor support--blood cultures positive for multidrug resistant E. coli--initial CT A/P with contained Bladder
Perforation w/ Fistulization of the Prostate, repeat CT A/P without fistula--CBI stopped and xarelto restarted--apprec urology/ID following ---coppola to remain in place on d/c as per URO--ABX per ID--high dose cephalexin followed by amoxicillin per ID
diarrhea--C. diff ANTIGEN POSITIVE and toxin negative--nevertheless, since on ABX, will treat as if infected
acute blood loss anemia from hematuria and Xarelto contribution--resolved with CBI--did not need blood transfusion
Acute metabolic encephalopathy due to septic shock-- resolved
LLQ abd pain--repeat CT A/P unremarkable as above
FELY--due to septic shock, now resolved with IVFs/treatment of septic shock
Acute hypoxemic respiratory failure--unclear cause--possibly due to atelectasis/septic shock--doubt PNA while on ABX--CXR with top normal vascular sizes--off O2 05/21/24--cough--pt c/o--will recheck CXR
Permanent Atrial Fibrillation with RVR--Xarelto was on hold with prior hematuria, restarted 05/16/24 as hematuria resolved--cont Cardizem CD/Toprol XL
Other problems:
Essential HTN: cont Losartan/Cardizem/Toprol XL
HLD: Continue Atorvastatin
DM2: a1c 7.0%, SSI/accuchecks/Lantus, start Metformin
Hypokalemia, replete
DVT proph
code status -- FULL code
Anticipated Discharge: 24 - 48 hours
Subjective/Interval History
-
Date of Service: May 22, 2024
diarrhea has abated
Objective Data
-
Labs:
Laboratory Results
05/22/24
06:30
WBC 10.6
Hgb 13.4
Hct 38.8 L
Plt Count 206
Sodium 136
Potassium 3.7
Chloride 100
Carbon Dioxide 23
BUN 10
Creatinine 0.7
Glucose 98
Calcium 8.3 L
Total Bilirubin 0.8
AST 23
ALT 23
Alkaline Phosphatase 78
Vital Signs:
max temp for 24 hours
05/22/24
03:07
Temp 98.4 F
Vital Signs
Temp Pulse Resp BP Pulse Ox
97.8 F 78 18 170/88 95
05/22/24 07:00 05/22/24 07:49 05/22/24 07:49 05/22/24 07:00 05/22/24 08:00
I&O
05/21/24 05/22/24 05/23/24
07:59 06:59 06:59
Intake Total
Output Total
Balance
Review of Systems
-
All other systems: Reviewed and negative
Physical Exam
-
General: Well Developed, Well Nourished and No Apparent Distress
HEENT: Normocephalic and Atraumatic
Respiratory: Clear to Auscultation; Negative Wheezes or Rhonchi
Cardiac: Irregular Rhythm; Negative Murmur
GI: Soft, Nontender, Nondistended and Normal Bowel Sounds
Genito-urinary: Coppola
Musculoskeletal: No Clubbing, No Cyanosis and No Edema
Neuro: Awake and Alert
[2024-05-22] MEDS: ROCEPHIN 2000 MG IV (11:19)
[2024-05-22] MEDS: STERILE WATER FOR INJECTION 20 ML IV (11:19)
[2024-05-22] MEDS: FLUSH (NSS) 2 FLUSH IV (11:20)
[2024-05-22 11:51] LABS: Glucose - Point of Care 121 mg/dl (70-99)
--- NOTE | 2024-05-22 13:59 | W.PN.ID1 ---
Date of Service
Date of Service: May 22, 2024
Today's Communication
- Continue ceftriaxone 2g IV q24h (d10). At time of dc, transition to cephalexin 1000mg po qid through 05/26/24.
-Continue po amoxicillin 500mg q8 through 05/26/24.
- Continue po vancomycin 125mg q6h x 10d through 05/30/24.
Assessment / Plan
# Complicated UTI with gross hematuria/clot retention
-Cultures with E. coli and Enterococcus spp.
# E. coli bacteremia
# Diarrhea - Probable C. diff
# s/p Septic shock
# Leukocytosis/leukemoid reaction- resolved
# FELY - resolved
# BPH s/p aqua-ablation 04/06/24
# hx prostate CA XRT
Plan:
- E. coli in blood cx sensitive to cefazolin, but the E. coli in Ucx BRENDA 4
- Continue ceftriaxone 2g IV q24h (d10). At time of dc, transition to cephalexin 1000mg po qid through 05/26/24.
-Continue po amoxicillin 500mg q8 through 05/26/24.
- Diarrhea (off bowel regimen), improving
C. diff ag+, toxin -
Treat as C. diff with po vancomycin 125mg q6h x 10d through 05/30/24.
Monitor stool output and consistency.
Chief Complaint
-: UTI and Bacteremia
Subjective / Review of Systems
Diarrhea improving.
Vital Signs / Physical Exam
Vital Signs
Vital Signs
Temp Pulse Resp BP Pulse Ox
98.0 F 73 16 150/84 95
05/22/24 11:00 05/22/24 11:00 05/22/24 11:00 05/22/24 11:00 05/22/24 11:00
Physical Exam
Constitutional: No Acute Distress and Comfortable
Gastrointestinal: Soft, Non Tender and Non Distended
Genito-Urinary: Patino and Clear Urine
Neurological: AO x 3
Objective Data
Lab Data
Lab Results
05/22/24 06:30
05/22/24 06:30
PT 19.7 Sec (11.4-14.6) H 05/13/24 04:45
INR 1.66 05/13/24 04:45
APTT 31.1 Sec (23.4-35.0) 05/13/24 04:45
Estimated Creat Clear 105 ml/min 05/22/24 06:30
Lactic Acid 1.2 mmol/L (0.7-2.0) 05/15/24 03:33
Total Bilirubin 0.8 mg/dl (0.2-1.3) 05/22/24 06:30
AST 23 U/L (17-59) 05/22/24 06:30
ALT 23 U/L (0-50) 05/22/24 06:30
Alkaline Phosphatase 78 U/L (38-126) 05/22/24 06:30
Most recent labs reviewed.
Micro Results:
05/20/24 20:21 C. difficile GDH Antigen & Toxins - Final
Feces/Stool C. difficile antigen positive, toxin negative.
Clostridium difficile present, but toxin not detected.
Patient may be a carrier, colonized with nontoxinogenic
strain or the level of toxin in sample is below detection
limits. This information should be used in conjunction with
the patient's clinical history.
05/14/24 02:51 Blood Culture - Final
Blood/Venous No Growth - Final Report
05/12/24 04:15 Urine Culture - Final
Urine Escherichia coli
Enterococcus faecalis
05/12/24 17:26 Blood Culture - Final
Blood/Venous Escherichia coli
Gram Stain - Final
05/12/24 16:23 Blood Culture - Final
Blood/Venous Escherichia coli
Gram Stain - Final
Blood Culture Final 05/12/24
Organism 1 Escherichia coli
1. Escherichia coli
M.I.C. RX
--------- ---
Amoxicillin/Potas. Clavulanate 16/8 I
Ampicillin >16 R
Ampicillin/Sulbactam >16/8 R
Aztreonam <=4 S
Cefazolin <=2 S
Ertapenem <=0.5 S
Ciprofloxacin >2 R
Gentamicin >8 R
Meropenem <=1 S
Piperacillin/Tazobactam <=8 S
Tetracycline >8 R
Tobramycin >8 R
Trimethoprim/Sulfamethoxazole >38 R
Urine Culture Final 03/07/24-825
CC: Greater than 100,000 CFU/ML Escherichia coli
Organism 1 Escherichia coli
1. Escherichia coli
M.I.C. RX
--------- ---
Amoxicillin/Potas. Clavulanate 16/8 I
Ampicillin >16 R
Ampicillin/Sulbactam >16/8 R
Aztreonam <=4 S
Cefazolin 4 I
Cefazolin interpretations for E. coli, K. pneumo and
P. mirabilis for uncomplicated uti are as follows:
<=16 Susceptible
> 16 Resistant
Cefepime <=2 S
Ceftazidime <=1 S
Ceftriaxone <=1 S
Ertapenem <=0.5 S
Ciprofloxacin >2 R
Gentamicin >8 R
Meropenem <=1 S
Nitrofurantoin-Urine Only <=32 S
Piperacillin/Tazobactam <=8 S
Tetracycline >8 R
Tobramycin >8 R
Trimethoprim/Sulfamethoxazole >2/38 R
Imaging:
05/17/24 CT a/p: Findings in the abdomen and pelvis appear relatively stable compared to the CT abdomen/pelvis from 05/12/2024. The urinary bladder remains decompressed with a Patino catheter in place showing some wall thickening and fat stranding
for which correlation with a urinalysis is recommended. 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
05/12/24 CT a/p: Interval advancement of the Patino catheter with tip and balloon within the urinary bladder. The known fistula is not well demonstrated on this examination. There is trace gas anteriorly within the urinary bladder, likely secondary
to instrumentation. There is extensive stranding within the perivesicular space which may represent infection/cystitis. Recommend correlation with urinalysis.
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 No intraperitoneal or extraperitoneal bladder rupture.
2. Patino catheter balloon is inflated within the mid penile urethra with catheter tip at the prostatic urethra.
[2024-05-22 15:00] VITALS: BP 147/90
[2024-05-22 16:03] LABS: Glucose - Point of Care 125 mg/dl (70-99)
[2024-05-22] MEDS: ULTRAM 25 MG PO ×2 (16:33→23:14)
[2024-05-22] MEDS: ROBITUSSIN DM 5 ML PO (16:34)
[2024-05-22] MEDS: XARELTO 20 MG PO (16:36)
--- NOTE | 2024-05-22 17:59 | PTCARENOTE ---
Pt and his happen to mention that he is missing his teeth. He just mentioned this to his . His was not aware of this until now. He was in IMU then ICU and now here on Tele. Looking over notes I do not see any indication of missing
teeth or even an injured mouth. I asked if his dentures where missing or partial and he said no his teeth. His proceeds to ask whether he was intubated when he came into the ED and could have something happened down there in the ED. She
thinks they were possibly By looking into his mouth he has tiny nubs across his front, I don't know if they were covered with porcelain or something broke off ??? When asked about this he says 'no my teeth:' I told them we would look into it
and get back to them. I don't see any mentions in any of the notes any concerns for missing teeth or broken teeth or an injured mouth until tonight? Very confusing? I will pass this info onto the manager e learning on the floor Laureen Gonzales.
[2024-05-22] MEDS: TOPROL XL 25 MG PO (18:40)
[2024-05-22 19:28] VITALS: BP 154/92
[2024-05-22] MEDS: LIPITOR 20 MG PO (21:10)
[2024-05-22] MEDS: NON-FORMULARY ITEM 1 UNIT PO (21:26)
[2024-05-22 21:31] LABS: Glucose - Point of Care 120 mg/dl (70-99)
[2024-05-22] MEDS: MYCOSTATIN ORAL SUSPENSION 5 ML PO (21:46)
[2024-05-22] MEDS: LANTUS 0.08 UNITS SC (21:47)
[2024-05-22 23:22] VITALS: BP 159/90
[2024-05-23 03:19] VITALS: BP 147/95
[2024-05-23] MEDS: ULTRAM 25 MG PO ×2 (05:17→12:12)
[2024-05-23] MEDS: AMOXIL 500 MG PO ×2 (05:19→13:30)
[2024-05-23] MEDS: FIRVANQ 125 MG PO ×2 (05:21→12:11)
[2024-05-23 07:10] VITALS: BP 145/95
[2024-05-23 07:27] LABS: Glucose - Point of Care 101 mg/dl (70-99)
[2024-05-23] MEDS: NOVOLOG FLEXPEN-LOW RESISTANCE SC ×2 (07:32→12:13)
[2024-05-23] MEDS: SYMBICORT 160/4.5 MCG INHALER 2 PUFF INH (07:49)
[2024-05-23] MEDS: GLUCOPHAGE 1000 MG PO (08:33)
[2024-05-23] MEDS: COZAAR 100 MG PO (08:33)
[2024-05-23] MEDS: PROTONIX 40 MG PO (08:33)
[2024-05-23] MEDS: TOPROL XL 50 MG PO (08:33)
[2024-05-23] MEDS: CARDIZEM CD 240 MG PO (08:33)
[2024-05-23] MEDS: MYCOSTATIN ORAL SUSPENSION 5 ML PO ×2 (08:34→12:11)
--- NOTE | 2024-05-23 08:45 | CM ---
Addendum entered by Tamara Mina 05/23/24 14:18:
[facility] accepted patient for transfer today. Patient updated and patient requesting ballot, cm updated list for ballots tomorrow.CM reviewed IMM and will take patient form. CM updated that [facility] was accepting patient as well.
Plan; transfer to [facility] today
Original Note:
referral sent to [facility], awaiting response. CM will continue to follow for discharge planning needs.
[2024-05-23 09:34] LABS: Hematocrit 39.6 % (39.0-52.0); Hemoglobin 13.7 g/dL (13.0-18.0); Mean Corp Hgb Conc. 34.6 g/dL (33.0-37.0); Mean Corpuscular Hgb 28.7 pg (27.0-31.0); Mean Corpuscular Volume 82.8 fL (80.0-94.0); Mean Platelet Volume 9.3 fL (7.4-10.4); Platelet Count 205 10^3/uL (130-400); Red Blood Cell Count 4.78 10^6/uL (4.70-6.10); Red Cell Dist. Width 14.5 % (11.5-14.5); White Blood Cell Count 9.6 10^3/uL (4.8-10.8)
[2024-05-23 10:05] LABS: Blood Urea Nitrogen 8 mg/dl (9-20); Calcium 8.4 mg/dl (8.4-10.2); Carbon Dioxide 27 mmol/L (22-30); Chloride 97 mmol/L (98-107); Estimated Creatinine Clearance 92 ml/min; Glucose 130 mg/dl (70-99); Magnesium 1.6 mg/dl (1.6-2.3); Potassium 3.6 mmol/L (3.5-5.1); Sodium 135 mmol/L (135-145); eGFR > 60.00
--- NOTE | 2024-05-23 11:19 | W.PN.ID1 ---
Date of Service
Date of Service: May 23, 2024
Today's Communication
Continue po vancomycin 125mg q6h x 10d through 05/30/24.
Continue po amoxicillin 500mg q8 through 05/26/24.
Continue ceftriaxone 2g IV q24h (d11). At time of dc, transition to cephalexin 1000mg po qid through 05/26/24.
Assessment / Plan
# Complicated UTI with gross hematuria/clot retention
-Cultures with E. coli and Enterococcus spp.
# E. coli bacteremia
# Diarrhea - Probable C. diff
# s/p Septic shock
# Leukocytosis/leukemoid reaction- resolved
# FELY - resolved
# BPH s/p aqua-ablation 04/06/24
# hx prostate CA XRT
Plan:
- E. coli in blood cx sensitive to cefazolin, but the E. coli in Ucx BRENDA 4
- Continue ceftriaxone 2g IV q24h (d11). At time of dc, transition to cephalexin 1000mg po qid through 05/26/24.
-Continue po amoxicillin 500mg q8 through 05/26/24.
- Diarrhea (off bowel regimen), resolved
C. diff ag+, toxin -
Treat as C. diff. Continue po vancomycin 125mg q6h x 10d through 05/30/24.
Chief Complaint
-: UTI and Bacteremia
Subjective / Review of Systems
No more diarrhea.
Feels weak.
Vital Signs / Physical Exam
Vital Signs
Vital Signs
Temp Pulse Resp BP Pulse Ox
98.4 F 65 18 145/95 95
05/23/24 07:10 05/23/24 07:54 05/23/24 07:54 05/23/24 07:10 05/23/24 07:54
Physical Exam
Constitutional: No Acute Distress and Comfortable
Cardiovascular: Regular Rate and S1/S2
Gastrointestinal: Soft, Non Tender and Non Distended
Genito-Urinary: Patino and Clear Urine
Neurological: AO x 3
Objective Data
Lab Data
Lab Results
05/23/24 08:57
05/23/24 08:57
PT 19.7 Sec (11.4-14.6) H 05/13/24 04:45
INR 1.66 05/13/24 04:45
APTT 31.1 Sec (23.4-35.0) 05/13/24 04:45
Estimated Creat Clear 92 ml/min 05/23/24 08:57
Lactic Acid 1.2 mmol/L (0.7-2.0) 05/15/24 03:33
Total Bilirubin 0.8 mg/dl (0.2-1.3) 05/22/24 06:30
AST 23 U/L (17-59) 05/22/24 06:30
ALT 23 U/L (0-50) 05/22/24 06:30
Alkaline Phosphatase 78 U/L (38-126) 05/22/24 06:30
Most recent labs reviewed.
Micro Results:
05/20/24 20:21 C. difficile GDH Antigen & Toxins - Final
Feces/Stool C. difficile antigen positive, toxin negative.
Clostridium difficile present, but toxin not detected.
Patient may be a carrier, colonized with nontoxinogenic
strain or the level of toxin in sample is below detection
limits. This information should be used in conjunction with
the patient's clinical history.
05/14/24 02:51 Blood Culture - Final
Blood/Venous No Growth - Final Report
05/12/24 04:15 Urine Culture - Final
Urine Escherichia coli
Enterococcus faecalis
05/12/24 17:26 Blood Culture - Final
Blood/Venous Escherichia coli
Gram Stain - Final
05/12/24 16:23 Blood Culture - Final
Blood/Venous Escherichia coli
Gram Stain - Final
Blood Culture Final 05/12/24
Organism 1 Escherichia coli
1. Escherichia coli
M.I.C. RX
--------- ---
Amoxicillin/Potas. Clavulanate 16/8 I
Ampicillin >16 R
Ampicillin/Sulbactam >16/8 R
Aztreonam <=4 S
Cefazolin <=2 S
Ertapenem <=0.5 S
Ciprofloxacin >2 R
Gentamicin >8 R
Meropenem <=1 S
Piperacillin/Tazobactam <=8 S
Tetracycline >8 R
Tobramycin >8 R
Trimethoprim/Sulfamethoxazole >38 R
Urine Culture Final 03/07/24-825
CC: Greater than 100,000 CFU/ML Escherichia coli
Organism 1 Escherichia coli
1. Escherichia coli
M.I.C. RX
--------- ---
Amoxicillin/Potas. Clavulanate 16/8 I
Ampicillin >16 R
Ampicillin/Sulbactam >16/8 R
Aztreonam <=4 S
Cefazolin 4 I
Cefazolin interpretations for E. coli, K. pneumo and
P. mirabilis for uncomplicated uti are as follows:
<=16 Susceptible
> 16 Resistant
Cefepime <=2 S
Ceftazidime <=1 S
Ceftriaxone <=1 S
Ertapenem <=0.5 S
Ciprofloxacin >2 R
Gentamicin >8 R
Meropenem <=1 S
Nitrofurantoin-Urine Only <=32 S
Piperacillin/Tazobactam <=8 S
Tetracycline >8 R
Tobramycin >8 R
Trimethoprim/Sulfamethoxazole >2/38 R
Imaging:
05/17/24 CT a/p: Findings in the abdomen and pelvis appear relatively stable compared to the CT abdomen/pelvis from 05/12/2024. The urinary bladder remains decompressed with a Patino catheter in place showing some wall thickening and fat stranding
for which correlation with a urinalysis is recommended. 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
05/12/24 CT a/p: Interval advancement of the Patino catheter with tip and balloon within the urinary bladder. The known fistula is not well demonstrated on this examination. There is trace gas anteriorly within the urinary bladder, likely secondary
to instrumentation. There is extensive stranding within the perivesicular space which may represent infection/cystitis. Recommend correlation with urinalysis.
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 No intraperitoneal or extraperitoneal bladder rupture.
2. Patino catheter balloon is inflated within the mid penile urethra with catheter tip at the prostatic urethra.
[2024-05-23 11:25] VITALS: BP 125/74
[2024-05-23 11:45] VITALS: BP 127/86; PULSE 84; O2SAT 95
[2024-05-23] MEDS: ROCEPHIN 2000 MG IV (12:12)
[2024-05-23] MEDS: STERILE WATER FOR INJECTION 20 ML IV (12:12)
[2024-05-23 12:14] LABS: Glucose - Point of Care 116 mg/dl (70-99)
[2024-05-23 12:18] VITALS: BP 127/86; PULSE 84; O2SAT 95
--- NOTE | 2024-05-23 12:23 | W.PN.HOSP.TC ---
Addendum entered and electronically signed by Mariya Bowling MD 05/23/24 13:10:
I saw and evaluated the patient independently. I reviewed the resident�s note and agree with findings and plan as documented by Dr. Torres.
GENERAL: well developed, well nourished, male in no apparent distress
HEENT: NC/AT--no O2 requirements
HEART: irreg irreg
LUNGS : clear to auscultation bilaterally
ABDOM: soft, nontender, nondistended, + bowel sounds
EXT: no cyanosis, clubbing, or edema
NEUROLOGIC: grossly intact
: Coppola with clear yellow urine
Septic shock due to acute urinary tract infection (POA)---resolved--presented with hematuria/lower abdominal pain---blood cultures positive for multidrug resistant E. coli--initial CT A/P with contained Bladder Perforation w/ Fistulization of the
Prostate, repeat CT A/P without fistula--CBI stopped and xarelto restarted--apprec urology/ID following ---coppola to remain in place on d/c as per URO--ABX per ID--high dose cephalexin followed by amoxicillin per ID
diarrhea--C. diff ANTIGEN POSITIVE and toxin negative--nevertheless, since on ABX, will treat as if infected
acute blood loss anemia from hematuria and Xarelto contribution--resolved with CBI--did not need blood transfusion
Acute metabolic encephalopathy due to septic shock-- resolved
LLQ abd pain--repeat CT A/P unremarkable
FELY--due to septic shock, now resolved
Acute hypoxemic respiratory failure--unclear cause--possibly due to atelectasis/septic shock--doubt PNA while on ABX--CXR with top normal vascular sizes--off O2 05/21/24--cough--pt c/o--will recheck CXR
Permanent Atrial Fibrillation with RVR--Xarelto was on hold with prior hematuria, restarted 05/16/24 as hematuria resolved--cont Cardizem CD/Toprol XL
Other problems:
Essential HTN: cont Losartan/Cardizem/Toprol XL
HLD: Continue Atorvastatin
DM2: a1c 7.0%, SSI/accuchecks/Lantus, start Metformin
Hypokalemia, replete
DVT proph
code status -- FULL code
dispo--evaluating by [facility]--PT/OT recommending--OK for d/c if [facility] accepts
Original Note:
Today's Communication/Plan
-
.
Assessment / Plan
Assessment / Plan
1. Hematuria/Abdominal Pain
- CT Scan (from admission) showed a contained bladder perforation with fistulization of the prostate.
- Pt continues to have mild LLQ abdominal pain. Follow up CTs were benign. Pain control PRN.
- Urology on board and seeing the patient.
- Hgb stable.
- Blood cultures from 05/14 no growth.
- Pt to continue on IV Rocephin and PO Amoxicillin until date of discharge.
- Pt to be discharged to home on PO cephelexin and PO amoxicillin.
- Coppola continues to drain clear urine.
- Coppola to remain in until the patient follows up with [facility].
2. Septic Shock
- Positive preliminary blood culture - E. Coli
- WBC normal x 6 days.
- Temp 98.4
- IV ceftriaxone (PO cephalexin on d/c) and PO Amoxicillin until 05/26
3. Permanent A-fib
- Continue rate control.
4. HTN
- Continue home meds with holding parameters.
5. HLD
- Continue Atorvastatin
6. Type 2 DM
- Contine home meds -- accuchecks
7. DVT PPx
- SCD
8. Hypokalemia
- 3.6 today. Follow BMPs.
9. Acute Hypoxic Respiratory Distress
- Pt required 2 L O2 at times of respiratory distress.
- Has been stable on room air for 3 days, sat ~ 95%.
- Likely secondary to septic shock during this admission.
- Repeat CXR shows interval improvement in pulmonary congestion, no pneumonia.
- Continue abx for bacteremia and monitor symptoms, temperature, clinical exam findings.
- Continue Symbicort.
- Incentive Spirometry.
10. Diarrhea
- Resolved.
- C. Diff Ag positive, toxin negative. Likely colonization without active infection.
- Continue Vancomycin.
[facility]
Anticipated Discharge: Today
Subjective/Interval History
-
Date of Service: May 23, 2024
No acute complaints this morning. Notes better respiratory effort/cough, and no diarrhea. Does still feel run down and notes lingering lower abdominal pain.
Objective Data
-
Labs:
Laboratory Results
05/23/24
08:57
WBC 9.6
Hgb 13.7
Hct 39.6
Plt Count 205
Sodium 135
Potassium 3.6
Chloride 97 L
Carbon Dioxide 27
BUN 8 L
Creatinine 0.8
Glucose 130 H
Calcium 8.4
Vital Signs:
Vital Signs
Temp Pulse Resp BP Pulse Ox
98.4 F 65 18 145/95 95
05/23/24 07:10 05/23/24 07:54 05/23/24 07:54 05/23/24 07:10 05/23/24 07:54
I&O
05/22/24 05/23/24 05/24/24
06:59 06:59 06:59
Intake Total 1200 / 1200
Output Total 2099 / 2099
Balance -900 / -900
Review of Systems
-
History Source: Patient
Constitutional: Reports No Symptoms
Respiratory: Reports No Symptoms
Cardiac: Reports No Symptoms
Abdomen/GI: Reports Abdominal Pain (improved but lingering, LLQ)
Neuro: Reports No Symptoms
Physical Exam
-
General: Well Developed, Well Nourished, No Apparent Distress, Conversant, Obese and Other (mildly uncomfortable)
HEENT: Normocephalic and Atraumatic
Respiratory: Clear to Auscultation
Cardiac: Irregular Rhythm
GI: Soft, Nontender, Normal Bowel Sounds and Other
Skin: Warm and Dry
Neuro: Awake, Alert and Oriented
Psych: Calm
Data Reviewed
-
Diagnostic Radiology: Report Reviewed by me and Discussed with Patient
Labs: Labs Reviewed by me and Discussed with Patient
[2024-05-23 15:09] VITALS: BP 138/87
--- NOTE | 2024-05-23 17:55 | W.DCSUMMARY ---
Addendum entered and electronically signed by Mariya Bowling MD 05/23/24 19:31:
Read, reviewed, and agree. See same day progress note for additional details. Time spent coordinating care, DC planning, review of DC plan of care with resident, transition of care, review of records in EMR, med rec, consults, notes, d/w
consultants, nursing, family, and CM = 38 minutes
Original Note:
Discharge Summary
Discharge Data
Date of Admission: 05/12/24
Date of Discharge: 05/23/24
-
Pending Results: No
Hospital Course
Peter Briceno is a 74-year-old male with a past medical history of COPD, obesity, permanent atrial fibrillation, on Xarelto, factor V Leiden, and prostate cancer status post aqua ablation performed 1 month prior to this admission. He presented to
the emergency department at [facility] on May 12, 2024 with penile pain, abdominal pain, and hematuria. The patient was in his usual state of health, until the day of admission when at around 1 AM he woke up with abdominal pain that
was described as sharp, localized to the lower abdomen, and without radiation. The patient wears Depends diapers to bed and noticed that there was blood in the diaper. He had assumed it was hemorrhoids, however when he went to the bathroom he saw
blood in his urine.
Upon arrival to the emergency room, the emergency team attempted to place a Coppola which was met with resistance. A coud� catheter was then attempted instead, which drained carmen blood. Additionally, a CT scan was performed which showed a contained
urinary bladder perforation with fistulization to the prostate. Urinalysis in the emergency department showed 1+ leukocyte esterase, and 4+ occult blood. Blood count and metabolic panel results at that time were within normal limits. The decision
was made to hold the patient's Xarelto, and admit the patient to [facility] on 05/12/2024.
On the day of his admission, the patient awaited a bed and remained in the emergency department for the rest of the day. Throughout the day, the patient developed rapid atrial fibrillation requiring a cardiology consult and Cardizem drip. The
patient was subsequently upgraded to an IMU admission to titrate Cardizem and was given 5 mg of IV Lopressor since the Cardizem was not helping. Heart rates were as high as 190s, but were controlled on Lopressor in the 110s. At approximately 5:30
PM that day a rapid response was called in the ED as the patient had a marked drop in blood pressure and became somewhat unresponsive. The patient was started empirically on BiPAP with improvement of his responsiveness. He was presumed to be
septic and a wide open IV fluid bolus was given, vancomycin was added to Zosyn, and intravenous Tylenol was given for temperature of 102. Labs chest x-ray and EKG were all stable compared to earlier labs EKG and studies. The patient was upgraded
again to ICU status and subsequently moved.
On day 1 of this admission, the patient's responsiveness had markedly improved. However his white count was now 40.4 and he had a temperature of 102. Patient's hemoglobin was dropping to 14.9, and his creatinine had risen to 1.9. At this point
urology had placed a three-way Coppola catheter for continuous bladder irrigation. The patient's Coppola was starting to show improvement in color. The patient would still have episodes of hypotension, and would require Levophed as needed. In addition
blood cultures have started to turn positive for E. coli and Zosyn was continued. The patient's bladder discomfort was controlled on pain medications and he stated that he subjectively felt better.
Over the next few days hematuria was resolving on continuous bladder irrigation, however the patient's hemoglobin continued to drop. The patient was admitted with a hemoglobin around 17, and thus had a large reserve. However his hemoglobin dropped
to a low point of 11.8. Although he was asymptomatic and rebounded with regards to his hemoglobin and hematocrit, the patient consented for blood and was typed/crossed for safe measure. Over the next 3 days the patient's white blood cell count
dropped from 40 to within normal range and stayed within normal range for the rest of his admission.
As the patient's permanent atrial fibrillation was hard to control, Cardizem was increased to 60 mg four times a day by day 4 of the admission and Toprol was increased to 50 mg in the AM and 25 mg in the PM by day 6. As the coppola continued to drain
clear urine around this time, the continuous bladder irrigation was discontinued. Also around this time, the patient's Xarelto was restarted as a result of the patient no longer having blood in his urine. Cultures began to result and sensitivities,
and the E. coli was found to be multidrug-resistant. Zosyn was discontinued on day 6, and the patient was began on intravenous Rocephin and PO amoxicillin. Since the patient continued to have abdominal pain a repeat CT was obtained. Findings
showed a relatively stable abdomen compared to the CT taken on admission and no acute intra-abdominal pathologies were noted.
Was determined by urologist that the Coppola was to remain in place until the patient was followed up with [facility]. They felt that since the patient required Coppola as a result of the patient's past procedure, they would be responsible for
removing the Coppola. The patient was to be discharged home with a midline and preparations were made for infusions of antibiotics and infusion center until he completed his course on May 26. However at this time the patient started to exhibit
signs of respiratory distress, cough, and diarrhea. The patient tested positive for C. difficile antigen however C. difficile toxin was negative. This was interpreted as a positive for colonization but negative for infection. However since the
patient was already on a strong course of antibiotics, decision was made to also treat the C. difficile. The patient was thus started on a course of vancomycin. With regards to the patient's cough, the chest x-ray showed pulmonary vascular
congestion and atelectasis, however no pneumonia. Patient was treated with DuoNebs and oxygen by nasal cannula as needed, and over the next 2 days was weaned off of oxygen. By time of discharge the patient was averaging 95% oxygen saturation on
room air. The patient's diarrhea had also resolved.
Given the patient's deconditioning, the decision was made to discharge to acute rehab. The patient was evaluated by [facility] and the patient was discharged there on May 23, 2024. The patient was discharged on oral amoxicillin which
was to be taken until May 26, and oral high-dose cephalexin which was to be taken until May 26. He was also discharged on oral vancomycin which was to be continued until May 30.
Discharge Plan
-
Patient Disposition: Acute Rehab Facility
Discharge Diagnosis/Procedures: Septic Shock Due to Acute UTI
Contained Bladder Perforation
Acute Blood Loss Anemia
Acute Kidney Injury
Acute Hypoxemic Respiratory Failure
Permanent Atrial Fibrillation
Condition: Fair
Diet: Diabetic, Carb Controlled
Activity: As tolerated
Referrals:
Scar Aguilar MD [Active] - 08/29/24 2:00 pm
Steffen Dao MD [Family Provider] - in less than 1 week
Sharon Johnson PA-C [Specified Professional Personl] - 06/09/24 3:40 pm (You have a follow up visit with Dr. Rubio's PASharon, at the [place] office. Please call with questions. )
Prescriptions:
New
amoxicillin 500 mg Capsule
500 mg PO Q8H Qty: 10 0RF
vancomycin 125 mg capsule
125 mg PO Q6H Qty: 30 0RF
cephalexin 500 mg tablet
1,000 mg PO QID Qty: 30 0RF
metoprolol succinate 50 mg Tablet Extended Release 24 Hr
50 mg PO DAILY @ 0600 Qty: 30 0RF
metformin 1,000 mg Tablet
1,000 mg PO BID@0800,1700 Qty: 30 0RF
metoprolol succinate 25 mg Tablet Extended Release 24 Hr
25 mg PO DAILY@1900 Qty: 30 0RF
Continued
diltiazem HCl 240 MG capsule,extended release 24hr
240 mg PO DAILY
Xarelto 20 MG tablet
20 mg PO HS
chlorthalidone 25 MG tablet
25 mg PO DAILY
eszopiclone [Lunesta] 3 MG tablet
3 mg PO HS
atorvastatin 20 MG tablet
20 mg PO HS
glipizide 5 mg Tablet Extended Release 24hr
15 mg PO DAILY
potassium chloride 20 mEq Tablet,Er Particles/Crystals
20 meq PO BID
losartan 100 mg Tablet
100 mg PO DAILY
polyethylene glycol 3350 [Miralax] 17 gram powder in packet
17 g PO DAILYPRN PRN (Reason: constipation)
fluticasone propion-salmeterol [Advair Diskus] 250-50 mcg/dose Blister With Device
1 inh INHALATION 4-8XD PRN (Reason: sob)
acetaminophen [Tylenol Arthritis Pain] 650 mg Tablet Extended Release
1,300 mg PO HS
pantoprazole [Protonix] 40 mg Tablet,Delayed Release (Dr/Ec)
40 mg PO DAILY
Jardiance 10 mg Tablet
10 mg PO DAILY
Discharge Orders:
Discharge Patient (As Directed); Ordered 05/23/24
Ordered By: Jewel Torres
Discharge Date and Time
Discharge Date/Time: 05/23/24 16:56
Print Language: OMANI
== END 2024-05-23 16:56 | DRG 871 ==
LOC: 2 NORTH 12:06
PROVIDERS: Internal Medicine; Nurse Practitioner Primary Care; Physician Assistant; Student in an Organized Health Care Education/Training Program; ADMITTING PHYSICIAN Internal Medicine; CONSULT PHYSICIAN Internal Medicine Critical Care Medicine; EMERGENCY PHYSICIAN Emergency Medicine; FAMILY PHYSICIAN Family Medicine; OTHER PHYSICIAN Internal Medicine Infectious Disease; OTHER PHYSICIAN Internal Medicine Interventional Cardiology; OTHER PHYSICIAN Specialist
PROC: 5A09357 Assistance with Respiratory Ventilation, Less than 24 Consecutive Hours, Continuous Positive Airway Pressure (ICD-10-PCS; 2024-05-12)
DX: A41.51 Sepsis due to Escherichia coli [E. coli] (principal); G93.41 Metabolic encephalopathy; J96.01 Acute respiratory failure with hypoxia; R65.21 Severe sepsis with septic shock; I48.21 Permanent atrial fibrillation; D68.51 Activated protein C resistance; Z16.24 Resistance to multiple antibiotics; I31.9 Disease of pericardium, unspecified; N17.9 Acute kidney failure, unspecified; S37.29XA Other injury of bladder, initial encounter; D62 Acute posthemorrhagic anemia; D68.32 Hemorrhagic disorder due to extrinsic circulating anticoagulants; N39.0 Urinary tract infection, site not specified; E87.20 Acidosis, unspecified; J44.9 Chronic obstructive pulmonary disease, unspecified; E11.9 Type 2 diabetes mellitus without complications; I87.2 Venous insufficiency (chronic) (peripheral); G47.33 Obstructive sleep apnea (adult) (pediatric); N32.89 Other specified disorders of bladder; E83.42 Hypomagnesemia; T45.515A Adverse effect of anticoagulants, initial encounter; E66.01 Morbid (severe) obesity due to excess calories; I10 Essential (primary) hypertension; E78.00 Pure hypercholesterolemia, unspecified; R33.8 Other retention of urine; E87.6 Hypokalemia; Y84.6 Urinary catheterization as the cause of abnormal reaction of the patient, or of later complication, without mention of misadventure at the time of the procedure; Z68.37 Body mass index [BMI] 37.0-37.9, adult; Z22.39 Carrier of other specified bacterial diseases; Z86.718 Personal history of other venous thrombosis and embolism; Z86.711 Personal history of pulmonary embolism; Z86.73 Personal history of transient ischemic attack (TIA), and cerebral infarction without residual deficits; Z87.891 Personal history of nicotine dependence; Z91.040 Latex allergy status; Z92.3 Personal history of irradiation; Z85.46 Personal history of malignant neoplasm of prostate; Z79.899 Other long term (current) drug therapy; Z88.5 Allergy status to narcotic agent; Z88.8 Allergy status to other drugs, medicaments and biological substances; Z79.84 Long term (current) use of oral hypoglycemic drugs; Z79.51 Long term (current) use of inhaled steroids; Z79.01 Long term (current) use of anticoagulants
CPT/HCPCS: 36600; 51702; 51798; 70450; 71045; 71046; 74177; 80048; 80053; 80202; 81003; 81015; 82248; 82330; 82805; 82962; 83605; 83735; 84100; 84132; 84302; 84484; 85014; 85018; 85025; 85027; 85610; 85730; 87040; 87077; 87086; 87149; 87186; 87205; 87324; 87449; 93005; 93306; 94640; 94660; 97116; 97163; 97167; 97530; 97535; 99285; P9047; Q9950; Q9967

== ENCOUNTER → 2024-06-14 10:13 | Outpatient (REF) | payer MEDICARE, OTHER, SELFPAY ==
[2024-06-14 11:35] LABS: Urine Albumin 1+ (Neg - Trace); Urine Bilirubin 1+ (Negative); Urine Character Clear (Clear); Urine Color Yellow; Urine Glucose 3+ (Negative); Urine Ketone Negative (Negative); Urine Leukocyte 1+ (Negative); Urine Nitrite Negative (Negative); Urine Occult Blood 2+ (Negative); Urine Urobilinogen Negative (Neg - 1+)
[2024-06-14 12:01] LABS: Urine Bacteria Moderate (Negative); Urine Red Blood Cell 16-20 /HPF (0-2); Urine White Cell 30-40 /HPF (0-5)
[2024-06-14 12:02] LABS: % Basophils 0.4 % (0-2); % Eosinophils 3.3 % (0-6); % Immature Granulocytes 0.4 % (0-0.5); % Lymphocytes 11.5 % (20.5-51.1); % Monocytes 9.3 % (1.7-9.3); % Neutrophils 75.1 % (42.2-75.2); Absolute Eosinophils 0.3 10^3/uL (0-0.7); Absolute Lymphocytes 0.9 10^3/uL (1.2-3.4); Absolute Monocytes 0.7 10^3/uL (0.1-0.6); Absolute Neutrophils 5.8 10^3/uL (1.4-6.5); Hematocrit 47.4 % (39.0-52.0); Hemoglobin 14.8 g/dL (13.0-18.0); Mean Corp Hgb Conc. 31.2 g/dL (33.0-37.0); Mean Corpuscular Hgb 28.2 pg (27.0-31.0); Mean Corpuscular Volume 90.3 fL (80.0-94.0); Nucleated Red Blood Cells % 0 % (-); Platelet Count 192 10^3/uL (130-400); Red Blood Cell Count 5.25 10^6/uL (4.70-6.10); Red Cell Dist. Width 15.3 % (11.5-14.5); White Blood Cell Count 7.8 10^3/uL (4.8-10.8)
[2024-06-14 12:29] LABS: ALT (SGPT) 19 U/L (0-50); AST (SGOT) 20 U/L (17-59); Albumin 3.8 g/dl (3.5-5.0); Alkaline Phosphatase 106 U/L (38-126); Blood Urea Nitrogen 18 mg/dl (9-20); Carbon Dioxide 30 mmol/L (22-30); Chloride 101 mmol/L (98-107); Glucose 107 mg/dl (70-99); Potassium 3.9 mmol/L (3.5-5.1); Sodium 142 mmol/L (135-145); Total Bilirubin 1.1 mg/dl (0.2-1.3); Total Protein 6.3 g/dl (6.3-8.2); eGFR > 60.00
== END ==
LOC: REG 10:13
PROVIDERS: FAMILY PHYSICIAN Family Medicine
DX: N39.0 Urinary tract infection, site not specified (principal); Z86.19 Personal history of other infectious and parasitic diseases; J98.4 Other disorders of lung; I48.20 Chronic atrial fibrillation, unspecified; E11.59 Type 2 diabetes mellitus with other circulatory complications; F51.04 Psychophysiologic insomnia; C61 Malignant neoplasm of prostate
CPT/HCPCS: 36415; 80053; 81003; 81015; 85025; 87086

== ENCOUNTER → 2024-07-19 09:45 | Outpatient (REF) | payer MEDICARE, OTHER, SELFPAY ==
[2024-07-19 10:20] LABS: Urine Albumin 1+ (Neg - Trace); Urine Bilirubin Negative (Negative); Urine Character Clear (Clear); Urine Color Yellow; Urine Glucose 3+ (Negative); Urine Ketone Negative (Negative); Urine Leukocyte Trace (Negative); Urine Nitrite Negative (Negative); Urine Occult Blood 2+ (Negative); Urine Specific Gravity 1.015 (<1.030); Urine Urobilinogen Negative (Neg - 1+)
[2024-07-19 11:02] LABS: Urine Amorphous Seen; Urine Red Blood Cell 30-40 /HPF (0-2)
[2024-07-19 11:07] LABS: Urine White Cell 30-40 /HPF (0-5)
== END ==
LOC: REG 09:45
PROVIDERS: ATTENDING PHYSICIAN Family Medicine
DX: R35.0 Frequency of micturition (principal); R39.9 Unspecified symptoms and signs involving the genitourinary system
CPT/HCPCS: 81003; 81015; 87086

== ENCOUNTER 2024-08-19 08:35 | Outpatient (RCR) | payer MEDICARE, OTHER, SELFPAY | END 2024-08-19 23:59 | disposition home or self-care (01) | LOC: RPT 08:35 | PROVIDERS: ATTENDING PHYSICIAN Family Medicine | DX: R26.2 Difficulty in walking, not elsewhere classified (principal); Z73.6 Limitation of activities due to disability; M62.81 Muscle weakness (generalized); R26.89 Other abnormalities of gait and mobility; M25.562 Pain in left knee; M25.561 Pain in right knee | CPT/HCPCS: 97110; 97112; 97163; 97530 ==

== ENCOUNTER 2024-08-23 15:45 | Outpatient (RCR) | payer MEDICARE, OTHER, SELFPAY | END 2024-08-23 23:59 | disposition home or self-care (01) | LOC: RPT 15:45 | PROVIDERS: ATTENDING PHYSICIAN Family Medicine | DX: R26.2 Difficulty in walking, not elsewhere classified (principal); Z73.6 Limitation of activities due to disability; M62.81 Muscle weakness (generalized); R26.89 Other abnormalities of gait and mobility; M25.562 Pain in left knee; Z85.46 Personal history of malignant neoplasm of prostate; M25.561 Pain in right knee | CPT/HCPCS: 97110; 97112 ==

== ENCOUNTER 2024-08-30 13:07 | Inpatient (IN) | payer MEDICARE, OTHER, SELFPAY ==
[2024-08-30] VITALS (12 sets, daily range): BP systolic 113–158; BP diastolic 69–95; BMI 33.6
--- NOTE | 2024-08-30 09:06 | ED.GENMED ---
History of Present Illness
General
Chief Complaint: Abdominal Pain
Time Seen by Provider: 08/30/24 08:51
History of Present Illness
History of Present Illness:
74-year-old male with history of A-fib on Xarelto, COPD, hypertension, hyperlipidemia, and prior bowel obstruction presents to the emergency department for evaluation of acute onset of generalized abdominal pain associated with nausea and vomiting
beginning at approximately 3 AM. He did have a bowel movement this morning but since that time has not passed any gas. Prior abdominal surgeries include open cholecystectomy and ventral hernia repair. Does have a history of BPH with chronic
recurrent UTIs, reporting penile irritation, wears a depends chronically. Feels as though he has been voiding his bladder well today
Past History
Past History
ED Past Medical History: Arrthythmia (Atrial fibrillation), COPD, CVA, HTN (Quit last week.), Hypercholesterolemia, Other (hepatitis), Other (pulmonary embolism) and Other (Pericarditis in 1976, DVT in 1999 with an IVC filter, hypertension,blood
clots left leg, with filter)
ED Past Surgical History: Cholecystectomy and Other (left testicular repair, varicose vein stripping,)
Social History
Tobacco: Former smoker
Alcohol: Occasional
Drug: None
Personal:
Living: with family
Employment: Employed
Family History
Family History: Other (Noncontributory )
Review of Systems
Review of Systems
Allergies reviewed?: Yes
All Other Systems: ROS reviewed and negative except as documented in HPI and ROS
Phy Exam
Physical Exam
Physical Exam:
GEN: Well appearing, NAD, WDWN
HEENT: Oral mucosa moist, no scleral icterus
Cardiac: Regular rate and rhythm, no murmurs
Lung: No respiratory distress, no tachypnea
Abdomen: Protuberant/distended, generalized tenderness to all 4 quadrants
: Patchy erythema with satellite papules to the glans penis suggestive of candidal dermatitis
MSK: No gross deformity or injuries
Skin: Good color, no pallor or jaundice, no rashes
Neuro: AO x3, moves all extremities freely
Psych: Calm, cooperative
Course
Orders/Labs/Results
Orders:
Orders
08/30/24 08:27
Electrocardiogram (*1) Urgent
Reason for Study: Abdominal Pain
EKG- Treatment ONCE
08/30/24 08:59
Cardiac Monitoring- Treatment ONCE
IV Insert/Care/Rem.- Treatment PRN
08/30/24 09:04
HYDROmorphone [Dilaudid] 0.5 mg IV NOW STA
Ondansetron Injectable [Zofran] 4 mg IV NOW STA
08/30/24 09:05
CT Abd/Pel (IV only)-DH only Urgent
Comment:
Reason For Exam: abd distention/generalized pain
Bladder Scan- Treatment ONCE
Urinalysis Reflex To Culture Urgent
08/30/24 09:14
Complete Blood Count/With Diff Urgent
Comprehensive Metabolic Panel Urgent
Lactic Acid Urgent
Lipase Urgent
08/30/24 10:19
HYDROmorphone [Dilaudid] 0.5 mg .ROUTE .STK-MED ONE
08/30/24 10:22
HYDROmorphone [Dilaudid] 0.5 mg IV NOW STA
08/30/24 10:44
NG Tube [GI tube insertion- Treatment] ONCE
08/30/24 12:09
HYDROmorphone [Dilaudid] 0.5 mg IV NOW STA
08/30/24 12:29
Admit/Transfer Patient As Directed
Co-Sign Provider:
Level of Care: Inpatient admission
Assign to:: Telemetry
Physician / Group: kale
Diagnosis: SBO
Reason for Telemetry: Arrhythmia
Date to Stop Telemetry: 09/02/24
Time to Stop Telemetry: 11:00
Reason for Hospitalization: SBO
Expected length of stay greater than two midnights?: Yes
ELOS- Estimated Length of Stay in days: 3
I certify the patient meets the requirements for IP care: Yes
08/30/24 12:30
PRN Pain Medication Management As Directed
May give lesser potent ordered pain med per pt: Yes
preference::
Protocol:: Medication orders for pain may be administered in a
manner that supports deferring to patient preference
when the pt is:
- Requesting an ordered lesser potent pain medication.
Least to most potent pain medications are defined
as: acetaminophen < NSAID < tramadol < opioids
(morphine, oxycodone, hydromorphone).
- Requesting a lesser dose of the same medication IF
ORDERED.
- Requesting a less intrusive route of administration
if both routes are prescribed by the provider (PO <
IV).
08/30/24 12:31
Code Status As Directed
Resuscitation Status: Full Code
09/02/24 11:00
DC Protocol for Telemetry ONCE
Abnormal Lab Results
08/30/24
09:14
WBC 12.6 H 10^3/uL
(4.8-10.8)
RBC 6.36 H 10^6/uL
(4.70-6.10)
Hct 52.3 H %
(39.0-52.0)
MCH 25.8 L pg
(27.0-31.0)
MCHC 31.4 L g/dL
(33.0-37.0)
RDW 17.3 H %
(11.5-14.5)
Abs Immat Gran (auto) 0.1 H 10^3/uL
(0-0.05)
Absolute Neuts (auto) 10.9 H 10^3/uL
(1.4-6.5)
Absolute Lymphs (auto) 0.6 L 10^3/uL
(1.2-3.4)
Absolute Monos (auto) 0.9 H 10^3/uL
(0.1-0.6)
Immature Gran % 0.6 H %
(0-0.5)
Neutrophils % 87.0 H %
(42.2-75.2)
Lymphocytes % 4.7 L %
(20.5-51.1)
Chloride 95 L mmol/L
(98-107)
Carbon Dioxide 35 H mmol/L
(22-30)
BUN 24 H mg/dl
(9-20)
Glucose 254 H mg/dl
(70-99)
08/30/24 09:14
08/30/24 09:14
Vital Signs
Initial and Last Documented VS:
Initial Vital Signs
Temp Pulse Resp BP Pulse Ox
98.6 F 58 18 139/71 96
08/30/24 08:23 08/30/24 08:23 08/30/24 08:23 08/30/24 08:23 08/30/24 08:23
Last Documented Vital Signs
Temp Pulse Resp BP Pulse Ox
98.6 F 106 20 113/69 97
08/30/24 08:23 08/30/24 12:15 08/30/24 12:15 08/30/24 12:00 08/30/24 12:15
MDM/Problems Addressed
MDM/Problems Addressed:
Imaging reveals small bowel obstruction. The patient refused NG tube placement after initial attempt caused him distress and he self removed the tube. At this time he is not actively vomiting thus we will hold further attempts of NG tube
placement. Will admit to the hospitalist service for further management
*Critical Care Note
Total Time (30-74mins, 75-104mins- exclusive of procedures): Not Applicable
Update Note
Update Note:
08/30/2024 1100 AM: Attempted NG tube placement, patient began vomiting during insertion and removed tube, refuses further placement attempts
ED Attending Note
-
Portions of this chart may have been created with voice recognition software.� Occasional wrong word or��sound alike� substitutions may have occurred due to the inherent limitations of voice recognition software.
Discharge Plan
Departure
Patient Disposition: Admit
Date of Disposition: 08/30/24
Time of Disposition: 11:50
Admit to: Med/Surg
Presentation/result/management discussed w/ accepting MD/DO: Hospitalist
Discharge Problem:
Small bowel obstruction
Interventions
Interventions:
*Risk Screen - Suicide Last Done: 08/30/24 09:42
*General Assessment Last Done: 08/30/24 09:42
*Neglect/Abuse Screening Last Done: 08/30/24 09:42
ED- Fall Risk Assessment Last Done: 08/30/24 09:15
*ED COVID-19 Vaccine History Last Done: 08/30/24 09:42
OQ-Zhthjr-Galameqqbc Assessment Last Done: 08/30/24 09:40
[2024-08-30] MEDS: DILAUDID 0.5 MG IV ×3 (09:18→12:13)
[2024-08-30] MEDS: ZOFRAN 4 MG IV ×2 (09:19→23:32)
[2024-08-30 09:39] LABS: % Basophils 0.1 % (0-2); % Eosinophils 0.5 % (0-6); % Immature Granulocytes 0.6 % (0-0.5); % Lymphocytes 4.7 % (20.5-51.1); % Monocytes 7.1 % (1.7-9.3); Absolute Eosinophils 0.1 10^3/uL (0-0.7); Absolute Immature Granulocytes 0.1 10^3/uL (0-0.05); Absolute Lymphocytes 0.6 10^3/uL (1.2-3.4); Absolute Monocytes 0.9 10^3/uL (0.1-0.6); Absolute Neutrophils 10.9 10^3/uL (1.4-6.5); Hematocrit 52.3 % (39.0-52.0); Hemoglobin 16.4 g/dL (13.0-18.0); Mean Corp Hgb Conc. 31.4 g/dL (33.0-37.0); Mean Corpuscular Hgb 25.8 pg (27.0-31.0); Mean Corpuscular Volume 82.2 fL (80.0-94.0); Mean Platelet Volume 8.9 fL (7.4-10.4); Nucleated Red Blood Cells % 0 % (-); Platelet Count 185 10^3/uL (130-400); Red Blood Cell Count 6.36 10^6/uL (4.70-6.10); Red Cell Dist. Width 17.3 % (11.5-14.5); White Blood Cell Count 12.6 10^3/uL (4.8-10.8)
[2024-08-30 09:43] LABS: Lactic Acid 1.6 mmol/L (0.7-2.0)
[2024-08-30 09:49] LABS: ALT (SGPT) 22 U/L (0-50); AST (SGOT) 21 U/L (17-59); Albumin 3.9 g/dl (3.5-5.0); Alkaline Phosphatase 111 U/L (38-126); Blood Urea Nitrogen 24 mg/dl (9-20); Calcium 9.6 mg/dl (8.4-10.2); Carbon Dioxide 35 mmol/L (22-30); Chloride 95 mmol/L (98-107); Estimated Creatinine Clearance 62 ml/min; Glucose 254 mg/dl (70-99); Lipase 122 U/L (23-300); Potassium 3.9 mmol/L (3.5-5.1); Sodium 137 mmol/L (135-145); Total Bilirubin 1.1 mg/dl (0.2-1.3); Total Protein 6.3 g/dl (6.3-8.2); eGFR > 60.00
--- NOTE | 2024-08-30 10:17 | EDRN ---
Pain increasing again and now 8/10, decreased to 7/10 w/ D. Stella FRANCOIS notified.
--- NOTE | 2024-08-30 11:00 | EDRN ---
Attempted to place NGT. Was going in w/ ease. Pt grabbed tube and pulled it out stating he does want an NGT placed at this time.
--- NOTE | 2024-08-30 11:08 | EDRN ---
Ariel Douglas PA in room w/pt at this time.
--- NOTE | 2024-08-30 12:12 | HPS.HSE ---
Family Physician
-
Family Physician: Steffen Dao
Chief Complaint
-
abdominal pain
History of Present Illness
74-year-old male with history of A-fib on Xarelto, COPD, hypertension, hyperlipidemia, and prior bowel obstruction presents to the emergency department for evaluation of acute onset of generalized abdominal pain associated with nausea and vomiting
beginning since this morning. he did have a bowel movement this morning but since that time has not passed any gas. Patient denied headache, dizzy or syncope. Patient denied fever, chills, chest pain, short of breath. Patient denied
dysuria,hematuria.
ct with mild obstruction
Medical History
Past Medical History
Past Medical History: Reports Other
Additional Past Medical History:
Bilateral carotid arteries occlusion/stenosis
Incisional hernia
Prostate cancer
Type 2 diabetes
Nonalcoholic fatty liver disease
Restrictive lung disease
Artery ischemic stroke
Obstructive sleep apnea
Heart failure
Insomnia
A-fib
stroke
Past Surgical History: Reports Other
Additional Past Surgical History:
Cholecystectomy
Tonsillectomy
Hernia repair
Social History
Tobacco: Former Smoker
Alcohol: None
Drug: None
Employment: Retired
Family History
Family History: Not pertinent
Allergies / Home Medications
Allergies reflects when Allergies were last updated in [facility].
Home Medications with original date entered in [facility]
Allergy/Medication List:
Allergies
Allergy/AdvReac Type Severity Reaction Status Date / Time
adhesive Allergy Intermediate TAPE-RASH Verified 08/30/24 08:23
latex Allergy Intermediate Hives Verified 08/30/24 08:23
metoclopramide HCl Allergy Intermediate muscle Verified 08/30/24 08:23
[From Reglan] twitching
oxycodone [From Percocet] Allergy Intermediate Vomiting Verified 08/30/24 08:23
oxycodone terephthalate Allergy Intermediate vomiting Verified 08/30/24 08:23
[From Percodan]
prochlorperazine maleate Allergy Intermediate vomiting Verified 08/30/24 08:23
[From Compazine]
propoxyphene HCl Allergy Intermediate vomiting Verified 08/30/24 08:23
[From Darvon]
Home Medications
diltiazem HCl 240 mg capsule,extended release 24 hr 240 mg PO DAILY Blood pressure 12/20/14
rivaroxaban 20 mg tablet (Xarelto) 20 mg PO HS Blood clot prevention/tx 09/16/16
eszopiclone 3 mg tablet (Lunesta) 3 mg PO HS Sleep 02/10/20
atorvastatin 20 mg tablet 20 mg PO HS High cholesterol 05/09/20
polyethylene glycol 3350 17 gram oral powder packet (Miralax) 17 g PO DAILYPRN PRN constipation 12/16/23
pantoprazole 40 mg tablet,delayed release (Protonix) 40 mg PO DAILY Gastrointestinal Issue 05/12/24
clotrimazole 1 % topical cream (Athlete's Foot (clotrimazole)) 1 applic topical BID skin/rash/groin 30 days #25 grams 06/01/24
empagliflozin 10 mg tablet (Jardiance) 10 mg PO DAILY diabetes 30 days #30 tabs 06/01/24
magnesium oxide 500 mg PO BID supplement 30 days #60 tabs 06/03/24
chlorthalidone 25 mg tablet 25 mg PO DAILY 08/30/24
fluticasone 250 mcg-salmeterol 50 mcg/dose blistr powdr for inhalation (Advair Diskus) 2 inh inhalation R BID copd, wheezing 08/30/24
glipizide 5 mg tablet, extended release 24 hr 15 mg PO DAILY 08/30/24
losartan 100 mg tablet 100 mg PO DAILY 08/30/24
potassium chloride 20 mEq tablet,extended release 20 meq PO BID 08/30/24
Review of Systems
-
Constitutional: Reports No Symptoms
EENT: Reports No Symptoms
Respiratory: Reports No Symptoms
Cardiac: Reports No Symptoms
Abdomen/GI: Reports Abdominal Pain, Nausea and Vomiting
: Reports No Symptoms
Musculoskeletal: Reports No Symptoms
Skin: Reports No Symptoms
Neurological: Reports No Symptoms
Endocrine: Reports No Symptoms
Hematologic/Lymphatic: Reports No Symptoms
Psych: Reports No Symptoms
Physical Exam
Vital Signs
Vital Signs
Temp Pulse Resp BP Pulse Ox
98.6 F 117 18 131/95 98
08/30/24 08:23 08/30/24 11:00 08/30/24 11:00 08/30/24 11:00 08/30/24 09:45
Physical Exam
General: Well Developed, Well Nourished and No Apparent Distress
HEENT: NormoCephalic, Moist mucous membranes and Atraumatic
Respiratory: Clear
Cardiac: S1/S2 and Regular Rhythm; No Murmur or Rub
GI: Normal Bowel Sounds, Tender and Distended; No Organomegaly
Rectal: Deferred by Provider
Musculoskeletal: No Clubbing, No Cyanosis and No Edema
Skin: No Rash
Neuro: AO x 3 and Nonfocal/grossly intact
Psych: Calm
Laboratory Results
-
08/30/24 09:14
08/30/24 09:14
Laboratory Results
Lactic Acid 1.6 mmol/L (0.7-2.0) 08/30/24 09:14
Total Bilirubin 1.1 mg/dl (0.2-1.3) 08/30/24 09:14
AST 21 U/L (17-59) 08/30/24 09:14
ALT 22 U/L (0-50) 08/30/24 09:14
Alkaline Phosphatase 111 U/L (38-126) 08/30/24 09:14
Lipase 122 U/L (23-300) 08/30/24 09:14
Data Reviewed
-
CT Scan: Report Reviewed by me
Lab Data: Labs Reviewed by me
Impression/Plan
-
# Small bowel obstruction
-Keep patient n.p.o.
-Fluids continued for hydration
-Surgery consult
-CT abdomen pelvis with impression of Mid small bowel obstruction with transition point in the upper anterior mid pelvis subjacent to the midline anterior pelvic wall. Curvilinear calcific density in the small bowel/probable ingested material 5 mm
hepatic cyst Diverticuli are present in the colon with no CT evidence of diverticuliti. Multilevel degenerative disc disease
-dilaudid prn for pain
-zofran prn for n/v
# Leukocytosis likely stress reaction
-WBC 12.6
-Continue to monitor
#essential HTN: cont Losartan/Cardizem
-Hold chlorthalidone
#HLD: Continue Atorvastatin
#DM2 with hyperglycemia
-, SSI/accuchecks
-Hold diabetic medicine
# GERD
- PPI
# Atrial FaBB
EKG with A-fib-
-hold Eliquis
-Cardizem continued
code status -- FULL code
--- NOTE | 2024-08-30 12:19 | EDRN ---
Pt's pain and 02/26 again. Pt informed about what is causing the pain and the fluids accumulating in his gut w/ no place to go. Pt is still refusing the NGT and stated 'If it is so important, sedate me, place it and wake me up after it is removed.'
--- NOTE | 2024-08-30 12:25 | EDRN ---
Dr. Deng in room w/ pt at this time.
--- NOTE | 2024-08-30 12:54 | CON.GS ---
Medical History
-
Chief Complaint: Abdominal pain, nausea, emesis
History of Present Illness:
Patient is a 74 yo M with a PMH of obesity, GERD, HTN, HLD, A-fib (on Xarelto) cx/b CVA, COPD (no home O2), DVT/PE s/p IVC filter, NIDDM, bilateral carotid stenosis, prostate cancer s/p aqublation c/b perforation with bladder fistula formation to
the prostate, s/p open cholecystectomy, s/p open ventral incisional hernia repair with mesh, recurrent SBO's s/p exploratory laparotomy and lysis of adhesions. Mr. Briceno states that he developed abdominal pain, distention, nausea, and a single
episode of emesis this morning. Prior to this he states doing well. He denies any chronic GI issues such as constipation or diarrhea denies any intermittent bloating nausea issues. Prior history of bowel obstructions and operative exploration is
clear without signs like he has multiple procedures as a relates to this. He states that his last operation was years ago and being either [place] or [place]. Currently he states that his abdominal pain has improved. Denies any current
nausea. No fevers or chills.
Past Medical History
Past Medical History: Arrhythmias (Afib), COPD, CVA, GERD, HTN, Hypercholesterolemia, NIDDM and Other (DVT/PE)
Past Surgical History: Cholecystectomy (Open), Hernia Repair (Open ventral hernia repair with mesh, multiple prior operations) and Urological (LEFT orchiectomy, prostate aquablation)
Social History
Tobacco: Former Smoker
Alcohol: None
Drug: None
Personal:
Living: With Family
Employment: Retired
Family History
Family History: Reviewed & Not Pertinent
Allergies / Home Medications
Allergy/AdvReac Type Severity Reaction Status Date / Time
adhesive Allergy Intermediate TAPE-RASH Verified 08/30/24 08:23
latex Allergy Intermediate Hives Verified 08/30/24 08:23
metoclopramide HCl Allergy Intermediate muscle Verified 08/30/24 08:23
[From Reglan] twitching
oxycodone [From Percocet] Allergy Intermediate Vomiting Verified 08/30/24 08:23
oxycodone terephthalate Allergy Intermediate vomiting Verified 08/30/24 08:23
[From Percodan]
prochlorperazine maleate Allergy Intermediate vomiting Verified 08/30/24 08:23
[From Compazine]
propoxyphene HCl Allergy Intermediate vomiting Verified 08/30/24 08:23
[From Darvon]
�Medication �Instructions �Recorded �Confirmed �Type
diltiazem HCl 240 mg 240 mg PO DAILY Blood pressure 12/20/14 08/30/24 History
capsule,extended release 24 hr
rivaroxaban 20 mg tablet (Xarelto) 20 mg PO HS Blood clot 09/16/16 08/30/24 History
prevention/tx
eszopiclone 3 mg tablet (Lunesta) 3 mg PO HS Sleep 02/10/20 08/30/24 History
atorvastatin 20 mg tablet 20 mg PO HS High cholesterol 05/09/20 08/30/24 History
polyethylene glycol 3350 17 gram 17 g PO DAILYPRN PRN constipation 12/16/23 08/30/24 History
oral powder packet (Miralax)
pantoprazole 40 mg tablet,delayed 40 mg PO DAILY Gastrointestinal 05/12/24 08/30/24 History
release (Protonix) Issue
clotrimazole 1 % topical cream 1 applic topical BID 06/01/24 08/30/24 Rx
(Athlete's Foot (clotrimazole)) skin/rash/groin 30 days #25 grams
empagliflozin 10 mg tablet 10 mg PO DAILY diabetes 30 days 06/01/24 08/30/24 Rx
(Jardiance) #30 tabs
magnesium oxide 500 mg PO BID supplement 30 days 06/03/24 08/30/24 Rx
#60 tabs
chlorthalidone 25 mg tablet 25 mg PO DAILY 08/30/24 08/30/24 History
fluticasone 250 mcg-salmeterol 50 2 inh inhalation R BID copd, 08/30/24 08/30/24 History
mcg/dose blistr powdr for wheezing
inhalation (Advair Diskus)
glipizide 5 mg tablet, extended 15 mg PO DAILY 08/30/24 08/30/24 History
release 24 hr
losartan 100 mg tablet 100 mg PO DAILY 08/30/24 08/30/24 History
potassium chloride 20 mEq 20 meq PO BID 08/30/24 08/30/24 History
tablet,extended release
Review of Systems
-
A 10 point review of systems was completed, and was negative except as per HPI.
Physical Exam
Vital Signs
Temp Pulse Resp BP Pulse Ox
98.6 F 106 20 113/69 97
08/30/24 08:23 08/30/24 12:15 08/30/24 12:15 08/30/24 12:00 08/30/24 12:15
08/29/24 08/30/24 08/31/24
06:59 06:59 06:59
Actual Weight 100.2 kg
Body Mass Index (BMI) 33.6
Lab Results
08/30/24 09:14
08/30/24 09:14
WBC 12.6 10^3/uL (4.8-10.8) H 08/30/24 09:14
Hgb 16.4 g/dL (13.0-18.0) 08/30/24 09:14
Hct 52.3 % (39.0-52.0) H 08/30/24 09:14
Plt Count 185 10^3/uL (130-400) 08/30/24 09:14
Abs Immat Gran (auto) 0.1 10^3/uL (0-0.05) H 08/30/24 09:14
Neutrophils % 87.0 % (42.2-75.2) H 08/30/24 09:14
Physical Exam
General: Well Developed, Well Nourished and No Apparent Distress
HEENT: Normocephalic and Anicteric
Respiratory: Accessory Resp Muscle Use and Other (Supplemental O2)
GI: Soft, Non Tender, Distended (mild tympany), Obese and Other (non-peritoneal)
Musculoskeletal: No Edema
Skin: Warm and Dry
Neuro: Nonfocal/Grossly Intact
Data Reviewed
-
CT Scan: Image Personally Visualized and interpreted and Report Reviewed by me
Labs: Labs Reviewed by me
Old Records: Reviewed
Assessment / Plan
-
Patient is a 74 yo M p/w SBO secondary to adhesions from prior operations and mesh repair
The natural history and pathophysiology of bowel obstructions was reviewed. CT scan imaging as a relates to his bowel obstruction was reviewed. No radiographic or clinical concerns for bowel ischemia or perforation. No evidence of free air,
pneumatosis, or significant bowel wall thickening. Transition point appears to be at the level of adhesions from his prior operations and mesh repair. Recommend medical management of a bowel obstruction with bowel rest, ambulation, minimizing
narcotics as able. If no clinical improvement in 24 to 48 hours recommend a contrasted study both for further diagnostic and potentially therapeutic benefit. All questions answered.
-- NPO, IVF
-- NGT decompression if nausea or worsening abdominal pain
-- Contrast study if no improvement in 24-48 hours
-- OOB/ambulate, correct lytes, minimize narcotics as able
-- Hold Xarelto, OK for Lovenox in 24 hours for DVT ppx
--- NOTE | 2024-08-30 12:59 | W.PN.UPDATE ---
Update Note
Progress Note Update
This is an addendum to the H&P written by Neris Sarah in 08/30/2024.� Patient seen and examined independently with MILIEU COUNSELOR
24-year-old male past medical history of cholecystectomy, ventral hernia repair, prior small bowel obstructions, paroxysmal atrial fibrillation on Xarelto, hypertension, hyperlipidemia, diabetes, C. difficile antigen positive, history of pulmonary
embolism with IVC filter, factor V Leyden mutation, COPD, affective sleep apnea, history of embolic CVA, BPH, recurrent UTIs, presenting with abdominal pain and nausea and vomiting since this morning.
Labs show leukocytosis.� Blood sugar of 254.
CT abdomen pelvis shows mid small bowel obstruction with transition point in the upper anterior mid pelvis subjacent to the midline anterior pelvic wall.
Presentation consistent with small bowel obstruction.� N.p.o., IV fluids.� Zofran, pain control.� NG tube was attempted but patient removed during the procedure and refusing it again.� Hold Xarelto.� General surgery consulted.
Hold chlorthalidone, oral diabetic medication.� Insulin sliding scale.
[2024-08-30] MEDS: LR 1000 IV ×2 (15:03→22:25)
--- NOTE | 2024-08-30 15:12 | EDRN ---
Urine spec obtained and sent at this time. Pt is awaiting admission bed. Pt states pain is increasing at this time. IVF Lactated Ringers hung as ordered.
[2024-08-30 15:17] LABS: Urine Albumin 1+ (Neg - Trace); Urine Bilirubin Negative (Negative); Urine Character Slightly Cloudy (Clear); Urine Color Yellow; Urine Glucose 4+ (Negative); Urine Ketone Negative (Negative); Urine Leukocyte 2+ (Negative); Urine Nitrite Negative (Negative); Urine Occult Blood 2+ (Negative); Urine Urobilinogen Negative (Neg - 1+)
[2024-08-30 15:26] LABS: Urine Squamous Cell >30 /LPF (Few)
[2024-08-30 15:27] LABS: Urine Amorphous Seen; Urine White Cell >100 /HPF (0-5)
[2024-08-30 15:28] LABS: Urine Bacteria Few (Negative)
--- NOTE | 2024-08-30 16:02 | EDRN ---
Pt requesting pain medication. Dilaudid 1 mg IV was crossed over and pharmacy called to verify order. Pt is due for med in 10 minutes time, ordered every 4hours and last dose 12:13.
[2024-08-30] MEDS: DILAUDID 1 MG IV ×2 (16:12→20:56)
--- NOTE | 2024-08-30 16:22 | EDRN ---
After giving dilaudid (oxygen was off of pt) POX decreased again int mid to upper 80's w/ oxygen replaced via NC at 2lpm (HR was also up to 120-140 at this time. HR now 104-110 and POX on 2lpm is 99%.
--- NOTE | 2024-08-30 17:00 | PTCARENOTE ---
Pt admitted to room 433 from ED, pt able to scoot self from stretcher to bed. AAOx3, c/o of 7/10 pain to abdomen. PRN dilaudid given prior to arrival to floor. Oriented to room and plan of care.
[2024-08-30 17:04] LABS: Glucose - Point of Care 138 mg/dl (70-99)
[2024-08-30] MEDS: KCL 20 MEQ PO (20:57)
[2024-08-30] MEDS: AMBIEN PO (21:07)
[2024-08-30] MEDS: LIPITOR 20 MG PO (21:07)
[2024-08-30] MEDS: ADVAIR HFA 115/21 MCG INHALER 2 PUFF INH (21:28)
[2024-08-30] MEDS: CARDIZEM CD 240 MG PO (22:45)
[2024-08-30 23:53] LABS: Glucose - Point of Care 164 mg/dl (70-99)
[2024-08-31] MEDS: DILAUDID 1 MG IV ×4 (00:59→15:14)
[2024-08-31] MEDS: NOVOLOG FLEXPEN-LOW RESISTANCE 1 UNITS SC ×4 (00:59→23:54)
--- NOTE | 2024-08-31 01:34 | PTCARENOTE ---
Pt sustaining in the 120s-130s. EKG obtained, VSS. NEELA Tolentino notified. Order obtained, see MAR. Will continue with current plan.
[2024-08-31 03:10] VITALS: BP 134/89
[2024-08-31] MEDS: ZOFRAN 4 MG IV ×3 (05:26→18:15)
[2024-08-31 05:37] LABS: Glucose - Point of Care 147 mg/dl (70-99)
[2024-08-31] MEDS: LR 1000 IV ×3 (05:41→21:34)
[2024-08-31] MEDS: NOVOLOG FLEXPEN-LOW RESISTANCE SC (05:41)
[2024-08-31 07:00] VITALS: BP 121/82
[2024-08-31] MEDS: ADVAIR HFA 115/21 MCG INHALER 2 PUFF INH ×2 (08:24→20:36)
[2024-08-31] MEDS: CARDIZEM CD 240 MG PO (08:29)
[2024-08-31] MEDS: COZAAR 100 MG PO (08:29)
[2024-08-31] MEDS: PROTONIX 40 MG PO (08:29)
[2024-08-31] MEDS: KCL 20 MEQ PO (08:29)
[2024-08-31 09:06] LABS: Hematocrit 52.8 % (39.0-52.0); Hemoglobin 16.4 g/dL (13.0-18.0); Mean Corp Hgb Conc. 31.1 g/dL (33.0-37.0); Mean Corpuscular Hgb 25.9 pg (27.0-31.0); Mean Corpuscular Volume 83.5 fL (80.0-94.0); Mean Platelet Volume 9.4 fL (7.4-10.4); Platelet Count 194 10^3/uL (130-400); Red Blood Cell Count 6.32 10^6/uL (4.70-6.10); Red Cell Dist. Width 16.7 % (11.5-14.5); White Blood Cell Count 12.8 10^3/uL (4.8-10.8)
[2024-08-31 10:57] LABS: Glycohemoglobin (HgbA1c) 8.5 % (4.0-5.6)
[2024-08-31 11:12] VITALS: BP 144/81
[2024-08-31 11:47] LABS: Glucose - Point of Care 168 mg/dl (70-99)
--- NOTE | 2024-08-31 13:44 | W.PN.GS2 ---
Today's Communication / Plan
-
place ngt
Assessment / Plan
-
Patient is a 74 yo M p/w SBO secondary to adhesions from prior operations and mesh repair
The natural history and pathophysiology of bowel obstructions was reviewed. CT scan imaging as a relates to his bowel obstruction was reviewed. No radiographic or clinical concerns for bowel ischemia or perforation. No evidence of free air,
pneumatosis, or significant bowel wall thickening. Transition point appears to be at the level of adhesions from his prior operations and mesh repair. Recommend medical management of a bowel obstruction with bowel rest, ambulation, minimizing
narcotics as able.
We discussed the importance of ng decompression both to attempt to avoid surgery but even if surgery is required decompression will make it safer. Although he refused the tube initially he ultimately agreed to have it placed.
-- NPO, IVF
-- NGT to LIWS
-- Contrast study if no improvement by tomorrow after decompression today
-- OOB/ambulate, correct lytes, minimize narcotics as able
-- prn antiemetics
-- Hold Xarelto, OK for Lovenox for DVT ppx
Subjective Data
-
Date of Service: August 31, 2024
AFVSS, c/o n/v, there is emesis on his gown and a small amount in an emesis bag he is holding; he reports he is passing flatus, his abd pain is unchanged
Objective Data
-
Intake and Output
08/30/24 08/31/24 09/01/24
06:59 06:59 06:59
Intake Total 1500 / 1500
Balance 1500 / 1500
Intake:
IV fluids (Total) 1500 / 1500
Other:
How many times incontinent 3
SATURATED amount urine
Vital Signs
Temp Pulse Resp BP Pulse Ox
97.7 F 77 22 144/81 98
08/31/24 07:00 08/31/24 11:12 08/31/24 11:12 08/31/24 11:12 08/31/24 11:12
Lab Results
08/31/24 07:54
08/30/24 09:14
Calcium 9.6 mg/dl (8.4-10.2) 08/30/24 09:14
Total Bilirubin 1.1 mg/dl (0.2-1.3) 08/30/24 09:14
AST 21 U/L (17-59) 08/30/24 09:14
ALT 22 U/L (0-50) 08/30/24 09:14
Alkaline Phosphatase 111 U/L (38-126) 08/30/24 09:14
Total Protein 6.3 g/dl (6.3-8.2) 08/30/24 09:14
Albumin 3.9 g/dl (3.5-5.0) 08/30/24 09:14
Physical Exam
-
Gen: NAD
Abd: distended, soft, mild ttp diffusely
Patient has a coppola catheter: No
Patient has a central line: No
--- NOTE | 2024-08-31 13:46 | W.PN.HOSP.TC ---
Today's Communication/Plan
-
Tachycardic with atrial fibrillation
With NG tube will leave the patient on Cardizem drip at 5 mg/h
He is at high risk without anticoagulation therefore will do heparin drip until surgical plans are known. Hold Xarelto
Assessment / Plan
Assessment / Plan
74-year-old male with abdominal pain and SBO. Vomited.
CVS: S1-S2 irregular
Chest: Rales
Abdomen: Soft, No BS
Extremities: No edema, normal pulses
MAINSPRING TORQUE TESTER: Non focal exam
# Small bowel obstruction
CT abdomen and pelvis-mid small bowel obstruction with transition point in the upper anterior mid pelvis
Keep n.p.o. with IV fluids
NG tube placed
Pain control
Surgery consultation
# Leukocytosis-treat UTI
# UTI-Enterococcus in the urine culture-start Unasyn
# Hypertension-Hold chlorthalidone Patient also on Cardizem and Losartan as outpatient
# Hyperlipidemia-Hold atorvastatin while n.p.o.
# Paroxysmal atrial fibrillation-
Hold Xarelto in case if he needs surgery-Will do Heparin gtt starting tonight when Xarelto is due
Cardizem CD changed to IV
Echo 05/13/2024-EF 55 to 60%, moderately enlarged left atrium, mild MR, mildly dilated right atrium, pericardial effusion, normal RV size and function.
Cardiology Dr.D.L Rubio
Last dose of Xarelto was 08/29/2024 evening
# COPD-continue Advair or equivalent
# Diabetes-hemoglobin A1c 8.5
Hold Jardiance, glipizide
Sliding scale coverage and Accu-Cheks
# GERD-continue PPI
# History of pulmonary embolism with IVC filter
Factor V Leyden
Was on Xarelto- Now on hold.
Will do Heparin gtt starting tonight when Xarelto is due
# History of pericarditis
# Sleep apnea-He does not use CPAP.
# Prostate Ca s/p Aqua prostate ablation at [facility] 03/2024. Urologist .
# History of E. coli sepsis 2017
# History of embolic CVA 2012
# History of hepatitis B treated.
# Obesity per BMI
# Ex-smoker quit 2010
# DVT prophylaxis-Will do Heparin gtt
# Full code
D/W RN at bed side
Discussed with patient's and updated
D/W Pharmacy
Time spent over 50 min
Anticipated Discharge: > 48 hours
Subjective/Interval History
-
Date of Service: August 31, 2024
Objective Data
-
Labs:
Laboratory Results
08/31/24
07:54
WBC 12.8 H
Hgb 16.4
Hct 52.8 H
Plt Count 194
Vital Signs:
Vital Signs
Temp Pulse Resp BP Pulse Ox
97.7 F 77 22 144/81 98
08/31/24 07:00 08/31/24 11:12 08/31/24 11:12 08/31/24 11:12 08/31/24 11:12
I&O
08/30/24 08/31/24 09/01/24
06:59 06:59 06:59
Intake Total 1500 / 1500
Balance 1500 / 1500
[2024-08-31] MEDS: UNASYN IV ×2 (14:05→20:16)
--- NOTE | 2024-08-31 14:24 | PTCARENOTE ---
NGT placed in L nare, set to low intermittent suction. Pt tolerated tube. Immediate output of 700cc. Plan of care ongoing.
[2024-08-31] MEDS: LOPRESSOR 2.5 MG IV (14:36)
--- NOTE | 2024-08-31 15:19 | CM ---
sr. payroll manager reviewed patient's chart and met with patient and patient lives with his spouse in a 2 story home, one step to enter, patient is independent with adl's and ambulation, no dme, no home oxygen.
PCP: Dr. Dao
Pharmacy: [facility]
Plan; Home with spouse when stable.
[2024-08-31 15:43] VITALS: BP 123/75
[2024-08-31 16:42] LABS: Hematocrit 53.9 % (39.0-52.0); Hemoglobin 17.1 g/dL (13.0-18.0); Mean Corp Hgb Conc. 31.7 g/dL (33.0-37.0); Mean Corpuscular Hgb 26.1 pg (27.0-31.0); Mean Corpuscular Volume 82.3 fL (80.0-94.0); Mean Platelet Volume 9.1 fL (7.4-10.4); Platelet Count 213 10^3/uL (130-400); Red Blood Cell Count 6.55 10^6/uL (4.70-6.10); Red Cell Dist. Width 17.3 % (11.5-14.5); White Blood Cell Count 13.9 10^3/uL (4.8-10.8)
[2024-08-31 16:48] LABS: APTT 27.3 Sec (23.4-35.0)
[2024-08-31] MEDS: CARDIZEM 125 IV (17:09)
[2024-08-31] MEDS: HEPARIN 25000 UNITS/250 ML IV (17:16)
[2024-08-31 17:59] LABS: Glucose - Point of Care 169 mg/dl (70-99)
--- NOTE | 2024-08-31 18:35 | PTCARENOTE ---
Pt pulling NGT out of mouth, noted to be kinked in the throat. NGT removed, pt refusing reinsertion. MD aware. HR sustaining in the 140s in afib, cardizem gtt ordered and initiated. PRN pain and antiemetic medications administered as needed.
updated at bedside.
[2024-08-31 19:20] VITALS: BP 135/79
[2024-08-31] MEDS: KCL PO (20:41)
[2024-08-31] MEDS: AMBIEN PO (21:32)
[2024-08-31] MEDS: BENADRYL 12.5 MG IV (22:10)
[2024-08-31 23:10] VITALS: BP 130/7
[2024-08-31 23:28] LABS: Glucose - Point of Care 153 mg/dl (70-99)
[2024-09-01] VITALS (8 sets, daily range): BP systolic 78–122; BP diastolic 48–75
[2024-09-01 00:41] LABS: APTT 115.4 Sec (23.4-35.0)
[2024-09-01] MEDS: UNASYN IV ×4 (01:03→19:54)
[2024-09-01] MEDS: NOVOLOG FLEXPEN-LOW RESISTANCE 1 UNITS SC (05:20)
[2024-09-01] MEDS: LR 1000 IV ×2 (05:20→18:25)
[2024-09-01 05:21] LABS: Glucose - Point of Care 165 mg/dl (70-99)
[2024-09-01] MEDS: ZOFRAN 4 MG IV (05:51)
[2024-09-01] MEDS: DILAUDID 1 MG IV ×3 (05:51→19:58)
[2024-09-01 06:50] LABS: Hematocrit 45.9 % (39.0-52.0); Hemoglobin 14.4 g/dL (13.0-18.0); Mean Corp Hgb Conc. 31.4 g/dL (33.0-37.0); Mean Corpuscular Hgb 25.7 pg (27.0-31.0); Mean Platelet Volume 9.4 fL (7.4-10.4); Platelet Count 184 10^3/uL (130-400); Red Cell Dist. Width 16.3 % (11.5-14.5)
[2024-09-01 07:01] LABS: APTT 149.7 Sec (23.4-35.0)
[2024-09-01] MEDS: ADVAIR HFA 115/21 MCG INHALER 2 PUFF INH ×2 (07:53→19:33)
[2024-09-01 08:20] LABS: Blood Urea Nitrogen 54 mg/dl (9-20); Calcium 7.9 mg/dl (8.4-10.2); Carbon Dioxide 26 mmol/L (22-30); Chloride 102 mmol/L (98-107); Estimated Creatinine Clearance 34 ml/min; Glucose 169 mg/dl (70-99); Potassium 4.1 mmol/L (3.5-5.1); Sodium 139 mmol/L (135-145); eGFR 30.66
[2024-09-01] MEDS: PROTONIX IV 40 MG IV (08:39)
[2024-09-01] MEDS: NSS (PRESERVATIVE FREE) 10 ML IV (08:40)
[2024-09-01] MEDS: KCL 20 MEQ PO (08:42)
[2024-09-01] MEDS: COZAAR PO (09:03)
[2024-09-01] MEDS: HEPARIN 25000 UNITS/250 ML IV (09:06)
[2024-09-01] MEDS: NSS 1000 IV (09:25)
--- NOTE | 2024-09-01 09:27 | W.PN.HOSP.TC ---
Today's Communication/Plan
-
Bolus [address]
Obstruction series
Hold Heparin gtt till CT done and cleared.
IVF
NPO
Assessment / Plan
Assessment / Plan
74-year-old male with abdominal pain and SBO.

Patient's blood pressure was found to be low this morning. He also had an episode of vomiting and bile movement. He denies any complaints of chest pain. He is slow to respond but responds appropriately.
CVS: S1-S2 irregular
Chest: Rales
Abdomen: Soft, No BS
Extremities: No edema, normal pulses
SPEECH LANGUAGE PATHOLOGIST TRAVEL: no facial droop no motor deficits, slow to respond but responds appropriately

# Slow to respond/TME
Likely secondary to hypotension
But since patient is on heparin drip I would hold it and get a head CT
# Hypotension
Likely secondary to volume loss/hypovolemia and Vasovagal too?
IV fluids-1 L of normal saline bolus
Hold Cardizem drip ,hold losartan
If BP stays low then he needs to start pressors.
# Acute kidney injury-IV fluids
# Small bowel obstruction
CT abdomen and pelvis-mid small bowel obstruction with transition point in the upper anterior mid pelvis
Keep n.p.o. with IV fluids
NG tube placed
Pain control
Surgery consultation
# Leukocytosis-treat UTI
# UTI-Enterococcus in the urine culture-continue Unasyn
# Hypertension-Hold chlorthalidone, p.o. Cardizem and losartan
# Hyperlipidemia-Hold atorvastatin while n.p.o.
# Paroxysmal atrial fibrillation-was on heparin drip. Hold it while getting his CT and restart if CT looks good
Cardizem CD changed to IV
Echo 05/13/2024-EF 55 to 60%, moderately enlarged left atrium, mild MR, mildly dilated right atrium, pericardial effusion, normal RV size and function.
Cardiology Dr.D.L Rubio
Last dose of Xarelto was 08/29/2024 evening
# COPD-Continue Advair or Equivalent
# Diabetes-hemoglobin A1c 8.5
Hold Jardiance, glipizide
Sliding scale coverage and Accu-Cheks
# GERD-continue PPI
# History of pulmonary embolism with IVC filter
Factor V Leyden
Was on Xarelto- Now on hold.
Will resume heparin gtt if CT is good
# History of pericarditis
# Sleep apnea-He does not use CPAP.
# Prostate Ca s/p Aqua prostate ablation at [facility] 03/2024. Urologist .
# History of E. coli sepsis 2017
# History of embolic CVA 2012
# History of hepatitis B treated.
# Obesity per BMI
# Ex-smoker quit 2010
# DVT prophylaxis -Heparin drip to be resumed if head CT is okay
# Full code
D/W RN at bed side
Discussed with patient's and updated re AM events .
D/W Surgeon
Cc time- 36 min
Anticipated Discharge: > 48 hours
Subjective/Interval History
-
Date of Service: September 01, 2024
Objective Data
-
Labs:
Laboratory Results
09/01/24 09/01/24 09/01/24
00:11 06:37 14:15
WBC 7.0
Hgb 14.4
Hct 45.9
Plt Count 184
APTT 115.4 H 149.7 H Pending
Sodium 139
Potassium 4.1
Chloride 102
Carbon Dioxide 26
BUN 54 H
Creatinine 2.2 H
Glucose 169 H
Calcium 7.9 L D
Vital Signs:
Vital Signs
Temp Pulse Resp BP Pulse Ox
99.5 F 68 16 78/48 91
09/01/24 07:45 09/01/24 07:56 09/01/24 07:56 09/01/24 09:03 09/01/24 07:56
I&O
08/31/24 09/01/24 09/02/24
06:59 06:59 06:59
Intake Total 4740 / 4740
Output Total 1350 / 1350
Balance 3390 / 3390
--- NOTE | 2024-09-01 10:30 | W.PN.GS2 ---
Today's Communication / Plan
-
`
Assessment / Plan
-
Patient is a 74 yo M p/w probable recurrent SBO secondary to adhesions from prior operations and mesh repair
Failed placement of NG tube yesterday and patient refuses replacement.
Low blood pressure and FELY concerning for hypovolemia and under resuscitation although has been getting IV fluids at a reasonable rate
No acidosis, no peritoneal signs on abdominal examination to suggest bowel compromise or worsening acute intra-abdominal process and he has had some signs of GI recovery with loose bowel movement this a.m.
Plan: IV fluid resuscitation
Supportive care for PSBO
If clinical change in abdominal examination consider repeat CT imaging
Patient refusing NG tube
Remaining care per hospitalist service will follow
Subjective Data
-
Date of Service: September 01, 2024
Patient seen and examined.
Appears a bit lethargic but he is responsive and oriented
Denies abdominal pain
Had a bowel movement this morning but also remains nauseous and vomited
Reviewing records and discussing with nursing appears patient did not tolerate NG tube placement well. Follow-up x-ray imaging identified tip of NG tube within the esophagus rather than advanced into the stomach. Patient refused further advancing
of NG tube and it was removed.
He continues to refuse replacement of the NG tube
Objective Data
-
Intake and Output
08/31/24 09/01/24 09/02/24
06:59 06:59 06:59
Intake Total 4740 / 4740
Output Total 1350 / 1350
Balance 3390 / 3390
Intake:
IV fluids (Total) 4500 / 4500
IV piggybacks 240 / 240
Output:
Gastrointestinal tube output ( 1350 / 1350
Total)
[place] Sump 1350 / 1350
Other:
How many times incontinent 3 2
SATURATED amount urine
Number of immeasurable emeses? 5
Vital Signs
Temp Pulse Resp BP Pulse Ox
99.5 F 68 16 98/52 91
09/01/24 07:45 09/01/24 07:56 09/01/24 07:56 09/01/24 09:45 09/01/24 07:56
Lab Results
09/01/24 06:37
09/01/24 06:37
Calcium 7.9 mg/dl (8.4-10.2) L D 09/01/24 06:37
Total Bilirubin 1.1 mg/dl (0.2-1.3) 08/30/24 09:14
AST 21 U/L (17-59) 08/30/24 09:14
ALT 22 U/L (0-50) 08/30/24 09:14
Alkaline Phosphatase 111 U/L (38-126) 08/30/24 09:14
Total Protein 6.3 g/dl (6.3-8.2) 08/30/24 09:14
Albumin 3.9 g/dl (3.5-5.0) 08/30/24 09:14
Physical Exam
-
NAD
ABD: Softly protuberant, not tensely distended. No tenderness on palpation. No rebound, no rigidity, no guarding.
--- NOTE | 2024-09-01 10:46 | PN.CDI ---
CDI
- -
CDI:
Physician Documentation Request
Admit Date: 08/30/24 13:07
Dear Doctor Mj,
Please review the following and provide your response in the progress notes.
Clinical Indicators:
- Patient admit for small bowel obstruction
- 09/01 PN ' Paroxysmal atrial fibrillation'
- Prior admission 05/19/24 Cardiology note 'Permanent atrial fibrillation'
- Current admission EKG's all with atrial fibrillation
If possible, please provide further specificity regarding atrial fibrillation, such as:
Paroxysmal atrial fibrillation - terminates spontaneously or with intervention within 7 days of onset
Permanent atrial fibrillation - when a decision has been made to accept the presence of AF and there is no further attempt to restore or maintain sinus rhythm
Other - please specify
Use of terms such as suspected, likely, concern for, or probable (associated with a specific diagnosis that is being evaluated, monitored, or treated as if it exists) are acceptable and can be coded in the inpatient setting, when documented at the
time of discharge.
Thank you,
Jadyn Galeano RN
CDI Specialist
Please use your independent medical judgment in providing your response.
[2024-09-01 11:08] LABS: Vitamin D, 25-OH*** < 12.8 ng/mL (30-80)
--- NOTE | 2024-09-01 11:33 | W.PN.UPDATE ---
Addendum entered and electronically signed by Onur Barker MD 09/01/24 15:16:
X-ray with still partial small bowel obstruction
Continue IV fluids
Continue n.p.o.
updated
Urine culture printed out for her to send to patient's outpatient urologist
Original Note:
Update Note
Progress Note Update
Head CT OK , restart and continue Heparin gtt
BP better
Await Obstruction series.
[2024-09-01 12:26] LABS: Glucose - Point of Care 139 mg/dl (70-99)
[2024-09-01] MEDS: NOVOLOG FLEXPEN-LOW RESISTANCE SC ×2 (12:47→18:35)
--- NOTE | 2024-09-01 16:03 | CM ---
Chart reviewed; CM will continue to monitor and support DC needs/services when determined
[2024-09-01 18:31] LABS: Glucose - Point of Care 108 mg/dl (70-99)
[2024-09-01 21:41] LABS: Glucose - Point of Care 98 mg/dl (70-99)
[2024-09-01 21:42] LABS: APTT 81.8 Sec (23.4-35.0)
[2024-09-01] MEDS: AMBIEN PO (23:38)
[2024-09-02 00:24] LABS: Glucose - Point of Care 70 mg/dl (70-99)
[2024-09-02] MEDS: NOVOLOG FLEXPEN-LOW RESISTANCE SC ×4 (00:45→17:31)
[2024-09-02] MEDS: LR IV (00:52)
[2024-09-02] MEDS: UNASYN IV ×4 (01:00→22:35)
[2024-09-02 01:42] LABS: Glucose - Point of Care 104 mg/dl (70-99)
[2024-09-02 03:00] VITALS: BP 131/68
[2024-09-02 04:16] LABS: APTT 83.6 Sec (23.4-35.0)
[2024-09-02 05:45] LABS: Glucose - Point of Care 95 mg/dl (70-99)
[2024-09-02] MEDS: LR 1000 IV ×2 (05:53→16:38)
[2024-09-02 07:00] VITALS: BP 139/72
[2024-09-02] MEDS: ADVAIR HFA 115/21 MCG INHALER 2 PUFF INH ×2 (07:48→19:14)
[2024-09-02] MEDS: PROTONIX IV 40 MG IV (08:17)
[2024-09-02] MEDS: NSS (PRESERVATIVE FREE) 10 ML IV (08:18)
[2024-09-02] MEDS: HEPARIN 25000 UNITS/250 ML IV (08:36)
[2024-09-02 08:42] LABS: Hematocrit 41.8 % (39.0-52.0); Hemoglobin 13.1 g/dL (13.0-18.0); Mean Corp Hgb Conc. 31.3 g/dL (33.0-37.0); Mean Corpuscular Hgb 26.1 pg (27.0-31.0); Mean Corpuscular Volume 83.3 fL (80.0-94.0); Mean Platelet Volume 9.9 fL (7.4-10.4); Platelet Count 128 10^3/uL (130-400); Red Blood Cell Count 5.02 10^6/uL (4.70-6.10); Red Cell Dist. Width 16.5 % (11.5-14.5); White Blood Cell Count 4.2 10^3/uL (4.8-10.8)
[2024-09-02 11:00] VITALS: BP 133/77
[2024-09-02 11:51] LABS: Blood Urea Nitrogen 45 mg/dl (9-20); Calcium 7.7 mg/dl (8.4-10.2); Carbon Dioxide 30 mmol/L (22-30); Chloride 101 mmol/L (98-107); Estimated Creatinine Clearance 53 ml/min; Glucose 117 mg/dl (70-99); Sodium 140 mmol/L (135-145); eGFR 52.74
[2024-09-02 11:55] LABS: Glucose - Point of Care 115 mg/dl (70-99)
[2024-09-02] MEDS: TYLENOL 650 MG PO (12:10)
[2024-09-02] MEDS: DILAUDID 1 MG IV ×3 (13:58→22:40)
--- NOTE | 2024-09-02 14:57 | W.PN.HOSP.TC ---
Today's Communication/Plan
-
Sips of clear liquids if okay with surgeon
Lindy BLEVINS
Assessment / Plan
Assessment / Plan
74-year-old male with abdominal pain and SBO.

CVS: S1-S2 irregular
Chest: Rales
Abdomen: Soft, BS present
Extremities: No edema, normal pulses
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

# Small bowel obstruction
CT abdomen and pelvis-mid small bowel obstruction with transition point in the upper anterior mid pelvis
Now n.p.o. with IV fluids
Patient is passing flatus and he does have bowels sounds
NG tube placed but patient did not tolerate I came out he did not wanted to be placed back-aware about risks
Pain control
Surgery consulted and following.
Try sips of liquids and ice chips if okay with surgery
# Slow to respond/TME noted 09/01/24
Likely secondary to Hypotension
Resolved
# Hypotension-resolved
Likely secondary to volume loss/hypovolemia and Vasovagal too?
IV fluids-to be continued
Hold losartan
Restart Cardizem and follow
# Mild xmjsrdguxhsbcphm-sboguj-cb
# Acute kidney injury-IV fluids
# Leukocytosis-treat UTI and also aspiration pneumonia-continue Unasyn
# UTI-Enterococcus in the urine culture-continue Unasyn
# Hypertension-Hold chlorthalidone and losartan . Cardizem ordered
# Hyperlipidemia-restart atorvastatin
# Permanent atrial fibrillation- on heparin drip.
Cardizem CD 180 mg instead of 240 mg
Echo 05/13/2024-EF 55 to 60%, moderately enlarged left atrium, mild MR, mildly dilated right atrium, pericardial effusion, normal RV size and function.
Cardiology Dr.D.L Rubio
Last dose of Xarelto was 08/29/2024 evening
# COPD-Continue Advair or Equivalent
# Diabetes-hemoglobin A1c 8.5
Hold Jardiance, glipizide. Restart tomorrow if sugars going high.
Sliding scale coverage and Accu-Cheks
# GERD-continue PPI
# History of pulmonary embolism with IVC filter
Factor V Leyden
Was on Xarelto- Now on hold.
Heparin drip
# Vit D Def- Replace
# History of pericarditis
# Sleep apnea-He does not use CPAP.
# Prostate Ca s/p Aqua prostate ablation at [facility] 03/2024. Urologist .
# History of E. coli sepsis 2017
# History of embolic CVA 2012
# History of hepatitis B treated.
# Obesity per BMI
# Ex-smoker quit 2010
# DVT prophylaxis -Heparin drip
# Full code
D/W RN at bed side
Discussed with patient's and updated again today
D/W Surgeon
Anticipated Discharge: 24 - 48 hours
Subjective/Interval History
-
Date of Service: September 02, 2024
Objective Data
-
Labs:
Laboratory Results
09/02/24 09/02/24 09/02/24
03:56 07:12 10:48
WBC 4.2 L
Hgb 13.1
Hct 41.8
Plt Count 128 L D
APTT 83.6 H
Sodium Cancelled 140
Potassium Cancelled 4.0
Chloride Cancelled 101
Carbon Dioxide Cancelled 30
BUN Cancelled 45 H
Creatinine Cancelled 1.4 H
Glucose Cancelled 117 H
Calcium Cancelled 7.7 L
Vital Signs:
Vital Signs
Temp Pulse Resp BP Pulse Ox
97.7 F 98 21 133/77 95
09/02/24 11:00 09/02/24 11:00 09/02/24 11:00 09/02/24 11:00 09/02/24 11:00
I&O
09/01/24 09/02/24 09/03/24
06:59 06:59 06:59
Intake Total 4740 / 4740 2104
Output Total 1350 / 1350
Balance 3390 / 3390 2104
--- NOTE | 2024-09-02 14:58 | W.PN.GS2 ---
Today's Communication / Plan
-
Clears, will advance diet as tolerated
General surgical follow
Assessment / Plan
-
Patient is a 74 yo M p/w probable recurrent SBO secondary to adhesions from prior operations and mesh repair now with return of bowel function. X-ray improved
Okay for trial of clear liquid diet.
Ambulate out of bed.
General surgery will continue to follow
Time Spent
Total Time Spent with Patient (in minutes): 20
Subjective Data
-
Date of Service: September 02, 2024
Interval Events:
No acute events overnight. Slept well. Pain Controlled. Denies Nausea/Vomiting, +bowel function. Tolerating diet.
Objective Data
-
Intake and Output
09/01/24 09/02/24 09/03/24
06:59 06:59 06:59
Intake Total 4740 / 4740 2105 / 2105
Output Total 1350 / 1350
Balance 3390 / 3390 2104 / 2104
Intake:
IV fluids (Total) 4500 / 4500 1750 / 1750
IV piggybacks 240 / 240 355 / 355
Output:
Gastrointestinal tube output ( 1350 / 1350
Total)
[place] Sump 1350 / 1350
Other:
Number of approximated MODERATE 1
amounts of urine
How many times incontinent 2
MODERATE amount urine
How many times incontinent 2 2
SATURATED amount urine
Number of immeasurable emeses? 5
Vital Signs
Temp Pulse Resp BP Pulse Ox
97.7 F 98 21 133/77 95
09/02/24 11:00 09/02/24 11:00 09/02/24 11:00 09/02/24 11:00 09/02/24 11:00
Lab Results
09/02/24 07:12
09/02/24 10:48
Calcium 7.7 mg/dl (8.4-10.2) L 09/02/24 10:48
Total Bilirubin 1.1 mg/dl (0.2-1.3) 08/30/24 09:14
AST 21 U/L (17-59) 08/30/24 09:14
ALT 22 U/L (0-50) 08/30/24 09:14
Alkaline Phosphatase 111 U/L (38-126) 08/30/24 09:14
Total Protein 6.3 g/dl (6.3-8.2) 08/30/24 09:14
Albumin 3.9 g/dl (3.5-5.0) 08/30/24 09:14
Physical Exam
-
GENERAL/NEURO: Awake, Alert, no distress
CHEST: Unlabored breathing on RA
ABDOMEN: Soft, Non-Tender, still mildly distended
Patient has a coppola catheter: No
Patient has a central line: No
[2024-09-02 15:00] VITALS: BP 158/82
[2024-09-02] MEDS: CARDIZEM CD 180 MG PO (16:38)
[2024-09-02 17:16] LABS: Glucose - Point of Care 135 mg/dl (70-99)
[2024-09-02 17:37] VITALS: BMI 33.6
[2024-09-02 19:00] VITALS: BP 141/87
[2024-09-02] MEDS: LIPITOR 20 MG PO (22:35)
[2024-09-02] MEDS: AMBIEN 10 MG PO (22:35)
[2024-09-02 22:44] LABS: Glucose - Point of Care 135 mg/dl (70-99)
[2024-09-02 23:00] VITALS: BP 128/75
[2024-09-03] VITALS (8 sets, daily range): BP systolic 115–159; BP diastolic 74–91; O2SAT 94
[2024-09-03] MEDS: UNASYN IV ×4 (03:00→20:16)
[2024-09-03] MEDS: DILAUDID 1 MG IV ×4 (04:03→17:56)
[2024-09-03] MEDS: HEPARIN 25000 UNITS/250 ML IV ×2 (04:11→23:09)
[2024-09-03 07:23] LABS: Hematocrit 41.2 % (39.0-52.0); Hemoglobin 12.7 g/dL (13.0-18.0); Mean Corp Hgb Conc. 30.8 g/dL (33.0-37.0); Mean Corpuscular Hgb 25.8 pg (27.0-31.0); Mean Corpuscular Volume 83.7 fL (80.0-94.0); Mean Platelet Volume 9.3 fL (7.4-10.4); Platelet Count 110 10^3/uL (130-400); Red Blood Cell Count 4.92 10^6/uL (4.70-6.10); White Blood Cell Count 4.3 10^3/uL (4.8-10.8)
[2024-09-03] MEDS: ADVAIR HFA 115/21 MCG INHALER 2 PUFF INH ×2 (07:54→20:03)
[2024-09-03 08:00] LABS: Blood Urea Nitrogen 28 mg/dl (9-20); Calcium 7.9 mg/dl (8.4-10.2); Carbon Dioxide 31 mmol/L (22-30); Chloride 101 mmol/L (98-107); Estimated Creatinine Clearance 74 ml/min; Glucose 126 mg/dl (70-99); Potassium 3.4 mmol/L (3.5-5.1); Sodium 138 mmol/L (135-145); eGFR > 60.00
[2024-09-03 08:33] LABS: APTT 55.3 Sec (23.4-35.0)
[2024-09-03 08:37] LABS: Glucose - Point of Care 131 mg/dl (70-99)
[2024-09-03] MEDS: NOVOLOG FLEXPEN-LOW RESISTANCE SC ×3 (08:57→16:47)
[2024-09-03] MEDS: NSS (PRESERVATIVE FREE) 10 ML IV (08:58)
[2024-09-03] MEDS: CARDIZEM CD 180 MG PO (08:58)
[2024-09-03] MEDS: PROTONIX IV 40 MG IV (08:58)
[2024-09-03] MEDS: HEPARIN 8000 UNITS IV (09:26)
[2024-09-03] MEDS: LR 1000 IV ×2 (10:31→21:00)
[2024-09-03 11:28] LABS: Glucose - Point of Care 145 mg/dl (70-99)
--- NOTE | 2024-09-03 12:36 | W.PN.GS2 ---
Today's Communication / Plan
-
Will keep on clears for now
Ambulate out of bed.
General surgery will continue to follow
Assessment / Plan
-
Patient is a 74 yo M p/w probable recurrent SBO secondary to adhesions from prior operations and mesh repair now with return of bowel function. X-ray improved but still very distended on exam
Will keep on clears for now
Ambulate out of bed.
General surgery will continue to follow
Time Spent
Total Time Spent with Patient (in minutes): 20
Subjective Data
-
Date of Service: September 03, 2024
Interval Events:
No acute events overnight. Slept well. Pain Controlled. Denies Nausea/Vomiting, +bowel function. Tolerating diet.
Objective Data
-
Intake and Output
09/02/24 09/03/24 09/04/24
06:59 06:59 06:59
Intake Total 2105 / 2105 840 / 840
Output Total 850 / 850
Balance 2105 / 2105 -10 / -10
Intake:
IV fluids (Total) 1750 / 1750 600 / 600
IV piggybacks 355 / 355 240 / 240
Output:
Urine, Voided 850 / 850
Other:
Number of approximated MODERATE 1
amounts of urine
How many times incontinent 2
MODERATE amount urine
How many times incontinent 2 3
SATURATED amount urine
Vital Signs
Temp Pulse Resp BP Pulse Ox
97.3 F 96 16 152/82 95
09/03/24 07:00 09/03/24 07:58 09/03/24 07:58 09/03/24 07:00 09/03/24 07:58
Lab Results
09/03/24 06:51
09/03/24 06:51
Calcium 7.9 mg/dl (8.4-10.2) L 09/03/24 06:51
Total Bilirubin 1.1 mg/dl (0.2-1.3) 08/30/24 09:14
AST 21 U/L (17-59) 08/30/24 09:14
ALT 22 U/L (0-50) 08/30/24 09:14
Alkaline Phosphatase 111 U/L (38-126) 08/30/24 09:14
Total Protein 6.3 g/dl (6.3-8.2) 08/30/24 09:14
Albumin 3.9 g/dl (3.5-5.0) 08/30/24 09:14
Physical Exam
-
GENERAL/NEURO: Awake, Alert, no distress
CHEST: Unlabored breathing on RA
ABDOMEN: Soft, Non-Tender, distended
Patient has a coppola catheter: No
Patient has a central line: No
--- NOTE | 2024-09-03 13:51 | W.PN.HOSP.TC ---
Today's Communication/Plan
-
Clear liquid diet
Wait for ball obstruction to clear
X ray in am
Assessment / Plan
Assessment / Plan
74-year-old male with abdominal pain and SBO.

CVS: S1-S2 irregular
Chest: Rales
Abdomen: Soft, BS present, slightly high pitched
Extremities: No edema, normal pulses
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

# Small bowel obstruction
CT abdomen and pelvis-mid small bowel obstruction with transition point in the upper anterior mid pelvis
Clears
Suspect that he still has partial obstruction
Patient is passing flatus has not had Bms
Pain control
Surgery consulted and following.
# Slow to respond/TME noted 09/01/24
Likely secondary to Hypotension
Resolved
#-Hypokalemia-replace
# Hypotension-resolved
Likely secondary to volume loss/hypovolemia and Vasovagal too?
IV fluids-to be continued
Hold losartan
Continue Cardizem
# Mild imovadwjqyjttrib-cughdc-di
# Acute kidney injury-resolved -continue low rate IV fluids
# Leukocytosis-treat UTI and also aspiration pneumonia-continue Unasyn
# UTI-Enterococcus in the urine culture-continue Unasyn
# Hypertension-Hold chlorthalidone and losartan . Cardizem ordered
# Hyperlipidemia-restart atorvastatin
# Permanent atrial fibrillation- on heparin drip.
Cardizem CD 240 mg
Echo 05/13/2024-EF 55 to 60%, moderately enlarged left atrium, mild MR, mildly dilated right atrium, pericardial effusion, normal RV size and function.
Cardiology Dr.D.L Rubio
Last dose of Xarelto was 08/29/2024 evening
# COPD-Continue Advair or Equivalent
# Diabetes-hemoglobin A1c 8.5
Hold Jardiance, glipizide. Restart if sugars going high.
Sliding scale coverage and Accu-Cheks
# GERD-continue PPI
# History of pulmonary embolism with IVC filter
Factor V Leyden
Was on Xarelto- Now on hold.
Heparin drip
# Vit D Def- Replace
# History of pericarditis
# Sleep apnea-He does not use CPAP.
# Prostate Ca s/p Aqua prostate ablation at [facility] 03/2024. Urologist .
# History of E. coli sepsis 2017
# History of embolic CVA 2012
# History of hepatitis B treated.
# Obesity per BMI
# Ex-smoker quit 2010
# DVT prophylaxis -Heparin drip
# Full code
D/W RN at bed side
Discussed with patient's at bed side
Anticipated Discharge: 24 - 48 hours
Subjective/Interval History
-
Date of Service: September 03, 2024
Objective Data
-
Labs:
Laboratory Results
09/03/24 09/03/24 09/03/24
06:51 08:12 15:00
WBC 4.3 L
Hgb 12.7 L
Hct 41.2
Plt Count 110 L
APTT 55.3 H Pending
Sodium 138
Potassium 3.4 L
Chloride 101
Carbon Dioxide 31 H
BUN 28 H
Creatinine 1.0
Glucose 126 H
Calcium 7.9 L
Vital Signs:
Vital Signs
Temp Pulse Resp BP Pulse Ox
97.7 F 97 16 143/80 93
09/03/24 11:00 09/03/24 11:00 09/03/24 11:00 09/03/24 11:00 09/03/24 11:00
I&O
09/02/24 09/03/24 09/04/24
06:59 06:59 06:59
Intake Total 2104 840 / 840
Output Total 850 / 850
Balance 2104 - /
[2024-09-03] MEDS: KCL 260 MEQ IV (14:28)
[2024-09-03] MEDS: DRISDOL (VITAMIN D2) 50000 UNITS PO (14:29)
[2024-09-03 15:47] LABS: APTT 189.7 Sec (23.4-35.0)
[2024-09-03 16:47] LABS: Glucose - Point of Care 132 mg/dl (70-99)
[2024-09-03] MEDS: LR IV (19:27)
[2024-09-03] MEDS: KCL 20 MEQ PO (20:16)
[2024-09-03] MEDS: FLUSH (NSS) 2 FLUSH IV (20:17)
[2024-09-03] MEDS: LIPITOR 20 MG PO (21:00)
[2024-09-03] MEDS: AMBIEN 10 MG PO (21:00)
[2024-09-03 21:54] LABS: Glucose - Point of Care 127 mg/dl (70-99)
[2024-09-03 23:50] LABS: APTT 28.5 Sec (23.4-35.0)
[2024-09-04] MEDS: HEPARIN 8000 UNITS IV ×2 (01:45→10:09)
[2024-09-04] MEDS: UNASYN IV ×4 (02:21→21:23)
[2024-09-04 07:31] VITALS: BP 159/87
[2024-09-04] MEDS: DILAUDID 1 MG IV ×4 (07:59→22:03)
[2024-09-04 08:00] LABS: Hematocrit 42.1 % (39.0-52.0); Hemoglobin 13.4 g/dL (13.0-18.0); Mean Corp Hgb Conc. 31.8 g/dL (33.0-37.0); Mean Corpuscular Hgb 26.2 pg (27.0-31.0); Mean Corpuscular Volume 82.4 fL (80.0-94.0); Mean Platelet Volume 9.2 fL (7.4-10.4); Platelet Count 104 10^3/uL (130-400); Red Blood Cell Count 5.11 10^6/uL (4.70-6.10); Red Cell Dist. Width 15.8 % (11.5-14.5); White Blood Cell Count 4.9 10^3/uL (4.8-10.8)
[2024-09-04] MEDS: PROTONIX IV 40 MG IV (08:00)
[2024-09-04] MEDS: NSS (PRESERVATIVE FREE) 10 ML IV (08:00)
[2024-09-04] MEDS: KCL 20 MEQ PO ×3 (08:02→21:22)
[2024-09-04] MEDS: VITAMIN D3 (cholecalciferol) 25 MCG PO (08:02)
[2024-09-04] MEDS: CARDIZEM CD 240 MG PO (08:02)
[2024-09-04] MEDS: DESENEX/MITRAZOL/ZEASORB 1 APPLIC TOPICAL ×2 (08:03→21:14)
[2024-09-04 08:11] LABS: APTT 29.8 Sec (23.4-35.0)
[2024-09-04] MEDS: ADVAIR HFA 115/21 MCG INHALER 2 PUFF INH ×2 (08:20→19:47)
[2024-09-04 08:50] LABS: Blood Urea Nitrogen 14 mg/dl (9-20); Calcium 8.4 mg/dl (8.4-10.2); Carbon Dioxide 26 mmol/L (22-30); Chloride 99 mmol/L (98-107); Estimated Creatinine Clearance 93 ml/min; Glucose 123 mg/dl (70-99); Magnesium 1.6 mg/dl (1.6-2.3); Potassium 3.4 mmol/L (3.5-5.1); Sodium 135 mmol/L (135-145); eGFR > 60.00
[2024-09-04 09:09] LABS: Glucose - Point of Care 193 mg/dl (70-99)
[2024-09-04] MEDS: NOVOLOG FLEXPEN-LOW RESISTANCE 1 UNITS SC (09:11)
[2024-09-04 10:56] LABS: Glucose - Point of Care 143 mg/dl (70-99)
[2024-09-04] MEDS: NOVOLOG FLEXPEN-LOW RESISTANCE SC ×2 (10:57→16:49)
[2024-09-04 11:00] VITALS: BP 156/97
[2024-09-04 11:53] LABS: APTT > 200 Sec (23.4-35.0)
--- NOTE | 2024-09-04 14:01 | W.PN.GS2 ---
Addendum entered and electronically signed by Akash Downey MD 09/04/24 15:57:
I saw and examined the patient independently.
The resident's documentation was reviewed and I agree with the note, assessment and plan except where noted below.
Comment: 74-year-old male with a recurrent SBO, feels better but still belching and distended on exam.
Will plan for a small bowel follow-through tomorrow
Keep on clears for now.
Ambulate and out of bed as tolerated.
Original Note:
Today's Communication / Plan
-
Will continue on clears
If no changes in the AM, plan on small bowel follow-through tomorrow AM
Ambulate out of bed.
General surgery will continue to follow
Assessment / Plan
-
Patient is a 74 yo M p/w probable recurrent SBO secondary to adhesions from prior operations and mesh repair now with return of bowel function. Subjectively feels better, passing gas but still belching and very distended on exam
Will continue on clears
If no changes in the AM, plan on small bowel follow-through tomorrow AM
Ambulate out of bed.
General surgery will continue to follow
Time Spent
Total Time Spent with Patient (in minutes): 20
Subjective Data
-
Feeling better today compared to day prior
No nausea, vomiting
Passing gas
Still endorses burping
No bowel movement yet
Date of Service: September 04, 2024
Objective Data
-
Intake and Output
09/03/24 09/04/24 09/05/24
06:59 06:59 06:59
Intake Total 840 / 840 940 / 940
Output Total 850 / 850 250 / 250
Balance -10 / -10 690 / 690
Intake:
IV fluids (Total) 600 / 600 700 / 700
IV piggybacks 240 / 240 240 / 240
Output:
Urine, Voided 850 / 850 250 / 250
Other:
How many times incontinent 3 3
SATURATED amount urine
Vital Signs
Temp Pulse Resp BP Pulse Ox
98.9 F 90 18 156/97 91
09/04/24 11:00 09/04/24 11:00 09/04/24 11:00 09/04/24 11:00 09/04/24 11:00
Lab Results
09/04/24 07:45
09/04/24 07:45
Calcium 8.4 mg/dl (8.4-10.2) 09/04/24 07:45
Magnesium 1.6 mg/dl (1.6-2.3) 09/04/24 07:45
Total Bilirubin 1.1 mg/dl (0.2-1.3) 08/30/24 09:14
AST 21 U/L (17-59) 08/30/24 09:14
ALT 22 U/L (0-50) 08/30/24 09:14
Alkaline Phosphatase 111 U/L (38-126) 08/30/24 09:14
Total Protein 6.3 g/dl (6.3-8.2) 08/30/24 09:14
Albumin 3.9 g/dl (3.5-5.0) 08/30/24 09:14
Physical Exam
-
GENERAL/NEURO: Awake, Alert, no distress
CHEST: Unlabored breathing on RA
ABDOMEN: Soft, Non-Tender, continues to be distended
Patient has a coppola catheter: No
Patient has a central line: No
--- NOTE | 2024-09-04 14:15 | W.PN.HOSP.TC ---
Today's Communication/Plan
-
SBFT in am
Assessment / Plan
Assessment / Plan
74-year-old male with abdominal pain and SBO.

CVS: S1-S2 irregular
Chest: Rales
Abdomen: Soft, BS present,
Extremities: No edema, normal pulses
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

# Small bowel obstruction
CT abdomen and pelvis-mid small bowel obstruction with transition point in the upper anterior mid pelvis
Clears
Patient is passing flatus ,
Pain control
Surgery consulted and following.
Per D/W Surgeon- Keep On clears today
SBFT in am
# Slow to respond/TME noted 09/01/24
Likely secondary to Hypotension
Resolved
#-Hypokalemia-replace
# Hypotension-resolved
Likely secondary to volume loss/hypovolemia and Vasovagal too?
Restart losartan
Continue Cardizem
# Mild zfjrdwsyazxaomql-izknwp-fw
# Acute kidney injury-resolved -Resolved
# Leukocytosis-treat UTI and also aspiration pneumonia-continue Unasyn
# UTI-Enterococcus in the urine culture-continue Unasyn
# Hypertension-Hold chlorthalidone Continue Losartan and Cardizem
# Hyperlipidemia-restart atorvastatin
# Permanent atrial fibrillation- on heparin drip.
Cardizem CD 240 mg
Echo 05/13/2024-EF 55 to 60%, moderately enlarged left atrium, mild MR, mildly dilated right atrium, pericardial effusion, normal RV size and function.
Cardiology Dr.D.L Rubio
Last dose of Xarelto was 08/29/2024 evening
# COPD-Continue Advair or Equivalent
# Diabetes-hemoglobin A1c 8.5
Hold Jardiance, glipizide. Restart if sugars going high.
Sliding scale coverage and Accu-Cheks
# GERD-continue PPI
# History of pulmonary embolism with IVC filter
Factor V Leyden
Was on Xarelto- Now on hold.
Heparin drip
# Vit D Def- Replace
# History of pericarditis
# Sleep apnea-He does not use CPAP.
# Prostate Ca s/p Aqua prostate ablation at [facility] 03/2024. Urologist .
# History of E. coli sepsis 2017
# History of embolic CVA 2012
# History of hepatitis B treated.
# Obesity per BMI
# Ex-smoker quit 2010
# DVT prophylaxis -Heparin drip
# Full code
D/W RN at bed side
Discussed with Surgeon
Anticipated Discharge: 24 - 48 hours
Subjective/Interval History
-
Date of Service: September 04, 2024
Objective Data
-
Labs:
Laboratory Results
09/04/24 09/04/24 09/04/24
07:45 10:40 13:00
WBC 4.9
Hgb 13.4
Hct 42.1
Plt Count 104 L
APTT 29.8 > 200 H* Cancelled
Sodium 135
Potassium 3.4 L
Chloride 99
Carbon Dioxide 26
BUN 14
Creatinine 0.8
Glucose 123 H
Calcium 8.4
09/04/24 09/04/24
14:00 16:20
WBC
Hgb
Hct
Plt Count
APTT Pending Cancelled
Sodium
Potassium
Chloride
Carbon Dioxide
BUN
Creatinine
Glucose
Calcium
Vital Signs:
Vital Signs
Temp Pulse Resp BP Pulse Ox
98.9 F 90 18 156/97 91
09/04/24 11:00 09/04/24 11:00 09/04/24 11:00 09/04/24 11:00 09/04/24 11:00
I&O
09/03/24 09/04/24 09/05/24
06:59 06:59 06:59
Intake Total 840 / 840 940 / 940
Output Total 850 / 850 250 / 250
Balance -10 / -10 690 / 690
[2024-09-04] MEDS: MAGNESIUM OXIDE 500 MG PO (14:58)
[2024-09-04 15:00] VITALS: BP 151/91
[2024-09-04 15:07] LABS: Glucose - Point of Care 130 mg/dl (70-99)
--- NOTE | 2024-09-04 16:24 | CM ---
CM reviewed chart, patient continues on clears, per General Surgery, plan for small bowel follow-through tomorrow morning. CM will continue to follow for all discharge planning needs.
Plan; home with spouse, watch for VN needs when stable.
[2024-09-04 17:26] LABS: APTT 199.8 Sec (23.4-35.0)
[2024-09-04] MEDS: ZOFRAN 4 MG IV (17:26)
--- NOTE | 2024-09-04 17:37 | W.PN.UPDATE ---
Update Note
Progress Note Update
PTT all over the place. Ill stop heparin gtt and start Lovenox at 8 pm
[2024-09-04 19:30] VITALS: BP 134/75
[2024-09-04 21:08] LABS: Glucose - Point of Care 144 mg/dl (70-99)
[2024-09-04] MEDS: LOVENOX 100 MG SC (21:22)
[2024-09-04] MEDS: FLUSH (NSS) 2 FLUSH IV ×2 (21:23→22:06)
[2024-09-04] MEDS: LIPITOR 20 MG PO (21:24)
[2024-09-04] MEDS: AMBIEN PO ×2 (21:24→23:00)
[2024-09-04 23:30] VITALS: BP 153/90
[2024-09-05] MEDS: LR 1000 IV (02:58)
[2024-09-05] MEDS: UNASYN IV ×4 (03:02→21:34)
[2024-09-05] MEDS: DILAUDID 1 MG IV ×2 (03:07→08:36)
[2024-09-05 03:30] VITALS: BP 162/90
[2024-09-05 07:22] VITALS: BP 132/77
[2024-09-05] MEDS: NOVOLOG FLEXPEN-LOW RESISTANCE SC ×2 (07:37→13:57)
[2024-09-05 07:38] LABS: Glucose - Point of Care 141 mg/dl (70-99)
[2024-09-05] MEDS: CARDIZEM CD 240 MG PO (07:38)
[2024-09-05] MEDS: VITAMIN D3 (cholecalciferol) 25 MCG PO (07:38)
[2024-09-05] MEDS: KCL 20 MEQ PO ×3 (07:38→21:34)
[2024-09-05] MEDS: LOVENOX 100 MG SC (07:38)
[2024-09-05] MEDS: MAGNESIUM OXIDE 500 MG PO (07:39)
[2024-09-05] MEDS: PROTONIX IV 40 MG IV (07:39)
[2024-09-05] MEDS: NSS (PRESERVATIVE FREE) 10 ML IV (07:39)
[2024-09-05] MEDS: DESENEX/MITRAZOL/ZEASORB 1 APPLIC TOPICAL ×2 (07:40→21:35)
[2024-09-05] MEDS: ADVAIR HFA 115/21 MCG INHALER 2 PUFF INH ×2 (07:52→20:39)
[2024-09-05 09:42] LABS: Blood Urea Nitrogen 9 mg/dl (9-20); Calcium 8.4 mg/dl (8.4-10.2); Carbon Dioxide 25 mmol/L (22-30); Chloride 99 mmol/L (98-107); Estimated Creatinine Clearance 93 ml/min; Glucose 169 mg/dl (70-99); Potassium 3.5 mmol/L (3.5-5.1); Sodium 133 mmol/L (135-145); eGFR > 60.00
--- NOTE | 2024-09-05 12:31 | CM ---
Chart reviewed and housing case manager will await updated PT/OT notes, for discharge planning for patient.
Plan; Await updated PT/OT notes.
--- NOTE | 2024-09-05 13:13 | W.PN.HOSP.TC ---
Addendum entered and electronically signed by Onur Barker MD 09/06/24 16:44:
Completed course of AB
[id number]
Addendum entered and electronically signed by Onur Barker MD 09/06/24 16:43:
right arm IV infiltrate- better
Original Note:
Today's Communication/Plan
-
SBFT looks OK
Advance diet
Start Xarelto
DC Lovenox
Start Glipizide and Jardiance
IF OK possible discharge home tomorrow
Assessment / Plan
Assessment / Plan
74-year-old male with abdominal pain and SBO.

CVS: S1-S2 irregular
Chest: Rales
Abdomen: Soft, BS present,
Extremities: No edema, normal pulses
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

# Small bowel obstruction
CT abdomen and pelvis-mid small bowel obstruction with transition point in the upper anterior mid pelvis
SBFT Normal
Multiple BMS
Advance diet if OK with surgeon too
# Slow to respond/TME noted 09/01/24
Likely secondary to Hypotension
Resolved
#-Hypokalemia-replace 20 MEQ today
# Hypotension-resolved
Likely secondary to volume loss/hypovolemia and Vasovagal too?
Restarted losartan
Continue Cardizem
# Mild hotkcxrreppocrli-phnavf-nj
# Acute kidney injury-resolved -Resolved
# Leukocytosis-treat UTI and also aspiration pneumonia-continue Unasyn
# UTI-Enterococcus in the urine culture-continue Unasyn
# Hypertension-Hold chlorthalidone Continue Losartan and Cardizem
# Hyperlipidemia- atorvastatin
# Permanent atrial fibrillation-
Cardizem CD 240 mg
Echo 05/13/2024-EF 55 to 60%, moderately enlarged left atrium, mild MR, mildly dilated right atrium, pericardial effusion, normal RV size and function.
Cardiology Dr.D.L Rubio
Last dose of Xarelto was 08/29/2024 evening
D/C Lovenox
# COPD-Continue Advair or Equivalent
# Diabetes-hemoglobin A1c 8.5
restart Jardiance, glipizide 5 mg ( Instead of 15)
Sliding scale coverage and Accu-Cheks
# GERD-continue PPI
# History of pulmonary embolism with IVC filter
Factor V Leyden
Was on Xarelto- restart
# Vit D Def- Replace
# History of pericarditis
# Sleep apnea-He does not use CPAP.
# Prostate Ca s/p Aqua prostate ablation at [facility] 03/2024. Urologist .
# History of E. coli sepsis 2017
# History of embolic CVA 2012
# History of hepatitis B treated.
# Obesity per BMI
# Ex-smoker quit 2010
# DVT prophylaxis -Restart Xarelto
# Full code
D/W RN at bed side
Discussed with Surgeon
Anticipated Discharge: Within 24 hours
Subjective/Interval History
-
Date of Service: September 05, 2024
Objective Data
-
Labs:
Laboratory Results
09/05/24
08:20
Sodium 133 L
Potassium 3.5
Chloride 99
Carbon Dioxide 25
BUN 9
Creatinine 0.8
Glucose 169 H
Calcium 8.4
Vital Signs:
Vital Signs
Temp Pulse Resp BP Pulse Ox
98.6 F 88 14 132/77 93
09/05/24 07:22 09/05/24 07:55 09/05/24 07:55 09/05/24 07:38 09/05/24 07:55
I&O
09/04/24 09/05/24 09/06/24
06:59 06:59 06:59
Intake Total 940 / 940 2435 / 2435
Output Total 250 / 250 225 / 225
Balance 690 / 690 2210 / 2210
[2024-09-05 13:56] LABS: Glucose - Point of Care 114 mg/dl (70-99)
[2024-09-05] MEDS: FARXIGA 10 MG PO (13:58)
[2024-09-05] MEDS: GLUCOTROL XL (EXTENDED RELEASE) 5 MG PO (13:58)
[2024-09-05] MEDS: NSS 1000 IV (13:59)
[2024-09-05 15:33] VITALS: BP 142/80
[2024-09-05 16:15] LABS: Glucose - Point of Care 174 mg/dl (70-99)
[2024-09-05] MEDS: NOVOLOG FLEXPEN-LOW RESISTANCE 1 UNITS SC (17:27)
[2024-09-05 19:00] VITALS: BP 149/93
--- NOTE | 2024-09-05 20:43 | W.PN.GS2 ---
Today's Communication / Plan
-
Small bowel follow-through demonstrated his SBO has resolved. Okay to advance diet
Assessment / Plan
-
Patient is a 74 yo M p/w probable recurrent SBO secondary to adhesions from prior operations and mesh repair now with return of bowel function. Subjectively feels better, passing gas amount with bowel movements after his small bowel follow-through.
Small bowel follow-through showed no residual bowel obstruction.
Patient has been tolerating clears, can advance to a low residue diet.
Can begin dispo planning.
General surgery will continue to follow peripherally, please call with any questions or concerns.
Patient can follow-up with general surgery as needed
Time Spent
Total Time Spent with Patient (in minutes): 20
Subjective Data
-
Date of Service: September 05, 2024
Interval Events:
No acute events overnight. Slept well. Pain Controlled. Denies Nausea/Vomiting, +bowel function. Tolerating diet.
Objective Data
-
Intake and Output
09/04/24 09/05/24 09/06/24
06:59 06:59 06:59
Intake Total 940 / 940 2435 / 2435 600 / 600
Output Total 250 / 250 225 / 225
Balance 690 / 690 2210 / 2210 600 / 600
Intake:
Oral fluids 1080 / 1080 600 / 600
IV fluids (Total) 700 / 700 875 / 875
IV piggybacks 240 / 240 480 / 480
Output:
Urine, Voided 250 / 250 225 / 225
Other:
Number of approximated MODERATE 2
amounts of urine
How many times incontinent 1
MODERATE amount urine
How many times incontinent 3 2 3
SATURATED amount urine
Vital Signs
Temp Pulse Resp BP Pulse Ox
99.0 F 98 18 149/93 95
09/05/24 19:00 09/05/24 19:00 09/05/24 19:00 09/05/24 19:00 09/05/24 19:00
Lab Results
09/04/24 07:45
09/05/24 08:20
Calcium 8.4 mg/dl (8.4-10.2) 09/05/24 08:20
Magnesium 1.6 mg/dl (1.6-2.3) 09/04/24 07:45
Total Bilirubin 1.1 mg/dl (0.2-1.3) 08/30/24 09:14
AST 21 U/L (17-59) 08/30/24 09:14
ALT 22 U/L (0-50) 08/30/24 09:14
Alkaline Phosphatase 111 U/L (38-126) 08/30/24 09:14
Total Protein 6.3 g/dl (6.3-8.2) 08/30/24 09:14
Albumin 3.9 g/dl (3.5-5.0) 08/30/24 09:14
Physical Exam
-
GENERAL/NEURO: Awake, Alert, no distress
CHEST: Unlabored breathing on RA
ABDOMEN: Soft, Non-Tender, Non-Distended
Patient has a coppola catheter: No
Patient has a central line: No
[2024-09-05] MEDS: XARELTO 20 MG PO (21:35)
[2024-09-05] MEDS: AMBIEN PO (21:35)
[2024-09-05] MEDS: LIPITOR 20 MG PO (21:35)
[2024-09-05 21:56] LABS: Glucose - Point of Care 69 mg/dl (70-99)
[2024-09-05 22:24] LABS: Glucose - Point of Care 69 mg/dl (70-99)
[2024-09-05] MEDS: REFRESH EYE DROPS (PF) 1 DROPS OPHTH (22:27)
[2024-09-05 22:58] LABS: Glucose - Point of Care 127 mg/dl (70-99)
[2024-09-05 23:00] VITALS: BP 147/85
[2024-09-06 01:01] LABS: Glucose - Point of Care 82 mg/dl (70-99)
[2024-09-06] MEDS: UNASYN IV ×2 (01:40→09:28)
[2024-09-06 02:45] VITALS: BP 145/99
[2024-09-06 03:12] LABS: Glucose - Point of Care 112 mg/dl (70-99)
[2024-09-06] MEDS: ADVAIR HFA 115/21 MCG INHALER 2 PUFF INH ×2 (06:05→20:13)
[2024-09-06 07:25] VITALS: BP 144/85
[2024-09-06 07:38] LABS: Glucose - Point of Care 140 mg/dl (70-99)
[2024-09-06] MEDS: NOVOLOG FLEXPEN-LOW RESISTANCE SC ×3 (07:39→16:24)
[2024-09-06 09:00] LABS: Hemoglobin 13.3 g/dL (13.0-18.0); Mean Corp Hgb Conc. 32.4 g/dL (33.0-37.0); Mean Corpuscular Hgb 26.3 pg (27.0-31.0); Mean Platelet Volume 9.7 fL (7.4-10.4); Platelet Count 111 10^3/uL (130-400); Red Blood Cell Count 5.06 10^6/uL (4.70-6.10); White Blood Cell Count 6.2 10^3/uL (4.8-10.8)
[2024-09-06] MEDS: DILAUDID 1 MG IV (09:22)
[2024-09-06] MEDS: TYLENOL 650 MG PO ×2 (09:24→20:36)
[2024-09-06] MEDS: KCL 20 MEQ PO ×2 (09:26→20:36)
[2024-09-06] MEDS: MAGNESIUM OXIDE 500 MG PO (09:26)
[2024-09-06] MEDS: GLUCOTROL XL (EXTENDED RELEASE) 5 MG PO (09:26)
[2024-09-06] MEDS: VITAMIN D3 (cholecalciferol) 25 MCG PO (09:26)
[2024-09-06] MEDS: FARXIGA 10 MG PO (09:27)
[2024-09-06] MEDS: CARDIZEM CD 240 MG PO (09:27)
[2024-09-06] MEDS: PROTONIX IV 40 MG IV (09:28)
[2024-09-06] MEDS: NSS (PRESERVATIVE FREE) 10 ML IV (09:30)
[2024-09-06] MEDS: DESENEX/MITRAZOL/ZEASORB 1 APPLIC TOPICAL ×2 (09:30→20:38)
[2024-09-06 09:49] LABS: Calcium 8.2 mg/dl (8.4-10.2); Chloride 101 mmol/L (98-107); Estimated Creatinine Clearance 93 ml/min; Magnesium 1.7 mg/dl (1.6-2.3); Potassium 3.7 mmol/L (3.5-5.1); Sodium 134 mmol/L (135-145); eGFR > 60.00
[2024-09-06 09:59] LABS: Blood Urea Nitrogen 9 mg/dl (9-20); Carbon Dioxide 24 mmol/L (22-30); Glucose 158 mg/dl (70-99)
--- NOTE | 2024-09-06 11:10 | CM ---
Chart reviewed and plan is for possible discharge to home today, diet to advance, home with spouse.
Plan; Home with spouse when stable.
[2024-09-06 12:12] LABS: Glucose - Point of Care 169 mg/dl (70-99)
[2024-09-06] MEDS: NSS IV (13:23)
[2024-09-06 15:41] LABS: Glucose - Point of Care 132 mg/dl (70-99)
[2024-09-06 15:50] VITALS: BP 143/89
[2024-09-06] MEDS: COZAAR 100 MG PO (16:25)
[2024-09-06] MEDS: ZOFRAN 4 MG IV (17:37)
[2024-09-06] MEDS: LIPITOR 20 MG PO (20:36)
[2024-09-06] MEDS: XARELTO 20 MG PO (20:36)
[2024-09-06] MEDS: AMBIEN PO ×2 (20:37→20:41)
[2024-09-06 21:53] LABS: Glucose - Point of Care 147 mg/dl (70-99)
[2024-09-06] MEDS: DILAUDID 0.5 MG IV (22:34)
[2024-09-06 23:41] VITALS: BP 128/57
--- NOTE | 2024-09-07 03:39 | DOWNTIME ---
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 Downtime documentation of patient's care, including medication administrations, has been reconciled in the electronic record per guidelines. Refer to the
patient's paper chart under the miscellaneous tab to see printed paper medication records and downtime forms.
[2024-09-07 03:55] VITALS: BP 141/80
[2024-09-07 07:05] VITALS: BP 151/89
[2024-09-07 07:57] LABS: Glucose - Point of Care 125 mg/dl (70-99)
[2024-09-07] MEDS: ADVAIR HFA 115/21 MCG INHALER 2 PUFF INH (08:10)
[2024-09-07] MEDS: NOVOLOG FLEXPEN-LOW RESISTANCE SC (08:20)
[2024-09-07] MEDS: NSS (PRESERVATIVE FREE) 10 ML IV (08:57)
[2024-09-07] MEDS: PROTONIX IV 40 MG IV (08:57)
[2024-09-07] MEDS: CARDIZEM CD 240 MG PO (08:58)
[2024-09-07] MEDS: COZAAR 100 MG PO (08:58)
[2024-09-07] MEDS: MAGNESIUM OXIDE 500 MG PO (08:58)
[2024-09-07] MEDS: VITAMIN D3 (cholecalciferol) 25 MCG PO (08:58)
[2024-09-07] MEDS: DESENEX/MITRAZOL/ZEASORB 1 APPLIC TOPICAL (08:58)
[2024-09-07] MEDS: FARXIGA 10 MG PO (08:58)
[2024-09-07] MEDS: GLUCOTROL XL (EXTENDED RELEASE) 5 MG PO (08:58)
[2024-09-07] MEDS: KCL 20 MEQ PO (08:58)
[2024-09-07 11:11] LABS: Glucose - Point of Care 234 mg/dl (70-99)
[2024-09-07] MEDS: NOVOLOG FLEXPEN-LOW RESISTANCE 2 UNITS SC (12:16)
--- NOTE | 2024-09-07 12:20 | W.PN.HOSP.TC ---
Today's Communication/Plan
-
dc
Assessment / Plan
Assessment / Plan
74yo M with recurrent SBO 2/2 Hx of adhesions due to prior abdominal surgeries came with abdominal pain and found SBO on CT, later had a return of bowel function after oral contrast, so possibly this eposode caused by constipation. Had subsequent
bowel movements, no nausea or vomiting, able to tolerate food. As per agreement with general Sx - medcially stable for d/c. Recommended to follow up with established GI upon d/c
A/P:
#SBO, recurrent
resolved
tolerated food
avoid constipation
Unasyn stopped (but no colitis on CT)
#Diverticulosis w/o diverticulitis
high fiberdiet
#mild thrombocytopenia
Posibly reactive
Lovenox sitched to home Xarelto
#hypotension
transient
resolved
#Toxic metabolic encephalopathy 2/2 UTI
E.faecalis
completed unasyn
#DM type 2 with neuropathy
DM diet, Insulin SS, accuchecks
#FELY on admission
resolved
#HLD
#Permanent Afib
#COPD not in exacerbation
#GERD
#ROGELIO not on CPAP
conr home meds
#Obesity
BMI 33.6
advised to decrease calorie intake
DVT ppx xarelto
FUll code
I have spent at least 36min reviewing chart, test results and providing direct patient care
Anticipated Discharge: Today
Subjective/Interval History
-
Date of Service: September 07, 2024
Objective Data
-
Vital Signs:
Vital Signs
Temp Pulse Resp BP Pulse Ox
98.2 F 96 16 151/89 95
09/07/24 07:05 09/07/24 08:12 09/07/24 08:12 09/07/24 07:05 09/07/24 08:12
I&O
09/06/24 09/07/24 09/08/24
06:59 06:59 06:59
Intake Total 3070 / 3070 960 / 960
Output Total 825 / 825 800 / 800
Balance 2245 / 2245 160 / 160
Review of Systems
-
History Source: Patient
All other systems: Reviewed and negative
Physical Exam
-
General: No Apparent Distress
HEENT: Normocephalic
Respiratory: Clear to Auscultation
Cardiac: Regular Rhythm
GI: Soft, Nontender, Nondistended and Normal Bowel Sounds
Neuro: Awake, Alert, Oriented and AO x 3
Psych: Calm
--- NOTE | 2024-09-07 12:21 | W.DCSUMMARY ---
Discharge Summary
Discharge Data
Date of Admission: 08/30/24
Date of Discharge: 09/07/24
-
Pending Results: No
Hospital Course
74yo M with recurrent SBO 2/2 Hx of adhesions due to prior abdominal surgeries came with abdominal pain and found SBO on CT, later had a return of bowel function after oral contrast, so possibly this eposode caused by constipation. Had subsequent
bowel movements, no nausea or vomiting, able to tolerate food. As per agreement with general Sx - medcially stable for d/c. Recommended to follow up with established GI upon d/c
I have spent at least 36min reviewing chart, test results and providing direct patient care
Patient was managed for:
#SBO, recurrent
#Diverticulosis w/o diverticulitis
#mild thrombocytopenia
#hypotension
#Toxic metabolic encephalopathy 2/2 UTI
#DM type 2 with neuropathy
#FELY on admiison
#HLD
#Permanent Afib
#COPD not in exacerbation
#GERD
#ROGELIO not on CPAP
#Obesity
Discharge Plan
-
Patient Disposition: Home with Home Care
Discharge Diagnosis/Procedures: Small bowel obstruction
Hypokalemia
Hypotension
Mild thrombocytopenia
Acute kidney injury
History of pulmonary embolism
Factor V Leyden
Vitamin D deficiency
Sleep apnea
History of prostate cancer
History of CVA
UTI/aspiration
Hypertension
Hyperlipidemia
Atrial fibrillation
COPD
Diabetes
GERD
Diverticulosis
Degenerative disc disease
Diet: 2 Gram Sodium and Diabetic, Carb Controlled
Activity: As tolerated
Driving Restrictions: As prior to admission
Other Services: VN
Activity Restrictions/Additional Instructions:
Weight loss advised
Referrals:
Steffen Dao MD [Family Provider] - in less than 1 week
Additional Discharge Medication Instructions: Use glipizide 5 mg daily until your appetite is back to normal. Then slowly increase to 10 mg sent to your normal dosing of 15 mg after that.
Prescriptions:
New
cholecalciferol (vitamin D3) 25 mcg (1,000 unit) Tablet
25 mcg PO DAILY Qty: 0 0RF
Continued
diltiazem HCl 240 MG capsule,extended release 24hr
240 mg PO DAILY
Xarelto 20 MG tablet
20 mg PO HS
eszopiclone [Lunesta] 3 MG tablet
3 mg PO HS
atorvastatin 20 MG tablet
20 mg PO HS
polyethylene glycol 3350 [Miralax] 17 gram powder in packet
17 g PO DAILYPRN PRN (Reason: constipation)
pantoprazole [Protonix] 40 mg Tablet,Delayed Release (Dr/Ec)
40 mg PO DAILY
losartan 100 mg tablet
100 mg PO DAILY
fluticasone propion-salmeterol [Advair Diskus] 250-50 mcg/dose blister with device
2 inh INHALATION R BID
glipizide 5 mg tablet extended release 24hr
15 mg PO DAILY Qty: 0 0RF
chlorthalidone 25 mg tablet
25 mg PO DAILY Qty: 0 0RF
potassium chloride 20 mEq tablet extended release
20 meq PO BID Qty: 0 0RF
clotrimazole [Athlete's Foot (clotrimazole)] 1 % Cream
1 applic topical BID 30 Days Qty: 25 0RF
Jardiance 10 mg Tablet
10 mg PO DAILY 30 Days Qty: 30 0RF
magnesium oxide 500 mg magnesium Tablet
500 mg PO BID 30 Days Qty: 60 0RF
Discharge Date and Time
Print Language: GREEK
--- NOTE | 2024-09-07 12:27 | CM ---
Home today no needs.
Plan; Home no needs.
[2024-09-07 13:00] VITALS: BP 153/84
== END 2024-09-07 13:07 | disposition home or self-care (01) | DRG 388 ==
LOC: 4 WEST ACU 13:07
PROVIDERS: Hospitalist; Physician Assistant; Radiology Diagnostic Radiology; Registered Nurse; ADMITTING PHYSICIAN Hospitalist; ATTENDING PHYSICIAN Internal Medicine; CONSULT PHYSICIAN Surgery; EMERGENCY PHYSICIAN Emergency Medicine; FAMILY PHYSICIAN Family Medicine
PROC: 0D9670Z Drainage of Stomach with Drainage Device, Via Natural or Artificial Opening (ICD-10-PCS; 2024-08-30)
DX: K56.51 Intestinal adhesions [bands], with partial obstruction (principal); G92.8 Other toxic encephalopathy; N39.0 Urinary tract infection, site not specified; N17.9 Acute kidney failure, unspecified; I48.21 Permanent atrial fibrillation; K57.30 Diverticulosis of large intestine without perforation or abscess without bleeding; D69.6 Thrombocytopenia, unspecified; I95.9 Hypotension, unspecified; E11.40 Type 2 diabetes mellitus with diabetic neuropathy, unspecified; E78.00 Pure hypercholesterolemia, unspecified; J44.9 Chronic obstructive pulmonary disease, unspecified; K21.9 Gastro-esophageal reflux disease without esophagitis; G47.33 Obstructive sleep apnea (adult) (pediatric); E66.9 Obesity, unspecified; E87.6 Hypokalemia; K76.0 Fatty (change of) liver, not elsewhere classified; E11.65 Type 2 diabetes mellitus with hyperglycemia; B95.2 Enterococcus as the cause of diseases classified elsewhere; E55.9 Vitamin D deficiency, unspecified; G47.00 Insomnia, unspecified; I10 Essential (primary) hypertension; K59.00 Constipation, unspecified; Z87.891 Personal history of nicotine dependence; Z88.5 Allergy status to narcotic agent; Z79.01 Long term (current) use of anticoagulants; Z79.84 Long term (current) use of oral hypoglycemic drugs; Z79.899 Other long term (current) drug therapy; N40.0 Benign prostatic hyperplasia without lower urinary tract symptoms; Z79.51 Long term (current) use of inhaled steroids; Z85.46 Personal history of malignant neoplasm of prostate; Z86.711 Personal history of pulmonary embolism; Z86.718 Personal history of other venous thrombosis and embolism; Z86.73 Personal history of transient ischemic attack (TIA), and cerebral infarction without residual deficits; Z95.828 Presence of other vascular implants and grafts; Z68.33 Body mass index [BMI] 33.0-33.9, adult; Z91.040 Latex allergy status
CPT/HCPCS: 70450; 71045; 71046; 74019; 74022; 74177; 74250; 80048; 80053; 81003; 81015; 82306; 82962; 83036; 83605; 83690; 83735; 85025; 85027; 85730; 87077; 87086; 87186; 93005; 94640; 96374; 96375; 96376; 97163; 97166; 97530; 99285; Q9967

== ENCOUNTER → 2024-09-23 14:21 | Outpatient (REF) | payer MEDICARE, OTHER, SELFPAY ==
[2024-09-23 15:39] LABS: NT-proBNP 637 pg/ml
== END ==
LOC: REG 14:21
PROVIDERS: ATTENDING PHYSICIAN Nurse Practitioner Adult Health
DX: Z09 Encounter for follow-up examination after completed treatment for conditions other than malignant neoplasm (principal); J90 Pleural effusion, not elsewhere classified
CPT/HCPCS: 36415; 71046; 83880

== ENCOUNTER → 2024-09-29 09:38 | Outpatient (REF) | payer MEDICARE, OTHER, SELFPAY | LOC: RST 09:38 | PROVIDERS: ATTENDING PHYSICIAN Nurse Practitioner Adult Health; FAMILY PHYSICIAN Family Medicine | DX: J69.0 Pneumonitis due to inhalation of food and vomit (principal) | CPT/HCPCS: 74230; 92611 ==

== ENCOUNTER → 2024-11-09 10:17 | Outpatient (REF) | payer MEDICARE, OTHER, SELFPAY ==
[2024-11-09 11:16] LABS: Urine Albumin 1+ (Neg - Trace); Urine Bilirubin Negative (Negative); Urine Character Clear (Clear); Urine Color Yellow; Urine Glucose 4+ (Negative); Urine Ketone Negative (Negative); Urine Leukocyte 1+ (Negative); Urine Nitrite Negative (Negative); Urine Occult Blood 2+ (Negative); Urine Specific Gravity 1.015 (<1.030); Urine Urobilinogen Negative (Neg - 1+)
[2024-11-09 13:30] LABS: Urine Bacteria Few (Negative); Urine White Cell 30-40 /HPF (0-5)
== END ==
LOC: REG 10:17
PROVIDERS: ATTENDING PHYSICIAN Internal Medicine Infectious Disease; FAMILY PHYSICIAN Family Medicine
DX: R82.71 Bacteriuria (principal)
CPT/HCPCS: 81003; 81015; 87077; 87086; 87186

== ENCOUNTER → 2024-11-17 09:11 | Outpatient (REF) | payer MEDICARE, OTHER, SELFPAY ==
[2024-11-17 10:50] LABS: PSA, Total - Diagnostic 0.51 ng/ml (0.0-4.0)
== END ==
LOC: REG 09:11
PROVIDERS: ATTENDING PHYSICIAN Urology; FAMILY PHYSICIAN Family Medicine
DX: C61 Malignant neoplasm of prostate (principal)
CPT/HCPCS: 36415; 84153

== ENCOUNTER → 2024-11-28 07:31 | Outpatient (REF) | payer MEDICARE, OTHER, SELFPAY | LOC: HWRAD 07:31 | PROVIDERS: ATTENDING PHYSICIAN Internal Medicine Gastroenterology; FAMILY PHYSICIAN Family Medicine | DX: K76.0 Fatty (change of) liver, not elsewhere classified (principal) | CPT/HCPCS: 76700 ==

== ENCOUNTER → 2025-02-02 14:36 | Outpatient (REF) | payer MEDICARE, OTHER, SELFPAY | LOC: HWRAD 14:36 | PROVIDERS: ATTENDING PHYSICIAN Internal Medicine Critical Care Medicine; FAMILY PHYSICIAN Family Medicine | DX: Z87.891 Personal history of nicotine dependence (principal) | CPT/HCPCS: 71271 ==

== ENCOUNTER → 2025-02-13 10:17 | Outpatient (REF) | payer MEDICARE, OTHER, SELFPAY ==
[2025-02-13 11:38] LABS: Hematocrit 48.6 % (39.0-52.0); Hemoglobin 15.2 g/dL (13.0-18.0); Mean Corp Hgb Conc. 31.3 g/dL (33.0-37.0); Mean Corpuscular Volume 81.7 fL (80.0-94.0); Platelet Count 213 10^3/uL (130-400); Red Cell Dist. Width 16.7 % (11.5-14.5)
[2025-02-13 12:14] LABS: ALT (SGPT) 15 U/L (0-50); AST (SGOT) 16 U/L (17-59); Albumin 4.0 g/dl (3.5-5.0); Alkaline Phosphatase 90 U/L (38-126); Blood Urea Nitrogen 17 mg/dl (9-20); Calcium 9.4 mg/dl (8.4-10.2); Carbon Dioxide 29 mmol/L (22-30); Chloride 101 mmol/L (98-107); Glucose 181 mg/dl (70-99); Potassium 4.2 mmol/L (3.5-5.1); Sodium 138 mmol/L (135-145); Total Protein 6.6 g/dl (6.3-8.2); eGFR > 60.00
[2025-02-13 12:25] LABS: Microalb - Urine Creatinine 106.500 mg/dl
[2025-02-13 12:30] LABS: Microalbumin, Random Urine 15.0 mg/dl (0.6-1.7)
[2025-02-13 12:39] LABS: Glycohemoglobin (HgbA1c) 7.5 % (4.0-5.6)
[2025-02-13 12:42] LABS: TSH 4.68 uIU/ml (0.47-4.68)
== END ==
LOC: REG 10:17
PROVIDERS: ATTENDING PHYSICIAN Family Medicine
DX: I48.20 Chronic atrial fibrillation, unspecified (principal); G47.33 Obstructive sleep apnea (adult) (pediatric); E11.59 Type 2 diabetes mellitus with other circulatory complications; F51.04 Psychophysiologic insomnia; C61 Malignant neoplasm of prostate; E66.813 Obesity, class 3; I50.30 Unspecified diastolic (congestive) heart failure; L60.9 Nail disorder, unspecified
CPT/HCPCS: 36415; 80053; 82043; 82570; 83036; 84443; 85027

== ENCOUNTER → 2025-02-21 07:30 | Outpatient (REF) | payer MEDICARE, OTHER, SELFPAY ==
[2025-02-21 09:00] LABS: HDL Cholesterol 30 mg/dl; LDL Cholesterol, Calculated 92 mg/dl; Very Low Density Lipoprotein 31 mg/dl (0-30)
== END ==
LOC: REG 07:30
PROVIDERS: ATTENDING PHYSICIAN Family Medicine; OTHER PHYSICIAN Internal Medicine Critical Care Medicine
DX: I48.20 Chronic atrial fibrillation, unspecified (principal); G47.33 Obstructive sleep apnea (adult) (pediatric); E11.59 Type 2 diabetes mellitus with other circulatory complications; F51.04 Psychophysiologic insomnia; C61 Malignant neoplasm of prostate; E66.813 Obesity, class 3; I50.30 Unspecified diastolic (congestive) heart failure; L60.9 Nail disorder, unspecified
CPT/HCPCS: 36415; 80061

== ENCOUNTER → 2025-03-22 07:18 | Outpatient (REF) | payer MEDICARE, OTHER, SELFPAY ==
[2025-03-22 10:21] LABS: PSA, Total - Diagnostic 0.57 ng/ml (0.0-4.0)
== END ==
LOC: RAD 07:18
PROVIDERS: ATTENDING PHYSICIAN Internal Medicine Gastroenterology; FAMILY PHYSICIAN Family Medicine; REFERRING PHYSICIAN Urology
DX: R05.8 Other specified cough (principal); C61 Malignant neoplasm of prostate
CPT/HCPCS: 36415; 84153

== ENCOUNTER 2025-04-18 15:30 | Emergency (ER) | payer MEDICARE, OTHER, SELFPAY ==
[2025-04-18 15:33] VITALS: BP 131/90
[2025-04-18 16:00] LABS: Hematocrit 46.3 % (39.0-52.0); Hemoglobin 15.2 g/dL (13.0-18.0); Mean Corp Hgb Conc. 32.8 g/dL (33.0-37.0); Mean Corpuscular Volume 79.4 fL (80.0-94.0); Nucleated Red Blood Cells % 0 % (-); Platelet Count 179 10^3/uL (130-400); Red Cell Dist. Width 15.9 % (11.5-14.5)
[2025-04-18 16:15] LABS: ALT (SGPT) 19 U/L (0-50); AST (SGOT) 20 U/L (17-59); Albumin 4.0 g/dl (3.5-5.0); Alkaline Phosphatase 105 U/L (38-126); Blood Urea Nitrogen 20 mg/dl (9-20); Calcium 9.1 mg/dl (8.4-10.2); Carbon Dioxide 27 mmol/L (22-30); Chloride 102 mmol/L (98-107); Glucose 180 mg/dl (70-99); Potassium 3.8 mmol/L (3.5-5.1); Sodium 136 mmol/L (135-145); Total Protein 6.7 g/dl (6.3-8.2); eGFR > 60.00
[2025-04-18 16:19] LABS: COVID-19 Antigen Negative (Negative)
[2025-04-18 16:24] LABS: Troponin I < 0.012 ng/ml
[2025-04-18 17:26] VITALS: BMI 37.0
[2025-04-18 17:44] VITALS: BP 150/78
[2025-04-18 18:00] VITALS: BP 130/82
[2025-04-18] MEDS: MORPHINE SULFATE 4 MG IV ×2 (18:30→21:02)
[2025-04-18 18:52] VITALS: BP 139/93
[2025-04-18 18:56] LABS: D-Dimer 0.80 ug/mlFEU (0.00-0.50)
--- NOTE | 2025-04-18 19:44 | ED.GENMED ---
History of Present Illness
<Keegan Douglas PA-C - Last Filed: 04/20/25 08:57>
General
Chief Complaint: Cold/Flu/URI Symptoms
Time Seen by Provider: 04/18/25 17:41
History of Present Illness
History of Present Illness:
75-year-old male with history of A-fib, hypertension, hyperlipidemia, and prior stroke presents to emergency department for evaluation of worsening chest pain ongoing for the past 4 days. Patient notes she woke up. Denies any associated fevers or
chills. Feels shortness of breath associated with her chronic cough but feels they are unrelated. 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
Past History
<Keegan Douglas PA-C - Last Filed: 04/20/25 08:57>
Past History
ED Past Medical History: Arrthythmia (Atrial fibrillation), COPD, CVA, HTN (Quit last week.), Hypercholesterolemia, Other (hepatitis), Other (pulmonary embolism) and Other (Pericarditis in 1976, DVT in 1999 with an IVC filter, hypertension,blood
clots left leg, with filter)
ED Past Surgical History: Cholecystectomy and Other (left testicular repair, varicose vein stripping,)
Social History
Tobacco: Former smoker
Alcohol: Occasional
Drug: None
Personal:
Living: with family
Employment: Employed
Family History
Family History: Other (Noncontributory )
Review of Systems
<Keegan Douglas PA-C - Last Filed: 04/20/25 08:57>
Review of Systems
Allergies reviewed?: Yes
All Other Systems: ROS reviewed and negative except as documented in HPI and ROS
Phy Exam
<Keegan Douglas PA-C - Last Filed: 04/20/25 08:57>
Physical Exam
Physical Exam:
GEN: Well appearing, NAD, WDWN
HEENT: Oral mucosa moist, no scleral icterus
Cardiac: Regular rate and rhythm, no murmurs
Lung: No respiratory distress, no tachypnea, lungs clear to auscultation bilaterally
MSK: No gross deformity or injuries
Skin: Good color, no pallor or jaundice, no rashes
Neuro: AO x3, moves all extremities freely
Psych: Calm, cooperative
Course
<Keegan Douglas PA-C - Last Filed: 04/20/25 08:57>
Orders/Labs/Results
Orders:
Orders
04/18/25 15:36
Electrocardiogram (*1) Urgent
Reason for Study: Chest Pain
Chest [CR Chest - 2 Views ] Urgent
Comment:
Reason For Exam: cough. SOB
04/18/25 15:37
EKG- Treatment ONCE
04/18/25 15:52
C-Reactive Protein Urgent
Comment: ADD ON
COVID-19 Antigen Urgent
Source: Nasal Swab
Complete Blood Count/With Diff Urgent
Comprehensive Metabolic Panel Urgent
Influenza A+B Rapid Molecular Urgent
BRENDA Source: Nasal Swab
Specimen Description:
04/18/25 15:54
NT-proBNP Urgent
Comment: ADD ON
Troponin I Urgent
04/18/25 18:07
Add On- LAB Urgent
Tests Added?: Pro-BNP
04/18/25 18:14
Morphine Sulfate 4 mg IV NOW STA
04/18/25 18:36
D-Dimer Urgent
04/18/25 19:07
CT Chest PE Study Urgent
Comment:
Reason For Exam: L chest pain, elevated D dimer
04/18/25 19:49
Add On- LAB Urgent
Tests Added?: CRP
04/18/25 20:55
Morphine Sulfate 4 mg IV NOW STA
Abnormal Lab Results
04/18/25 04/18/25
15:52 18:36
MCV 79.4 L fL
(80.0-94.0)
MCH 26.1 L pg
(27.0-31.0)
MCHC 32.8 L g/dL
(33.0-37.0)
RDW 15.9 H %
(11.5-14.5)
Absolute Lymphs (auto) 0.8 L 10^3/uL
(1.2-3.4)
Absolute Monos (auto) 0.7 H 10^3/uL
(0.1-0.6)
Lymphocytes % 11.2 L %
(20.5-51.1)
Monocytes % 9.8 H %
(1.7-9.3)
D-Dimer 0.80 H ug/mlFEU
(0.00-0.50)
Glucose 180 H mg/dl
(70-99)
C-Reactive Protein 19.40 H mg/L
(0.0-10.00)
04/18/25 15:52
04/18/25 15:52
Vital Signs
Initial and Last Documented VS:
Initial Vital Signs
Temp Pulse Resp BP Pulse Ox
97.6 F 87 18 131/90 97
04/18/25 15:33 04/18/25 15:33 04/18/25 15:33 04/18/25 15:33 04/18/25 15:33
Last Documented Vital Signs
Temp Pulse Resp BP Pulse Ox
97.7 F 87 18 147/88 97
04/18/25 21:00 04/18/25 21:44 04/18/25 21:44 04/18/25 21:44 04/18/25 21:44
<Nilo Aguilar PA-C - Last Filed: 04/18/25 21:13>
Orders/Labs/Results
Orders:
Orders
04/18/25 15:36
Electrocardiogram (*1) Urgent
Reason for Study: Chest Pain
Chest [CR Chest - 2 Views ] Urgent
Comment:
Reason For Exam: cough. SOB
04/18/25 15:37
EKG- Treatment ONCE
04/18/25 15:52
C-Reactive Protein Urgent
Comment: ADD ON
COVID-19 Antigen Urgent
Source: Nasal Swab
Complete Blood Count/With Diff Urgent
Comprehensive Metabolic Panel Urgent
Influenza A+B Rapid Molecular Urgent
BRENDA Source: Nasal Swab
Specimen Description:
04/18/25 15:54
NT-proBNP Urgent
Comment: ADD ON
Troponin I Urgent
04/18/25 18:07
Add On- LAB Urgent
Tests Added?: Pro-BNP
04/18/25 18:14
Morphine Sulfate 4 mg IV NOW STA
04/18/25 18:36
D-Dimer Urgent
04/18/25 19:07
CT Chest PE Study Urgent
Comment:
Reason For Exam: L chest pain, elevated D dimer
04/18/25 19:49
Add On- LAB Urgent
Tests Added?: CRP
04/18/25 20:55
Morphine Sulfate 4 mg IV NOW STA
Abnormal Lab Results
04/18/25 04/18/25
15:52 18:36
MCV 79.4 L fL
(80.0-94.0)
MCH 26.1 L pg
(27.0-31.0)
MCHC 32.8 L g/dL
(33.0-37.0)
RDW 15.9 H %
(11.5-14.5)
Absolute Lymphs (auto) 0.8 L 10^3/uL
(1.2-3.4)
Absolute Monos (auto) 0.7 H 10^3/uL
(0.1-0.6)
Lymphocytes % 11.2 L %
(20.5-51.1)
Monocytes % 9.8 H %
(1.7-9.3)
D-Dimer 0.80 H ug/mlFEU
(0.00-0.50)
Glucose 180 H mg/dl
(70-99)
C-Reactive Protein 19.40 H mg/L
(0.0-10.00)
04/18/25 15:52
04/18/25 15:52
Vital Signs
Initial and Last Documented VS:
Initial Vital Signs
Temp Pulse Resp BP Pulse Ox
97.6 F 87 18 131/90 97
04/18/25 15:33 04/18/25 15:33 04/18/25 15:33 04/18/25 15:33 04/18/25 15:33
Last Documented Vital Signs
Temp Pulse Resp BP Pulse Ox
97.7 F 87 18 147/88 97
04/18/25 21:00 04/18/25 21:44 04/18/25 21:44 04/18/25 21:44 04/18/25 21:44
<Keegan Douglas PA-C - Last Filed: 04/20/25 08:57>
MDM/Problems Addressed
MDM/Problems Addressed:
EKG is nonischemic however D-dimer did return slightly elevated. Will be sent for PE study. The patient has vital signs no abnormal labs. Will sign out pending PE study to oncoming shift
<Keegan Douglas PA-C - Last Filed: 04/20/25 08:57>
*Pulse Oximetry
SaO2: 96
Oxygen Mode of Delivery: Room air
<Nilo Aguilar PA-C - Last Filed: 04/18/25 21:13>
*Pulse Oximetry
Patient hypoxic: no
*Critical Care Note
Total Time (30-74mins, 75-104mins- exclusive of procedures): Not Applicable
<Nilo Aguilar PA-C - Last Filed: 04/18/25 21:13>
Update Note
Update Note:
Assumed care of patient pending CT of chest. CT of the chest is negative for PE. CRP is slightly elevated at 19. Patient has a history of pericarditis. Will cover with a round of colchicine. At this point no indication for admission. For
discharge with cardiology follow-up
ED Attending Note
<Keegan Douglas PA-C - Last Filed: 04/20/25 08:57>
-
Portions of this chart may have been created with voice recognition software.� Occasional wrong word or��sound alike� substitutions may have occurred due to the inherent limitations of voice recognition software.
Discharge Plan
Departure
Patient Disposition: Home (Routine Discharge)
Date of Disposition: 04/18/25
Time of Disposition: 21:10
Patient with high blood pressure during this ER visit?: No
Discharge Problem:
Chest pain
Instructions: Chest Pain DCA Follow Up
Prescriptions:
New
colchicine 0.6 mg capsule
0.6 mg PO BID Qty: 10 0RF
No Action
Xarelto 20 MG tablet
20 mg PO HS
eszopiclone [Lunesta] 3 MG tablet
3 mg PO HS
atorvastatin 20 MG tablet
20 mg PO HS
pantoprazole [Protonix] 40 mg Tablet,Delayed Release (Dr/Ec)
40 mg PO DAILY
losartan 100 mg tablet
100 mg PO DAILY
cholecalciferol (vitamin D3) 25 mcg (1,000 unit) Tablet
25 mcg PO DAILY Qty: 0 0RF
glipizide 5 mg tablet extended release 24hr
15 mg PO DAILY Qty: 0 0RF
chlorthalidone 25 mg tablet
25 mg PO DAILY Qty: 0 0RF
potassium chloride 20 mEq tablet extended release
20 meq PO BID Qty: 0 0RF
diltiazem HCl [Cartia XT] 240 mg Capsule,Extended Release 24hr
240 mg PO DAILY
eszopiclone 3 mg Tablet
3 mg PO HS
Gemtesa 75 mg Tablet
75 mg PO DAILY
Jardiance 10 mg Tablet
10 mg PO DAILY 30 Days Qty: 30 0RF
Referrals:
Steffen Dao MD [Family Provider, Family Practice]
Activity Restrictions/Additional Instructions:
Use medicine as prescribed. Follow-up with your doctor. Return if needed
Interventions
Interventions:
*Risk Screen - Suicide Last Done: 04/18/25 15:33
*General Assessment Last Done: 04/18/25 15:33
*Neglect/Abuse Screening Last Done: 04/18/25 17:44
*ED- Fall Risk Assessment Last Done: 04/18/25 17:44
*ED COVID-19 Vaccine History Last Done: 04/18/25 17:44
*ED Influenza Vaccine History Last Done: 04/18/25 17:44
*Nursing Disposition Last Done: 04/18/25 21:44
ED- Pulmonary Assessment Last Done: 04/18/25 17:44
Discharge Date and Time
Discharge Date/Time: 04/18/25 21:48
Print Language: SERBIAN
[2025-04-18 20:28] LABS: C-Reactive Protein 19.40 mg/L (0.0-10.00)
[2025-04-18 21:00] VITALS: BP 147/88
[2025-04-18 21:44] VITALS: BP 147/88
== END 2025-04-18 21:48 | disposition home or self-care (01) ==
LOC: EMR 15:30
PROVIDERS: Physician Assistant; EMERGENCY PHYSICIAN Emergency Medicine; FAMILY PHYSICIAN Family Medicine
DX: R07.9 Chest pain, unspecified (principal); I48.91 Unspecified atrial fibrillation; I10 Essential (primary) hypertension; E78.00 Pure hypercholesterolemia, unspecified; J44.9 Chronic obstructive pulmonary disease, unspecified; Z86.79 Personal history of other diseases of the circulatory system; Z86.711 Personal history of pulmonary embolism; Z86.718 Personal history of other venous thrombosis and embolism; Z86.73 Personal history of transient ischemic attack (TIA), and cerebral infarction without residual deficits; Z87.891 Personal history of nicotine dependence
CPT/HCPCS: 99284; 96374; 96376; 71046; 71275; 80053; 83880; 84484; 85025; 85379; 86140; 87502; 87811; 93005; Q9967

== ENCOUNTER → 2025-06-01 14:42 | Outpatient (REF) | payer MEDICARE, OTHER, SELFPAY ==
[2025-06-01 16:17] LABS: Urine Character Clear (Clear)
[2025-06-01 16:27] LABS: Urine White Cell 30-40 /HPF (0-5)
== END ==
LOC: REG 14:42
PROVIDERS: ATTENDING PHYSICIAN Internal Medicine Infectious Disease; FAMILY PHYSICIAN Family Medicine
DX: R30.0 Dysuria (principal)
CPT/HCPCS: 81003; 81015; 87077; 87086; 87186

== ENCOUNTER → 2025-06-07 12:59 | Outpatient (REF) | payer MEDICARE, OTHER, SELFPAY | LOC: REG 12:59 | PROVIDERS: ATTENDING PHYSICIAN Family Medicine | DX: M25.562 Pain in left knee (principal) | CPT/HCPCS: 73564 ==

== ENCOUNTER 2025-06-12 13:46 | Outpatient (RCR) | payer MEDICARE, OTHER, SELFPAY | END 2025-06-12 23:59 | disposition home or self-care (01) | LOC: RPT 13:46 | PROVIDERS: ATTENDING PHYSICIAN Family Medicine | DX: R53.1 Weakness (principal); R26.2 Difficulty in walking, not elsewhere classified; Z73.6 Limitation of activities due to disability; R26.89 Other abnormalities of gait and mobility | CPT/HCPCS: 97110; 97116; 97163; 97530 ==

== ENCOUNTER → 2025-06-22 09:17 | Outpatient (REF) | payer MEDICARE, OTHER, SELFPAY ==
[2025-06-22 10:27] LABS: Hematocrit 49.3 % (39.0-52.0); Hemoglobin 15.8 g/dL (13.0-18.0); Mean Corp Hgb Conc. 32.0 g/dL (33.0-37.0); Mean Corpuscular Volume 84.4 fL (80.0-94.0); Nucleated Red Blood Cells % 0 % (-); Platelet Count 201 10^3/uL (130-400); Red Cell Dist. Width 14.9 % (11.5-14.5)
[2025-06-22 11:06] LABS: ALT (SGPT) 21 U/L (0-50); AST (SGOT) 18 U/L (17-59); Albumin 3.9 g/dl (3.5-5.0); Alkaline Phosphatase 114 U/L (38-126); Blood Urea Nitrogen 19 mg/dl (9-20); Calcium 9.2 mg/dl (8.4-10.2); Carbon Dioxide 30 mmol/L (22-30); Chloride 99 mmol/L (98-107); Glucose 225 mg/dl (70-99); Iron 75 ug/dl (49-181); Potassium 3.7 mmol/L (3.5-5.1); Sodium 136 mmol/L (135-145); Total Protein 6.8 g/dl (6.3-8.2); eGFR > 60.00
[2025-06-22 11:15] LABS: Total Iron Binding Capacity 347 ug/dl (261-462)
[2025-06-22 11:23] LABS: Urine Character Clear (Clear)
[2025-06-22 11:40] LABS: Urine Red Blood Cell 0-2 /HPF (0-2)
[2025-06-22 11:49] LABS: Ferritin 25.9 ng/ml (17.9-464.0)
[2025-06-22 12:20] LABS: Folate 11.9 ng/ml (2.76-20); Vitamin B12 211 pg/ml (239-931)
[2025-06-23 10:43] LABS: Glycohemoglobin (HgbA1c) 8.1 % (4.0-5.9)
== END ==
LOC: REG 09:17
PROVIDERS: ATTENDING PHYSICIAN Family Medicine
DX: R53.83 Other fatigue (principal); D64.9 Anemia, unspecified; E11.59 Type 2 diabetes mellitus with other circulatory complications; N39.0 Urinary tract infection, site not specified; I48.21 Permanent atrial fibrillation; D51.0 Vitamin B12 deficiency anemia due to intrinsic factor deficiency; R73.09 Other abnormal glucose
CPT/HCPCS: 36415; 80053; 81003; 81015; 82607; 82728; 82746; 83036; 83540; 83550; 84443; 85025; 87086

== ENCOUNTER → 2025-07-06 15:34 | Outpatient (REF) | payer MEDICARE, OTHER, SELFPAY | LOC: REG 15:34 | PROVIDERS: ATTENDING PHYSICIAN Family Medicine; REFERRING PHYSICIAN Internal Medicine Infectious Disease | DX: R41.0 Disorientation, unspecified (principal) | CPT/HCPCS: 87086 ==

== ENCOUNTER 2025-07-06 15:54 | Outpatient (RCR) | payer MEDICARE, OTHER, SELFPAY | END 2025-07-11 23:59 | disposition home or self-care (01) | LOC: RPT 15:54 | PROVIDERS: ATTENDING PHYSICIAN Family Medicine | DX: R53.1 Weakness (principal); R26.2 Difficulty in walking, not elsewhere classified; Z73.6 Limitation of activities due to disability; R26.89 Other abnormalities of gait and mobility | CPT/HCPCS: 97110; 97112; 97116; 97140; 97530 ==

== ENCOUNTER → 2025-07-14 11:36 | Outpatient (REF) | payer MEDICARE, OTHER, SELFPAY ==
[2025-07-14 13:13] LABS: Urine Character Clear (Clear)
[2025-07-14 15:30] LABS: Urine Red Blood Cell 0-2 /HPF (0-2); Urine Squamous Cell 0-2 /LPF (Few); Urine White Cell 0-2 /HPF (0-5)
== END ==
LOC: REG 11:36
PROVIDERS: ATTENDING PHYSICIAN Family Medicine
DX: N39.45 Continuous leakage (principal); R33.9 Retention of urine, unspecified
CPT/HCPCS: 81003; 81015